=== PATIENT | female | born 1940 | race Caucasian/White ===

== ENCOUNTER 2016-12-25 15:20 | Inpatient (IN) ==
--- NOTE | 2016-12-25 15:47 | Emergency Department Note ---
Disposition Clinical Impression: Confusion Pneumonia Qualifiers: Pneumonia type: due to unspecified organism Laterality: right Lung location: lower lobe of lung Qualified Code(s): J18.1 - Lobar pneumonia, unspecified organism Disposition: Admitted As Inpatient Condition: Fair Referrals: Sofya Faith MD [Primary Care Provider] - Forms: ED Satisfaction Letter Time of Disposition: 16:29 SOB HPI - General Chief Complaint: ED Shortness of Breath/Dyspnea Stated Complaint: CHARBEL, AMS Time Seen by Provider: 12/25/16 15:24 Source: patient, EMS Mode of arrival: EMS Limitations: no limitations Nursing Notes Reviewed: Yes Vital Signs Reviewed: Yes - History of Present Illness 76-year-old with a history of lung cancer comes in with increasing shortness of breath fever cough and congestion. Patient was seen at the cancer center and sent here due to possible infection. Patient is awake and alert and is able to answer questions without difficulty. Pt Subjective Complaint: shortness of breath, cough Onset (ago): Just [employer] Context: recent illness Severity: moderate Consistency/Duration: constant Improves with: nothing Worsens with: nothing Known history of: COPD, other (Lung cancer) Associated symptoms: Reports: fever, cough Treatment prior to arrival: none Cough present: Yes Cough Description: Involuntary, Productive Cough Frequency: Intermittent Sputum Amount: Small Sputum Color: White - Related Data Home Medications Medication Instructions Recorded Confirmed Atorvastatin [Lipitor] 40 mg PO HS 04/25/15 12/25/16 Diltiazem HCl [Diltiazem 24Hr Cd] 120 mg PO BID 04/25/15 12/25/16 Docusate [Colace] 100 mg PO DAILY PRN 04/25/15 12/25/16 Ergocalciferol (VITAMIN D2) 50,000 unit PO QWEEK 04/25/15 12/25/16 [Drisdol (50,000 Unit)] Metoprolol XL (24 HR) Succ [Toprol 25 mg PO DAILY 04/25/15 12/25/16 XL] Nitroglycerin [Nitrostat] 0.4 mg SL Q5M PRN 04/25/15 12/25/16 Pantoprazole Sodium [Protonix] 40 mg PO DAILY 04/25/15 12/25/16 Tiotropium [Spiriva] 18 mcg IH HS 04/25/15 12/25/16 Acetaminophen [Tylenol] 650 mg PO Q6HR PRN 08/25/16 12/25/16 Albuterol Sulfate [Ventolin Hfa] 18 gm IH BID PRN 08/25/16 12/25/16 Calcium Carbonate/Magnesium Ox 1 each PO DAILY 08/25/16 12/25/16 [Oyster Shell Calcium-Magnes Tb] Citalopram [CeleXA] 20 mg PO HS 10/24/16 12/25/16 Dexamethasone [Decadron] 4 mg PO DAILY 10/24/16 12/04/16 Lidocaine/Prilocaine CREAM [Emla] 5 gm TP PRN PRN 10/24/16 12/25/16 Magic Mouthwash [Magic Mouthwash 10 ml PO TID PRN 10/24/16 12/25/16 BLM] Omeprazole 20 mg PO DAILY 10/24/16 12/25/16 Ondansetron HCl 8 mg PO Q8H PRN 10/24/16 12/25/16 Prochlorperazine Maleate 10 mg PO Q6HR PRN 10/24/16 12/25/16 [Compazine] Previous Rx's Medication Instructions Recorded Rivaroxaban [Xarelto] 20 mg PO DAILY #30 tablet 12/04/16 LORazepam [Ativan] 0.5 mg PO Q6H PRN #60 tablet 12/11/16 Allergies Allergy/AdvReac Type Severity Reaction Status Date / Time Penicillins [PCN] Allergy Intermediate Hives Verified 12/04/16 11:28 Sulfa (Sulfonamide Allergy Intermediate Hives Verified 12/04/16 11:28 Antibiotics) All systems ED: reviewed and negative except as stated. Constitutional: Reports: fever. Denies: chills, weakness, weight change Eyes: Denies: eye pain, eye discharge, vision change ENT ED: Denies: ear pain, throat pain, dental pain, hearing loss, epistaxis, congestion, dysphagia Cardiovascular: Denies: chest pain, palpitations, dyspnea on exertion, edema, syncope Respiratory: Reports: cough. Denies: dyspnea, wheezes, hemoptysis, stridor Gastrointestinal: Denies: abdominal pain, nausea, vomiting, diarrhea, constipation, hematemesis, melena, hematochezia Genitourinary: Denies: dysuria, frequency, hematuria, discharge Musculoskeletal: Denies: back pain, neck pain, arthralgia, myalgia Integumentary: Denies: rash, abrasion, lesions Neurological: Denies: headache, weakness, numbness, paresthesias, confusion, abnormal gait, vertigo Psychiatric: Denies: anxiety, depression, suicidal thoughts, homicidal thoughts , auditory hallucinations, visual hallucinations Endocrine: Denies: fatigue Hematological/Lymphatic: Denies: easy bleeding, easy bruising Allergic/Immunologic: Denies: facial swelling, urticaria Past Medical History - Past Medical History Medical history: Reports: aortic aneurysm, atrial fibrillation, cancer, DVT, diabetes, GERD, hyperlipidemia, hypertension, myocardial infarction, other Surgical history: Reports: cholecystectomy, hysterectomy, MIHAELA/BSO, ureteral stent, other Psychiatric history: Reports: no psych history DIETITIAN ASSISTANT history: Reports: no DIETITIAN ASSISTANT history - Social History Smoking Status: Former smoker Smokeless Tobacco Status: No Alcohol use: Reports: none Drug use: Reports: none Physical Exam - General General appearance: alert, in no apparent distress - Head Head exam: atraumatic, normocephalic, normal inspection - Eye Eye exam: Present: normal appearance, PERRL, EOMI - ENT ENT exam: normal exam, normal oropharynx, mucous membranes moist - Neck Neck exam: Present: normal inspection, full ROM, trachea midline - Chest Chest inspection: Present: normal inspection, symmetric chest wall rise - Respiratory Respiratory exam: Present: wheezes, prolonged expiratory phase - Cardiovascular Cardiovascular exam: Present: regular rate, normal rhythm, normal heart sounds - Abdominal Exam Abdominal exam: Present: soft, Non-Tender. Absent: tenderness, distention, guarding, rebound, rigidity - Extremities Exam Extremities exam: Present: normal inspection, full ROM. Absent: tenderness, pedal edema - Expanded Lower Extremity Exam Neurovascular/Tendon exam: Absent: motor deficit, sensory deficit, tendon deficit Gait: observed and normal - Back Exam Back exam: Present: normal inspection, full ROM. Absent: tenderness - Neurological Exam Neurological exam: Present: alert, oriented X3 - Psychiatric Psychiatric exam: Present: normal affect, normal mood - Skin Skin exam: Present: warm, dry, intact, normal color Course - Reevaluation(s) Reevaluation #1: Patient is tachycardic at 107 however she does have a temperature 101.7. The tachycardia is certainly in part a reflection of her temperature. I did review her previous notes and she had an echo done in 2013 which showed an EF of 40%. Not going to give her the 30 mL per kilo bolus at this point in time we'll give her Tylenol and see if that doesn't impact her heart rate. Time: 16:28 - Consultations Consultation #1: Discussed with Mary Corrales nurse practitioner admit. Time: 17:37 Vital Signs Temperature 101.7 F H 12/25/16 15:21 Pulse Rate 107 12/25/16 15:21 Respiratory Rate 24 12/25/16 15:21 Blood Pressure 128/75 12/25/16 15:21 O2 Sat by Pulse Oximetry 95 12/25/16 15:21 Temperature 101.7 F H 12/25/16 15:21 Pulse Rate 105 12/25/16 16:30 Respiratory Rate 16 12/25/16 16:30 Blood Pressure 134/112 12/25/16 16:30 O2 Sat by Pulse Oximetry 97 12/25/16 16:30 Oxygen Delivery Oxygen Delivery Nasal Cannula Shortness of Breath/Dyspnea - Lab Data Lab results reviewed: Yes I reviewed the patient's lab results. Result diagrams: 12/25/16 14:00 12/25/16 14:00 Lab Results 12/25/16 12/25/16 12/25/16 Range/Units 14:00 14:00 14:00 WBC 5.1 (4.3-11.1) K/mcL RBC 2.67 L (3.82-4.97) M/mcL Hgb 8.4 L (11.5-15.4) g/dL Hct 25.9 L (35.3-44.9) % MCV 97.0 (83.0-100.0) fL MCH 31.5 (28.0-33.3) pg MCHC 32.4 (31.6-35.5) g/dL RDW 21.4 H (11.5-14.5) % Plt Count 146 (140-400) K/mcL MPV 10.2 (9.4-12.4) fL Immature Gran % 0.4 (0-4) % Seg Neutrophils % 81.0 % Lymphocytes % 10.7 % Monocytes % 7.3 % Eosinophils % 0.4 % Basophils % 0.2 % Neutrophils # 4.1 (1.6-8.9) K/mcL Lymphocytes # 0.5 L (0.6-4.6) K/mcL Monocytes # 0.4 (0.0-1.3) K/mcL Eosinophils # 0.0 (0.0-0.6) K/mcL Basophils # 0.0 (0.0-0.2) K/mcL Sodium 137 (136-145) mEq/L Potassium 3.4 L (3.5-4.5) mEq/L Chloride 104 (98-109) mEq/L Carbon Dioxide 22 (19-29) mEq/L BUN 13 (7-20) mg/dL Creatinine 1.03 (0.57-1.11) mg/dL Est GFR ( Amer) > 60 (> 60) Est GFR (Non-Af Amer) 52 L (> 60) BUN/Creatinine Ratio 13 (6-26) Glucose 117 H (70-99) mg/dL POC Glucose (58-89) Calculated Osmolality 285 (280-300) Lactic Acid 1.1 (0.5-2.2) mmol/L Calcium 9.0 (8.6-10.8) mg/dL Troponin I (0-0.03) ng/mL B-Natriuretic Peptide (0-100) pg/mL 12/25/16 12/25/16 12/25/16 Range/Units 14:00 14:00 15:56 WBC (4.3-11.1) K/mcL RBC (3.82-4.97) M/mcL Hgb (11.5-15.4) g/dL Hct (35.3-44.9) % MCV (83.0-100.0) fL MCH (28.0-33.3) pg MCHC (31.6-35.5) g/dL RDW (11.5-14.5) % Plt Count (140-400) K/mcL MPV (9.4-12.4) fL Immature Gran % (0-4) % Seg Neutrophils % % Lymphocytes % % Monocytes % % Eosinophils % % Basophils % % Neutrophils # (1.6-8.9) K/mcL Lymphocytes # (0.6-4.6) K/mcL Monocytes # (0.0-1.3) K/mcL Eosinophils # (0.0-0.6) K/mcL Basophils # (0.0-0.2) K/mcL Sodium (136-145) mEq/L Potassium (3.5-4.5) mEq/L Chloride (98-109) mEq/L Carbon Dioxide (19-29) mEq/L BUN (7-20) mg/dL Creatinine (0.57-1.11) mg/dL Est GFR ( Amer) (> 60) Est GFR (Non-Af Amer) (> 60) BUN/Creatinine Ratio (6-26) Glucose (70-99) mg/dL POC Glucose 138 H (58-89) Calculated Osmolality (280-300) Lactic Acid (0.5-2.2) mmol/L Calcium (8.6-10.8) mg/dL Troponin I 0.03 (0-0.03) ng/mL B-Natriuretic Peptide 602 H (0-100) pg/mL - Radiology Data Radiology results reviewed: Yes I reviewed the patient's radiology results. Chest X-Ray 12/25/16 15:32 IMPRESSION: Increasing nodular opacity in the right base with new mild patchy opacity in in the adjacent right lower lung and left mid lung. Findings may represent progressive disease or superimposed pneumonia. Clinical correlation and follow-up recommended. D/ / Mariel Contreras MD / Mariel Contreras MD Interpreting Provider: Mariel Contreras MD
[2016-12-25] MEDS ORDERED: Ipratropium/Albuterol Neb 3 ML IH ONE (16:06)
[2016-12-25 16:41] LABS: Basophils % 0.2 %; Eosinophils % 0.4 %; Hematocrit 25.9 % (35.3-44.9); Hemoglobin 8.4 g/dL (11.5-15.4); Immature Granulocytes % 0.4 % (0-4); Lymphocytes # 0.5 K/mcL (0.6-4.6); Lymphocytes % 10.7 %; Mean Corpuscular HGB Conc 32.4 g/dL (31.6-35.5); Mean Corpuscular Hemoglobin 31.5 pg (28.0-33.3); Mean Platelet Volume 10.2 fL (9.4-12.4); Monocytes # 0.4 K/mcL (0.0-1.3); Monocytes % 7.3 %; Neutrophils # 4.1 K/mcL (1.6-8.9); Platelet Count 146 K/mcL (140-400); Red Blood Count 2.67 M/mcL (3.82-4.97); Red Cell Distribution Width 21.4 % (11.5-14.5)
[2016-12-25 16:56] LABS: BUN/Creatinine Ratio 13 (6-26); Blood Urea Nitrogen 13 mg/dL (7-20); Carbon Dioxide 22 mEq/L (19-29); Chloride 104 mEq/L (98-109); Glucose 117 mg/dL (70-99); Osmolality,Calculated 285 (280-300); Potassium 3.4 mEq/L (3.5-4.5); Sodium 137 mEq/L (136-145); eGFR For African Americans > 60 (> 60); eGFR For Non-African Americans 52 (> 60)
[2016-12-25] MEDS ORDERED: Levofloxacin 750 MG/150 ML 750 MG/150 ML BAG IVPB ONE (17:04)
[2016-12-25 17:40] LABS: Activated Partial Thrombo Time 38.7 Seconds (26.0-36.0); INR 2.8; Prothrombin Time 30.8 Seconds (9.4-12.1)
[2016-12-25 18:14] LABS: Bilirubin,Urine Negative (Negative); Blood,Urine Large (Negative); Clarity,Urine Cloudy (Clear); Glucose,Urine (UA) Normal (Normal); Ketones,Urine Negative (Negative); Leukocyte Esterase,Urine Moderate (Negative); Nitrite,Urine Negative (Negative); PH,Urine 6.5 pH Units (5.0-8.0); Protein,Urine 100 mg/dL (Neg-Trace); Specific Gravity,Urine 1.013 (1.010-1.025); Urobilinogen,Urine Normal (Normal)
[2016-12-25 18:15] LABS: Color,Urine Red (Yellow)
[2016-12-25] MEDS ORDERED: Naloxone 0.4 MG/ML INJ IVP PRN (19:59)
[2016-12-25] MEDS ORDERED: Acetaminophen 325 MG TABLET PO PRN (19:59)
[2016-12-25] MEDS ORDERED: *HR* OxyCODONE Immed Rel 5 MG TABLET PO PRN (19:59)
[2016-12-25] MEDS ORDERED: *HR* Morphine 2 MG/ML SYRINGE IVP PRN (19:59)
[2016-12-25] MEDS ORDERED: Ondansetron 4 MG/2 ML VIAL IVP PRN (19:59)
[2016-12-25] MEDS ORDERED: 0.9 % Sodium Chloride 1,000 ML IVC SCH (20:00)
[2016-12-25] MEDS ORDERED: Nitroglycerin 0.4 MG TAB.SUBL SL PRN (20:04)
--- NOTE | 2016-12-25 20:09 | Internal Med History&Physical ---
Date of Encounter: 12/25/16 Time of Encounter: 20:07 Assessment and Plan (1) HCAP (healthcare-associated pneumonia) Current visit: Yes Status: Acute Sepsis secondary to healthcare associated pneumonia present upon admission the patient was on chemotherapy recently, having fevers and tachycardic Continue Levaquin and add cefepime, consider vancomycin if needed Continue IV fluids, blood cultures, order lactic acid Emily IV for GI prophylaxis and DVT prophylaxis with sequential compression devices. The patient will be admitted as inpatient, expected to stay more than 2 midnights. DNR CC arrest DNI. Time spent on this admission 45 minutes. High risk due to sepsis (2) Sepsis Current visit: Yes Status: Acute Qualifiers: Sepsis type: sepsis due to unspecified organism Qualified Code(s): A41.9 - Sepsis, unspecified organism (3) A-fib Current visit: Yes Status: Acute Hold Xarelto possible GI bleed next Continue metoprolol and diltiazem Qualifiers: Atrial fibrillation type: paroxysmal Qualified Code(s): I48.0 - Paroxysmal atrial fibrillation (4) COPD (chronic obstructive pulmonary disease) Current visit: Yes Status: Acute Continue DuoNeb's will consider steroids No exacerbation of the moment Qualifiers: COPD type: COPD with acute lower respiratory infection Qualified Code(s): J44.0 - Chronic obstructive pulmonary disease with acute lower respiratory infection (5) Hypokalemia Current visit: Yes Status: Acute Replete as needed (6) Diabetes Current visit: Yes Status: Acute Order insulin sliding scale Qualifiers: Diabetes mellitus type: type 2 Diabetes mellitus complication status: without complication Diabetes mellitus half-way insulin use: without manager r d use Qualified Code(s): E11.9 - Type 2 diabetes mellitus without complications (7) Anemia Current visit: No Status: Acute Acute blood loss anemia likely secondary to GI bleed upper versus lower, not active at the moment The patient is stable Monitor CBC, whole Xarelto, consult GI Consider transfusion Qualifiers: Anemia type: unspecified type Qualified Code(s): D64.9 - Anemia, unspecified (8) Bilateral edema of lower extremity Current visit: No Status: Acute Order an echocardiogram to evaluate cardiac function (9) Lung cancer Current visit: No Status: Acute Qualifiers: Laterality: unspecified laterality Lung location: unspecified part of lung Qualified Code(s): C34.90 - Malignant neoplasm of unspecified part of unspecified bronchus or lung Internal Medicine - H&P: HPI Chief complaint: Fever Admitted From: Emergency Dept History of present illness: Ms. Preston is a 76 year old female with a past medical history of lung cancer status post chemotherapy and radiation, COPD not oxygen dependent, CAD, atrial fibrillation and DVT currently on Xarelto, diabetes type 2 not insulin- dependent. The patient came to the emergency room after visiting her cancer physician, apparently she was having fevers and a productive cough for the past few days. She went to see her cancer physician as her feet have been bothering her, they have been very swollen. Over there, her heart rate was noticed to be elevated, done in the emergency room her heart rate was 115, she has been having known quantified fevers on and off hemoglobin was 8.4, Hemoccult was positive. Her INR is 2.8 and potassium 3.4. A chest x-ray showed a right lower lobe opacity and a new left middle opacity. The patient has been bringing up yellowish phlegm, denies any sick contacts but received hemotherapy about 2 months ago. She has been more fatigued complain of chills. Past Med Surg Social Fam HX - Past Medical History Medical history: aortic aneurysm (Status post repair/AAA 11.8 cm infrarenal), atrial fibrillation (On anticoagulation), cancer (Lung cancer status post chemotherapy and radiation), COPD (Not oxygen dependent), coronary artery disease, DVT, diabetes (Not insulin-dependent), GERD, hyperlipidemia, hypertension, myocardial infarction, other (Depression, anxiety, vitamin D deficiency, DVT, CAD) Psychiatric history: no psych history - Past Surgical History Surgical History: cholecystectomy, hysterectomy, MIHAELA/BSO, ureteral stent, other (Left upper chest Port-A-Cath, tracheostomy after AAA repair/stent) - Social History Smoking Status: Former smoker Packs per day: Smoked 2 packs per day for 45 years, quit 5 years ago Smokeless Tobacco Status: No Alcohol use: none Drug use: none - Additional Family History Additional family history: Brother with CAD, father with bone cancer, son with diabetes, mother with CAD Internal Medicine - H&P: Meds Atorvastatin [Lipitor] 40 mg PO HS 04/25/15 [History] Diltiazem HCl [Diltiazem 24Hr Cd] 120 mg PO BID 04/25/15 [History] Docusate [Colace] 100 mg PO DAILY PRN 04/25/15 [History] Ergocalciferol (VITAMIN D2) [Drisdol (50,000 Unit)] 50,000 unit PO QWEEK [History] Metoprolol XL (24 HR) Succ [Toprol XL] 25 mg PO DAILY 04/25/15 [History] Nitroglycerin [Nitrostat] 0.4 mg SL Q5M PRN 04/25/15 [History] Pantoprazole Sodium [Protonix] 40 mg PO DAILY 04/25/15 [History] Tiotropium [Spiriva] 18 mcg IH HS 04/25/15 [History] Acetaminophen [Tylenol] 650 mg PO Q6HR PRN 08/25/16 [History] Albuterol Sulfate [Ventolin Hfa] 18 gm IH BID PRN 08/25/16 [History] Calcium Carbonate/Magnesium Ox [Oyster Shell Calcium-Magnes Tb] 1 each PO DAILY 08/25/16 [History] Citalopram [CeleXA] 20 mg PO HS 10/24/16 [History] Dexamethasone [Decadron] 4 mg PO DAILY 10/24/16 [History] Lidocaine/Prilocaine CREAM [Emla] 5 gm TP PRN PRN 10/24/16 [History] Magic Mouthwash [Magic Mouthwash BLM] 10 ml PO TID PRN 10/24/16 [History] Omeprazole 20 mg PO DAILY 10/24/16 [History] Ondansetron HCl 8 mg PO Q8H PRN 10/24/16 [History] Prochlorperazine Maleate [Compazine] 10 mg PO Q6HR PRN 10/24/16 [History] Rivaroxaban [Xarelto] 20 mg PO DAILY #30 tablet 12/04/16 [Rx] LORazepam [Ativan] 0.5 mg PO Q6H PRN #60 tablet 12/11/16 [Rx] Allergies Penicillins [PCN] Allergy (Intermediate, Verified 12/04/16 11:28) Hives Sulfa (Sulfonamide Antibiotics) Allergy (Intermediate, Verified 12/04/16 11:28) Hives All Systems PM: A 10-system review of systems was performed and is negative for pertinent findings except as documented above in the HPI. Review of systems: Denies any chest pain, no dysuria, other systems out of the 10 reviewed were negative - Constitutional Vitals: Temp Pulse Resp BP Pulse Ox 98.0 F 98 16 122/76 97 12/25/16 19:03 12/25/16 19:03 12/25/16 19:03 12/25/16 19:03 12/25/16 19:03 General appearance: Present: A&O X 3 - Head Head exam: Present: atraumatic, normocephalic - Eye Eye exam: Present: PERRL, conjuntiva pink, sclera anicteric Pupils: Present: PERRL - Neck Neck exam general surgery: Present: supple, trachea midline. Absent: lymphadenopathy - Respiratory Respiratory exam: Present: CTAB, rales (Bibasilar fine crackles). Absent: accessory muscle use, rhonchi, wheezes Additional comments: Left upper chest Port-A-Cath no signs of infection - Cardiovascular Cardiovascular exam: Present: RRR, +S1, +S2. Absent: diastolic murmur, gallop, rubs, systolic murmur - GI/Abdominal GI/Abdominal exam: Present: distended (Morbidly obese), normal bowel sounds, soft, no peritoneal signs. Absent: tenderness - Extremities Exam Extremities exam: Present: pedal edema (+2 pitting edema both lower extremities) , warm, radial pulses palpable and symetrical. Absent: calf tenderness, cyanotic - Neurological Exam Neurological exam: Present: CN II-XII intact, oriented X3, no focal deficits. Absent: pronater drift, facial droop, speech deficit - Skin Skin exam: Present: dry, intact Internal Med - H&P Results - Labs CBC & Chem 7: 12/25/16 14:00 12/25/16 14:00
[2016-12-25] MEDS ORDERED: D5% in Water 1,000 ML IVC PRN (20:15)
[2016-12-25] MEDS ORDERED: Dextrose Gel 15 GM PO PRN ×2 (20:15)
[2016-12-25] MEDS ORDERED: *HR* Dextrose 50 % in Water (Syg) 50 ML SYRINGE IVP PRN (20:15)
[2016-12-25] MEDS: Pantoprazole 40 MG VIAL IVP SCH (21:17)
[2016-12-25] MEDS: Cefepime HCl 1,000 MG in D5% in Water (Mini-Bag+) 100 ML IVPB SCH (21:18)
[2016-12-25] MEDS: Insulin LISPRO 300 UNITS/3 ML VIAL SQ SCH (21:32)
[2016-12-25] MEDS: Diltiazem CD (24hr) 120 MG CAPSULE PO SCH (21:35)
[2016-12-25] MEDS: Ipratropium/Albuterol Neb 3 ML IH SCH (23:03)
[2016-12-26] MEDS: Insulin LISPRO 300 UNITS/3 ML VIAL SQ SCH ×5 (01:16→22:29)
[2016-12-26] MEDS: Ipratropium/Albuterol Neb 3 ML IH SCH ×4 (03:53→22:51)
[2016-12-26 05:25] LABS: Eosinophils # 0.1 K/mcL (0.0-0.6); Eosinophils % 1.7 %; Hematocrit 23.6 % (35.3-44.9); Hemoglobin 7.6 g/dL (11.5-15.4); Immature Granulocytes % 0.8 % (0-4); Lymphocytes # 0.4 K/mcL (0.6-4.6); Mean Corpuscular HGB Conc 32.2 g/dL (31.6-35.5); Mean Corpuscular Hemoglobin 31.1 pg (28.0-33.3); Mean Corpuscular Volume 96.7 fL (83.0-100.0); Mean Platelet Volume 9.8 fL (9.4-12.4); Monocytes # 0.4 K/mcL (0.0-1.3); Neutrophils # 2.7 K/mcL (1.6-8.9); Platelet Count 127 K/mcL (140-400); Red Blood Count 2.44 M/mcL (3.82-4.97); Red Cell Distribution Width 21.2 % (11.5-14.5); Segmented Neutrophils % 75.5 %
[2016-12-26 05:30] LABS: BUN/Creatinine Ratio 13 (6-26); Blood Urea Nitrogen 13 mg/dL (7-20); Calcium 8.6 mg/dL (8.6-10.8); Carbon Dioxide 23 mEq/L (19-29); Chloride 109 mEq/L (98-109); Glucose 111 mg/dL (70-99); Osmolality,Calculated 289 (280-300); Potassium 3.5 mEq/L (3.5-4.5); Sodium 139 mEq/L (136-145); eGFR For African Americans > 60 (> 60); eGFR For Non-African Americans 55 (> 60)
[2016-12-26 05:34] LABS: INR 2.2; Prothrombin Time 24.1 Seconds (9.4-12.1)
[2016-12-26] MEDS: Cefepime HCl 1,000 MG in D5% in Water (Mini-Bag+) 100 ML IVPB SCH ×2 (06:45→17:25)
[2016-12-26] MEDS: Pantoprazole 40 MG VIAL IVP SCH ×2 (10:00→22:29)
[2016-12-26] MEDS: Diltiazem CD (24hr) 120 MG CAPSULE PO SCH (10:00)
[2016-12-26] MEDS: Metoprolol XL (24 HR) Succ 25 MG TAB.ER.24H PO SCH (10:00)
[2016-12-26] MEDS: Levofloxacin 750 MG/150 ML 750 MG/150 ML BAG IVPB SCH (10:01)
--- NOTE | 2016-12-26 10:41 | Electrocardiograph Report ---
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
--- NOTE | 2016-12-26 10:43 | Internal Med Progress Note ---
Date of Encounter: 12/26/16 Time of Encounter: 10:41 - Assessment and plan (1) Anemia Current Visit: Yes Status: Acute Assessment and plan: Patient's baseline hemoglobin is noted to be around 11-12, 2 months back and is currently 7.6. Stool occult blood is noted to be positive although patient reports no history of melena or hematochezia or hematemesis. Will check iron profile, vitamin B12 and folic acid levels. GI consult for possible colonoscopy. Qualifiers: Anemia type: unspecified type Qualified Code(s): D64.9 - Anemia, unspecified (2) CHF (congestive heart failure) Current Visit: Yes Status: Acute Assessment and plan: Patient's fatigue, dyspnea, pedal edema could be explained by both acute CHF and anemia. Echocardiogram shows decreased ejection fraction at 40%, mild to moderate mitral regurgitation, mild aortic regurgitation. Discussed with cardiology, review of patient's previous medical records show known history of systolic CHF and previous left heart catheterization with recommendations for medical management. Will start IV Lasix and fluid restriction, continue beta yadira. Monitor urine output closely. Telemetry monitoring. Supplemental oxygen as needed and supportive care. Physical and occupational therapy evaluation. Qualifiers: Congestive heart failure type: systolic Congestive heart failure chronicity : acute on chronic Qualified Code(s): I50.23 - Acute on chronic systolic ( congestive) heart failure (3) Sepsis Current Visit: Yes Status: Acute Assessment and plan: Likely secondary to pneumonia, present on admission. Patient presents with fever, slightly elevated troponin, mild lactic acidosis, probably related to healthcare associated pneumonia. Continue IV antibiotics and trend serum lactic acid level. Further Plan as below. Qualifiers: Sepsis type: sepsis due to unspecified organism Qualified Code(s): A41.9 - Sepsis, unspecified organism (4) HCAP (healthcare-associated pneumonia) Current Visit: Yes Status: Acute Assessment and plan: Patient presented with fever and shortness of breath and generalized weakness. Chest x-ray shows bilateral infiltrates, right-sided changes may be related to lung cancer and recent radiation treatments but she also has left-sided infiltrates. She received IV hydration and serum lactic acid level is normalizing at this time. Continue broad-spectrum IV antibiotics due to underlying immunosuppression and follow-up blood cultures. Supplemental oxygen and supportive care. (5) CKD (chronic kidney disease) Current Visit: Yes Status: Chronic Assessment and plan: Serum creatinine noted to be at baseline. Continue to monitor closely. Antibiotics to be dosed according to current creatinine clearance. Qualifiers: Chronic kidney disease stage: stage 3 (moderate) Qualified Code(s): N18.3 - Chronic kidney disease, stage 3 (moderate) (6) Lung cancer Current Visit: Yes Status: Chronic Assessment and plan: Patient follows with oncology as outpatient for right lung adenocarcinoma, currently receiving chemoradiation. Qualifiers: Laterality: right Lung location: lower lobe of lung Qualified Code(s): C34.31 - Malignant neoplasm of lower lobe, right bronchus or lung (7) Bilateral edema of lower extremity Current Visit: Yes Status: Acute Assessment and plan: Could be related to anemia and CHF. Anemia workup as above and continue IV Lasix for now. (8) A-fib Current Visit: Yes Status: Chronic Assessment and plan: Continue beta yadira and calcium channel yadira. Currently rate controlled. Noted to be on Xarelto for long-term anticoagulation, which is currently held due to possible GI bleed and anemia. Telemetry monitoring. Qualifiers: Atrial fibrillation type: paroxysmal Qualified Code(s): I48.0 - Paroxysmal atrial fibrillation (9) COPD (chronic obstructive pulmonary disease) Current Visit: Yes Status: Chronic Qualifiers: COPD type: unspecified COPD Qualified Code(s): J44.9 - Chronic obstructive pulmonary disease, unspecified (10) Diabetes Current Visit: Yes Status: Chronic Assessment and plan: Accu-Chek blood glucose monitoring with sliding scale insulin. Diabetic diet. Check hemoglobin A1c. Qualifiers: Diabetes mellitus type: type 2 Diabetes mellitus complication status: with kidney complications Diabetes mellitus complication detail: with chronic kidney disease Diabetes mellitus [facility] insulin use: without [facility] use Chronic kidney disease stage: stage 3 (moderate) Qualified Code(s): E11.22 - Type 2 diabetes mellitus with diabetic chronic kidney disease; N18.3 - Chronic kidney disease, stage 3 (moderate) - Subjective Interval history: Feels better; slightly improved dyspnea but still has exertional dyspnea, leg swelling and generalized weakness; no nausea, vomiting, melena/hematochezia reported; - Constitutional Vitals: Temp Pulse Resp BP Pulse Ox 98.6 F 94 18 109/67 95 12/26/16 06:21 12/26/16 06:21 12/26/16 06:21 12/26/16 06:21 12/26/16 06:21 General appearance: Present: A&O X 3, answers questions appropriately - Respiratory Respiratory exam: Present: rales (B/L basal crackles+). Absent: accessory muscle use, rhonchi, wheezes - Cardiovascular Cardiovascular exam: Present: irregular rhythm, +S1, +S2. Absent: diastolic murmur, gallop, rubs, systolic murmur - GI/Abdominal GI/Abdominal exam: Present: normal bowel sounds, soft, no peritoneal signs. Absent: distended, tenderness - Extremities Exam Extremities exam: Present: full ROM, pedal edema (2+ pitting edema B/L legs), warm, radial pulses palpable and symetrical. Absent: calf tenderness, cyanotic - Neurological Exam Neurological exam: Present: CN II-XII intact, oriented X3, no focal deficits. Absent: pronater drift, facial droop, speech deficit - Skin Skin exam: Present: dry, intact, pallor Internal Medicine: Result - Labs CBC & Chem 7: 12/26/16 05:12 12/26/16 05:12 Labs: Short CBC 12/26/16 Range/Units 05:12 WBC 3.6 L (4.3-11.1) K/mcL Hgb 7.6 L (11.5-15.4) g/dL Hct 23.6 L (35.3-44.9) % Plt Count 127 L (140-400) K/mcL Neutrophils # 2.7 (1.6-8.9) K/mcL BMP 12/26/16 05:12 Sodium 139 Potassium 3.5 Chloride 109 Carbon Dioxide 23 BUN 13 Creatinine 0.99 Glucose 111 H Calcium 8.6 - ABG Interpretation ABG results: PT/INR, D-dimer PT 24.1 Seconds (9.4-12.1) H 12/26/16 05:12 Consult Discharge Plan - Plan Referrals: Sofya Faith MD [Primary Care Provider] -
--- NOTE | 2016-12-26 11:45 | Gastroenterology Consult Note ---
<Vishal Clement - Last Filed: 12/26/16 11:42> Date of Encounter: 12/26/16 Time of Encounter: 10:45 - Assessment and plan (1) Anemia Current Visit: No Status: Acute Assessment and plan: Continue to monitor CBC and transfuse PRBC as needed. Plan for EGD and colonoscopy likely on Saturday, but will need INR corrected prior to scopes. Clear liquid diet tomorrow, no red or purple. NPO at midnight night. If unable tolerate NuLytely please use MiraLAX prep. If not clear by 6 AM Saturday , give 2 tap water enemas. Qualifiers: Anemia type: unspecified type Qualified Code(s): D64.9 - Anemia, unspecified (2) Supratherapeutic INR Current Visit: Yes Status: Acute Assessment and plan: INR 2.8 on admission, today INR 2.2. Will need INR <1.5 for EGD and colonoscopy. (3) Lung cancer Current Visit: No Status: Acute Qualifiers: Laterality: unspecified laterality Lung location: unspecified part of lung Qualified Code(s): C34.90 - Malignant neoplasm of unspecified part of unspecified bronchus or lung (4) COPD (chronic obstructive pulmonary disease) Current Visit: Yes Status: Acute Assessment and plan: Management per primary team. Qualifiers: COPD type: COPD with acute lower respiratory infection Qualified Code(s): J44.0 - Chronic obstructive pulmonary disease with acute lower respiratory infection (5) CKD (chronic kidney disease) Current Visit: Yes Status: Acute Assessment and plan: Management per primary team. Qualifiers: Qualified Code(s): N18.9 - Chronic kidney disease, unspecified (6) CHF (congestive heart failure) Current Visit: Yes Status: Acute Assessment and plan: Management per primary team Qualifiers: Congestive heart failure type: unspecified congestive heart failure type Congestive heart failure chronicity: unspecified congestive heart failure chronicity Qualified Code(s): I50.9 - Heart failure, unspecified - Time Spent With Patient Total time spent is greater than 50% in coordination of care (as documented) at patient's floor/unit and/or counseling patient: GI History of Present Illness - Data of Consult Patient: new to practice Consult date: 12/26/16 Requesting Physician: Vanessa Martinez MD - Consult Narrative Reason for consult: Anemia History of present illness: Ms. Preston is a 76 year old female with PMHx of aortic aneurysm (s/p repair), A fib (on Xarelto), lung cancer (s/p chemotherapy and radiation), COPD, CAD, DVT, DM, GERD, HLD, HTN, [place] who presented to the ED from her oncologist with tachycardia, fevers, and productive cough for the past few days. In the ED Hgb was 8.4 and INR 2.8. CXR c/w pnemonia. We have been consulted to evaluate her anemia. In the ED FOBT was positive. Hgb this AM 7.6. Procedures: Colonoscopy 07/30/2013 Dr. Álvarez: Tubular adenoma NSAIDs: None Anticoagulation: Xarelto Past Med Surg Social Fam HX - Past Medical History Medical history: aortic aneurysm (Status post repair/AAA 11.8 cm infrarenal), atrial fibrillation (On anticoagulation), cancer (Lung cancer status post chemotherapy and radiation), COPD (Not oxygen dependent), coronary artery disease, DVT, diabetes (Not insulin-dependent), GERD, hyperlipidemia, hypertension, myocardial infarction, other (Depression, anxiety, vitamin D deficiency, DVT, CAD) Psychiatric history: no psych history - Past Surgical History Surgical History: cholecystectomy, hysterectomy, MIHAELA/BSO, ureteral stent, other (Left upper chest Port-A-Cath, tracheostomy after AAA repair/stent) - Social History Smoking Status: Former smoker Packs per day: Smoked 2 packs per day for 45 years, quit 5 years ago Smokeless Tobacco Status: No Alcohol use: none Drug use: none - Gastrointestinal Gastrointestinal: Present: as per HPI - Constitutional Constitutional: as per HPI - EENT Eyes: as per HPI Ears: Present: as per HPI Nose, mouth and throat: Present: as per HPI - Cardiovascular Cardiovascular ROS: Present: as per HPI - Respiratory Respiratory IM: Present: as per HPI - Genitourinary Genitourinary: Absent: change in color, Urinary frequency - Neurological ROS Neurological GI: Present: as per HPI - Hematologic/Lymphatic Hematologic/Lymphatic pediatric: Present: as per HPI - Musculoskeletal Musculoskeletal ROS GI: Present: as per HPI - Integumentary Integumentary GI: Present: as per HPI - Psychiatric ROS Psychiatric GI: Present: as per HPI - Endocrine Endocrine IM: Present: as per HPI - Constitutional Vitals: Temp Pulse Resp BP Pulse Ox 98.4 F 100 18 107/59 94 12/26/16 11:19 12/26/16 11:19 12/26/16 11:19 12/26/16 11:19 12/26/16 11:19 General appearance: Present: cooperative, A&O X 3, no acute distress, answers questions appropriately - Head Head exam: Present: atraumatic, normocephalic - Eye Eye exam: Present: normal appearance, sclera anicteric - ENT ENT exam: Present: mucous membranes dry - Neck Neck exam general surgery: Present: normal inspection, trachea midline - Respiratory Respiratory exam: Present: rales, wheezes. Absent: CTAB - Cardiovascular Cardiovascular exam: Present: RRR, +S1, +S2 - GI/Abdominal GI/Abdominal exam: Present: normal bowel sounds, soft, no peritoneal signs. Absent: distended, firm, guarding, tenderness - Rectal Rectal exam: Present: deferred - Extremities Exam Extremities exam: Present: warm - Neurological Exam Neurological exam: Present: no focal deficits - Psychiatric Psychiatric exam: Present: normal affect, normal mood - Skin Skin exam: Present: dry, intact, normal color, warm Results - Labs CBC & Chem 7: 12/26/16 05:12 12/26/16 05:12 Labs: Last Result Calcium 8.6 mg/dL (8.6-10.8) 12/26/16 05:12 Troponin I 0.03 ng/mL (0-0.03) 12/25/16 14:00 Stool Occult Blood Positive (Negative) A 12/25/16 17:20 Entire Visit Hgb 7.6 g/dL (11.5-15.4) L 12/26/16 05:12 Hct 23.6 % (35.3-44.9) L 12/26/16 05:12 PT 24.1 Seconds (9.4-12.1) H 12/26/16 05:12 - ABG ABG results: PT/INR, D-dimer PT 24.1 Seconds (9.4-12.1) H 12/26/16 05:12 Consult Discharge Plan - Plan Referrals: Sofya Faith MD [Primary Care Provider] - <Theron Espino - Last Filed: 12/26/16 18:44> Date of Encounter: 12/26/16 Time of Encounter: 17:00 - Time Spent With Patient Total time spent is greater than 50% in coordination of care (as documented) at patient's floor/unit and/or counseling patient: GI History of Present Illness - Data of Consult Requesting Physician: Vanessa Martinez MD - Consult Narrative History of present illness: Ms. Preston is a 76 year old female - Constitutional Vitals: Temp Pulse Resp BP Pulse Ox 98.4 F 85 18 111/66 93 12/26/16 15:53 12/26/16 15:53 12/26/16 16:03 12/26/16 15:53 12/26/16 16:04 Results - Labs CBC & Chem 7: 12/26/16 05:12 12/26/16 05:12 Labs: Last Result Calcium 8.6 mg/dL (8.6-10.8) 12/26/16 05:12 Troponin I 0.03 ng/mL (0-0.03) 12/25/16 14:00 Stool Occult Blood Positive (Negative) A 12/25/16 17:20 Entire Visit Hgb 7.6 g/dL (11.5-15.4) L 12/26/16 05:12 Hct 23.6 % (35.3-44.9) L 12/26/16 05:12 PT 24.1 Seconds (9.4-12.1) H 12/26/16 05:12 - ABG ABG results: PT/INR, D-dimer PT 24.1 Seconds (9.4-12.1) H 12/26/16 05:12
[2016-12-26] MEDS ORDERED: *HR* OxyCODONE/APAP 5/325 TABLET PO PRN (11:55)
[2016-12-26] MEDS: Vancomycin 1,500 MG in D5% in Water 250 ML IVPB SCH (12:09)
[2016-12-26] MEDS: Furosemide 20 MG/2 ML VIAL IVP SCH (17:10)
[2016-12-26] MEDS: Acetaminophen 325 MG TABLET PO PRN (18:51)
[2016-12-26] MEDS ORDERED: Furosemide 20 MG/2 ML VIAL IVP SCH (21:00)
[2016-12-27] MEDS: Insulin LISPRO 300 UNITS/3 ML VIAL SQ SCH ×5 (00:33→19:52)
[2016-12-27] MEDS: Ipratropium/Albuterol Neb 3 ML IH SCH ×4 (03:45→22:34)
[2016-12-27 04:16] LABS: Basophils % 0.3 %; Eosinophils # 0.1 K/mcL (0.0-0.6); Eosinophils % 2.5 %; Hematocrit 24.5 % (35.3-44.9); Hemoglobin 7.6 g/dL (11.5-15.4); Immature Granulocytes % 0.6 % (0-4); Lymphocytes # 0.4 K/mcL (0.6-4.6); Lymphocytes % 10.6 %; Mean Corpuscular Hemoglobin 30.5 pg (28.0-33.3); Mean Corpuscular Volume 98.4 fL (83.0-100.0); Mean Platelet Volume 10.2 fL (9.4-12.4); Monocytes # 0.3 K/mcL (0.0-1.3); Monocytes % 9.5 %; Neutrophils # 2.7 K/mcL (1.6-8.9); Platelet Count 159 K/mcL (140-400); Red Blood Count 2.49 M/mcL (3.82-4.97); Red Cell Distribution Width 21.2 % (11.5-14.5); Segmented Neutrophils % 76.5 %
[2016-12-27 04:22] LABS: INR 1.6; Prothrombin Time 17.6 Seconds (9.4-12.1)
[2016-12-27 04:42] LABS: Potassium 3.5 mEq/L (3.5-4.5)
[2016-12-27 04:44] LABS: % Iron Saturation 16 % (15-50); Iron 29 mcg/dL (50-170); Transferrin 132 mg/dL (180-382)
[2016-12-27 05:05] LABS: Ferritin 515 ng/ml (5-204)
[2016-12-27 05:17] LABS: Folate 10.2 ng/mL (7.0-31.4)
[2016-12-27] MEDS: Cefepime HCl 1,000 MG in D5% in Water (Mini-Bag+) 100 ML IVPB SCH (05:49)
[2016-12-27] MEDS: Pantoprazole 40 MG VIAL IVP SCH ×2 (08:01→19:52)
[2016-12-27] MEDS: Levofloxacin 750 MG/150 ML 750 MG/150 ML BAG IVPB SCH (08:01)
[2016-12-27] MEDS: Acetaminophen 325 MG TABLET PO PRN (08:01)
[2016-12-27] MEDS: Diltiazem CD (24hr) 120 MG CAPSULE PO SCH (08:02)
[2016-12-27] MEDS: Metoprolol XL (24 HR) Succ 25 MG TAB.ER.24H PO SCH (08:02)
[2016-12-27] MEDS: Furosemide 20 MG/2 ML VIAL IVP SCH ×2 (08:02→18:33)
[2016-12-27] MEDS: Vancomycin 1,500 MG in D5% in Water 250 ML IVPB SCH (11:38)
[2016-12-27] MEDS: *HR* LORazepam 0.5 MG TABLET PO PRN ×2 (11:53→21:02)
[2016-12-27] MEDS ORDERED: Aminoglycoside Consult 1 EACH MC ONE (12:00)
--- NOTE | 2016-12-27 12:36 | Internal Med Progress Note ---
Date of Encounter: 12/27/16 Time of Encounter: 12:34 - Assessment and plan (1) HCAP (healthcare-associated pneumonia) Current Visit: Yes Status: Acute Assessment and plan: Patient presented with fever and shortness of breath and generalized weakness. Chest x-ray shows bilateral infiltrates, right-sided changes may be related to lung cancer and recent radiation treatments but she also has left-sided infiltrates. Clinically improving. Preliminary blood cultures remain negative. We will de-escalate antibiotics to IV Levaquin. Supplemental oxygen and supportive care. (2) Sepsis Current Visit: Yes Status: Acute Assessment and plan: Likely secondary to pneumonia, present on admission. Patient presents with fever, slightly elevated troponin, mild lactic acidosis, probably related to healthcare associated pneumonia. Continue IV antibiotics, remaining plan as above. Qualifiers: Sepsis type: sepsis due to unspecified organism Qualified Code(s): A41.9 - Sepsis, unspecified organism (3) Bilateral edema of lower extremity Current Visit: Yes Status: Acute Assessment and plan: Could be related to anemia and CHF. Anemia workup as below and continue IV Lasix for now. (4) Anemia Current Visit: Yes Status: Acute Assessment and plan: Patient's baseline hemoglobin is noted to be around 11-12, 2 months back and is currently 7.6. Stool occult blood is noted to be positive although patient reports no history of melena or hematochezia or hematemesis. Iron profile shows minimally decreased iron along with elevated ferritin levels. Vitamin B12 and folate levels noted to be within normal limits. Hemoglobin noted to be 7.6 today. We will transfuse 1 unit PRBC. GI consult noted, plan for possible colonoscopy tomorrow. Qualifiers: Anemia type: unspecified type Qualified Code(s): D64.9 - Anemia, unspecified (5) CHF (congestive heart failure) Current Visit: Yes Status: Acute Assessment and plan: Patient's symptoms noted to be improving. Echocardiogram shows decreased ejection fraction at 40%, mild to moderate mitral regurgitation, mild aortic regurgitation. Continue IV Lasix and fluid restriction, continue beta yadira. Monitor urine output closely. Strict fluid restriction is not practical as patient is on clear liquid diet in anticipation of colonoscopy. Telemetry monitoring. Supplemental oxygen as needed and supportive care. Physical and occupational therapy evaluation noted, recommend home health services. Qualifiers: Congestive heart failure type: systolic Congestive heart failure chronicity : acute on chronic Qualified Code(s): I50.23 - Acute on chronic systolic ( congestive) heart failure (6) CKD (chronic kidney disease) Current Visit: Yes Status: Chronic Assessment and plan: Serum creatinine noted to be slightly worse, likely due to the use of diuretics. Continue to monitor closely. Antibiotics to be dosed according to current creatinine clearance. Qualifiers: Chronic kidney disease stage: stage 3 (moderate) Qualified Code(s): N18.3 - Chronic kidney disease, stage 3 (moderate) (7) Lung cancer Current Visit: Yes Status: Chronic Assessment and plan: Patient follows with oncology as outpatient for right lung adenocarcinoma, currently receiving chemoradiation. Qualifiers: Laterality: right Lung location: lower lobe of lung Qualified Code(s): C34.31 - Malignant neoplasm of lower lobe, right bronchus or lung (8) A-fib Current Visit: Yes Status: Chronic Assessment and plan: Continue beta yadira and calcium channel yadira. Currently rate controlled. Noted to be on Xarelto for long-term anticoagulation, which is currently held due to possible GI bleed and anemia. INR is improving, 1.6 today. Telemetry monitoring. Qualifiers: Atrial fibrillation type: paroxysmal Qualified Code(s): I48.0 - Paroxysmal atrial fibrillation (9) COPD (chronic obstructive pulmonary disease) Current Visit: Yes Status: Chronic Qualifiers: COPD type: unspecified COPD Qualified Code(s): J44.9 - Chronic obstructive pulmonary disease, unspecified (10) Diabetes Current Visit: Yes Status: Chronic Assessment and plan: Accu-Chek blood glucose monitoring with sliding scale insulin. Diabetic diet. Check hemoglobin A1c. Qualifiers: Diabetes mellitus type: type 2 Diabetes mellitus complication status: with kidney complications Diabetes mellitus complication detail: with chronic kidney disease Diabetes mellitus intermediate insulin use: without termite inspector use Chronic kidney disease stage: stage 3 (moderate) Qualified Code(s): E11.22 - Type 2 diabetes mellitus with diabetic chronic kidney disease; N18.3 - Chronic kidney disease, stage 3 (moderate) - Subjective Interval history: Feels about the same per patient; no chest pain, does have some exertional dyspnea; improving leg swelling; awaiting colonoscopy in am; - Constitutional Vitals: Temp Pulse Resp BP Pulse Ox 98.1 F 94 16 100/65 94 12/27/16 11:18 12/27/16 11:18 12/27/16 11:18 12/27/16 11:18 12/27/16 11:18 General appearance: Present: A&O X 3, answers questions appropriately - Respiratory Respiratory exam: Present: decreased breath sounds (at right base), CTAB, rales (at right base). Absent: accessory muscle use, rhonchi, wheezes - Cardiovascular Cardiovascular exam: Present: irregular rhythm, +S1, +S2. Absent: diastolic murmur, gallop, rubs, systolic murmur - GI/Abdominal GI/Abdominal exam: Present: normal bowel sounds, soft, no peritoneal signs. Absent: distended, tenderness - Extremities Exam Extremities exam: Present: full ROM, pedal edema (2+ pedal edema B/L), warm, radial pulses palpable and symetrical. Absent: calf tenderness, cyanotic - Neurological Exam Neurological exam: Present: CN II-XII intact, oriented X3, no focal deficits. Absent: pronater drift, facial droop, speech deficit - Skin Skin exam: Present: dry, intact, pallor Internal Medicine: Result - Labs CBC & Chem 7: 12/27/16 03:36 12/27/16 03:36 Labs: Short CBC 12/27/16 Range/Units 03:36 WBC 3.6 L (4.3-11.1) K/mcL Hgb 7.6 L (11.5-15.4) g/dL Hct 24.5 L (35.3-44.9) % Plt Count 159 (140-400) K/mcL Neutrophils # 2.7 (1.6-8.9) K/mcL BMP 12/27/16 03:36 Sodium 140 Potassium 3.5 Chloride 107 Carbon Dioxide 23 BUN 12 Creatinine 1.17 H Glucose 106 H Calcium 9.0 - ABG Interpretation ABG results: PT/INR, D-dimer PT 17.6 Seconds (9.4-12.1) H 12/27/16 03:36 Consult Discharge Plan - Plan Referrals: Sofya Faith MD [Primary Care Provider] - 01/02/17 4:00 pm (please follow up as schedule...)
[2016-12-27] MEDS ORDERED: SODIUM CHLORIDE/NAHCO3/KCL/PEG 4,000 ML SOLN.RECON PO ONE (17:00)
[2016-12-27] MEDS ORDERED: 0.9 % Sodium Chloride 250 ML ONE (17:07)
[2016-12-28 04:14] LABS: Basophils % 0.5 %; Eosinophils # 0.1 K/mcL (0.0-0.6); Eosinophils % 1.8 %; Hematocrit 25.9 % (35.3-44.9); Hemoglobin 8.4 g/dL (11.5-15.4); Lymphocytes # 0.3 K/mcL (0.6-4.6); Lymphocytes % 7.5 %; Mean Corpuscular HGB Conc 32.4 g/dL (31.6-35.5); Mean Corpuscular Hemoglobin 30.5 pg (28.0-33.3); Mean Corpuscular Volume 94.2 fL (83.0-100.0); Monocytes # 0.4 K/mcL (0.0-1.3); Monocytes % 10.6 %; Platelet Count 178 K/mcL (140-400); Red Blood Count 2.75 M/mcL (3.82-4.97); Red Cell Distribution Width 22.6 % (11.5-14.5); Segmented Neutrophils % 78.6 %
[2016-12-28 04:28] LABS: INR 1.6; Prothrombin Time 17.5 Seconds (9.4-12.1)
[2016-12-28] MEDS: Ipratropium/Albuterol Neb 3 ML IH SCH ×4 (04:31→22:03)
[2016-12-28 04:32] LABS: Hemoglobin A1C 5.9 %
[2016-12-28 04:33] LABS: BUN/Creatinine Ratio 10 (6-26); Blood Urea Nitrogen 10 mg/dL (7-20); Carbon Dioxide 25 mEq/L (19-29); Chloride 105 mEq/L (98-109); Glucose 108 mg/dL (70-99); Sodium 138 mEq/L (136-145); eGFR For African Americans > 60 (> 60); eGFR For Non-African Americans 52 (> 60)
[2016-12-28 04:34] LABS: Calcium 8.6 mg/dL (8.6-10.8); Osmolality,Calculated 286 (280-300)
[2016-12-28] MEDS: Insulin LISPRO 300 UNITS/3 ML VIAL SQ SCH ×4 (05:43→17:12)
[2016-12-28] MEDS: Furosemide 20 MG/2 ML VIAL IVP SCH (08:10)
[2016-12-28] MEDS: Pantoprazole 40 MG VIAL IVP SCH (08:10)
[2016-12-28] MEDS: Diltiazem CD (24hr) 120 MG CAPSULE PO SCH (08:11)
[2016-12-28] MEDS: Metoprolol XL (24 HR) Succ 25 MG TAB.ER.24H PO SCH (08:11)
[2016-12-28] MEDS: Acetaminophen 325 MG TABLET PO PRN ×2 (08:17→21:11)
[2016-12-28] MEDS ORDERED: Levofloxacin 750 MG/150 ML 750 MG/150 ML BAG IVPB SCH (09:00)
--- NOTE | 2016-12-28 09:31 | Anesthesia Evaluation PreOp ---
Date of Encounter: 12/28/16 Time of Encounter: 11:52 - Past History Planned Operation: EGD/Colonoscopy Cardiac History: MO, CHF (currently with bilateral LE edema; LVEF 40%, multiple regional LV wall motion abnormalities; RV normal in size/function; mild AR; mild -mod MR; no pulm htn), HTN, Hyperlipidemia, Arrhythmia (A fib), Other (Infra- renal AAA s/p repair; anti-thrombin III deficiency) Pulmonary History: Smoker, Asthma, COPD, Other (lung CA -- s/p chemo and radiation; last chemo and last radiation ) [employer] History: Other (anxiety) Other Medical History: Renal (ckd), Diabetes Type II (non-insulin dependent), GERD Anesthesia History: Problems (respiratory failure requiring trach after AAA repair in 2011; no other issues with anesthesia) Alcohol Use: none Drug use: none Medications and Allergies Atorvastatin [Lipitor] 40 mg PO HS 04/25/15 [History] Diltiazem HCl [Diltiazem 24Hr Cd] 120 mg PO BID 04/25/15 [History] Docusate [Colace] 100 mg PO DAILY PRN 04/25/15 [History] Ergocalciferol (VITAMIN D2) [Drisdol (50,000 Unit)] 50,000 unit PO QWEEK [History] Metoprolol XL (24 HR) Succ [Toprol XL] 25 mg PO DAILY 04/25/15 [History] Nitroglycerin [Nitrostat] 0.4 mg SL Q5M PRN 04/25/15 [History] Pantoprazole Sodium [Protonix] 40 mg PO DAILY 04/25/15 [History] Tiotropium [Spiriva] 18 mcg IH HS 04/25/15 [History] Acetaminophen [Tylenol] 650 mg PO Q6HR PRN 08/25/16 [History] Albuterol Sulfate [Ventolin Hfa] 18 gm IH BID PRN 08/25/16 [History] Calcium Carbonate/Magnesium Ox [Oyster Shell Calcium-Magnes Tb] 1 each PO DAILY 08/25/16 [History] Citalopram [CeleXA] 20 mg PO HS 10/24/16 [History] Dexamethasone [Decadron] 4 mg PO DAILY 10/24/16 [History] Lidocaine/Prilocaine CREAM [Emla] 5 gm TP PRN PRN 10/24/16 [History] Magic Mouthwash [Magic Mouthwash BLM] 10 ml PO TID PRN 10/24/16 [History] Omeprazole 20 mg PO DAILY 10/24/16 [History] Ondansetron HCl 8 mg PO Q8H PRN 10/24/16 [History] Prochlorperazine Maleate [Compazine] 10 mg PO Q6HR PRN 10/24/16 [History] Rivaroxaban [Xarelto] 20 mg PO DAILY #30 tablet 12/04/16 [Rx] LORazepam [Ativan] 0.5 mg PO Q6H PRN #60 tablet 12/11/16 [Rx] Allergies Penicillins [PCN] Allergy (Intermediate, Verified 12/04/16 11:28) Hives Sulfa (Sulfonamide Antibiotics) Allergy (Intermediate, Verified 12/04/16 11:28) Hives - Meds/Allergy Pre-op Review Medications Reviewed: Yes Allergies Reviewed: Yes Beta Blockers on Current Med List: Yes If Beta Blockers taken, Date/Time (Last Dose taken): 12-28-16 8:11 am metoprolol Anesthesia Results - Labs 12/28/16 04:00 12/28/16 04:00 - Imaging EKG: report reviewed, image reviewed (A fib with RVR and aberrant conduction; PVC's; mod T wave abnormality (consider lateral ischemia)) Additional studies: TTE : LVEF 40% multiple LV wall motion abnormalities normal RV mild AR mild-mod MR no pulm htn Anesthesia Exam Last Vital Signs Temp 97.8 F 12/28/16 11:46 Pulse 98 12/28/16 11:46 Resp 18 12/28/16 11:46 BP 121/80 12/28/16 11:46 Pulse Ox 95 12/28/16 11:46 Weight: 84 kg NPO (# of Hours): >> 8 hrs - HEENT Pupil (Motor): Pupils equal, EOMI Mallampati: III Teeth: Edentulous Oral Opening: Greater than 3 - [employer] LOC: Oriented [employer] Motor: Normal RUE, Normal LUE, Normal RLE, Normal LLE, Normal Face - Cardiac Rhythm: Irregular Murmur: None - Pulmonary Breath Sounds: bilateral Clear Respiratory Effort: Symmetrical Anesthesia Assess/Plan ASA Score: 4 Modified Ara Scale for Level of Consciousness: Cooperative, oriented, and tranquil Anesthetic Plan: MAC Monitoring Plan: Standard Monitors Recovery Plan: PACU
[2016-12-28] MEDS ORDERED: Simethicone 40 MG/0.6 ML MLS IR ONE (11:47)
[2016-12-28] MEDS ORDERED: Tetracaine/Benzocaine/Butamben 200MG/SPRAY (100SPY/BOT) MM ONE (11:47)
--- NOTE | 2016-12-28 13:16 | Anesthesia Evaluation Post Op ---
Date of Encounter: 12/28/16 Time of Encounter: 13:15 - Vital Signs Vital Signs: Last Vital Signs Temp 97.8 F 12/28/16 11:46 Pulse 98 12/28/16 11:46 Resp 18 12/28/16 11:46 BP 121/80 12/28/16 11:46 Pulse Ox 95 12/28/16 11:46 - Lungs Lungs: Clear Ascult./Percussion - Airway Airway: Non-obstructed - Cardiovascular Regular Rate - Mental Status Mental Status: Alert & Oriented, Answers Appropriately - Pain Pain Scale: 2 - Nausea Vomiting Nausea Vomiting: Not Present - Hydration Hydration: NPO - Discharge PostOp Status: Transfer Patient to floor
--- NOTE | 2016-12-28 14:02 | Internal Med Progress Note ---
Date of Encounter: 12/28/16 Time of Encounter: 14:01 - Assessment and plan (1) HCAP (healthcare-associated pneumonia) Current Visit: Yes Status: Acute Assessment and plan: Patient presented with fever and shortness of breath and generalized weakness. Chest x-ray shows bilateral infiltrates, right-sided changes may be related to lung cancer and recent radiation treatments but she also has left-sided infiltrates. Clinically improving. Preliminary blood cultures remain negative. Continue IV Levaquin. Supplemental oxygen and supportive care. (2) Sepsis Current Visit: Yes Status: Acute Assessment and plan: Likely secondary to pneumonia, present on admission. Patient presents with fever, slightly elevated troponin, mild lactic acidosis, probably related to healthcare associated pneumonia. Improving. Continue IV antibiotics, remaining plan as above. Qualifiers: Sepsis type: sepsis due to unspecified organism Qualified Code(s): A41.9 - Sepsis, unspecified organism (3) Bilateral edema of lower extremity Current Visit: Yes Status: Acute Assessment and plan: Could be related to anemia and CHF. Improving. Anemia workup as below and continue PO Lasix for now. (4) Anemia Current Visit: Yes Status: Acute Assessment and plan: Patient's baseline hemoglobin is noted to be around 11-12, 2 months back and is currently 7.6. Stool occult blood is noted to be positive. Iron profile shows minimally decreased iron along with elevated ferritin levels. Vitamin B12 and folate levels noted to be within normal limits. Hemoglobin improved to 8.4 after 1 unit of PRBC transfusion. Patient underwent EGD and colonoscopy today. EGD showed moderate to severe esophagitis, likely radiation-induced and one nonbleeding polyp at pyloric junction. Colonoscopy showed 2 sessile nonbleeding polyps in the sigmoid colon with a focal area of inflammation and friable mucosa in the sigmoid colon, likely colitis. Pathology results pending. Qualifiers: Anemia type: unspecified type Qualified Code(s): D64.9 - Anemia, unspecified (5) CHF (congestive heart failure) Current Visit: Yes Status: Acute Assessment and plan: Patient's symptoms noted to be improving. Echocardiogram shows decreased ejection fraction at 40%, mild to moderate mitral regurgitation, mild aortic regurgitation. Change Lasix to oral form and continue fluid restriction, continue beta yadira. Monitor urine output closely. Telemetry monitoring. Supplemental oxygen as needed and supportive care. Physical and occupational therapy evaluation noted, recommend home health services. Qualifiers: Congestive heart failure type: systolic Congestive heart failure chronicity : acute on chronic Qualified Code(s): I50.23 - Acute on chronic systolic ( congestive) heart failure (6) CKD (chronic kidney disease) Current Visit: Yes Status: Chronic Qualifiers: Chronic kidney disease stage: stage 3 (moderate) Qualified Code(s): N18.3 - Chronic kidney disease, stage 3 (moderate) (7) Lung cancer Current Visit: Yes Status: Chronic Assessment and plan: Patient follows with oncology as outpatient for right lung adenocarcinoma, currently receiving chemoradiation. Qualifiers: Laterality: right Lung location: lower lobe of lung Qualified Code(s): C34.31 - Malignant neoplasm of lower lobe, right bronchus or lung (8) A-fib Current Visit: Yes Status: Chronic Assessment and plan: Continue beta yadira and calcium channel yadira. Currently rate controlled. Restart anticoagulation with xARELTO. Telemetry monitoring. 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 Continue oral PPI and start Carafate. (12) Colitis Current Visit: Yes Status: Acute Assessment and plan: Sigmoid colitis, Noted on colonoscopy. Continue Levaquin and start oral Flagyl. - Subjective Interval history: Feels better and appears in good spirits today. Returned from EGD/Colonoscopy, no active bleeding noted. No chest pain, dyspnea, abdominal pain; - Constitutional Vitals: Temp Pulse Resp BP Pulse Ox 97.8 F 98 18 121/80 95 12/28/16 11:46 12/28/16 11:46 12/28/16 11:46 12/28/16 11:46 12/28/16 11:46 General appearance: Present: A&O X 3, answers questions appropriately - Respiratory Respiratory exam: Present: CTAB (anterolaterally B/L). Absent: accessory muscle use, rales, rhonchi, wheezes - Cardiovascular Cardiovascular exam: Present: RRR, +S1, +S2. Absent: diastolic murmur, gallop, rubs, systolic murmur - GI/Abdominal GI/Abdominal exam: Present: distended, normal bowel sounds, soft, no peritoneal signs. Absent: tenderness - Extremities Exam Extremities exam: Present: pedal edema, warm, radial pulses palpable and symetrical. Absent: calf tenderness, cyanotic Internal Medicine: Result - Labs CBC & Chem 7: 12/28/16 04:00 12/28/16 04:00 Labs: Short CBC 12/28/16 Range/Units 04:00 WBC 3.9 L (4.3-11.1) K/mcL Hgb 8.4 L (11.5-15.4) g/dL Hct 25.9 L (35.3-44.9) % Plt Count 178 (140-400) K/mcL Neutrophils # 3.0 (1.6-8.9) K/mcL BMP 12/28/16 04:00 Sodium 138 Potassium 3.0 L Chloride 105 Carbon Dioxide 25 BUN 10 Creatinine 1.03 Glucose 108 H Calcium 8.6 - ABG Interpretation ABG results: PT/INR, D-dimer PT 17.5 Seconds (9.4-12.1) H 12/28/16 04:00 Consult Discharge Plan - Plan Referrals: Sofya Faith MD [Primary Care Provider] - 01/02/17 4:00 pm (please follow up as schedule...)
[2016-12-28] MEDS: Potassium Chloride Elixir 20 MEQ/15 ML UDC PO SCH ×2 (14:09→17:11)
[2016-12-28] MEDS ORDERED: *HR* Rivaroxaban 15 MG TABLET PO SCH (17:00)
[2016-12-28] MEDS: Sucralfate 1 GM TABLET PO SCH ×2 (17:11→21:12)
[2016-12-28] MEDS: Furosemide 20 MG TABLET PO SCH (17:11)
[2016-12-28] MEDS: *HR* LORazepam 0.5 MG TABLET PO PRN (17:15)
[2016-12-28] MEDS: metroNIDAZOLE 500 MG TABLET PO SCH (21:12)
[2016-12-29] MEDS: Insulin LISPRO 300 UNITS/3 ML VIAL SQ SCH (00:45)
[2016-12-29] MEDS: Ipratropium/Albuterol Neb 3 ML IH SCH ×3 (03:47→16:06)
[2016-12-29] MEDS: Sucralfate 1 GM TABLET PO SCH ×2 (06:32→12:43)
[2016-12-29] MEDS: *HR* LORazepam 0.5 MG TABLET PO PRN (06:41)
[2016-12-29 06:53] LABS: Basophils % 0.5 %; Eosinophils # 0.1 K/mcL (0.0-0.6); Hemoglobin 8.5 g/dL (11.5-15.4); Immature Granulocytes % 0.7 % (0-4); Lymphocytes # 0.3 K/mcL (0.6-4.6); Lymphocytes % 7.2 %; Mean Corpuscular HGB Conc 31.5 g/dL (31.6-35.5); Mean Corpuscular Hemoglobin 30.4 pg (28.0-33.3); Mean Corpuscular Volume 96.4 fL (83.0-100.0); Mean Platelet Volume 9.7 fL (9.4-12.4); Monocytes # 0.4 K/mcL (0.0-1.3); Monocytes % 10.4 %; Neutrophils # 3.2 K/mcL (1.6-8.9); Platelet Count 192 K/mcL (140-400); Red Cell Distribution Width 21.8 % (11.5-14.5); Segmented Neutrophils % 79.2 %
[2016-12-29 07:13] LABS: Calcium 8.5 mg/dL (8.6-10.8); Potassium 3.6 mEq/L (3.5-4.5)
[2016-12-29] MEDS: Diltiazem CD (24hr) 120 MG CAPSULE PO SCH (07:53)
[2016-12-29] MEDS: Furosemide 20 MG TABLET PO SCH (07:53)
[2016-12-29] MEDS: metroNIDAZOLE 500 MG TABLET PO SCH ×2 (07:53→15:23)
[2016-12-29] MEDS: Metoprolol XL (24 HR) Succ 25 MG TAB.ER.24H PO SCH (07:53)
[2016-12-29] MEDS ORDERED: Magnesium Sulfate 2 GM in D5% in Water 100 ML IVPB ONE (12:17)
[2016-12-29] MEDS ORDERED: Magnesium Oxide 400 MG TABLET PO SCH (12:30)
--- NOTE | 2016-12-29 12:34 | Discharge Summary ---
Date of Encounter: 12/29/16 Time of Encounter: 12:32 - Discharge Diagnosis (1) HCAP (healthcare-associated pneumonia) Priority: Primary Status: Acute (2) Bilateral edema of lower extremity Priority: Primary Status: Acute (3) Anemia Priority: Primary Status: Acute Qualifiers: Anemia type: unspecified type Qualified Code(s): D64.9 - Anemia, unspecified (4) CHF (congestive heart failure) Priority: Primary Status: Acute Qualifiers: Congestive heart failure type: systolic Congestive heart failure chronicity : acute on chronic Qualified Code(s): I50.23 - Acute on chronic systolic ( congestive) heart failure (5) CKD (chronic kidney disease) Priority: Secondary Status: Chronic Qualifiers: Chronic kidney disease stage: stage 3 (moderate) Qualified Code(s): N18.3 - Chronic kidney disease, stage 3 (moderate) (6) Lung cancer Priority: Secondary Status: Chronic Qualifiers: Laterality: right Lung location: lower lobe of lung Qualified Code(s): C34.31 - Malignant neoplasm of lower lobe, right bronchus or lung (7) A-fib Priority: Secondary Status: Chronic Qualifiers: Atrial fibrillation type: paroxysmal Qualified Code(s): I48.0 - Paroxysmal atrial fibrillation (8) COPD (chronic obstructive pulmonary disease) Priority: Secondary Status: Chronic Qualifiers: COPD type: unspecified COPD Qualified Code(s): J44.9 - Chronic obstructive pulmonary disease, unspecified (9) Diabetes Priority: Secondary Status: Chronic Qualifiers: Diabetes mellitus type: type 2 Diabetes mellitus complication status: with kidney complications Diabetes mellitus complication detail: with chronic kidney disease Diabetes mellitus correction insulin use: without correction use Chronic kidney disease stage: stage 3 (moderate) Qualified Code(s): E11.22 - Type 2 diabetes mellitus with diabetic chronic kidney disease; N18.3 - Chronic kidney disease, stage 3 (moderate) (10) Esophagitis Priority: Primary Status: Chronic (11) Colitis Priority: Primary Status: Acute - Discharge Medications Prescriptions: Furosemide [Lasix] 20 mg PO DAILY #30 tablet levoFLOXacin [Levaquin] 500 mg PO Q48H #3 tablet metroNIDAZOLE [Flagyl] 500 mg PO TID 7 Days Rivaroxaban [Xarelto] 15 mg PO DAILY@1700 #30 tablet Sucralfate [Carafate] 1 gm PO ACHS 30 Days Home Medications: Atorvastatin [Lipitor] 40 mg PO HS 04/25/15 [History] Diltiazem HCl [Diltiazem 24Hr Cd] 120 mg PO BID 04/25/15 [History] Docusate [Colace] 100 mg PO DAILY PRN 04/25/15 [History] Ergocalciferol (VITAMIN D2) [Drisdol (50,000 Unit)] 50,000 unit PO QWEEK [History] Metoprolol XL (24 HR) Succ [Toprol XL] 25 mg PO DAILY 04/25/15 [History] Nitroglycerin [Nitrostat] 0.4 mg SL Q5M PRN 04/25/15 [History] Pantoprazole Sodium [Protonix] 40 mg PO DAILY 04/25/15 [History] Tiotropium [Spiriva] 18 mcg IH HS 04/25/15 [History] Acetaminophen [Tylenol] 650 mg PO Q6HR PRN 08/25/16 [History] Albuterol Sulfate [Ventolin Hfa] 18 gm IH BID PRN 08/25/16 [History] Calcium Carbonate/Magnesium Ox [Oyster Shell Calcium-Magnes Tb] 1 each PO DAILY 08/25/16 [History] Citalopram [CeleXA] 20 mg PO HS 10/24/16 [History] Dexamethasone [Decadron] 4 mg PO DAILY 10/24/16 [History] Lidocaine/Prilocaine CREAM [Emla] 5 gm TP PRN PRN 10/24/16 [History] Magic Mouthwash [Magic Mouthwash BLM] 10 ml PO TID PRN 10/24/16 [History] Ondansetron HCl 8 mg PO Q8H PRN 10/24/16 [History] Prochlorperazine Maleate [Compazine] 10 mg PO Q6HR PRN 10/24/16 [History] LORazepam [Ativan] 0.5 mg PO Q6H PRN #60 tablet 12/11/16 [Rx] Furosemide [Lasix] 20 mg PO DAILY #30 tablet 12/29/16 [Rx] Rivaroxaban [Xarelto] 15 mg PO DAILY@1700 #30 tablet 12/29/16 [Rx] Sucralfate [Carafate] 1 gm PO ACHS 30 Days 12/29/16 [Rx] levoFLOXacin [Levaquin] 500 mg PO Q48H #3 tablet 12/29/16 [Rx] metroNIDAZOLE [Flagyl] 500 mg PO TID 7 Days 12/29/16 [Rx] Allergies/Adverse Reactions: Allergies Penicillins [PCN] Allergy (Intermediate, Verified 12/04/16 11:28) Hives Sulfa (Sulfonamide Antibiotics) Allergy (Intermediate, Verified 12/04/16 11:28) Hives Procedures/tests Complete & Pending: Procedures Performed prior 72 hours Category Date Time Status EV echocardiogram Routine Y 12/26/16 20:05 Completed Date of admission: 12/25/16 19:59 Primary care physician: Sofya Faith, Consults: 12/25/16 20:05 Consult to Gastroenterology [CONS] Routine Consulting Provider: Gastroenterology Anna Reason for Consult: anemia, GI bleed Call Completed: No 12/26/16 14:14 Consult to Occupational Therapy [CONS] Routine Comment: Evaluate, develop and implement POC Reason for Consult: pt had frequent falls at home, gen weakness Consult to Physical Therapy [CONS] Routine Comment: Evaluate, develop and implement POC Reason for Consult: pt had frequent falls at home and gen weakness. Discharging clinician: Vanessa Martinez Anticipated date of discharge: 12/29/16 - Patient Status Disposition: Home Health Service Condition: Fair Functional capacity at discharge: uses cane/walker Overall status at discharge: patient is progressing back to baseline - Discharge Instructions Instructions: Sepsis (DC), Pneumonia (DC) Follow Up With: Sofya Faith MD [Primary Care Provider] - 01/02/17 4:00 pm (please follow up as schedule...) Additional Instructions: F/up with Oncology as scheduled - Diet and Activity Activity: as per physical therapy Diet: low fat, low cholesterol, low salt diet Hospital course: Ms. Preston is a 76 year old female with multiple medical problems including right lung cancer for which she is receiving chemoradiation therapy, who was admitted with worsening cough, dyspnea and leg swelling. Patient was noted to have possible healthcare associated pneumonia and was started on broad-spectrum IV antibiotics initially, which will be escalated to IV Levaquin after noting blood cultures which remained negative. She was started initially on IV Lasix for possible underlying CHF and anemia causing pedal edema and exertional dyspnea. She responded well to this regimen and her symptoms gradually improved. She is able to tolerate oral Lasix at this time. Patient was also noted to have acute anemia with no reported overt GI bleed. Stool occult blood was noted to be positive. Xarelto was held. Gastroenterology was consulted and patient underwent EGD and colonoscopy, which showed no evidence of active bleeding. EGD showed significant radiation esophagitis and gastric polyp. Colonoscopy showed nonbleeding sessile polyps and a focal area of sigmoid colitis. She is being continued on oral PPI and started on Carafate for esophagitis. She is being discharged on oral Levaquin and Flagyl for focal colitis and underlying pneumonia. Patient was evaluated by physical and occupational therapy and recommended home health services. Home oxygen evaluation was completed prior to discharge and patient would benefit from continuous portable home oxygen at 2 L/m supplemental oxygen via nasal cannula and she is noted to be mobile at home. She is currently medically stable for discharge with outpatient follow-up. - Time Spent with Patient Total time spent providing and/or coordinating discharge services: Greater than 30 minutes (50 min) - Constitutional Vitals: Temp Pulse Resp BP Pulse Ox 98.3 F 98 17 115/75 93 12/29/16 11:09 12/29/16 11:09 12/29/16 11:09 12/29/16 11:09 12/29/16 11:09 General appearance: Present: A&O X 3, answers questions appropriately - Respiratory Respiratory exam: Present: CTAB, rales (bibasal faint inspiratory crackles). Absent: accessory muscle use, rhonchi, wheezes - Cardiovascular Cardiovascular exam: Present: irregular rhythm, +S1, +S2. Absent: diastolic murmur, gallop, rubs, systolic murmur - VTE Documentation of Mechanical Device: Intermittent pneumatic compression device
--- NOTE | 2016-12-29 12:41 | Physician Discharge Referral ---
Home Health/Hosp Referral Info Transfer to: Home Health Attending Provider: Vanessa Martinez Provider in Charge Post Discharge: PCP - Diagnosis (1) HCAP (healthcare-associated pneumonia) Priority: Primary Status: Acute (2) Sepsis Priority: Primary Status: Resolved (3) Bilateral edema of lower extremity Priority: Primary Status: Acute (4) Anemia Priority: Primary Status: Acute (5) CHF (congestive heart failure) Priority: Primary Status: Acute (6) CKD (chronic kidney disease) Priority: Secondary Status: Chronic (7) Lung cancer Priority: Secondary Status: Chronic (8) A-fib Priority: Secondary Status: Chronic (9) COPD (chronic obstructive pulmonary disease) Priority: Secondary Status: Chronic (10) Diabetes Priority: Secondary Status: Chronic (11) Esophagitis Priority: Primary Status: Chronic (12) Colitis Priority: Primary Status: Acute - Respiratory Orders Smoking Cessation: Smoking cessation has been advised. For more information, call the [place] [employer] Quit Line at [phone]-DXLX-NOW. - Diet/Nutrition Diet/Nutrition Orders: No Added Salt (VANGIE), Renal, Cardiac, No Concentrated Sweets (diabetic) - Activity Activity Orders: Ambulate - Services Needed Following services are medically necessary services: Nursing, Physical Therapy, Occupational Therapy - Transfer Medications Prescriptions: Furosemide [Lasix] 20 mg PO DAILY #30 tablet levoFLOXacin [Levaquin] 500 mg PO Q48H #3 tablet metroNIDAZOLE [Flagyl] 500 mg PO TID 7 Days Rivaroxaban [Xarelto] 15 mg PO DAILY@1700 #30 tablet Sucralfate [Carafate] 1 gm PO ACHS 30 Days Home Medications: Atorvastatin [Lipitor] 40 mg PO HS 04/25/15 [History] Diltiazem HCl [Diltiazem 24Hr Cd] 120 mg PO BID 04/25/15 [History] Docusate [Colace] 100 mg PO DAILY PRN 04/25/15 [History] Ergocalciferol (VITAMIN D2) [Drisdol (50,000 Unit)] 50,000 unit PO QWEEK [History] Metoprolol XL (24 HR) Succ [Toprol XL] 25 mg PO DAILY 04/25/15 [History] Nitroglycerin [Nitrostat] 0.4 mg SL Q5M PRN 04/25/15 [History] Pantoprazole Sodium [Protonix] 40 mg PO DAILY 10/12/15 [History] Tiotropium [Spiriva] 18 mcg IH HS 04/25/15 [History] Acetaminophen [Tylenol] 650 mg PO Q6HR PRN 08/25/16 [History] Albuterol Sulfate [Ventolin Hfa] 18 gm IH BID PRN 08/25/16 [History] Calcium Carbonate/Magnesium Ox [Oyster Shell Calcium-Magnes Tb] 1 each PO DAILY 08/25/16 [History] Citalopram [CeleXA] 20 mg PO HS 10/24/16 [History] Dexamethasone [Decadron] 4 mg PO DAILY 10/24/16 [History] Lidocaine/Prilocaine CREAM [Emla] 5 gm TP PRN PRN 10/24/16 [History] Magic Mouthwash [Magic Mouthwash BLM] 10 ml PO TID PRN 10/24/16 [History] Ondansetron HCl 8 mg PO Q8H PRN 10/24/16 [History] Prochlorperazine Maleate [Compazine] 10 mg PO Q6HR PRN 10/24/16 [History] LORazepam [Ativan] 0.5 mg PO Q6H PRN #60 tablet 12/11/16 [Rx] Furosemide [Lasix] 20 mg PO DAILY #30 tablet 12/29/16 [Rx] Rivaroxaban [Xarelto] 15 mg PO DAILY@1700 #30 tablet 12/29/16 [Rx] Sucralfate [Carafate] 1 gm PO ACHS 30 Days 12/29/16 [Rx] levoFLOXacin [Levaquin] 500 mg PO Q48H #3 tablet 12/29/16 [Rx] metroNIDAZOLE [Flagyl] 500 mg PO TID 7 Days 12/29/16 [Rx] Allergies/Adverse Reactions: Allergies Penicillins [PCN] Allergy (Intermediate, Verified 12/04/16 11:28) Hives Sulfa (Sulfonamide Antibiotics) Allergy (Intermediate, Verified 12/04/16 11:28) Hives Certification: Further, I certify that my clinical findings support that this patient is homebound (i.e. absences from home require considerable and taxing effort and are for medical reasons or catholic services or infrequently or short duration when for other reasons) because: Homebound Reason: Patient requires assistance of a person or device to safely leave home, Severity of cardiac or pulmonary status limits activity tolerance Attestation: My signature below is to certify that this patient is under my care and that I, or nurse practitioner, or a physician's assistant offset press operator working with me, has a face-to -face encounter with this patient.
[2016-12-29 15:02] VITALS: BP 122/66
[2016-12-29] MEDS ORDERED: Lidocaine -MPF 2% 5 ML VIAL INFILT ONE (16:35)
[2016-12-29] MEDS ORDERED: *HR* Propofol 500 MG/50 ML BOTTLE IVC ONE (16:35)
== END 2016-12-29 16:36 | disposition home health service (06) | DRG 871 ==
LOC: EMEROO 15:20 → 2ANU 15:20
PROVIDERS: ADMIT Nurse Practitioner Acute Care; ATTEND Internal Medicine
PROC: ENDOEBX (2016-12-28 11:00)

== ENCOUNTER 2017-01-07 10:40 | Inpatient (IN) ==
--- NOTE | 2017-01-07 10:52 | Emergency Department Note ---
Disposition Clinical Impression: Dyspnea Disposition: Still a Patient Condition: Fair Referrals: NO,PCP [Non-Partnered Physician] - Forms: ED Satisfaction Letter Time of Disposition: 11:15 SOB HPI - General Chief Complaint: ED Shortness of Breath/Dyspnea Stated Complaint: CHARBEL Time Seen by Provider: 01/07/17 10:47 Source: patient, EMS Mode of arrival: EMS Limitations: no limitations Nursing Notes Reviewed: Yes Vital Signs Reviewed: Yes - History of Present Illness 76-year-old female is brought to the emergency department by EMS from the [facility] for evaluation of shortness of breath and hypoxia. Per EMS report , upon their arrival to the [facility], the patient was saturating 56 on 4 L nasal cannula. She was placed on a nonrebreather [facility] department, where she improved to 95%. The patient states that she has experienced a gradual worsening of her shortness of breath for the past 2 weeks. She denies any fever but complains of subjective chills. She does states she has a cough that is productive of a mild amount of sputum however she is unable to describe the characteristics of her sputum. She denies any chest pain, abdominal pain, nausea, or vomiting. She denies any increased lower extremity edema. Pt Subjective Complaint: shortness of breath Onset (ago): week(s) (2) Severity: moderate Consistency/Duration: constant Improves with: oxygen Worsens with: exertion Associated symptoms: Reports: cough. Denies: chest pain Treatment prior to arrival: oxygen - Related Data Home Medications Medication Instructions Recorded Confirmed Atorvastatin [Lipitor] 40 mg PO HS 04/25/15 01/04/17 Diltiazem HCl [Diltiazem 24Hr Cd] 120 mg PO BID 04/25/15 01/04/17 Docusate [Colace] 100 mg PO DAILY PRN 04/25/15 01/04/17 Ergocalciferol (VITAMIN D2) 50,000 unit PO QWEEK 04/25/15 01/04/17 [Drisdol (50,000 Unit)] Metoprolol XL (24 HR) Succ [Toprol 25 mg PO DAILY 04/25/15 01/04/17 XL] Nitroglycerin [Nitrostat] 0.4 mg SL Q5M PRN 04/25/15 01/04/17 Tiotropium [Spiriva] 18 mcg IH HS 04/25/15 01/04/17 Acetaminophen [Tylenol] 650 mg PO Q6HR PRN 08/25/16 01/04/17 Albuterol Sulfate [Ventolin Hfa] 18 gm IH BID PRN 08/25/16 01/04/17 Calcium Carbonate/Magnesium Ox 1 each PO DAILY 08/25/16 01/04/17 [Oyster Shell Calcium-Magnes Tb] Citalopram [CeleXA] 20 mg PO HS 10/24/16 01/04/17 Dexamethasone [Decadron] 4 mg PO DAILY 10/24/16 01/04/17 Lidocaine/Prilocaine CREAM [Emla] 5 gm TP PRN PRN 10/24/16 01/04/17 Magic Mouthwash [Magic Mouthwash 10 ml PO TID PRN 10/24/16 01/04/17 BLM] Ondansetron HCl 8 mg PO Q8H PRN 10/24/16 01/04/17 Prochlorperazine Maleate 10 mg PO Q6HR PRN 10/24/16 01/04/17 [Compazine] Rivaroxaban [Xarelto] 20 mg PO DAILY 01/04/17 01/04/17 Previous Rx's Medication Instructions Recorded LORazepam [Ativan] 0.5 mg PO Q6H PRN #60 tablet 12/11/16 Furosemide [Lasix] 20 mg PO DAILY #30 tablet 12/29/16 Sucralfate [Carafate] 1 gm PO ACHS 30 Days 12/29/16 levoFLOXacin [Levaquin] 500 mg PO Q48H #3 tablet 12/29/16 metroNIDAZOLE [Flagyl] 500 mg PO TID 7 Days 12/29/16 levoFLOXacin [Levaquin] 500 mg PO ONCE #2 tablet 01/04/17 Allergies Allergy/AdvReac Type Severity Reaction Status Date / Time Penicillins [PCN] Allergy Intermediate Hives Verified 01/04/17 15:51 Sulfa (Sulfonamide Allergy Intermediate Hives Verified 01/04/17 15:51 Antibiotics) All systems ED: reviewed and negative except as stated. Constitutional: Reports: as per HPI, chills. Denies: fever, weakness, weight change Eyes: Denies: eye pain, eye discharge, vision change ENT ED: Denies: ear pain, throat pain, dental pain, hearing loss, epistaxis, congestion, dysphagia Cardiovascular: Reports: as per HPI, dyspnea on exertion. Denies: chest pain, palpitations, edema, syncope Respiratory: Reports: as per HPI, cough, dyspnea. Denies: wheezes, hemoptysis, stridor Gastrointestinal: Denies: abdominal pain, nausea, vomiting, diarrhea, constipation, hematemesis, melena, hematochezia Genitourinary: Denies: dysuria, frequency, hematuria, discharge Musculoskeletal: Denies: back pain, neck pain, arthralgia, myalgia Integumentary: Denies: rash, abrasion, lesions Neurological: Denies: headache, weakness, numbness, paresthesias, confusion, abnormal gait, vertigo Psychiatric: Denies: anxiety, depression, suicidal thoughts, homicidal thoughts , auditory hallucinations, visual hallucinations Endocrine: Denies: fatigue Hematological/Lymphatic: Denies: easy bleeding, easy bruising Allergic/Immunologic: Denies: facial swelling, urticaria Past Medical History - Past Medical History Attestation: Yes The following information was validated with the patient. 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 Absent: nystagmus - ENT ENT exam: mucous membranes moist - Neck Neck exam: Present: normal inspection, full ROM, trachea midline - Respiratory Respiratory exam: Present: normal lung sounds bilaterally. Absent: respiratory distress, wheezes, accessory muscle use, prolonged expiratory phase - Cardiovascular Cardiovascular exam: Present: regular rate, normal rhythm, normal heart sounds - Abdominal Exam Abdominal exam: Present: soft, Non-Tender, normal bowel sounds. Absent: tenderness, distention, guarding, rebound, rigidity - Extremities Exam Extremities exam: Present: full ROM, pedal edema (1+). Absent: tenderness - Neurological Exam Neurological exam: Present: alert, oriented X3 - Psychiatric Psychiatric exam: Present: normal affect, normal mood - Skin Skin exam: Present: warm, dry, intact, normal color Course Vital Signs Temperature 98.5 F 01/07/17 10:44 Pulse Rate 86 01/07/17 10:44 Respiratory Rate 24 01/07/17 10:44 Blood Pressure 113/79 01/07/17 10:44 O2 Sat by Pulse Oximetry 86 01/07/17 10:44 Temperature 98.5 F 01/07/17 10:44 Pulse Rate 86 01/07/17 10:44 Respiratory Rate 24 01/07/17 10:44 Blood Pressure 113/79 01/07/17 10:44 O2 Sat by Pulse Oximetry 01/07/17 10:44 Oxygen Delivery Oxygen Delivery Nasal Cannula Shortness of Breath/Dyspnea - Medical Records Medical records reviewed: Yes I reviewed the patient's medical records. - Lab Data Result diagrams: 01/07/17 11:18 01/07/17 11:18 Lab Results 01/07/17 01/07/17 01/07/17 Range/Units 11:18 11:18 11:18 WBC 10.9 (4.3-11.1) K/mcL RBC 3.07 L (3.82-4.97) M/mcL Hgb 9.3 L (11.5-15.4) g/dL Hct 29.3 L (35.3-44.9) % MCV 95.4 (83.0-100.0) fL MCH 30.3 (28.0-33.3) pg MCHC 31.7 (31.6-35.5) g/dL RDW 19.8 H (11.5-14.5) % Plt Count 286 (140-400) K/mcL MPV 10.1 (9.4-12.4) fL Immature Gran % 1.9 (0-4) % Seg Neutrophils % 87.8 % Lymphocytes % 3.2 % Monocytes % 6.8 % Eosinophils % 0.2 % Basophils % 0.1 % Neutrophils # 9.5 H (1.6-8.9) K/mcL Lymphocytes # 0.4 L (0.6-4.6) K/mcL Monocytes # 0.7 (0.0-1.3) K/mcL Eosinophils # 0.0 (0.0-0.6) K/mcL Basophils # 0.0 (0.0-0.2) K/mcL Nucleated RBCs/100 WBC 0.3 H (0) /100 WBC PT 55.3 H* (9.4-12.1) Seconds INR 4.9 H* APTT 36.4 H (26.0-36.0) Seconds Sodium 134 L (136-145) mEq/L Potassium 3.2 L (3.5-4.5) mEq/L Chloride 100 (98-109) mEq/L Carbon Dioxide 23 (19-29) mEq/L BUN 24 H (7-20) mg/dL Creatinine 1.19 H (0.57-1.11) mg/dL Est GFR ( Amer) 54 L (> 60) Est GFR (Non-Af Amer) 44 L (> 60) BUN/Creatinine Ratio 20 (6-26) Glucose 139 H (70-99) mg/dL Calculated Osmolality 284 (280-300) Lactic Acid (0.5-2.2) mmol/L Calcium 9.3 (8.6-10.8) mg/dL Phosphorus 2.2 L (2.3-4.7) mg/dL Magnesium 1.3 L (1.6-2.6) mg/dL Troponin I (0-0.03) ng/mL Urine Color (Yellow) Urine Clarity (Clear) Urine pH (5.0-8.0) pH Units Ur Specific Rhame (1.010-1.025) Urine Protein (Neg-Trace) mg/dL Urine Glucose (UA) (Normal) mg/dL Urine Ketones (Negative) mg/dL Urine Blood (Negative) Urine Nitrite (Negative) Urine Bilirubin (Negative) Urine Urobilinogen (Normal) mg/dL Ur Leukocyte Esterase (Negative) 01/07/17 01/07/17 01/07/17 Range/Units 11:18 11:18 11:21 WBC (4.3-11.1) K/mcL RBC (3.82-4.97) M/mcL Hgb (11.5-15.4) g/dL Hct (35.3-44.9) % MCV (83.0-100.0) fL MCH (28.0-33.3) pg MCHC (31.6-35.5) g/dL RDW (11.5-14.5) % Plt Count (140-400) K/mcL MPV (9.4-12.4) fL Immature Gran % (0-4) % Seg Neutrophils % % Lymphocytes % % Monocytes % % Eosinophils % % Basophils % % Neutrophils # (1.6-8.9) K/mcL Lymphocytes # (0.6-4.6) K/mcL Monocytes # (0.0-1.3) K/mcL Eosinophils # (0.0-0.6) K/mcL Basophils # (0.0-0.2) K/mcL Nucleated RBCs/100 WBC (0) /100 WBC PT (9.4-12.1) Seconds INR APTT (26.0-36.0) Seconds Sodium (136-145) mEq/L Potassium (3.5-4.5) mEq/L Chloride (98-109) mEq/L Carbon Dioxide (19-29) mEq/L BUN (7-20) mg/dL Creatinine (0.57-1.11) mg/dL Est GFR ( Amer) (> 60) Est GFR (Non-Af Amer) (> 60) BUN/Creatinine Ratio (6-26) Glucose (70-99) mg/dL Calculated Osmolality (280-300) Lactic Acid 1.5 (0.5-2.2) mmol/L Calcium (8.6-10.8) mg/dL Phosphorus (2.3-4.7) mg/dL Magnesium (1.6-2.6) mg/dL Troponin I 0.02 (0-0.03) ng/mL Urine Color Red A (Yellow) Urine Clarity Cloudy A (Clear) Urine pH 6.5 (5.0-8.0) pH Units Ur Specific Rhame 1.011 (1.010-1.025) Urine Protein 100 H (Neg-Trace) mg/dL Urine Glucose (UA) Normal (Normal) mg/dL Urine Ketones Negative (Negative) mg/dL Urine Blood Large H (Negative) Urine Nitrite Negative (Negative) Urine Bilirubin Negative (Negative) Urine Urobilinogen Normal (Normal) mg/dL Ur Leukocyte Esterase Large H (Negative) S.B.Massimo - En Situation: Demographics, MOA Background: Presenting Complaint, Relevant PMH, Meds, & Allergies Assessment: Vital Signs, Course and respsone to treatment, Exam Concerns, Patient/Family Expectation, Pertinant Lab Results, Outstanding Labs Recommendation: Barrier(s) to disposition, Recommendation based on pending studies, treatments, or consults En Report Given to: Dr. Nelson Gatica Repor Time: 11:15 Attestation Statement - Attestation Attestation: I examined this patient and my medical decision-making was reviewed with the FINISHING FRAME RUNNER/PA/Advanced Practice Nurse/Resident Physician. I agree with the documented findings, disposition and treatment plan as described except to the extent set forth below. Patient with increasing shortness of breath. Right lung appears to have worsening infection. We will order cefepime and vancomycin. Patient has a penicillin and sulfa allergy. She has been on Levaquin as an outpatient. Her INR continues to climb. She is on Xarelto for chronic A fib. will need possible ICU admission due to Difficulty in Breathing.
[2017-01-07 11:27] LABS: Basophils % 0.1 %; Eosinophils % 0.2 %; Hematocrit 29.3 % (35.3-44.9); Hemoglobin 9.3 g/dL (11.5-15.4); Immature Granulocytes % 1.9 % (0-4); Lymphocytes # 0.4 K/mcL (0.6-4.6); Lymphocytes % 3.2 %; Mean Corpuscular HGB Conc 31.7 g/dL (31.6-35.5); Mean Corpuscular Hemoglobin 30.3 pg (28.0-33.3); Mean Corpuscular Volume 95.4 fL (83.0-100.0); Mean Platelet Volume 10.1 fL (9.4-12.4); Monocytes # 0.7 K/mcL (0.0-1.3); Monocytes % 6.8 %; Neutrophils # 9.5 K/mcL (1.6-8.9); Nucleated Red Blood Cells 0.3 /100 WBC (0); Platelet Count 286 K/mcL (140-400); Red Blood Count 3.07 M/mcL (3.82-4.97); Red Cell Distribution Width 19.8 % (11.5-14.5); Segmented Neutrophils % 87.8 %
[2017-01-07 11:35] LABS: Activated Partial Thrombo Time 36.4 Seconds (26.0-36.0)
[2017-01-07] MEDS ORDERED: Ipratropium/Albuterol Neb 3 ML IH ONE (11:36)
[2017-01-07 11:40] LABS: Calcium 9.3 mg/dL (8.6-10.8); Potassium 3.2 mEq/L (3.5-4.5)
[2017-01-07] MEDS ORDERED: Levofloxacin 750 MG/150 ML 750 MG/150 ML BAG IVPB ONE (11:42)
[2017-01-07] MEDS ORDERED: Vancomycin 1,250 MG in D5% in Water 250 ML IVPB ONE (11:42)
[2017-01-07 11:44] LABS: INR 4.9; Prothrombin Time 55.3 Seconds (9.4-12.1)
[2017-01-07 11:48] LABS: Bilirubin,Urine Negative (Negative); Blood,Urine Large (Negative); Clarity,Urine Cloudy (Clear); Color,Urine Red (Yellow); Glucose,Urine (UA) Normal (Normal); Ketones,Urine Negative (Negative); Leukocyte Esterase,Urine Large (Negative); Nitrite,Urine Negative (Negative); PH,Urine 6.5 pH Units (5.0-8.0); Protein,Urine 100 mg/dL (Neg-Trace); Specific Gravity,Urine 1.011 (1.010-1.025); Urobilinogen,Urine Normal (Normal)
[2017-01-07] MEDS ORDERED: Cefepime HCl 2,000 MG in D5% in Water (Mini-Bag+) 100 ML IVPB STA (11:49)
[2017-01-07] MEDS ORDERED: methylPREDNISolone 125 MG/2 ML VIAL IVP ONE (11:50)
[2017-01-07 11:53] LABS: Squamous Epithelial Cell,Urine Many per lpf (None-Few); WBC,Urine 50-100 per hpf (0-3)
[2017-01-07 12:05] LABS: Magnesium 1.3 mg/dL (1.6-2.6); Phosphorous 2.2 mg/dL (2.3-4.7)
[2017-01-07 12:14] LABS: RBC,Urine 30-50 per hpf (0-3)
[2017-01-07 12:15] LABS: Bacteria,Urine Few per hpf (None-Few); Yeast,Urine Few per hpf (None Seen)
[2017-01-07 12:19] LABS: ABG Base Excess 4.7 mEq/L (-2.0 to 3.0); ABG HCO3 28.1 mEQ/L (21-27); ABG Oxygen Saturation 96 % (95-98); ABG PCO2 36 mmHg (35-45); ABG PO2 76 mmHg (85-104); ABG TCO2 29.2 mEq/L (20-26)
[2017-01-07 12:20] LABS: Blood Gas FiO2 100 %
--- NOTE | 2017-01-07 12:40 | Emergency Department Note ---
Disposition Clinical Impression: UTI (urinary tract infection) Dyspnea Qualifiers: Dyspnea type: shortness of breath Qualified Code(s): R06.02 - Shortness of breath Pneumonia Qualifiers: Pneumonia type: due to unspecified organism Laterality: right Lung location: unspecified part of lung Qualified Code(s): J18.9 - Pneumonia, unspecified organism Disposition: Admitted As Inpatient Condition: Fair Time of Disposition: 14:35 (l) General Adult HPI - General Chief complaint: ED Shortness of Breath/Dyspnea Stated complaint: CHARBEL Time Seen by Provider: 01/07/17 10:47 Source: patient, EMS Mode of arrival: EMS Limitations: no limitations Nursing Notes Reviewed: Yes Vital Signs Reviewed: Yes - History of Present Illness HPI Narrative: Female patient presented to emergency department complaining of shortness of breath. She states this started approximately 2 days ago. She does have a history of right-sided lung cancer. She is sent over by the cancer Center for decreased oxygen saturation. She is also reporting a history of a UTI. She states she is on antibiotic at this time for her pneumonia. However the cancer Center believes this could possibly be due to inflammation. Pain Scale: 0 - Related Data Home Medications Medication Instructions Recorded Confirmed Atorvastatin [Lipitor] 40 mg PO HS 04/25/15 01/04/17 Diltiazem HCl [Diltiazem 24Hr Cd] 120 mg PO BID 04/25/15 01/04/17 Docusate [Colace] 100 mg PO DAILY PRN 04/25/15 01/04/17 Ergocalciferol (VITAMIN D2) 50,000 unit PO QWEEK 04/25/15 01/04/17 [Drisdol (50,000 Unit)] Metoprolol XL (24 HR) Succ [Toprol 25 mg PO DAILY 04/25/15 01/04/17 XL] Nitroglycerin [Nitrostat] 0.4 mg SL Q5M PRN 04/25/15 01/04/17 Tiotropium [Spiriva] 18 mcg IH HS 04/25/15 01/04/17 Acetaminophen [Tylenol] 650 mg PO Q6HR PRN 08/25/16 01/04/17 Albuterol Sulfate [Ventolin Hfa] 18 gm IH BID PRN 08/25/16 01/04/17 Calcium Carbonate/Magnesium Ox 1 each PO DAILY 08/25/16 01/04/17 [Oyster Shell Calcium-Magnes Tb] Citalopram [CeleXA] 20 mg PO HS 10/24/16 01/04/17 Dexamethasone [Decadron] 4 mg PO DAILY 10/24/16 01/04/17 Lidocaine/Prilocaine CREAM [Emla] 5 gm TP PRN PRN 10/24/16 01/04/17 Magic Mouthwash [Magic Mouthwash 10 ml PO TID PRN 10/24/16 01/04/17 BLM] Ondansetron HCl 8 mg PO Q8H PRN 10/24/16 01/04/17 Prochlorperazine Maleate 10 mg PO Q6HR PRN 10/24/16 01/04/17 [Compazine] Rivaroxaban [Xarelto] 20 mg PO DAILY 01/04/17 01/04/17 Previous Rx's Medication Instructions Recorded LORazepam [Ativan] 0.5 mg PO Q6H PRN #60 tablet 12/11/16 Furosemide [Lasix] 20 mg PO DAILY #30 tablet 12/29/16 Sucralfate [Carafate] 1 gm PO ACHS 30 Days 12/29/16 levoFLOXacin [Levaquin] 500 mg PO Q48H #3 tablet 12/29/16 metroNIDAZOLE [Flagyl] 500 mg PO TID 7 Days 12/29/16 levoFLOXacin [Levaquin] 500 mg PO ONCE #2 tablet 01/04/17 Allergies Allergy/AdvReac Type Severity Reaction Status Date / Time Penicillins [PCN] Allergy Intermediate Hives Verified 01/04/17 15:51 Sulfa (Sulfonamide Allergy Intermediate Hives Verified 01/04/17 15:51 Antibiotics) Constitutional: Reports: as per HPI, chills. Denies: fever, weakness, weight change Eyes: Denies: eye pain, eye discharge, vision change ENT ED: Denies: ear pain, throat pain, dental pain, hearing loss, epistaxis, congestion, dysphagia Cardiovascular: Reports: as per HPI, dyspnea on exertion. Denies: chest pain, palpitations, edema, syncope Respiratory: Reports: as per HPI, cough, dyspnea. Denies: wheezes, hemoptysis, stridor Gastrointestinal: Denies: abdominal pain, nausea, vomiting, diarrhea, constipation, hematemesis, melena, hematochezia Genitourinary: Denies: dysuria, frequency, hematuria, discharge Musculoskeletal: Denies: back pain, neck pain, arthralgia, myalgia Integumentary: Denies: rash, abrasion, lesions Neurological: Denies: headache, weakness, numbness, paresthesias, confusion, abnormal gait, vertigo Psychiatric: Denies: anxiety, depression, suicidal thoughts, homicidal thoughts , auditory hallucinations, visual hallucinations Endocrine: Denies: fatigue Hematological/Lymphatic: Denies: easy bleeding, easy bruising Allergic/Immunologic: Denies: facial swelling, urticaria Past Medical History - Past Medical History Medical history: Reports: aortic aneurysm, atrial fibrillation, cancer, COPD, coronary artery disease, DVT, diabetes, GERD, hyperlipidemia, hypertension, myocardial infarction, other Surgical history: Reports: cholecystectomy, hysterectomy, MIHAELA/BSO, ureteral stent, other (Left upper chest Port-A-Cath, tracheostomy after AAA repair/stent) Psychiatric history: Reports: no psych history NAPHTHALENE OPERATOR history: Reports: no NAPHTHALENE OPERATOR history - Social History Smoking Status: Former smoker Smokeless Tobacco Status: No Alcohol use: Reports: none Drug use: Reports: none Physical Exam - General Limitations: no limitations General appearance: alert, in distress (Respiratory) - Head Head exam: atraumatic, normocephalic, normal inspection - Eye Eye exam: Present: normal appearance, PERRL, EOMI. Absent: scleral icterus - ENT ENT exam: normal exam, normal oropharynx, mucous membranes moist - Neck Neck exam: Present: normal inspection, full ROM, trachea midline. Absent: tenderness, meningismus, lymphadenopathy - Chest Chest inspection: Present: normal inspection, symmetric chest wall rise. Absent : tenderness, rash - Respiratory Respiratory exam: Present: respiratory distress, other (Rales in right lung ely.) - Cardiovascular Cardiovascular exam: Present: regular rate, irregular rhythm, normal heart sounds - Abdominal Exam Abdominal exam: Present: soft, Non-Tender, normal bowel sounds. Absent: tenderness, distention, guarding, rebound, rigidity, organomegaly - Extremities Exam Extremities exam: Present: normal inspection, full ROM, pedal edema (Mild pitting edema to ankles.). Absent: tenderness - Back Exam Back exam: Present: normal inspection, full ROM. Absent: tenderness - Neurological Exam Neurological exam: Present: alert, oriented X3 - Psychiatric Psychiatric exam: Present: normal affect, normal mood - Skin Skin exam: Present: warm, dry, intact, cyanosis (Perioral) Course Course Narrative: Female patient presenting to the emergency department complaining of shortness of breath. She was sent from the [facility] center for low oxygen saturation. He is oxygen dependent at home and generally wears 2 L. However while she is here on 4 L she dips down into the 80s. She is placed on a nonrebreather. She is conversationally dyspneic. She does have some mild perioral cyanosis. Patient states that she was recently seen 3 days ago and diagnosed with a possible pneumonia as well as a UTI. She states today while at the [facility] they believe that this might possibly be some radiation inflammation in her right lung. She does have a primary lung cancer of the right lung. She is also recently had some polyps removed from her colon. She states she was admitted one week ago for the polyp removal. She is reporting blood in her urine. Her lung sounds are wet on the right. We will give patient a breathing treatment and leave her on the nonrebreather while we are attempting to place her on BiPAP. On the chest x-ray does appear that she has a right full lung pneumonia. However with a concern for inflammation the patient needs a CT scan. I do not believe she is stable enough at this time to lay flat on her back for a CT scan. We will admit the patient to the hospital on IV Vanco and cefepime for her pneumonia as well as UTI. She is agreeable to this. Patient states that she does not wish to have CPR performed on her. However she does request to be intubated if necessary. She states that this is on file at the hospital and she has already signed DNR papers. - Reevaluation(s) Reevaluation #1: Patient reassessed. She is on BiPAP at this time. She is resting comfortably. She is easily aroused however she is sleeping. We will admit patient for pneumonia as well as a UTI. She is agreeable. Time: 13:43 Vital Signs Temperature 98.5 F 01/07/17 10:44 Pulse Rate 86 01/07/17 10:44 Respiratory Rate 24 01/07/17 10:44 Blood Pressure 113/79 01/07/17 10:44 O2 Sat by Pulse Oximetry 86 01/07/17 10:44 Temperature 98.5 F 01/07/17 10:44 Pulse Rate 86 01/07/17 10:44 Respiratory Rate 24 01/07/17 10:44 Blood Pressure 113/79 01/07/17 10:44 O2 Sat by Pulse Oximetry 86 01/07/17 10:44 Oxygen Delivery Oxygen Delivery Nasal Cannula Medical Decision Making - Medical Records Medical records reviewed: Yes I reviewed the patient's medical records. - Lab Data Lab results reviewed: Yes I reviewed the patient's lab results. Result diagrams: 01/07/17 11:18 01/07/17 11:18 Lab Results 01/07/17 01/07/17 01/07/17 Range/Units 11:18 11:18 11:18 WBC 10.9 (4.3-11.1) K/mcL RBC 3.07 L (3.82-4.97) M/mcL Hgb 9.3 L (11.5-15.4) g/dL Hct 29.3 L (35.3-44.9) % MCV 95.4 (83.0-100.0) fL MCH 30.3 (28.0-33.3) pg MCHC 31.7 (31.6-35.5) g/dL RDW 19.8 H (11.5-14.5) % Plt Count 286 (140-400) K/mcL MPV 10.1 (9.4-12.4) fL Immature Gran % 1.9 (0-4) % Seg Neutrophils % 87.8 % Lymphocytes % 3.2 % Monocytes % 6.8 % Eosinophils % 0.2 % Basophils % 0.1 % Neutrophils # 9.5 H (1.6-8.9) K/mcL Lymphocytes # 0.4 L (0.6-4.6) K/mcL Monocytes # 0.7 (0.0-1.3) K/mcL Eosinophils # 0.0 (0.0-0.6) K/mcL Basophils # 0.0 (0.0-0.2) K/mcL Nucleated RBCs/100 WBC 0.3 H (0) /100 WBC PT 55.3 H* (9.4-12.1) Seconds INR 4.9 H* APTT 36.4 H (26.0-36.0) Seconds ABG pH (7.32-7.45) pH Units ABG pCO2 (35-45) mmHg ABG pO2 (85-104) mmHg ABG HCO3 (21-27) mEQ/L ABG Total CO2 (20-26) mEq/L ABG O2 Saturation (95-98) % ABG Base Excess (-2.0 to 3.0) mEq/L Blood Gas Modality Inspired O2 % Sodium 134 L (136-145) mEq/L Potassium 3.2 L (3.5-4.5) mEq/L Chloride 100 (98-109) mEq/L Carbon Dioxide 23 (19-29) mEq/L BUN 24 H (7-20) mg/dL Creatinine 1.19 H (0.57-1.11) mg/dL Est GFR ( Amer) 54 L (> 60) Est GFR (Non-Af Amer) 44 L (> 60) BUN/Creatinine Ratio 20 (6-26) Glucose 139 H (70-99) mg/dL Calculated Osmolality 284 (280-300) Lactic Acid (0.5-2.2) mmol/L Calcium 9.3 (8.6-10.8) mg/dL Phosphorus 2.2 L (2.3-4.7) mg/dL Magnesium 1.3 L (1.6-2.6) mg/dL Troponin I (0-0.03) ng/mL B-Natriuretic Peptide (0-100) pg/mL Urine Color (Yellow) Urine Clarity (Clear) Urine pH (5.0-8.0) pH Units Ur Specific [place] (1.010-1.025) Urine Protein (Neg-Trace) mg/dL Urine Glucose (UA) (Normal) mg/dL Urine Ketones (Negative) mg/dL Urine Blood (Negative) Urine Nitrite (Negative) Urine Bilirubin (Negative) Urine Urobilinogen (Normal) mg/dL Ur Leukocyte Esterase (Negative) Urine Microscopic RBC (0-3) per hpf Urine Microscopic WBC (0-3) per hpf Ur Squamous Epith Cells (None-Few) per lpf Urine Bacteria (None-Few) per hpf Hyaline Casts Urine Yeast (None Seen) per hpf Ur Culture Indicated? (NO) 01/07/17 01/07/17 01/07/17 Range/Units 11:18 11:18 11:18 WBC (4.3-11.1) K/mcL RBC (3.82-4.97) M/mcL Hgb (11.5-15.4) g/dL Hct (35.3-44.9) % MCV (83.0-100.0) fL MCH (28.0-33.3) pg MCHC (31.6-35.5) g/dL RDW (11.5-14.5) % Plt Count (140-400) K/mcL MPV (9.4-12.4) fL Immature Gran % (0-4) % Seg Neutrophils % % Lymphocytes % % Monocytes % % Eosinophils % % Basophils % % Neutrophils # (1.6-8.9) K/mcL Lymphocytes # (0.6-4.6) K/mcL Monocytes # (0.0-1.3) K/mcL Eosinophils # (0.0-0.6) K/mcL Basophils # (0.0-0.2) K/mcL Nucleated RBCs/100 WBC (0) /100 WBC PT (9.4-12.1) Seconds INR APTT (26.0-36.0) Seconds ABG pH (7.32-7.45) pH Units ABG pCO2 (35-45) mmHg ABG pO2 (85-104) mmHg ABG HCO3 (21-27) mEQ/L ABG Total CO2 (20-26) mEq/L ABG O2 Saturation (95-98) % ABG Base Excess (-2.0 to 3.0) mEq/L Blood Gas Modality Inspired O2 % Sodium (136-145) mEq/L Potassium (3.5-4.5) mEq/L Chloride (98-109) mEq/L Carbon Dioxide (19-29) mEq/L BUN (7-20) mg/dL Creatinine (0.57-1.11) mg/dL Est GFR ( Amer) (> 60) Est GFR (Non-Af Amer) (> 60) BUN/Creatinine Ratio (6-26) Glucose (70-99) mg/dL Calculated Osmolality (280-300) Lactic Acid 1.5 (0.5-2.2) mmol/L Calcium (8.6-10.8) mg/dL Phosphorus (2.3-4.7) mg/dL Magnesium (1.6-2.6) mg/dL Troponin I 0.02 (0-0.03) ng/mL B-Natriuretic Peptide 735 H (0-100) pg/mL Urine Color (Yellow) Urine Clarity (Clear) Urine pH (5.0-8.0) pH Units Ur Specific [place] (1.010-1.025) Urine Protein (Neg-Trace) mg/dL Urine Glucose (UA) (Normal) mg/dL Urine Ketones (Negative) mg/dL Urine Blood (Negative) Urine Nitrite (Negative) Urine Bilirubin (Negative) Urine Urobilinogen (Normal) mg/dL Ur Leukocyte Esterase (Negative) Urine Microscopic RBC (0-3) per hpf Urine Microscopic WBC (0-3) per hpf Ur Squamous Epith Cells (None-Few) per lpf Urine Bacteria (None-Few) per hpf Hyaline Casts Urine Yeast (None Seen) per hpf Ur Culture Indicated? (NO) 01/07/17 01/07/17 Range/Units 11:21 12:09 WBC (4.3-11.1) K/mcL RBC (3.82-4.97) M/mcL Hgb (11.5-15.4) g/dL Hct (35.3-44.9) % MCV (83.0-100.0) fL MCH (28.0-33.3) pg MCHC (31.6-35.5) g/dL RDW (11.5-14.5) % Plt Count (140-400) K/mcL MPV (9.4-12.4) fL Immature Gran % (0-4) % Seg Neutrophils % % Lymphocytes % % Monocytes % % Eosinophils % % Basophils % % Neutrophils # (1.6-8.9) K/mcL Lymphocytes # (0.6-4.6) K/mcL Monocytes # (0.0-1.3) K/mcL Eosinophils # (0.0-0.6) K/mcL Basophils # (0.0-0.2) K/mcL Nucleated RBCs/100 WBC (0) /100 WBC PT (9.4-12.1) Seconds INR APTT (26.0-36.0) Seconds ABG pH 7.50 H (7.32-7.45) pH Units ABG pCO2 36 (35-45) mmHg ABG pO2 76 L (85-104) mmHg ABG HCO3 28.1 H (21-27) mEQ/L ABG Total CO2 29.2 H (20-26) mEq/L ABG O2 Saturation 96 (95-98) % ABG Base Excess 4.7 H (-2.0 to 3.0) mEq/L Blood Gas Modality NRB Inspired O2 100 % Sodium (136-145) mEq/L Potassium (3.5-4.5) mEq/L Chloride (98-109) mEq/L Carbon Dioxide (19-29) mEq/L BUN (7-20) mg/dL Creatinine (0.57-1.11) mg/dL Est GFR ( Amer) (> 60) Est GFR (Non-Af Amer) (> 60) BUN/Creatinine Ratio (6-26) Glucose (70-99) mg/dL Calculated Osmolality (280-300) Lactic Acid (0.5-2.2) mmol/L Calcium (8.6-10.8) mg/dL Phosphorus (2.3-4.7) mg/dL Magnesium (1.6-2.6) mg/dL Troponin I (0-0.03) ng/mL B-Natriuretic Peptide (0-100) pg/mL Urine Color Red A (Yellow) Urine Clarity Cloudy A (Clear) Urine pH 6.5 (5.0-8.0) pH Units Ur Specific [place] 1.011 (1.010-1.025) Urine Protein 100 H (Neg-Trace) mg/dL Urine Glucose (UA) Normal (Normal) mg/dL Urine Ketones Negative (Negative) mg/dL Urine Blood Large H (Negative) Urine Nitrite Negative (Negative) Urine Bilirubin Negative (Negative) Urine Urobilinogen Normal (Normal) mg/dL Ur Leukocyte Esterase Large H (Negative) Urine Microscopic RBC 30-50 H (0-3) per hpf Urine Microscopic WBC 50-100 H (0-3) per hpf Ur Squamous Epith Cells Many H (None-Few) per lpf Urine Bacteria Few (None-Few) per hpf Hyaline Casts Test Not Performed Urine Yeast Few H (None Seen) per hpf Ur Culture Indicated? YES A (NO) - Radiology Data Radiology results reviewed: Yes I reviewed the patient's radiology results. Chest X-Ray 01/07/17 10:47 IMPRESSION: Diffuse airspace disease throughout the right lung, not significantly changed, suggesting pneumonia. D/ / Vishal Pal MD / Vishal Pal MD Interpreting Provider: Vishal Pal MD - EKG Data EKG #1 EKG attestation: Yes I reviewed and interpreted this EKG. EKG results narrative: A. fib at a rate of 87. QRS duration is 112. QT is 368. QTC is 413. No significant change from previous EKG dated 12/25/2016.
[2017-01-07] MEDS ORDERED: Magic Mouthwash 10 ML UD Cup PO PRN (15:42)
--- NOTE | 2017-01-07 15:49 | Electrocardiograph Report ---
[facility] Test Date: 2017-01-07 Pat Name: Kristie Preston Department: 105 Room: 2N06 Gender: F Work Checker: JUAN : 1940 Requested By: Bipin Torres Order Number: [id number] Reading MD: Ellis Atkinson MD Measurements Intervals [place] Rate: 87 P: AK: 0 QRS: -13 QRSD: 112 T: 128 QT: 368 QTc: 413 Interpretive Statements ATRIAL FIBRILLATION WITH ABERRANT CONDUCTION OR VENTRICULAR PREMATURE COMPLEXES LOW QRS VOLTAGE IN PRECORDIAL LEADS [QRS DEFLECTION < 1.0 mV IN CHEST LEADS] MODERATE INTRAVENTRICULAR CONDUCTION DELAY [110+ ms QRS DURATION] NONSPECIFIC ST \T\ T-WAVE ABNORMALITY Electronically Signed On 01-07-2017 15:48:17 EDT by Ellis Atkinson MD
--- NOTE | 2017-01-07 15:51 | Internal Med History&Physical ---
<CathrynLionel Jimenez - Last Filed: 01/07/17 18:16> Date of Encounter: 01/07/17 Time of Encounter: 15:30 Assessment and Plan (1) Acute and chronic respiratory failure with hypoxia Current visit: Yes Status: Acute Patient presents with chief complaint of acute on chronic shortness of breath and respiratory failure with hypoxia. Patient states her shortness of breath began in July and has become progressively worse. Patient was recently diagnosed with right-sided lung cancer and CXR dated today is suggestive of possible pneumonia. Patient's respiratory status is also complicated by history of COPD. Supplemental O2 ordered with titration if SPO2 less than 92%, continuous SPO2 monitoring, BiPAP ordered for use if oxygen supplementation via facemask is ineffective, ABG to be repeated. Due to SOB, patient is falls risk placed on falls precautions/up with assist/bedrest with bedside commode with assist only. Patient and vital signs will be monitored closely for signs of respiratory decline/failure. (2) Pneumonia Current visit: Yes Status: Acute Patient presents with severe SOB/hypoxia and CXR from ED which shows diffuse airspace disease throughout the right lung which is not significantly changed, suggestive of pneumonia. Blood cultures ordered x2. Will cover UTI infection with IV cefepime 2,000 mg Q12 and IV levaquin 750 mg daily. IV vancomycin with pharmacy dosing added for pneumonia coverage. Follow-up labs ordered. Lactic acid ordered. Patient does not currently meet sepsis criteria but will be monitored closely for changes which may suggest sepsis. Qualifiers: Pneumonia type: due to Pneumococcus Laterality: right Lung location: unspecified part of lung Qualified Code(s): J13 - Pneumonia due to Streptococcus pneumoniae (3) UTI (urinary tract infection) Current visit: Yes Status: Acute Patient presents with UTI based on U/A taken in the ED today. Urine culture ordered and IV cefepime 2,000 mg Q12 and IV levaquin 750 mg daily ordered for infection coverage. Monitor I&O. Qualifiers: Urinary tract infection type: site unspecified Hematuria presence: with hematuria Qualified Code(s): N39.0 - Urinary tract infection, site not specified; R31.9 - Hematuria, unspecified (4) Bilateral edema of lower extremity Current visit: Yes Status: Acute Patient presents with acute on chronic 1+ pitting bilateral edema of LE. Will continue patient's Lasix and order fluid restriction diet of 1.5L daily. Will monitor I&O daily as well as daily weight. (5) A-fib Current visit: Yes Status: Chronic Patient presents with history of paroxysmal atrial fibrillation. Will monitor patient with continuous cardiac telemetry and continue patient's Cardizem. Qualifiers: Atrial fibrillation type: paroxysmal Qualified Code(s): I48.0 - Paroxysmal atrial fibrillation (6) Lung cancer Current visit: Yes Status: Chronic Patient presents with recent history of right-sided lung cancer. She was sent to ED today by cancer center for hypoxia. Diagnosis is acute on chronic hypoxemia versus radiation pneumonitis. Oncology consult placed. Qualifiers: Laterality: right Lung location: lower lobe of lung Qualified Code(s): C34.31 - Malignant neoplasm of lower lobe, right bronchus or lung (7) GERD (gastroesophageal reflux disease) Current visit: Yes Status: Chronic Patient presents with history of chronic gastresophageal reflux disease and we will order IV Protonix 40 mg daily and hold patient's PO Protonix. IV Zofran ordered for nausea PRN. Qualifiers: Esophagitis presence: esophagitis presence not specified Qualified Code(s) : K21.9 - Gastro-esophageal reflux disease without esophagitis (8) HTN (hypertension) Current visit: Yes Status: Chronic Patient presents with history of chronic hypertension. Will continue patient's metoprolol XL and monitor patient's vital signs. Qualifiers: Hypertension type: essential hypertension Qualified Code(s): I10 - Essential (primary) hypertension (9) HLD (hyperlipidemia) Current visit: Yes Status: Chronic Patient presents with history of chronic hyperlipidemia and we will continue patient's Lipitor. Lipid panel ordered. Qualifiers: Hyperlipidemia type: pure hypercholesterolemia Qualified Code(s): E78.00 - Pure hypercholesterolemia, unspecified; E78.0 - Pure hypercholesterolemia (10) Diabetes Current visit: Yes Status: Chronic Patient presents with history of chronic diabetes which she reports is controlled by her diet. Will do blood glucose checks every 6 and order low- dose correction sliding scale if necessary based on patient's glucose checks. A1c ordered. 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 We will continue patient's Xarelto and monitor for bleeding. Internal Medicine - H&P: HPI Chief complaint: SOB/Dyspnea Admitted From: Emergency Dept Plans for Post Hospital Care: Home History of present illness: Mrs. Preston is a 76 year old female presents from the ED with chief complaint of extreme shortness of breath and dyspnea. Patient states her shortness of breath began in July and has become progressively worse, especially with the last 72 hours. Patient was recently diagnosed with right sided lung cancer and was seen at the cancer Center today Saturday ED due to hypoxia CXR and ED dated today shows diffuse airspace disease throughout the right lung which is not significantly changed, suggestive of pneumonia. Diagnosis of acute on chronic hypoxemia due to pneumonia versus radiation pneumonitis. Patient has a history of aortic aneurysm which is 5 years old, atrial fibrillation, lung cancer newly diagnosed, COPD, coronary artery disease, DVT from approximately 5 years ago as well, diabetes, GERD, hyperlipidemia, hypertension, myocardial infarction. Patient also has ureteral stents placed and reports that stents have not been changed in almost a year. She expresses concern regarding this during examination. Dr. Anthony consulted regarding this. Oncology consult ordered as well. Patient denies chest pain, nausea, vomiting, diarrhea, constipation, unusual bleeding, headache, numbness, tingling, presyncope, or syncope. Patient is high risk for respiratory failure due to current hypoxemia based on possible pneumonia and chronic history of COPD. Recently placed as inpatient with continuous cardiac telemetry and supplemental O2 with titration if SPO2 less than 92%, continuous SPO2 monitoring, orders for BiPAP if supplemental O2 via facemask ineffective, blood cultures 2, urine culture, IV cefepime 2000 mg every 12 daily and IV Levaquin 750 mg daily for infection coverage. Lactic acid ordered. Patient does not currently meet sepsis criteria we monitored closely for changes which may suggest she is becoming septic. Patient will be monitored closely. Time spent with patient greater than 50 minutes Past Med Surg Social Fam HX - Past Medical History Source: patient Medical history: aortic aneurysm, atrial fibrillation, cancer, COPD, coronary artery disease, DVT, diabetes, GERD, hyperlipidemia, hypertension, myocardial infarction, other Psychiatric history: no psych history - Past Surgical History Surgical History: cholecystectomy, hysterectomy, MIHAELA/BSO, ureteral stent, other (Left upper chest Port-A-Cath, tracheostomy after AAA repair/stent) - Social History Smoking Status: Former smoker Smokeless Tobacco Status: No Alcohol use: none Drug use: none Occupational status: previously employed Current living situation: Home - Independent Activity Level: Independent ambulation, Uses cane/walker Recent Out of Country Travel Within the Last 8 Weeks: No Exposure or Possible Exposure to Illness During Travel: No - Family History Father Race: Family Member Ethnicity: Non- Living Status: Age at : 54 Cause of : Bone cancer Hx Family Cancer: Yes (Bone) Mother Race: Family Member Ethnicity: Non- Living Status: Age at : 74 Cause of : HD Hx Family Cardiac Disorders: Yes (HD) Hx Family Endocrine Disorder: Yes (DM) Brother Race: Family Member Ethnicity: Non- Living Status: Still Living Hx Family Cardiac Disorders: Yes (HD) Internal Medicine - H&P: Meds Atorvastatin [Lipitor] 40 mg PO HS 04/25/15 [History] Diltiazem HCl [Diltiazem 24Hr Cd] 120 mg PO BID 04/25/15 [History] Docusate [Colace] 100 mg PO DAILY PRN 04/25/15 [History] Ergocalciferol (VITAMIN D2) [Drisdol (50,000 Unit)] 50,000 unit PO QWEEK [History] Metoprolol XL (24 HR) Succ [Toprol XL] 25 mg PO DAILY 04/25/15 [History] Tiotropium [Spiriva] 18 mcg IH HS 04/25/15 [History] Acetaminophen [Tylenol] 650 mg PO Q6HR PRN 08/25/16 [History] Albuterol Sulfate [Ventolin Hfa] 18 gm IH BID PRN 08/25/16 [History] Citalopram [CeleXA] 20 mg PO HS 10/24/16 [History] Lidocaine/Prilocaine CREAM [Emla] 5 gm TP PRN PRN 10/24/16 [History] Magic Mouthwash [Magic Mouthwash BLM] 10 ml PO TID PRN 10/24/16 [History] Prochlorperazine Maleate [Compazine] 10 mg PO Q6HR PRN 10/24/16 [History] LORazepam [Ativan] 0.5 mg PO Q6H PRN #60 tablet 12/11/16 [Rx] Furosemide [Lasix] 20 mg PO DAILY #30 tablet 12/29/16 [Rx] Sucralfate [Carafate] 1 gm PO ACHS 30 Days 12/29/16 [Rx] levoFLOXacin [Levaquin] 500 mg PO Q48H #3 tablet 12/29/16 [Rx] Pantoprazole Sodium 40 mg PO DAILY 01/07/17 [History] Rivaroxaban [Xarelto] 15 mg PO DAILY 01/07/17 [History] Allergies Penicillins [PCN] Allergy (Intermediate, Verified 01/04/17 15:51) Hives Sulfa (Sulfonamide Antibiotics) Allergy (Intermediate, Verified 01/04/17 15:51) Hives All Systems PM: A 10-system review of systems was performed and is negative for pertinent findings except as documented above in the HPI. - Constitutional Constitutional: as per HPI, weakness, no chills, no fever(s), no night sweats - EENT Eyes: no change in vision, no discharge, no pain, no photophobia Ears: no ear discharge, no ear pain, no tinnitus Nose, mouth and throat: no dysphagia, no nasal discharge, no neck pain, no sore throat - Breasts Breasts: as per HPI - Cardiovascular Cardiovascular ROS IM: as per HPI, dyspnea, dyspnea on exertion, irregular heart rhythm, no chest pain, no diaphoresis, no lightheadedness, no palpitations , no syncope - Respiratory Respiratory: as per HPI, cough, dyspnea, dyspnea on exertion, pain with cough - Gastrointestinal Gastrointestinal: no abdominal pain, no diarrhea, no hematemesis, no hematochezia, no melena, no nausea, no vomiting - Genitourinary Genitourinary: no change in urinary stream, no dysuria, no flank pain, no hematuria Menstruation: as per HPI, post hysterectomy - Musculoskeletal Musculoskeletal ROS IM: no numbness, no tingling - Integumentary Integumentary IM: no rash, no unusual bruising - Neurological Neurological ROS: no confusion, no convulsions, no focal weakness, no numbness, no tingling, no tremor(s) - Psychiatric Psychiatric: as per HPI - Endocrine Endocrine IM: as per HPI - Hematologic/Lymphatic Hematologic/Lymphatic: no easy bruising - Allergic/Immunologic Allergic/Immunologic: as per HPI - Constitutional Vitals: Temp Pulse Resp BP Pulse Ox 98.5 F 86 8 116/71 86 01/07/17 10:44 01/07/17 10:44 01/07/17 15:10 01/07/17 15:10 01/07/17 10:44 General appearance: Present: cooperative, A&O X 3, pleasant, obese, severe distress (Respiratory), answers questions appropriately - Head Head exam: Present: atraumatic, normocephalic - Eye Eye exam: Present: PERRL, conjuntiva pink, sclera anicteric Pupils: Present: PERRL - ENT ENT exam: Present: normal exam, normal external ear exam - Neck Neck exam general surgery: Present: supple, trachea midline. Absent: lymphadenopathy - Respiratory Respiratory exam: Present: decreased breath sounds, wheezes (Right lung all lobes, FAVIAN) - Cardiovascular Cardiovascular exam: Present: irregular rhythm - GI/Abdominal GI/Abdominal exam: Present: normal bowel sounds, soft, no peritoneal signs. Absent: distended, tenderness - Rectal Rectal exam: Present: deferred - Additional comments: exam deferred. - Extremities Exam Extremities exam: Present: normal inspection, pedal edema (1+ pitting bilaterally), warm, radial pulses palpable and symetrical - Back Exam Back exam: Present: normal inspection - Neurological Exam Neurological exam: Present: CN II-XII intact, oriented X3, no focal deficits. Absent: pronater drift, facial droop, speech deficit - Psychiatric Psychiatric exam: Present: normal affect, normal mood - Skin Skin exam: Present: dry, intact Internal Med - H&P Results - Labs CBC & Chem 7: 01/07/17 11:18 01/07/17 11:18 - EKG Data Prior EKG available for review: no EKG comments: 01/07/17 17:09 EKG dated 01/07/17 shows atrial fibrillation with aberrant conduction or ventricular premature complexes, low QRS voltage in precordial leads, moderate intraventricular conduction delay, and nonspecific ST and T-wave abnormality. - Diagnostic Studies Chest x-ray Additional comments: Impressions Chest X-Ray 01/07/17 10:47 IMPRESSION: Diffuse airspace disease throughout the right lung, not significantly changed, suggesting pneumonia. D/ / Vishal Pal MD / Vishal Pal MD Interpreting Provider: Vishal Pal MD <Kylie Pantoja - Last Filed: 01/07/17 18:39> Date of Encounter: 01/07/17 Time of Encounter: 16:15 Internal Medicine - H&P: HPI History of present illness: Ms. Preston is a 76 year old female All Systems PM: A 10-system review of systems was performed and is negative for pertinent findings except as documented above in the HPI. - Constitutional Vitals: Temp Pulse Resp BP Pulse Ox 98.2 F 89 26 102/81 96 01/07/17 15:52 01/07/17 16:59 01/07/17 16:59 01/07/17 16:59 01/07/17 16:59 Internal Med - H&P Results - Labs CBC & Chem 7: 01/07/17 11:18 01/07/17 11:18 - Attending Attestation I examined this patient and my medical decision-making was reviewed with the nurse practitioner. I agree with the documented history of present illness, review of systems, past medical, surgical social and family histories and examination findings, disposition and treatment plan as described above except to any changes set forth below. Patient with a history of lung cancer status post radiation therapy. Last session in November presented to the ER with complaints of hypoxia from the cancer center. She had been started on treatment for pneumonia as outpatient after she was complaining of shortness of breath to her primary care provider. She has a history of COPD, atrial fibrillation coronary artery disease and diabetes. She also has also been started on home oxygen recently. She however continued to have progressive shortness of breath. In the ER, she required to be placed on BiPAP . On examination, she is dyspneic and in respiratory distress. Heart sounds show normal S1 and S2. Respiratory examination shows coarse crackles bilaterally with coarse breath sounds in right lung with some wheezing. Chest x-ray shows right-sided infiltrates. Acute on chronic hypoxic respiratory failure: We will treat with O2 supplementation. BiPAP use as needed. At high risk for complications. Treat underlying conditions. Pneumonia: Concern for pneumonia given patient's chest x-ray findings. We will treat with broad-spectrum antibiotics. Follow culture results. Radiation pneumonitis: Possible radiation pneumonitis given his history of radiation therapy that the patient received in November. We will treat with steroids. Consult oncology. Diabetes mellitus type 2: Monitor blood sugars. Diabetic diet. Sliding scale insulin. Hypertension: Continue home medications for this and monitor blood pressure closely. Atrial fibrillation: Paroxysmal. Rate controlled. However patient's INR is 4.9. On anticoagulation with Xarelto. Chronic kidney disease stage III: We will monitor renal function. Creatinine is at baseline.
[2017-01-07] MEDS: Ipratropium/Albuterol Neb 3 ML IH SCH ×2 (16:25→20:25)
[2017-01-07] MEDS ORDERED: *HR* Morphine 2 MG/ML SYRINGE IVP PRN (16:31)
[2017-01-07] MEDS ORDERED: *HR* HYDROcodone/Acet 5/325 mg TABLET PO PRN (16:31)
[2017-01-07] MEDS ORDERED: Naloxone 0.4 MG/ML INJ IVP PRN (16:31)
[2017-01-07] MEDS ORDERED: Ondansetron 4 MG/2 ML VIAL IVP PRN (16:31)
[2017-01-07] MEDS ORDERED: Levofloxacin 750 MG/150 ML 750 MG/150 ML BAG IVPB SCH (18:00)
[2017-01-07] MEDS ORDERED: Vancomycin 1 EACH in D5% in Water 250 ML IVPB SCH (19:00)
[2017-01-07] MEDS: Diltiazem CD (24hr) 120 MG CAPSULE PO SCH (20:58)
[2017-01-07] MEDS ORDERED: Tiotropium 18 MCG inhalation IH SCH (21:00)
[2017-01-07] MEDS ORDERED: Dextrose Gel 15 GM PO PRN ×2 (21:09)
[2017-01-07] MEDS ORDERED: *HR* Dextrose 50 % in Water (Syg) 50 ML SYRINGE IVP PRN (21:09)
[2017-01-07] MEDS ORDERED: D5% in Water 1,000 ML IVC PRN (21:09)
[2017-01-07] MEDS: Insulin LISPRO 300 UNITS/3 ML VIAL SQ SCH (21:56)
[2017-01-08] MEDS: Ipratropium/Albuterol Neb 3 ML IH SCH ×6 (00:12→20:42)
[2017-01-08 04:39] LABS: Basophils % 0.1 %; Hematocrit 27.5 % (35.3-44.9); Hemoglobin 8.7 g/dL (11.5-15.4); Immature Granulocytes % 1.7 % (0-4); Lymphocytes # 0.3 K/mcL (0.6-4.6); Lymphocytes % 2.8 %; Mean Corpuscular HGB Conc 31.6 g/dL (31.6-35.5); Mean Corpuscular Hemoglobin 30.5 pg (28.0-33.3); Mean Corpuscular Volume 96.5 fL (83.0-100.0); Mean Platelet Volume 10.7 fL (9.4-12.4); Monocytes # 0.3 K/mcL (0.0-1.3); Monocytes % 3.5 %; Neutrophils # 8.1 K/mcL (1.6-8.9); Platelet Count 234 K/mcL (140-400); Red Blood Count 2.85 M/mcL (3.82-4.97); Red Cell Distribution Width 19.5 % (11.5-14.5); Segmented Neutrophils % 91.9 %
[2017-01-08 04:44] LABS: INR 3.2; Prothrombin Time 35.3 Seconds (9.4-12.1)
[2017-01-08 04:46] LABS: Activated Partial Thrombo Time 30.8 Seconds (26.0-36.0)
[2017-01-08 04:49] LABS: Hemoglobin A1C 5.8 %
[2017-01-08 04:53] LABS: Calcium 9.1 mg/dL (8.6-10.8); Potassium 3.8 mEq/L (3.5-4.5)
[2017-01-08 04:55] LABS: Chol/HDL Ratio 3.4 (0-4.9)
[2017-01-08] MEDS: *HR* LORazepam 0.5 MG TABLET PO PRN ×3 (08:26→23:18)
[2017-01-08] MEDS: Diltiazem CD (24hr) 120 MG CAPSULE PO SCH ×2 (08:26→20:22)
[2017-01-08] MEDS: *HR* Rivaroxaban 15 MG TABLET PO SCH (08:26)
[2017-01-08] MEDS: Insulin LISPRO 300 UNITS/3 ML VIAL SQ SCH ×4 (08:33→20:25)
[2017-01-08] MEDS ORDERED: Pantoprazole 40 MG VIAL IVP SCH (09:00)
[2017-01-08] MEDS: Furosemide 20 MG TABLET PO SCH (09:48)
[2017-01-08] MEDS: Metoprolol XL (24 HR) Succ 25 MG TAB.ER.24H PO SCH (09:48)
[2017-01-08] MEDS: Acetaminophen 325 MG TABLET PO PRN (09:48)
--- NOTE | 2017-01-08 12:27 | Urology - Consult Note ---
Date of Encounter: 01/08/17 Time of Encounter: 12:25 - Assessment and Plan (1) Hydronephrosis Current Visit: No Status: Acute Assessment and plan: At this time no urgent need for changing ureteral stents. Patient can follow up with me in 2-3 weeks for discussion of management of chronic indwelling ureteral stents Qualifiers: Hydronephrosis type: other Qualified Code(s): N13.39 - Other hydronephrosis Urology CN:HPI Consult date: 01/08/17 Reason for consult Urology: Hydronephrosis Requesting physician: Lionel Lockett History of present illness: Kristie is a 76-year-old female well known to me for chronic bilateral hydronephrosis secondary to a large abdominal aortic aneurysm status post stenting. Patient has chronic indwelling ureteral stents. These were last changed in April 2016. Past Med Surg Social Fam HX - Past Medical History Medical history: aortic aneurysm, atrial fibrillation, cancer, COPD, coronary artery disease, DVT, diabetes, GERD, hyperlipidemia, hypertension, myocardial infarction, other Psychiatric history: no psych history - Past Surgical History Surgical History: cholecystectomy, hysterectomy, MIHAELA/BSO, ureteral stent, other (Left upper chest Port-A-Cath, tracheostomy after AAA repair/stent) - Social History Smoking Status: Former smoker Smokeless Tobacco Status: No Alcohol use: none Drug use: none - Family History Father Race: Family Member Ethnicity: Non- Living Status: Age at : 54 Cause of : Bone cancer Hx Family Cancer: Yes (Bone) Mother Race: Family Member Ethnicity: Non- Living Status: Age at : 74 Cause of : HD Hx Family Cardiac Disorders: Yes (HD) Hx Family Endocrine Disorder: Yes (DM) Brother Race: Family Member Ethnicity: Non- Living Status: Still Living Hx Family Cardiac Disorders: Yes (HD) Medications and Allergies Atorvastatin [Lipitor] 40 mg PO HS 04/25/15 [History] Diltiazem HCl [Diltiazem 24Hr Cd] 120 mg PO BID 04/25/15 [History] Docusate [Colace] 100 mg PO DAILY PRN 04/25/15 [History] Ergocalciferol (VITAMIN D2) [Drisdol (50,000 Unit)] 50,000 unit PO QWEEK [History] Metoprolol XL (24 HR) Succ [Toprol XL] 25 mg PO DAILY 04/25/15 [History] Tiotropium [Spiriva] 18 mcg IH HS 04/25/15 [History] Acetaminophen [Tylenol] 650 mg PO Q6HR PRN 08/25/16 [History] Albuterol Sulfate [Ventolin Hfa] 18 gm IH BID PRN 08/25/16 [History] Citalopram [CeleXA] 20 mg PO HS 10/24/16 [History] Lidocaine/Prilocaine CREAM [Emla] 5 gm TP PRN PRN 10/24/16 [History] Magic Mouthwash [Magic Mouthwash BLM] 10 ml PO TID PRN 10/24/16 [History] Prochlorperazine Maleate [Compazine] 10 mg PO Q6HR PRN 10/24/16 [History] LORazepam [Ativan] 0.5 mg PO Q6H PRN #60 tablet 12/11/16 [Rx] Furosemide [Lasix] 20 mg PO DAILY #30 tablet 12/29/16 [Rx] Sucralfate [Carafate] 1 gm PO ACHS 30 Days 12/29/16 [Rx] levoFLOXacin [Levaquin] 500 mg PO Q48H #3 tablet 12/29/16 [Rx] Pantoprazole Sodium 40 mg PO DAILY 01/07/17 [History] Rivaroxaban [Xarelto] 15 mg PO DAILY 01/07/17 [History] Allergies Penicillins [PCN] Allergy (Intermediate, Verified 01/04/17 15:51) Hives Sulfa (Sulfonamide Antibiotics) Allergy (Intermediate, Verified 01/04/17 15:51) Hives Review of Systems - Constitutional no chills - EENT Nose, mouth and throat: no dizziness Exam Initial Vital Signs Temp Pulse Resp BP Pulse Ox 98.5 F 86 24 113/79 86 01/07/17 10:44 01/07/17 10:44 01/07/17 10:44 01/07/17 10:44 01/07/17 10:44 - General physical appearance Present: well developed - Cardiovascular Cardiovascular exam IM: RRR Urology Results - Labs 01/08/17 04:29 01/08/17 04:29 Abnormal lab results RBC 2.85 M/mcL (3.82-4.97) L 01/08/17 04:29 Hgb 8.7 g/dL (11.5-15.4) L 01/08/17 04:29 Hct 27.5 % (35.3-44.9) L 01/08/17 04:29 RDW 19.5 % (11.5-14.5) H 01/08/17 04:29 Lymphocytes # 0.3 K/mcL (0.6-4.6) L 01/08/17 04:29 Nucleated RBCs/100 WBC 0.3 /100 WBC (0) H 01/07/17 11:18 PT 35.3 Seconds (9.4-12.1) H 01/08/17 04:29 ABG pH 7.50 pH Units (7.32-7.45) H 01/07/17 12:09 ABG pO2 76 mmHg (85-104) L 01/07/17 12:09 ABG HCO3 28.1 mEQ/L (21-27) H 01/07/17 12:09 ABG Total CO2 29.2 mEq/L (20-26) H 01/07/17 12:09 ABG Base Excess 4.7 mEq/L (-2.0 to 3.0) H 01/07/17 12:09 Sodium 134 mEq/L (136-145) L 01/08/17 04:29 BUN 26 mg/dL (7-20) H 01/08/17 04:29 Creatinine 1.36 mg/dL (0.57-1.11) H 01/08/17 04:29 Est GFR ( Amer) 46 (> 60) L 01/08/17 04:29 Est GFR (Non-Af Amer) 38 (> 60) L 01/08/17 04:29 Glucose 221 mg/dL (70-99) H 01/08/17 04:29 POC Glucose 188 (58-89) H 01/07/17 15:58 Hemoglobin A1c 5.8 % (-5.6) H 01/08/17 04:29 Phosphorus 2.2 mg/dL (2.3-4.7) L 01/07/17 11:18 Magnesium 1.3 mg/dL (1.6-2.6) L 01/07/17 11:18 B-Natriuretic Peptide 735 pg/mL (0-100) H 01/07/17 11:18 HDL Cholesterol 18 mg/dL (40-59) L 01/08/17 04:29 Urine Color Red (Yellow) A 01/07/17 11:21 Urine Clarity Cloudy (Clear) A 01/07/17 11:21 Urine Protein 100 mg/dL (Neg-Trace) H 01/07/17 11:21 Urine Blood Large (Negative) H 01/07/17 11:21 Ur Leukocyte Esterase Large (Negative) H 01/07/17 11:21 Urine Microscopic RBC 30-50 per hpf (0-3) H 01/07/17 11:21 Urine Microscopic WBC 50-100 per hpf (0-3) H 01/07/17 11:21 Ur Squamous Epith Cells Many per lpf (None-Few) H 01/07/17 11:21 Urine Yeast Few per hpf (None Seen) H 01/07/17 11:21 Ur Culture Indicated? YES (NO) A 01/07/17 11:21 Diabetes panel 01/08/17 01/08/17 01/08/17 Range/Units 04:29 04:29 04:29 Sodium 134 L (136-145) mEq/L Potassium 3.8 (3.5-4.5) mEq/L Chloride 101 (98-109) mEq/L Carbon Dioxide 24 (19-29) mEq/L BUN 26 H (7-20) mg/dL Creatinine 1.36 H (0.57-1.11) mg/dL Glucose 221 H (70-99) mg/dL Hemoglobin A1c 5.8 H ( - 5.6) % Calcium 9.1 (8.6-10.8) mg/dL Triglycerides 102 (< 150) mg/dL HDL Cholesterol 18 L (40-59) mg/dL Calcium panel 01/08/17 Range/Units 04:29 Calcium 9.1 (8.6-10.8) mg/dL Pituitary panel 01/08/17 Range/Units 04:29 Sodium 134 L (136-145) mEq/L Potassium 3.8 (3.5-4.5) mEq/L Chloride 101 (98-109) mEq/L Carbon Dioxide 24 (19-29) mEq/L BUN 26 H (7-20) mg/dL Creatinine 1.36 H (0.57-1.11) mg/dL Glucose 221 H (70-99) mg/dL Calcium 9.1 (8.6-10.8) mg/dL Adrenal panel 01/08/17 Range/Units 04:29 Sodium 134 L (136-145) mEq/L Potassium 3.8 (3.5-4.5) mEq/L Chloride 101 (98-109) mEq/L Carbon Dioxide 24 (19-29) mEq/L BUN 26 H (7-20) mg/dL Creatinine 1.36 H (0.57-1.11) mg/dL Glucose 221 H (70-99) mg/dL Calcium 9.1 (8.6-10.8) mg/dL All other labs normal. Consult Discharge Plan - Plan Referrals: Sofya Faith MD [Primary Care Provider] - 01/17/17 10:30 am
[2017-01-08] MEDS: Cefepime HCl 1,000 MG in D5% in Water (Mini-Bag+) 100 ML IVPB SCH (13:01)
[2017-01-08] MEDS: Vancomycin 1,250 MG in D5% in Water 250 ML IVPB SCH (13:44)
--- NOTE | 2017-01-08 14:46 | Internal Med Progress Note ---
Date of Encounter: 01/08/17 Time of Encounter: 14:42 - Assessment and plan (1) Lung cancer Current Visit: Yes Status: Chronic Assessment and plan: follow oncology recommendations Qualifiers: Laterality: right Lung location: lower lobe of lung Qualified Code(s): C34.31 - Malignant neoplasm of lower lobe, right bronchus or lung (2) HCAP (healthcare-associated pneumonia) Current Visit: No Status: Acute Assessment and plan: Patient was recently diagnosed with right-sided lung cancer and CXR is suggestive of pneumonia. Patient's respiratory status is also complicated by history of COPD. Supplemental O2 ordered with titration of SPO2 less than 92% , continuous SPO2 monitoring, BiPAP ordered for use if oxygen supplementation via facemask is ineffective. sats has improved and so has the o2 requirement, currently on 6L NC Due to SOB, patient is falls risk placed on falls precautions/up with assist/ bedrest with bedside commode with assist only. Patient and vital signs will be monitored closely for signs of respiratory decline/failure. (3) A-fib Current Visit: Yes Status: Chronic Assessment and plan: Patient presents with history of paroxysmal atrial fibrillation. Will monitor patient with continuous cardiac telemetry and continue patient's Cardizem. Qualifiers: Atrial fibrillation type: paroxysmal Qualified Code(s): I48.0 - Paroxysmal atrial fibrillation (4) COPD (chronic obstructive pulmonary disease) Current Visit: No Status: Chronic Assessment and plan: Not in exacerbation at this time, continue breathing treatments. uses 2 l of o2 at baseline at home. Qualifiers: COPD type: unspecified COPD Qualified Code(s): J44.9 - Chronic obstructive pulmonary disease, unspecified (5) UTI (urinary tract infection) Current Visit: No Status: Acute Assessment and plan: follow . Urine culture IV cefepime 2,000 mg Q12 and IV levaquin 750 mg daily ordered for infection coverage. Monitor I&O. Qualifiers: Urinary tract infection type: site unspecified Hematuria presence: without hematuria Qualified Code(s): N39.0 - Urinary tract infection, site not specified (6) Acute and chronic respiratory failure with hypoxia Current Visit: Yes Status: Acute Assessment and plan: Patient was recently diagnosed with right-sided lung cancer and CXR is suggestive of pneumonia. Patient's respiratory status is also complicated by history of COPD. Supplemental O2 ordered with titration of SPO2 less than 92% , continuous SPO2 monitoring, BiPAP ordered for use if oxygen supplementation via facemask is ineffective. sats has improved and so has the o2 requirement, currently on 6L NC Due to SOB, patient is falls risk placed on falls precautions/up with assist/ bedrest with bedside commode with assist only. Patient and vital signs will be monitored closely for signs of respiratory decline/failure. (7) Hydronephrosis Current Visit: No Status: Acute Assessment and plan: At this time no urgent need for changing ureteral stents as per urology. Patient can follow up with urology in 2-3 weeks for discussion of management of chronic indwelling ureteral stents Qualifiers: Hydronephrosis type: other Qualified Code(s): N13.39 - Other hydronephrosis - Subjective Interval history: Patient seen at the bedside, reports feeling better than yesterday. Oxygen changed to nasal cannula, saturating well at 6 L now. Admitted for pneumonia, continue IV antibiotics. - Constitutional Vitals: Temp Pulse Resp BP Pulse Ox 98 F 74 20 94/68 94 01/08/17 11:28 01/08/17 11:28 01/08/17 11:28 01/08/17 11:28 01/08/17 11:28 General appearance: Present: cooperative, A&O X 3, pleasant, obese, severe distress (Respiratory), answers questions appropriately Exam: - Head Head exam: Present: atraumatic, normocephalic - Eye Eye exam: Present: PERRL, conjuntiva pink, sclera anicteric Pupils: Present: PERRL - ENT ENT exam: Present: normal exam, normal external ear exam - Neck Neck exam general surgery: Present: supple, trachea midline. Absent: lymphadenopathy - Respiratory Respiratory exam: Present: decreased breath sounds, wheezes (Right lung all lobes, FAVIAN) - Cardiovascular Cardiovascular exam: Present: irregular rhythm - GI/Abdominal GI/Abdominal exam: Present: normal bowel sounds, soft, no peritoneal signs. Absent: distended, tenderness - Rectal Rectal exam: Present: deferred - Additional comments: exam deferred. - Extremities Exam Extremities exam: Present: normal inspection, pedal edema (1+ pitting bilaterally), warm, radial pulses palpable and symetrical - Back Exam Back exam: Present: normal inspection - Neurological Exam Neurological exam: Present: CN II-XII intact, oriented X3, no focal deficits. Absent: pronater drift, facial droop, speech deficit - Psychiatric Psychiatric exam: Present: normal affect, normal mood - Skin Skin exam: Present: dry, intact Internal Medicine: Result - Labs CBC & Chem 7: 01/08/17 04:29 01/08/17 04:29 Labs: Short CBC 01/08/17 Range/Units 04:29 WBC 8.9 (4.3-11.1) K/mcL Hgb 8.7 L (11.5-15.4) g/dL Hct 27.5 L (35.3-44.9) % Plt Count 234 (140-400) K/mcL Neutrophils # 8.1 (1.6-8.9) K/mcL BMP 01/08/17 04:29 Sodium 134 L Potassium 3.8 Chloride 101 Carbon Dioxide 24 BUN 26 H Creatinine 1.36 H Glucose 221 H Calcium 9.1 - ABG Interpretation ABG results: ABG ABG pH 7.50 pH Units (7.32-7.45) H 01/07/17 12:09 ABG pCO2 36 mmHg (35-45) 01/07/17 12:09 ABG pO2 76 mmHg (85-104) L 01/07/17 12:09 ABG O2 Saturation 96 % (95-98) 01/07/17 12:09 PT/INR, D-dimer PT 35.3 Seconds (9.4-12.1) H 01/08/17 04:29 Consult Discharge Plan - Plan Referrals: Sofya Faith MD [Primary Care Provider] - 01/17/17 10:30 am
[2017-01-08] MEDS ORDERED: *HR* Alteplase (Cathflo) 2 MG VIAL IVP ONE (15:17)
[2017-01-09] MEDS: Ipratropium/Albuterol Neb 3 ML IH SCH ×6 (00:53→20:25)
[2017-01-09] MEDS: Furosemide 20 MG TABLET PO SCH (07:50)
[2017-01-09] MEDS: Diltiazem CD (24hr) 120 MG CAPSULE PO SCH ×2 (07:50→21:07)
[2017-01-09] MEDS: Metoprolol XL (24 HR) Succ 25 MG TAB.ER.24H PO SCH (07:50)
[2017-01-09] MEDS: *HR* Rivaroxaban 15 MG TABLET PO SCH (07:50)
--- NOTE | 2017-01-09 07:50 | Oncology Inp Consult Note ---
Date of Encounter: 01/09/17 Time of Encounter: 07:39 - Data of Consult Patient: known to practice within the last 3 years Consult date: 01/09/17 Requesting Physician: Chiquita Asencio MD Primary Care Provider: Sofya Faith, - Consult Narrative Reason for consult: Lung cancer History of present illness: Ms. Preston is a 76 year old female patient who is established with us for ongoing management of his right-sided lung cancer. I have summarized patient's heme/onc background below based on most recent office report from 01/07/17. Oncology history Patient initially presented with unexplained shortness of breath, nausea, vomiting, diarrhea symptoms and had an abdomen CT at the [place] [facility] on 2016 which showed a 3.4 cm right lower lobe mass and small irregular opacities in the right middle lobe. Also noted was a very large, fusiform infrarenal aortic aneurysm 11.8 cm with changes from previous bi-iliac endograft stenting. Due to concern about her high risk AAA, she was transferred to [facility] in [place] for further evaluation/management. She was evaluated by Dr. Ayala-lead caster helper at [facility] who performed bronchoscopy and EBUSNA 09/05/2016. Pathology from level 4R precarinal node returned positive for lung adenocarcinoma positive for TTF-1, Napsin, CK 7, CAM 5.2 overall compatible with primary lung malignancy. She decided to continue her cancer evaluation and treatment closer to home and was referred to [place] for management of her lung cancer. PFT 09/17/16 showed normal lung volumes with an FEV1 74% predicted. DLCO 73% predicted. Brain MRI 09/18/16 was negative for intracranial metastatic disease. PET/CT 09/19/16 confirmed metabolically active right lower lobe and middle lobe masses compatible with known malignancy. Metabolically active right hilar and right paratracheal lymph nodes concerning for metastatic disease. Other findings include right-sided hydronephrosis with stent placement. Severely atrophic left kidney. Pelvic MRI 09/22/16 and suspicious osseous pelvic lesions showed degenerative changes in the hip and pelvis with no suspicious abnormality for malignancy. Treatment summary: 10/03-11/13/16: Completed definitive concurrent chemoradiation. Chemotherapy weekly carbotaxol regimen. Radiation therapy as per Dr. Duran. Patient is currently hospitalized for acute hypoxemic respiratory failure attributed to pneumonia. There is additional concern about sepsis due to UTI and she is an appropriate supportive measures prep hospital team. Oncology is consulted re: patient's underlying lung cancer. Patient seen and examined at bedside. Chart reviewed for details of ongoing care by hospital team which is much appreciated. She reports feeling somewhat better since I last saw her in the office couple of days ago. She is maintaining good oxygenation by Ventimask and breathing more comfortably at time of evaluation. Chest x-ray 01/07/17 showed diffuse airspace disease throughout the right lung suggesting pneumonia. Not significantly changed compared to previous. She's been evaluated by Dr. Anthony Re: Hydronephrosis and he is recommended outpatient follow-up for further evaluation. She reports intermittent hematuria still although none reported by nursing staff on her eyes and nose. Most recent INR down to 3.2 and coagulopathy appears to be improving. Regarding her anemia, hemoglobin is down to 8.7 versus 9.3 on admission. Rest of past medical, surgical, family, social history detailed below and verified with patient today. Review of systems: 12 point review of systems performed with patient and positive findings noted in history of present illness. All other systems are negative: Physical exam: Vital Signs Temp 97.8 F 01/09/17 04:04 Pulse 79 01/09/17 04:04 Resp 20 01/09/17 07:32 BP 109/78 01/09/17 04:04 Pulse Ox 92 01/09/17 07:32 GENERAL: Alert and oriented, chronically ill appearing. Mental Status: Affect appropriate for circumstances HEENT: Sclerae anicteric. No mucositis or thrush. No other oral or pharyngeal lesions or erythema. Skin: No rashes or petechiae. No evidence of skin malignancy Lymph nodes: No cervical, supraclavicular, axillary, or inguinal adenopathy. Lungs: Clear to auscultation bilaterally. Clear to percussion bilaterally. Cardiovascular: Regular rate and rhythm. No gallops, murmurs, or rubs. Abdomen: Soft, nontender; No organomegaly or masses palpable. Extremities: No edema. No calf swelling or tenderness. No joint deformity. Neurologic: Alert, normal gait; no focal weakness or sensory abnormalities. Results: Vital Signs Temp 97.8 F 01/09/17 04:04 Pulse 79 01/09/17 04:04 Resp 20 01/09/17 07:32 BP 109/78 01/09/17 04:04 Pulse Ox 92 01/09/17 07:32 Intake & Output 01/08/17 01/09/17 01/09/17 12:59 00:59 12:59 Intake Total 480 / 480 725 / 725 350 / 350 Output Total 700 / 700 500 / 500 200 / 200 Balance -220 / -220 225 / 225 150 / 150 Weight 86 kg Intake: IV Fluids 350 / 350 Maxipime 1,000 MG In 100 / 100 Dextrose 5% (Minibag+) 100 ML 100 ML @ 200 mls/ hr IVPB Q24H [facility] Rx#: [id number] Vancocin 1,250 MG In 250 / 250 Dextrose 5% 250 ML @ 166. 67 mls/hr IVPB Q24H [facility] Rx#:[id number] Oral 480 / 480 725 / 725 Output: Urine 700 / 700 500 / 500 200 / 200 Other: Meal Breakfast Dinner Percent of Meal Consumed 50% 80% Blood Glucose* 251 199 172 Radiographic studies: I personally reviewed and interpreted patient's most recent imaging studies dated 01/07/17. I discussed the findings with the patient today. Chest X-Ray 01/07/17 10:47 IMPRESSION: Diffuse airspace disease throughout the right lung, not significantly changed, suggesting pneumonia. D/ / Vishal Pal MD / Vishal Pal MD Interpreting Provider: Vishal Pal MD Impression/recommendations: Lung cancer: Right sided. Stage III. Status post definitive concurrent chemoradiation. Treatment intent curative. She had extensive shadowing in her right lung and while contribution from lung cancer is a consideration, I considered less likely. I favor reactive changes from previous lung irradiation. She is about 6 weeks from completing chemoradiation and would recommend chest CT for more definitive evaluation since her to get a sense of her disease status from a lung cancer standpoint. Suspected radiation pneumonitis: Given persistence of her respiratory symptoms despite recent broad-spectrum antibiotic coverage, I think radiation pneumonitis should be considered. I agree with ongoing empiric antibiotics. Cultures are pending. For radiation pneumonitis, I will recommend to start on steroids. Solu-Medrol 125 mg by IV twice a day or prednisone 60 mg by mouth daily would be reasonable considerations in addition to inhaled bronchodilators and steroids. Upon discharge, she will need to continue oral steroids for 2-3 weeks following which she will need a tapering regimen which can be completed as an outpatient. Anemia: May be contributing to encephalopathy. We'll recommend to transfuse 2 units PRBCs for symptomatic anemia. Recent anemia workup was unremarkable for hematinic deficiencies etc. and I suspect her anemia may be related to recent antineoplastic therapy. Other consideration would be blood loss from hematuria given recent UA that have been positive. I agree with supportive measures given her acute illness. Dr. Anthony is on board and I appreciate his input. If hematuria and anemia is persistent, she will need cystoscopy which can be arranged as an outpatient since no evidence of brisk bladder bleeding. Confusion/failure to thrive: Given patient's increasing difficulty managing her medications at home, I do not believe is safe to discharge her home at the end of this hospitalization. We'll recommend consideration for placement in [facility]pc facility for subacute rehabilitation. Ultimately she wants to go back home to independent living and I think this is feasible if her overall condition improves after subacute rehabilitation. She was fully independent and lives in her own home prior to recent lung cancer diagnosis. We'll follow the patient along side you during this hospitalization but please do not hesitate to call regarding interval hematologic questions as they arise. Thank you for your excellent ongoing care for allowing us to see her while in- house. This report was created using voice recognition software and may contain errors. It was signed but not edited to expedite communication. Corrections will be made in a separate addendum as needed. Past Med Surg Social Fam HX - Past Medical History Medical history: aortic aneurysm, atrial fibrillation, cancer, COPD, coronary artery disease, DVT, diabetes, GERD, hyperlipidemia, hypertension, myocardial infarction, other Psychiatric history: no psych history - Past Surgical History Surgical History: cholecystectomy, hysterectomy, MIHAELA/BSO, ureteral stent, other (Left upper chest Port-A-Cath, tracheostomy after AAA repair/stent) - Social History Smoking Status: Former smoker Smokeless Tobacco Status: No Alcohol use: none Drug use: none - Family History Father Race: Family Member Ethnicity: Non- Living Status: Age at : 54 Cause of : Bone cancer Hx Family Cancer: Yes (Bone) Mother Race: Family Member Ethnicity: Non- Living Status: Age at : 74 Cause of : HD Hx Family Cardiac Disorders: Yes (HD) Hx Family Endocrine Disorder: Yes (DM) Brother Race: Family Member Ethnicity: Non- Living Status: Still Living Hx Family Cardiac Disorders: Yes (HD) Medications and Allergies Atorvastatin [Lipitor] 40 mg PO HS 04/25/15 [History] Diltiazem HCl [Diltiazem 24Hr Cd] 120 mg PO BID 04/25/15 [History] Docusate [Colace] 100 mg PO DAILY PRN 04/25/15 [History] Ergocalciferol (VITAMIN D2) [Drisdol (50,000 Unit)] 50,000 unit PO QWEEK [History] Metoprolol XL (24 HR) Succ [Toprol XL] 25 mg PO DAILY 04/25/15 [History] Tiotropium [Spiriva] 18 mcg IH HS 04/25/15 [History] Acetaminophen [Tylenol] 650 mg PO Q6HR PRN 08/25/16 [History] Albuterol Sulfate [Ventolin Hfa] 18 gm IH BID PRN 08/25/16 [History] Citalopram [CeleXA] 20 mg PO HS 10/24/16 [History] Lidocaine/Prilocaine CREAM [Emla] 5 gm TP PRN PRN 10/24/16 [History] Magic Mouthwash [Magic Mouthwash BLM] 10 ml PO TID PRN 10/24/16 [History] Prochlorperazine Maleate [Compazine] 10 mg PO Q6HR PRN 10/24/16 [History] LORazepam [Ativan] 0.5 mg PO Q6H PRN #60 tablet 12/11/16 [Rx] Furosemide [Lasix] 20 mg PO DAILY #30 tablet 12/29/16 [Rx] Sucralfate [Carafate] 1 gm PO ACHS 30 Days 12/29/16 [Rx] levoFLOXacin [Levaquin] 500 mg PO Q48H #3 tablet 12/29/16 [Rx] Pantoprazole Sodium 40 mg PO DAILY 01/07/17 [History] Rivaroxaban [Xarelto] 15 mg PO DAILY 01/07/17 [History] Allergies Penicillins [PCN] Allergy (Intermediate, Verified 01/04/17 15:51) Hives Sulfa (Sulfonamide Antibiotics) Allergy (Intermediate, Verified 01/04/17 15:51) Hives Oncology - Exam - Constitutional Vitals: Temp Pulse Resp BP Pulse Ox 97.8 F 79 20 109/78 92 01/09/17 04:04 01/09/17 04:04 01/09/17 07:32 01/09/17 04:04 01/09/17 07:32 Consult Discharge Plan - Plan Referrals: Sofya Faith MD [Primary Care Provider] - 01/17/17 10:30 am
[2017-01-09] MEDS: Insulin LISPRO 300 UNITS/3 ML VIAL SQ SCH ×4 (07:51→21:14)
[2017-01-09] MEDS ORDERED: Aminoglycoside Consult 1 EACH MC ONE (08:10)
[2017-01-09] MEDS: Acetaminophen 325 MG TABLET PO PRN (08:40)
[2017-01-09 08:56] LABS: Calcium 9.7 mg/dL (8.6-10.8)
[2017-01-09 09:09] LABS: Basophils % 0.1 %; Hematocrit 28.7 % (35.3-44.9); Immature Granulocytes % 1.7 % (0-4); Lymphocytes # 0.3 K/mcL (0.6-4.6); Mean Corpuscular HGB Conc 31.4 g/dL (31.6-35.5); Mean Corpuscular Hemoglobin 30.5 pg (28.0-33.3); Mean Corpuscular Volume 97.3 fL (83.0-100.0); Mean Platelet Volume 10.4 fL (9.4-12.4); Monocytes # 0.8 K/mcL (0.0-1.3); Monocytes % 5.7 %; Neutrophils # 13.2 K/mcL (1.6-8.9); Nucleated Red Blood Cells 0.2 /100 WBC (0); Platelet Count 305 K/mcL (140-400); Red Blood Count 2.95 M/mcL (3.82-4.97); Red Cell Distribution Width 20.2 % (11.5-14.5); Segmented Neutrophils % 90.5 %
[2017-01-09] MEDS: predniSONE 20 MG TABLET PO SCH (11:27)
[2017-01-09] MEDS: Cefepime HCl 1,000 MG in D5% in Water (Mini-Bag+) 100 ML IVPB SCH (13:08)
[2017-01-09] MEDS: Vancomycin 1,250 MG in D5% in Water 250 ML IVPB SCH (13:49)
--- NOTE | 2017-01-09 17:02 | Internal Med Progress Note ---
Date of Encounter: 01/09/17 Time of Encounter: 16:59 - Assessment and plan (1) Lung cancer Current Visit: Yes Status: Chronic Assessment and plan: follow oncology recommendations Qualifiers: Laterality: right Lung location: lower lobe of lung Qualified Code(s): C34.31 - Malignant neoplasm of lower lobe, right bronchus or lung (2) HCAP (healthcare-associated pneumonia) Current Visit: No Status: Acute Assessment and plan: Patient was recently diagnosed with right-sided lung cancer and CXR is suggestive of pneumonia. sats has improved and so has the o2 requirement, currently on 6L NC. as per oncology, given recent radiation therapy , this could be possible padiation penumonitis, CT chest has been ordered. will start on oral prednisone as per oncology for radiation pneumonitis.will continue IV antibiotics for now, de scalate once cx results are final urine legionella is negative, will stop levoflox. Due to SOB, patient is falls risk placed on falls precautions/up with assist/ bedrest with bedside commode with assist only. Patient and vital signs will be monitored closely for signs of respiratory decline/failure. (3) A-fib Current Visit: Yes Status: Chronic Assessment and plan: Patient presents with history of paroxysmal atrial fibrillation. Will monitor patient with continuous cardiac telemetry and continue patient's Cardizem. Qualifiers: Atrial fibrillation type: paroxysmal Qualified Code(s): I48.0 - Paroxysmal atrial fibrillation (4) COPD (chronic obstructive pulmonary disease) Current Visit: No Status: Chronic Assessment and plan: Not in exacerbation at this time, continue breathing treatments. uses 2 l of o2 at baseline at home. Qualifiers: COPD type: unspecified COPD Qualified Code(s): J44.9 - Chronic obstructive pulmonary disease, unspecified (5) UTI (urinary tract infection) Current Visit: No Status: Acute Assessment and plan: follow . Urine culture IV cefepime 2,000 mg Q12 for infection coverage. Monitor I&O. Qualifiers: Urinary tract infection type: site unspecified Hematuria presence: without hematuria Qualified Code(s): N39.0 - Urinary tract infection, site not specified (6) Acute and chronic respiratory failure with hypoxia Current Visit: Yes Status: Acute Assessment and plan: Patient was recently diagnosed with right-sided lung cancer and CXR is suggestive of pneumonia. CT chest done today s/o radiation pneumonitis vs pneumonia. will continue antibiotics along with steroids. Continue 6 L of nasal for now and titrate to wean oxygen as able maintaining sats above 95%. (7) Hydronephrosis Current Visit: No Status: Acute Assessment and plan: At this time no urgent need for changing ureteral stents as per urology. Patient can follow up with urology in 2-3 weeks for discussion of management of chronic indwelling ureteral stents Qualifiers: Hydronephrosis type: other Qualified Code(s): N13.39 - Other hydronephrosis - Subjective Interval history: Patient seen at the bedside, reports feeling better than yesterday. Oxygen changed to nasal cannula, saturating well at 6 L now. Admitted for pneumonia, continue IV antibiotics. - Constitutional Vitals: Temp Pulse Resp BP Pulse Ox 97.8 F 91 16 113/90 94 01/09/17 14:20 01/09/17 15:00 01/09/17 15:29 01/09/17 15:29 01/09/17 15:29 General appearance: Present: cooperative, A&O X 3, pleasant, obese, severe distress (Respiratory), answers questions appropriately Internal Medicine: Result - Labs CBC & Chem 7: 01/09/17 08:35 01/09/17 08:35 Labs: Short CBC 01/09/17 Range/Units 08:35 WBC 14.6 H D (4.3-11.1) K/mcL Hgb 9.0 L (11.5-15.4) g/dL Hct 28.7 L (35.3-44.9) % Plt Count 305 (140-400) K/mcL Neutrophils # 13.2 H (1.6-8.9) K/mcL BMP 01/09/17 08:35 Sodium 136 Potassium 4.0 Chloride 102 Carbon Dioxide 25 BUN 25 H Creatinine 1.23 H Glucose 171 H Calcium 9.7 - ABG Interpretation ABG results: ABG ABG pH 7.50 pH Units (7.32-7.45) H 01/07/17 12:09 ABG pCO2 36 mmHg (35-45) 01/07/17 12:09 ABG pO2 76 mmHg (85-104) L 01/07/17 12:09 ABG O2 Saturation 96 % (95-98) 01/07/17 12:09 PT/INR, D-dimer PT 35.3 Seconds (9.4-12.1) H 01/08/17 04:29 - Impressions Impressions Chest CT 01/09/17 09:30 IMPRESSION: 1. New reticular and ground-glass changes throughout the right lung, and to a lesser extent, within the medial left lung. Findings are most likely secondary to radiation pneumonitis and/or pneumonia. 2. Trace right pleural effusion. 3. Decrease in size of masses in the right lung, compatible with a response to treatment. 4. Stable enlarged pretracheal lymph node, which is likely metastatic given the FDG uptake on prior PET-CT. 5. Stable 4.3 cm ascending thoracic aortic aneurysm. D/ / 01/09/2017 10:18:37 Paul Gruber MD / Molly Enciso Interpreting Provider: Paul Gruber MD Consult Discharge Plan - Plan Referrals: Sofya Faith MD [Primary Care Provider] - 01/21/17 10:30 am
[2017-01-09] MEDS: *HR* LORazepam 0.5 MG TABLET PO PRN (21:07)
[2017-01-09] MEDS: Saline Nasal Spray 44 ML BOTTLE NS PRN (23:58)
[2017-01-10] MEDS: Ipratropium/Albuterol Neb 3 ML IH SCH ×7 (00:13→23:02)
[2017-01-10] MEDS: *HR* Rivaroxaban 15 MG TABLET PO SCH (08:19)
[2017-01-10] MEDS: Metoprolol XL (24 HR) Succ 25 MG TAB.ER.24H PO SCH (08:19)
[2017-01-10] MEDS: Furosemide 20 MG TABLET PO SCH (08:20)
[2017-01-10] MEDS: Diltiazem CD (24hr) 120 MG CAPSULE PO SCH ×2 (08:20→21:05)
[2017-01-10] MEDS: predniSONE 20 MG TABLET PO SCH (08:20)
[2017-01-10] MEDS: Saline Nasal Spray 44 ML BOTTLE NS PRN (08:21)
[2017-01-10] MEDS: Insulin LISPRO 300 UNITS/3 ML VIAL SQ SCH ×4 (08:21→21:06)
[2017-01-10] MEDS: *HR* LORazepam 0.5 MG TABLET PO PRN ×2 (08:27→22:05)
[2017-01-10 08:42] LABS: Basophils % 0.2 %; Eosinophils % 0.1 %; Hematocrit 29.2 % (35.3-44.9); Hemoglobin 8.8 g/dL (11.5-15.4); Immature Granulocytes % 4.5 % (0-4); Lymphocytes # 0.4 K/mcL (0.6-4.6); Lymphocytes % 3.6 %; Mean Corpuscular HGB Conc 30.1 g/dL (31.6-35.5); Mean Corpuscular Hemoglobin 29.6 pg (28.0-33.3); Mean Corpuscular Volume 98.3 fL (83.0-100.0); Mean Platelet Volume 10.2 fL (9.4-12.4); Monocytes # 0.9 K/mcL (0.0-1.3); Monocytes % 7.9 %; Nucleated Red Blood Cells 0.3 /100 WBC (0); Platelet Count 288 K/mcL (140-400); Red Blood Count 2.97 M/mcL (3.82-4.97); Red Cell Distribution Width 20.1 % (11.5-14.5); Segmented Neutrophils % 83.7 %
[2017-01-10 08:57] LABS: Prothrombin Time 22.3 Seconds (9.4-12.1)
[2017-01-10 09:06] LABS: BUN/Creatinine Ratio 22 (6-26); Blood Urea Nitrogen 23 mg/dL (7-20); Calcium 9.3 mg/dL (8.6-10.8); Carbon Dioxide 26 mEq/L (19-29); Chloride 101 mEq/L (98-109); Glucose 162 mg/dL (70-99); Osmolality,Calculated 287 (280-300); Potassium 3.9 mEq/L (3.5-4.5); Sodium 135 mEq/L (136-145); eGFR For African Americans > 60 (> 60); eGFR For Non-African Americans 51 (> 60)
[2017-01-10] MEDS ORDERED: Albuterol 2.5 MG/3 ML NEBULIZER IH SCH (12:00)
--- NOTE | 2017-01-10 15:29 | Internal Med Progress Note ---
Date of Encounter: 01/10/17 Time of Encounter: 15:25 - Assessment and plan (1) Lung cancer Current Visit: Yes Status: Chronic Qualifiers: Laterality: right Lung location: lower lobe of lung Qualified Code(s): C34.31 - Malignant neoplasm of lower lobe, right bronchus or lung (2) HCAP (healthcare-associated pneumonia) Current Visit: No Status: Acute (3) A-fib Current Visit: Yes Status: Chronic Qualifiers: Atrial fibrillation type: paroxysmal Qualified Code(s): I48.0 - Paroxysmal atrial fibrillation (4) COPD (chronic obstructive pulmonary disease) Current Visit: No Status: Chronic Qualifiers: COPD type: unspecified COPD Qualified Code(s): J44.9 - Chronic obstructive pulmonary disease, unspecified (5) UTI (urinary tract infection) Current Visit: No Status: Acute Qualifiers: Urinary tract infection type: site unspecified Hematuria presence: without hematuria Qualified Code(s): N39.0 - Urinary tract infection, site not specified (6) Acute and chronic respiratory failure with hypoxia Current Visit: Yes Status: Acute (7) Hydronephrosis Current Visit: No Status: Acute Qualifiers: Hydronephrosis type: other Qualified Code(s): N13.39 - Other hydronephrosis - Subjective Interval history: Patient seen at the bedside, still coughing and bringing out yellowish phlegm. Oxygen changed to nasal cannula, saturating well at 4-6 L now. Admitted for pneumonia, continue IV antibiotics. - Constitutional Vitals: Temp Pulse Resp BP Pulse Ox 97.6 F 83 16 102/62 92 01/10/17 10:35 01/10/17 11:00 01/10/17 11:00 01/10/17 10:35 01/10/17 11:00 General appearance: Present: cooperative, A&O X 3, pleasant, obese, severe distress (Respiratory), answers questions appropriately Internal Medicine: Result - Labs CBC & Chem 7: 01/10/17 08:16 01/10/17 08:16 Labs: Short CBC 01/10/17 Range/Units 08:16 WBC 11.9 H (4.3-11.1) K/mcL Hgb 8.8 L (11.5-15.4) g/dL Hct 29.2 L (35.3-44.9) % Plt Count 288 (140-400) K/mcL Neutrophils # 10.0 H (1.6-8.9) K/mcL BMP 01/10/17 08:16 Sodium 135 L Potassium 3.9 Chloride 101 Carbon Dioxide 26 BUN 23 H Creatinine 1.05 Glucose 162 H Calcium 9.3 - ABG Interpretation ABG results: ABG ABG pH 7.50 pH Units (7.32-7.45) H 01/07/17 12:09 ABG pCO2 36 mmHg (35-45) 01/07/17 12:09 ABG pO2 76 mmHg (85-104) L 01/07/17 12:09 ABG O2 Saturation 96 % (95-98) 01/07/17 12:09 PT/INR, D-dimer PT 22.3 Seconds (9.4-12.1) H 01/10/17 08:16 Consult Discharge Plan - Plan Referrals: Sofya Faith MD [Primary Care Provider] - 01/21/17 10:30 am
[2017-01-10] MEDS: Budesonide Neb 0.5 MG/2 ML IH SCH (19:52)
[2017-01-11] MEDS: Ipratropium/Albuterol Neb 3 ML IH SCH ×6 (03:52→23:36)
[2017-01-11] MEDS: Budesonide Neb 0.5 MG/2 ML IH SCH ×2 (07:38→19:46)
[2017-01-11] MEDS: Metoprolol XL (24 HR) Succ 25 MG TAB.ER.24H PO SCH (08:40)
[2017-01-11] MEDS: Insulin LISPRO 300 UNITS/3 ML VIAL SQ SCH ×4 (08:40→21:33)
[2017-01-11] MEDS: Furosemide 20 MG TABLET PO SCH (08:40)
[2017-01-11] MEDS: Diltiazem CD (24hr) 120 MG CAPSULE PO SCH ×2 (08:40→21:33)
[2017-01-11] MEDS: predniSONE 20 MG TABLET PO SCH (08:40)
[2017-01-11] MEDS: Acetaminophen 325 MG TABLET PO PRN (08:56)
[2017-01-11 09:20] LABS: Basophils # 0.1 K/mcL (0.0-0.2); Basophils % 0.3 %; Eosinophils % 0.1 %; Hemoglobin 9.3 g/dL (11.5-15.4); Immature Granulocytes % 5.6 % (0-4); Lymphocytes # 0.5 K/mcL (0.6-4.6); Mean Corpuscular Hemoglobin 30.3 pg (28.0-33.3); Mean Corpuscular Volume 97.7 fL (83.0-100.0); Mean Platelet Volume 10.1 fL (9.4-12.4); Monocytes # 1.2 K/mcL (0.0-1.3); Monocytes % 7.6 %; Nucleated Red Blood Cells 0.7 /100 WBC (0); Platelet Count 298 K/mcL (140-400); Red Blood Count 3.07 M/mcL (3.82-4.97); Segmented Neutrophils % 83.4 %
[2017-01-11 09:21] LABS: Neutrophils # 12.7 K/mcL (1.6-8.9)
[2017-01-11 09:46] LABS: Anisocytosis 1+ (Not Present); Basophilic Stippling 1+ (Not Present); Platelet Estimate Normal (Normal); Reactive Lymphocytes Present (Not Present)
[2017-01-11 09:49] LABS: BUN/Creatinine Ratio 24 (6-26); Blood Urea Nitrogen 25 mg/dL (7-20); Calcium 9.8 mg/dL (8.6-10.8); Carbon Dioxide 27 mEq/L (19-29); Chloride 101 mEq/L (98-109); Glucose 138 mg/dL (70-99); Osmolality,Calculated 287 (280-300); Potassium 3.7 mEq/L (3.5-4.5); Sodium 135 mEq/L (136-145); eGFR For African Americans > 60 (> 60); eGFR For Non-African Americans 51 (> 60)
[2017-01-11 09:53] LABS: Polychromasia 1+ (Not Present)
--- NOTE | 2017-01-11 12:13 | Internal Med Progress Note ---
Date of Encounter: 01/11/17 Time of Encounter: 12:13 - Assessment and plan (1) Lung cancer Current Visit: Yes Status: Chronic Qualifiers: Laterality: right Lung location: lower lobe of lung Qualified Code(s): C34.31 - Malignant neoplasm of lower lobe, right bronchus or lung (2) HCAP (healthcare-associated pneumonia) Current Visit: No Status: Acute (3) A-fib Current Visit: Yes Status: Chronic Qualifiers: Atrial fibrillation type: paroxysmal Qualified Code(s): I48.0 - Paroxysmal atrial fibrillation (4) COPD (chronic obstructive pulmonary disease) Current Visit: No Status: Chronic Qualifiers: COPD type: unspecified COPD Qualified Code(s): J44.9 - Chronic obstructive pulmonary disease, unspecified (5) UTI (urinary tract infection) Current Visit: No Status: Acute Qualifiers: Urinary tract infection type: site unspecified Hematuria presence: without hematuria Qualified Code(s): N39.0 - Urinary tract infection, site not specified (6) Acute and chronic respiratory failure with hypoxia Current Visit: Yes Status: Acute (7) Hydronephrosis Current Visit: No Status: Acute Qualifiers: Hydronephrosis type: other Qualified Code(s): N13.39 - Other hydronephrosis - Subjective Interval history: Patient seen at the bedside, still coughing and bringing out yellowish phlegm. Oxygen changed to nasal cannula, saturating well at 4-6 L now. Admitted for pneumonia, continue IV antibiotics. - Constitutional Vitals: Temp Pulse Resp BP Pulse Ox 97.7 F 87 20 104/83 90 01/11/17 11:19 01/11/17 11:53 01/11/17 11:19 01/11/17 11:19 01/11/17 11:19 General appearance: Present: cooperative, A&O X 3, pleasant, obese, severe distress (Respiratory), answers questions appropriately Internal Medicine: Result - Labs CBC & Chem 7: 01/11/17 09:10 01/11/17 09:10 Labs: Short CBC 01/11/17 Range/Units 09:10 WBC 15.2 H (4.3-11.1) K/mcL Hgb 9.3 L (11.5-15.4) g/dL Hct 30.0 L (35.3-44.9) % Plt Count 298 (140-400) K/mcL Neutrophils # 12.7 H (1.6-8.9) K/mcL BMP 01/11/17 09:10 Sodium 135 L Potassium 3.7 Chloride 101 Carbon Dioxide 27 BUN 25 H Creatinine 1.06 Glucose 138 H Calcium 9.8 - ABG Interpretation ABG results: ABG ABG pH 7.50 pH Units (7.32-7.45) H 01/07/17 12:09 ABG pCO2 36 mmHg (35-45) 01/07/17 12:09 ABG pO2 76 mmHg (85-104) L 01/07/17 12:09 ABG O2 Saturation 96 % (95-98) 01/07/17 12:09 PT/INR, D-dimer PT 22.3 Seconds (9.4-12.1) H 01/10/17 08:16 Consult Discharge Plan - Plan Referrals: Sofya Faith MD [Primary Care Provider] - 01/21/17 10:30 am Pat Mendoza CNP [Partnered Physician] - 01/23/17 9:00 am
[2017-01-11] MEDS: *HR* LORazepam 0.5 MG TABLET PO PRN (14:38)
[2017-01-12] MEDS: Ipratropium/Albuterol Neb 3 ML IH SCH ×6 (03:51→23:50)
[2017-01-12] MEDS: predniSONE 20 MG TABLET PO SCH (07:41)
[2017-01-12] MEDS: Insulin LISPRO 300 UNITS/3 ML VIAL SQ SCH ×4 (07:41→20:41)
[2017-01-12] MEDS: Furosemide 20 MG TABLET PO SCH (07:42)
[2017-01-12] MEDS: *HR* Rivaroxaban 15 MG TABLET PO SCH (07:42)
[2017-01-12] MEDS: Metoprolol XL (24 HR) Succ 25 MG TAB.ER.24H PO SCH (07:42)
[2017-01-12] MEDS: Diltiazem CD (24hr) 120 MG CAPSULE PO SCH ×2 (07:42→20:38)
[2017-01-12] MEDS: Budesonide Neb 0.5 MG/2 ML IH SCH ×2 (07:48→20:40)
[2017-01-12] MEDS: *HR* LORazepam 0.5 MG TABLET PO PRN ×2 (07:49→20:48)
[2017-01-12 09:03] LABS: Basophils % 0.2 %; Eosinophils % 0.1 %; Hematocrit 29.4 % (35.3-44.9); Hemoglobin 9.2 g/dL (11.5-15.4); Lymphocytes # 0.5 K/mcL (0.6-4.6); Lymphocytes % 3.2 %; Mean Corpuscular HGB Conc 31.3 g/dL (31.6-35.5); Mean Corpuscular Hemoglobin 30.6 pg (28.0-33.3); Mean Corpuscular Volume 97.7 fL (83.0-100.0); Monocytes # 0.9 K/mcL (0.0-1.3); Monocytes % 6.2 %; Neutrophils # 12.3 K/mcL (1.6-8.9); Nucleated Red Blood Cells 0.7 /100 WBC (0); Platelet Count 257 K/mcL (140-400); Red Blood Count 3.01 M/mcL (3.82-4.97); Red Cell Distribution Width 19.9 % (11.5-14.5); Segmented Neutrophils % 85.3 %
[2017-01-12 09:27] LABS: BUN/Creatinine Ratio 25 (6-26); Blood Urea Nitrogen 25 mg/dL (7-20); Calcium 9.5 mg/dL (8.6-10.8); Carbon Dioxide 26 mEq/L (19-29); Chloride 100 mEq/L (98-109); Glucose 140 mg/dL (70-99); Osmolality,Calculated 287 (280-300); Potassium 3.4 mEq/L (3.5-4.5); Sodium 135 mEq/L (136-145); eGFR For African Americans > 60 (> 60); eGFR For Non-African Americans 55 (> 60)
--- NOTE | 2017-01-12 10:56 | Internal Med Progress Note ---
Date of Encounter: 01/12/17 Time of Encounter: 10:53 - Assessment and plan (1) Lung cancer Current Visit: Yes Status: Chronic Assessment and plan: follow oncology recommendations. repeat CT chest shows improved findings. Qualifiers: Laterality: right Lung location: lower lobe of lung Qualified Code(s): C34.31 - Malignant neoplasm of lower lobe, right bronchus or lung (2) HCAP (healthcare-associated pneumonia) Current Visit: No Status: Acute Assessment and plan: Patient was recently diagnosed with right-sided lung cancer , CT chest shows pneumonia vs radiation pneumonitis. currently on 6L NC which has improved from before but has been struggling to get better than that. as per oncology, given recent radiation therapy , this could be possible padiation penumonitis started on oral prednisone urine legionella is negative, blood cx is negative antibiotics has been de- escalated to ceftriaxone, will complete 7 days of antibiotics. will need steroids 2-3 weeks for the radiation pneumonitis. clinically better, Due to SOB, patient is falls risk placed on falls precautions/up with assist/ bedrest with bedside commode with assist only. Patient and vital signs will be monitored closely for signs of respiratory decline/failure. (3) A-fib Current Visit: Yes Status: Chronic Assessment and plan: Patient presents with history of paroxysmal atrial fibrillation. Will monitor patient with continuous cardiac telemetry and continue patient's Cardizem. xarelto has been held given recent nose bleed, bleeding from sputum and hematuria Qualifiers: Atrial fibrillation type: paroxysmal Qualified Code(s): I48.0 - Paroxysmal atrial fibrillation (4) COPD (chronic obstructive pulmonary disease) Current Visit: No Status: Chronic Assessment and plan: Not in exacerbation at this time, continue breathing treatments. uses 2 l of o2 at baseline at home. Qualifiers: COPD type: unspecified COPD Qualified Code(s): J44.9 - Chronic obstructive pulmonary disease, unspecified (5) UTI (urinary tract infection) Current Visit: No Status: Inactive Assessment and plan: urine cx mixed reports denies any smptoms now. Qualifiers: Urinary tract infection type: site unspecified Hematuria presence: without hematuria Qualified Code(s): N39.0 - Urinary tract infection, site not specified (6) Acute and chronic respiratory failure with hypoxia Current Visit: Yes Status: Acute Assessment and plan: Patient was recently diagnosed with right-sided lung cancer , s/p radiation therapy. CT chest done s/o radiation pneumonitis vs pneumonia. will continue antibiotics along with steroids. clinically better, Continue 6 L of nasal for now and titrate to wean oxygen as able maintaining sats above 95%. (7) Hydronephrosis Current Visit: No Status: Acute Assessment and plan: At this time no urgent need for changing ureteral stents as per urology. Patient can follow up with urology in 2-3 weeks for discussion of management of chronic indwelling ureteral stents Qualifiers: Hydronephrosis type: other Qualified Code(s): N13.39 - Other hydronephrosis - Subjective Interval history: Patient seen at the bedside,has on and off coughing spells Oxygen changed to nasal cannula, saturating well at 4-6 L, denies bleeding from the nose or in her phlegm now. Admitted for pneumonia/radiation pneumonitis, continue IV antibiotics and steroids - Constitutional Vitals: Temp Pulse Resp BP Pulse Ox 98.0 F 86 24 102/61 88 01/12/17 07:23 01/12/17 07:23 01/12/17 07:48 01/12/17 07:23 01/12/17 07:48 General appearance: Present: cooperative, A&O X 3, pleasant, obese, severe distress (Respiratory), answers questions appropriately Exam: - Head Head exam: Present: atraumatic, normocephalic - Eye Eye exam: Present: PERRL, conjuntiva pink, sclera anicteric Pupils: Present: PERRL - ENT ENT exam: Present: normal exam, normal external ear exam - Neck Neck exam general surgery: Present: supple, trachea midline. Absent: lymphadenopathy - Respiratory Respiratory exam: Present: decreased breath sounds, no wheezing , occ creptns - Cardiovascular Cardiovascular exam: Present: irregular rhythm - GI/Abdominal GI/Abdominal exam: Present: normal bowel sounds, soft, no peritoneal signs. Absent: distended, tenderness - Extremities Exam Extremities exam: Present: normal inspection, pedal edema (1+ pitting bilaterally), warm, radial pulses palpable and symetrical - Back Exam Back exam: Present: normal inspection - Neurological Exam Neurological exam: Present: CN II-XII intact, oriented X3, no focal deficits. Absent: pronater drift, facial droop, speech deficit - Psychiatric Psychiatric exam: Present: normal affect, normal mood - Skin Skin exam: Present: dry, intact Internal Medicine: Result - Labs CBC & Chem 7: 01/12/17 08:53 01/12/17 08:53 Labs: Short CBC 01/12/17 Range/Units 08:53 WBC 14.5 H (4.3-11.1) K/mcL Hgb 9.2 L (11.5-15.4) g/dL Hct 29.4 L (35.3-44.9) % Plt Count 257 (140-400) K/mcL Neutrophils # 12.3 H (1.6-8.9) K/mcL BMP 01/12/17 08:53 Sodium 135 L Potassium 3.4 L Chloride 100 Carbon Dioxide 26 BUN 25 H Creatinine 0.99 Glucose 140 H Calcium 9.5 - ABG Interpretation ABG results: ABG ABG pH 7.50 pH Units (7.32-7.45) H 01/07/17 12:09 ABG pCO2 36 mmHg (35-45) 01/07/17 12:09 ABG pO2 76 mmHg (85-104) L 01/07/17 12:09 ABG O2 Saturation 96 % (95-98) 01/07/17 12:09 PT/INR, D-dimer PT 22.3 Seconds (9.4-12.1) H 01/10/17 08:16 Consult Discharge Plan - Plan Referrals: Sofya Faith MD [Primary Care Provider] - 01/21/17 10:30 am Pat Mendoza CNP [Partnered Physician] - 01/23/17 9:00 am
[2017-01-12] MEDS: Saline Nasal Spray 44 ML BOTTLE NS PRN (20:38)
[2017-01-13] MEDS: Ipratropium/Albuterol Neb 3 ML IH SCH ×5 (03:55→20:14)
[2017-01-13] MEDS: Budesonide Neb 0.5 MG/2 ML IH SCH ×2 (07:47→20:14)
[2017-01-13] MEDS: Insulin LISPRO 300 UNITS/3 ML VIAL SQ SCH ×4 (07:47→21:45)
[2017-01-13] MEDS: predniSONE 20 MG TABLET PO SCH (08:08)
[2017-01-13] MEDS: Diltiazem CD (24hr) 120 MG CAPSULE PO SCH ×2 (08:08→21:45)
[2017-01-13] MEDS: Furosemide 20 MG TABLET PO SCH (08:08)
[2017-01-13] MEDS: Metoprolol XL (24 HR) Succ 25 MG TAB.ER.24H PO SCH (08:08)
[2017-01-13 13:04] LABS: Basophils # 0.1 K/mcL (0.0-0.2); Basophils % 0.3 %; Hematocrit 33.5 % (35.3-44.9); Hemoglobin 10.2 g/dL (11.5-15.4); Immature Granulocytes % 2.9 % (0-4); Lymphocytes # 0.2 K/mcL (0.6-4.6); Lymphocytes % 1.1 %; Mean Corpuscular HGB Conc 30.4 g/dL (31.6-35.5); Mean Corpuscular Hemoglobin 30.3 pg (28.0-33.3); Mean Corpuscular Volume 99.4 fL (83.0-100.0); Mean Platelet Volume 10.3 fL (9.4-12.4); Monocytes # 0.7 K/mcL (0.0-1.3); Monocytes % 3.5 %; Neutrophils # 17.4 K/mcL (1.6-8.9); Nucleated Red Blood Cells 0.4 /100 WBC (0); Platelet Count 248 K/mcL (140-400); Red Blood Count 3.37 M/mcL (3.82-4.97); Red Cell Distribution Width 20.3 % (11.5-14.5); Segmented Neutrophils % 92.2 %
[2017-01-13 13:13] LABS: BUN/Creatinine Ratio 23 (6-26); Blood Urea Nitrogen 25 mg/dL (7-20); Calcium 9.5 mg/dL (8.6-10.8); Carbon Dioxide 26 mEq/L (19-29); Chloride 101 mEq/L (98-109); Glucose 178 mg/dL (70-99); Osmolality,Calculated 291 (280-300); Potassium 3.9 mEq/L (3.5-4.5); Sodium 136 mEq/L (136-145); eGFR For African Americans > 60 (> 60); eGFR For Non-African Americans 50 (> 60)
--- NOTE | 2017-01-13 15:05 | Internal Med Progress Note ---
Date of Encounter: 01/13/17 Time of Encounter: 15:01 - Assessment and plan (1) Lung cancer Current Visit: Yes Status: Chronic Assessment and plan: follow oncology recommendations. repeat CT chest shows improved findings. Qualifiers: Laterality: right Lung location: lower lobe of lung Qualified Code(s): C34.31 - Malignant neoplasm of lower lobe, right bronchus or lung (2) HCAP (healthcare-associated pneumonia) Current Visit: No Status: Acute Assessment and plan: Patient was recently diagnosed with right-sided lung cancer , CT chest shows pneumonia vs radiation pneumonitis. currently on 8L NC which has improved from before but has been struggling to get better than that. as per oncology, given recent radiation therapy , this could be possible padiation penumonitis and she may require prolonged steroid therapy. continue oral prednisone urine legionella is negative, blood cx is negative antibiotics has been de- escalated to ceftriaxone, will complete 7 days of antibiotics. will need steroids 2-3 weeks for the radiation pneumonitis. clinically better, titrate o2 to maintain sats >88% Due to SOB, patient is falls risk placed on falls precautions/up with assist/ bedrest with bedside commode with assist only. Patient and vital signs will be monitored closely for signs of respiratory decline/failure. (3) A-fib Current Visit: Yes Status: Chronic Assessment and plan: Patient presents with history of paroxysmal atrial fibrillation. Will monitor patient with continuous cardiac telemetry and continue patient's Cardizem. xarelto has been held given recent nose bleed, bleeding from sputum and hematuria Qualifiers: Atrial fibrillation type: paroxysmal Qualified Code(s): I48.0 - Paroxysmal atrial fibrillation (4) COPD (chronic obstructive pulmonary disease) Current Visit: No Status: Chronic Assessment and plan: Not in exacerbation at this time, continue breathing treatments. uses 2 l of o2 at baseline at home. Qualifiers: COPD type: unspecified COPD Qualified Code(s): J44.9 - Chronic obstructive pulmonary disease, unspecified (5) UTI (urinary tract infection) Current Visit: No Status: Inactive Assessment and plan: urine cx mixed reports denies any smptoms now. Qualifiers: Urinary tract infection type: site unspecified Hematuria presence: without hematuria Qualified Code(s): N39.0 - Urinary tract infection, site not specified (6) Acute and chronic respiratory failure with hypoxia Current Visit: Yes Status: Acute Assessment and plan: Patient was recently diagnosed with right-sided lung cancer , s/p radiation therapy. CT chest done s/o radiation pneumonitis vs pneumonia. will continue antibiotics along with steroids. clinically better, Continue 8l of nasal for now and titrate to wean oxygen as able maintaining sats above 88%. (7) Hydronephrosis Current Visit: No Status: Acute Assessment and plan: At this time no urgent need for changing ureteral stents as per urology. Patient can follow up with urology in 2-3 weeks for discussion of management of chronic indwelling ureteral stents Qualifiers: Hydronephrosis type: other Qualified Code(s): N13.39 - Other hydronephrosis - Subjective Interval history: Patient seen at the bedside,has on and off coughing spells Oxygen changed to nasal cannula, today has been requiring oxygen at 8l, denies bleeding from the nose or in her phlegm now. Admitted for pneumonia/radiation pneumonitis, continue IV antibiotics and steroids. - Constitutional Vitals: Temp Pulse Resp BP Pulse Ox 97.9 F 74 20 112/77 97 01/13/17 11:17 01/13/17 11:17 01/13/17 11:17 01/13/17 11:17 01/13/17 11:17 General appearance: Present: cooperative, A&O X 3, pleasant, obese, severe distress (Respiratory), answers questions appropriately Exam: neck- supple chest- b/l occ creptns, no wheezing cvs-s1 and s2, no mr//g abd-soft, non tender, bs are present ext- mild edema. neuro- no focal neuro defecits, alert and awake. Internal Medicine: Result - Labs CBC & Chem 7: 01/13/17 12:55 01/13/17 12:55 Labs: Short CBC 01/13/17 Range/Units 12:55 WBC 18.9 H (4.3-11.1) K/mcL Hgb 10.2 L (11.5-15.4) g/dL Hct 33.5 L (35.3-44.9) % Plt Count 248 (140-400) K/mcL Neutrophils # 17.4 H (1.6-8.9) K/mcL BMP 01/13/17 12:55 Sodium 136 Potassium 3.9 Chloride 101 Carbon Dioxide 26 BUN 25 H Creatinine 1.08 Glucose 178 H Calcium 9.5 - ABG Interpretation ABG results: ABG ABG pH 7.50 pH Units (7.32-7.45) H 01/07/17 12:09 ABG pCO2 36 mmHg (35-45) 01/07/17 12:09 ABG pO2 76 mmHg (85-104) L 01/07/17 12:09 ABG O2 Saturation 96 % (95-98) 01/07/17 12:09 PT/INR, D-dimer PT 22.3 Seconds (9.4-12.1) H 01/10/17 08:16 Consult Discharge Plan - Plan Referrals: Sofya Faith MD [Primary Care Provider] - 01/21/17 10:30 am Pat Mendoza CNP [Partnered Physician] - 01/23/17 9:00 am
--- NOTE | 2017-01-13 17:08 | Oncology Inp Progress Note ---
Date of Encounter: 01/13/17 Time of Encounter: 16:53 Oncology: Subj Interval history: History of present illness: Patient seen and examined at bedside. Chart reviewed for interval details and appreciate ongoing management by hospital team. Family members present at bedside at time of evaluation. Dr. Horne was kind enough to discuss patient's case with me earlier today regarding clinical progress and disposition plan. She generally relatively well. Maintaining good oxygenation with supplemental O2. She is still having hematuria. Anticoagulation for atrial fibrillation is on hold due to concern about bleeding. She still requiring high flow O2 to maintain normal oxygenation. Tolerating steroids well. No unexpected side effects. No other new issues. Chest CT 01/09/17 showed changes compatible with radiation pneumonitis. Review of systems: 12 point review of systems as noted above.All other systems are negative: Physical exam: Vital Signs Temp 97.9 F 01/13/17 11:17 Pulse 81 01/13/17 15:00 Resp 20 01/13/17 15:48 BP 112/77 01/13/17 11:17 Pulse Ox 97 01/13/17 15:48 GENERAL: Alert and oriented, comfortable appearing. Mental Status: Affect appropriate for circumstances Skin: No rashes or petechiae. No evidence of skin malignancy Extremities: No edema. No calf swelling or tenderness. No joint deformity. Neurologic: Global weakness but no focal sensorimotor abnormalities. Results: Laboratory Last Values WBC 18.9 K/mcL (4.3-11.1) H 01/13/17 12:55 RBC 3.37 M/mcL (3.82-4.97) L 01/13/17 12:55 Hgb 10.2 g/dL (11.5-15.4) L 01/13/17 12:55 Hct 33.5 % (35.3-44.9) L 01/13/17 12:55 MCV 99.4 fL (83.0-100.0) 01/13/17 12:55 MCH 30.3 pg (28.0-33.3) 01/13/17 12:55 MCHC 30.4 g/dL (31.6-35.5) L 01/13/17 12:55 RDW 20.3 % (11.5-14.5) H 01/13/17 12:55 Plt Count 248 K/mcL (140-400) 01/13/17 12:55 MPV 10.3 fL (9.4-12.4) 01/13/17 12:55 Immature Gran % 2.9 % (0-4) 01/13/17 12:55 Seg Neutrophils % 92.2 % 01/13/17 12:55 Lymphocytes % 1.1 % 01/13/17 12:55 Monocytes % 3.5 % 01/13/17 12:55 Eosinophils % 0.0 % 01/13/17 12:55 Basophils % 0.3 % 01/13/17 12:55 Neutrophils # 17.4 K/mcL (1.6-8.9) H 01/13/17 12:55 Lymphocytes # 0.2 K/mcL (0.6-4.6) L 01/13/17 12:55 Monocytes # 0.7 K/mcL (0.0-1.3) 01/13/17 12:55 Eosinophils # 0.0 K/mcL (0.0-0.6) 01/13/17 12:55 Basophils # 0.1 K/mcL (0.0-0.2) 01/13/17 12:55 Nucleated RBCs/100 WBC 0.4 /100 WBC (0) H 01/13/17 12:55 Reactive Lymphocytes Present (Not Present) A 01/11/17 09:10 Platelet Estimate Normal (Normal) 01/11/17 09:10 Polychromasia 1+ (Not Present) A 01/11/17 09:10 Basophilic Stippling 1+ (Not Present) A 01/11/17 09:10 Anisocytosis 1+ (Not Present) A 01/11/17 09:10 PT 22.3 Seconds (9.4-12.1) H 01/10/17 08:16 INR 2.0 01/10/17 08:16 APTT 30.8 Seconds (26.0-36.0) 01/08/17 04:29 ABG pH 7.50 pH Units (7.32-7.45) H 01/07/17 12:09 ABG pCO2 36 mmHg (35-45) 01/07/17 12:09 ABG pO2 76 mmHg (85-104) L 01/07/17 12:09 ABG HCO3 28.1 mEQ/L (21-27) H 01/07/17 12:09 ABG Total CO2 29.2 mEq/L (20-26) H 01/07/17 12:09 ABG O2 Saturation 96 % (95-98) 01/07/17 12:09 ABG Base Excess 4.7 mEq/L (-2.0 to 3.0) H 01/07/17 12:09 Blood Gas Modality NRB 01/07/17 12:09 Inspired O2 100 % 01/07/17 12:09 Sodium 136 mEq/L (136-145) 01/13/17 12:55 Potassium 3.9 mEq/L (3.5-4.5) 01/13/17 12:55 Chloride 101 mEq/L (98-109) 01/13/17 12:55 Carbon Dioxide 26 mEq/L (19-29) 01/13/17 12:55 BUN 25 mg/dL (7-20) H 01/13/17 12:55 Creatinine 1.08 mg/dL (0.57-1.11) 01/13/17 12:55 Est GFR ( Amer) > 60 (> 60) 01/13/17 12:55 Est GFR (Non-Af Amer) 50 (> 60) L 01/13/17 12:55 BUN/Creatinine Ratio 23 (6-26) 01/13/17 12:55 Glucose 178 mg/dL (70-99) H 01/13/17 12:55 POC Glucose 240 (58-89) H 01/12/17 16:02 Est Mean Plasma Glucose 120 mg/dl 01/08/17 04:29 Hemoglobin A1c 5.8 % (-5.6) H 01/08/17 04:29 Calculated Osmolality 291 (280-300) 01/13/17 12:55 Lactic Acid 1.1 mmol/L (0.5-2.2) 01/07/17 17:35 Calcium 9.5 mg/dL (8.6-10.8) 01/13/17 12:55 Phosphorus 2.2 mg/dL (2.3-4.7) L 01/07/17 11:18 Magnesium 1.3 mg/dL (1.6-2.6) L 01/07/17 11:18 Troponin I 0.02 ng/mL (0-0.03) 01/07/17 11:18 B-Natriuretic Peptide 735 pg/mL (0-100) H 01/07/17 11:18 Triglycerides 102 mg/dL (< 150) 01/08/17 04:29 Cholesterol 61 mg/dL (< 200) 01/08/17 04:29 LDL Cholesterol, Calc 23 mg/dL (0-99) 01/08/17 04:29 VLDL Cholesterol, Calc 20 mg/dL (< 31) 01/08/17 04:29 HDL Cholesterol 18 mg/dL (40-59) L 01/08/17 04:29 Cholesterol/HDL Ratio 3.4 (0-4.9) 01/08/17 04:29 Urine Color Red (Yellow) A 01/07/17 11:21 Urine Clarity Cloudy (Clear) A 01/07/17 11:21 Urine pH 6.5 pH Units (5.0-8.0) 01/07/17 11:21 Ur Specific [place] 1.011 (1.010-1.025) 01/07/17 11:21 Urine Protein 100 mg/dL (Neg-Trace) H 01/07/17 11:21 Urine Glucose (UA) Normal mg/dL (Normal) 01/07/17 11:21 Urine Ketones Negative mg/dL (Negative) 01/07/17 11:21 Urine Blood Large (Negative) H 01/07/17 11:21 Urine Nitrite Negative (Negative) 01/07/17 11:21 Urine Bilirubin Negative (Negative) 01/07/17 11:21 Urine Urobilinogen Normal mg/dL (Normal) 01/07/17 11:21 Ur Leukocyte Esterase Large (Negative) H 01/07/17 11:21 Urine Microscopic RBC 30-50 per hpf (0-3) H 01/07/17 11:21 Urine Microscopic WBC 50-100 per hpf (0-3) H 01/07/17 11:21 Ur Squamous Epith Cells Many per lpf (None-Few) H 01/07/17 11:21 Urine Bacteria Few per hpf (None-Few) 01/07/17 11:21 Hyaline Casts Test Not Performed 01/07/17 11:21 Urine Yeast Few per hpf (None Seen) H 01/07/17 11:21 Ur Culture Indicated? YES (NO) A 01/07/17 11:21 Vancomycin Trough 16.7 mcg/mL (10-20) 01/09/17 03:55 Radiographic studies: I personally reviewed and interpreted patient's most recent imaging studies dated 01/09/17. I discussed the findings with the patient weight today. Chest X-Ray 01/07/17 10:47 IMPRESSION: Diffuse airspace disease throughout the right lung, not significantly changed, suggesting pneumonia. D/ / Vishal Pal MD / Vishal Pal MD Interpreting Provider: Vishal Pal MD Chest CT 01/09/17 09:30 IMPRESSION: 1. New reticular and ground-glass changes throughout the right lung, and to a lesser extent, within the medial left lung. Findings are most likely secondary to radiation pneumonitis and/or pneumonia. 2. Trace right pleural effusion. 3. Decrease in size of masses in the right lung, compatible with a response to treatment. 4. Stable enlarged pretracheal lymph node, which is likely metastatic given the FDG uptake on prior PET-CT. 5. Stable 4.3 cm ascending thoracic aortic aneurysm. D/ / 01/09/2017 10:18:37 Paul Gruber MD / Molly Enciso Interpreting Provider: Paul Gruber MD Impression/recommendations: Lung cancer: Right sided. Stage III. Status post definitive concurrent chemoradiation. Treatment intent curative. Clinically improved based on most recent imaging. Suspected radiation pneumonitis: Appears to be making slow but steady incremental improvement. Radiation pneumonitis typically result of a matter of weeks to months and requires prolonged steroid therapy with a slow taper. Clinical course is consistent with same. We'll recommend to slowly decrease oxygen requirement as long as we're able to maintain her oxygen saturation of 90% of greater. We'll keep current steroid dose and continue inhaled bronchodilators and steroids. We will plan on starting her steroid taper palpation follow-up depending on her clinical improvement. Anemia: Anemia is improving. She is still having gross hematuria. Unable to resume anticoagulation for atrial fibrillation due to hematuria. Her most recent EKG from 01/07/17 showed persistent atrial fibrillation. I believe she needs anticoagulation for stroke risk reduction but we will recommend to consult cardiology for further recommendation. For her persistent hematuria, she may need further urologic evaluation suggested cystoscopy which is very being planned on an outpatient basis by Dr. Anthony. Given stable hemoglobin, I do not consider this unreasonable. Confusion/failure to thrive: Plan remains discharged to ECF in the coming days. I think is very reasonable and safe disposition plan. We'll follow the patient along side you during this hospitalization but please do not hesitate to call regarding interval hematologic questions as they arise. Thank you for your excellent ongoing care for allowing us to see her while in- house. This report was created using voice recognition software and may contain errors. It was signed but not edited to expedite communication. - Constitutional Vitals: Vital Signs Temp Pulse Resp BP Pulse Ox 01/13/17 15:48 20 97 01/13/17 15:00 81 01/13/17 11:17 97.9 F 74 20 112/77 97 01/13/17 11:13 20 96 01/13/17 11:00 74 01/13/17 07:49 20 96 01/13/17 07:32 97.9 F 83 20 126/89 96 01/13/17 07:00 79 01/13/17 05:33 97.8 F 73 24 112/96 87 01/13/17 03:55 16 90 01/13/17 00:55 97.7 F 85 22 91 01/12/17 23:50 16 90 01/12/17 20:40 18 92 01/12/17 19:36 98.2 F 82 24 105/68 94 Intake and Output 01/13/17 01/13/17 01/13/17 00:59 08:59 16:59 Intake Total 440 / 440 60 / 60 0 / 0 Output Total 300 / 300 550 / 550 100 / 100 Balance 140 / 140 -490 / -490 -100 / -100 Intake: Oral 440 / 440 60 / 60 0 / 0 Output: Urine 300 / 300 550 / 550 100 / 100 Other: Meal Dinner Breakfast Percent of Meal Consumed 25% 90% Weight 90.446 kg Blood Glucose* 208 123 216 Patient Weight 01/14/17 00:59 Weight 90.446 kg Oncology: Obj Data - Labs CBC & Chem 7: 01/13/17 12:55 01/13/17 12:55 Labs: Laboratory Results - last 24 hr 01/12/17 01/12/17 01/12/17 07:25 11:06 16:02 WBC RBC Hgb Hct MCV MCH MCHC RDW Plt Count MPV Immature Gran % Seg Neutrophils % Lymphocytes % Monocytes % Eosinophils % Basophils % Neutrophils # Lymphocytes # Monocytes # Eosinophils # Basophils # Nucleated RBCs/100 WBC Sodium Potassium Chloride Carbon Dioxide BUN Creatinine Est GFR ( Amer) Est GFR (Non-Af Amer) BUN/Creatinine Ratio Glucose POC Glucose 155 H 187 H 240 H Calculated Osmolality Calcium 01/13/17 01/13/17 12:55 12:55 WBC 18.9 H RBC 3.37 L Hgb 10.2 L Hct 33.5 L MCV 99.4 MCH 30.3 MCHC 30.4 L RDW 20.3 H Plt Count 248 MPV 10.3 Immature Gran % 2.9 Seg Neutrophils % 92.2 Lymphocytes % 1.1 Monocytes % 3.5 Eosinophils % 0.0 Basophils % 0.3 Neutrophils # 17.4 H Lymphocytes # 0.2 L Monocytes # 0.7 Eosinophils # 0.0 Basophils # 0.1 Nucleated RBCs/100 WBC 0.4 H Sodium 136 Potassium 3.9 Chloride 101 Carbon Dioxide 26 BUN 25 H Creatinine 1.08 Est GFR ( Amer) > 60 Est GFR (Non-Af Amer) 50 L BUN/Creatinine Ratio 23 Glucose 178 H POC Glucose Calculated Osmolality 291 Calcium 9.5 - ABG Interpretation ABG results: ABG ABG pH 7.50 pH Units (7.32-7.45) H 01/07/17 12:09 ABG pCO2 36 mmHg (35-45) 01/07/17 12:09 ABG pO2 76 mmHg (85-104) L 01/07/17 12:09 ABG O2 Saturation 96 % (95-98) 01/07/17 12:09 PT/INR, D-dimer PT 22.3 Seconds (9.4-12.1) H 01/10/17 08:16 Consult Discharge Plan - Plan Referrals: Sofya Faith MD [Primary Care Provider] - 01/21/17 10:30 am Pat Mendoza CNP [Partnered Physician] - 01/23/17 9:00 am
[2017-01-13] MEDS: Acetaminophen 325 MG TABLET PO PRN (18:45)
[2017-01-13] MEDS: *HR* LORazepam 0.5 MG TABLET PO PRN (22:22)
[2017-01-14] MEDS: Ipratropium/Albuterol Neb 3 ML IH SCH ×6 (00:11→21:07)
[2017-01-14] MEDS: Insulin LISPRO 300 UNITS/3 ML VIAL SQ SCH ×4 (08:03→21:45)
[2017-01-14] MEDS: Furosemide 20 MG TABLET PO SCH (08:03)
[2017-01-14] MEDS: predniSONE 20 MG TABLET PO SCH (08:03)
[2017-01-14] MEDS: Diltiazem CD (24hr) 120 MG CAPSULE PO SCH ×2 (08:03→21:44)
[2017-01-14] MEDS: Metoprolol XL (24 HR) Succ 25 MG TAB.ER.24H PO SCH (08:03)
[2017-01-14] MEDS: Budesonide Neb 0.5 MG/2 ML IH SCH ×2 (08:10→21:07)
[2017-01-14 08:46] LABS: Basophils % 0.2 %; Eosinophils % 0.1 %; Hematocrit 29.5 % (35.3-44.9); Hemoglobin 9.3 g/dL (11.5-15.4); Immature Granulocytes % 2.8 % (0-4); Lymphocytes # 0.4 K/mcL (0.6-4.6); Lymphocytes % 2.6 %; Mean Corpuscular HGB Conc 31.5 g/dL (31.6-35.5); Mean Corpuscular Hemoglobin 30.4 pg (28.0-33.3); Mean Corpuscular Volume 96.4 fL (83.0-100.0); Mean Platelet Volume 10.7 fL (9.4-12.4); Monocytes # 0.7 K/mcL (0.0-1.3); Monocytes % 5.4 %; Neutrophils # 12.3 K/mcL (1.6-8.9); Nucleated Red Blood Cells 0.4 /100 WBC (0); Platelet Count 190 K/mcL (140-400); Red Blood Count 3.06 M/mcL (3.82-4.97); Red Cell Distribution Width 19.8 % (11.5-14.5); Segmented Neutrophils % 88.9 %
[2017-01-14 08:59] LABS: BUN/Creatinine Ratio 30 (6-26); Blood Urea Nitrogen 25 mg/dL (7-20); Calcium 9.1 mg/dL (8.6-10.8); Carbon Dioxide 24 mEq/L (19-29); Chloride 103 mEq/L (98-109); Glucose 119 mg/dL (70-99); Osmolality,Calculated 286 (280-300); Potassium 3.9 mEq/L (3.5-4.5); Sodium 135 mEq/L (136-145); eGFR For African Americans > 60 (> 60); eGFR For Non-African Americans > 60 (> 60)
--- NOTE | 2017-01-14 12:05 | Internal Med Progress Note ---
Date of Encounter: 01/14/17 Time of Encounter: 12:02 - Assessment and plan (1) Lung cancer Current Visit: Yes Status: Chronic Assessment and plan: follow oncology recommendations. repeat CT chest shows improved findings. Qualifiers: Laterality: right Lung location: lower lobe of lung Qualified Code(s): C34.31 - Malignant neoplasm of lower lobe, right bronchus or lung (2) HCAP (healthcare-associated pneumonia) Current Visit: No Status: Acute Assessment and plan: Patient was recently diagnosed with right-sided lung cancer , CT chest shows pneumonia vs radiation pneumonitis. currently on 4l NC which has improved from before. as per oncology, given recent radiation therapy , this could be possible padiation penumonitis and she may require prolonged steroid therapy. continue oral prednisone urine legionella is negative, blood cx is negative antibiotics has been de- escalated to ceftriaxone, will stop antibiotics as has completed 7 days, will need steroids 2-3 weeks for the radiation pneumonitis. clinically better, titrate o2 to maintain sats >88% Due to SOB, patient is falls risk placed on falls precautions/up with assist/ bedrest with bedside commode with assist only. Patient and vital signs will be monitored closely for signs of respiratory decline/failure. (3) A-fib Current Visit: Yes Status: Chronic Assessment and plan: Patient presents with history of paroxysmal atrial fibrillation. Will monitor patient with continuous cardiac telemetry and continue patient's Cardizem. xarelto has been held given recent nose bleed, bleeding from sputum and hematuria. has mild hematuria still , h/h is stable, patient has a stroke risk with high CHADS score, will hold xarelto for now, will discuss with her cardiology at [place] about possible asa therapy only. will give cardio f/u in 1 week after dc for reassesment in restarting xarelto. Qualifiers: Atrial fibrillation type: paroxysmal Qualified Code(s): I48.0 - Paroxysmal atrial fibrillation (4) COPD (chronic obstructive pulmonary disease) Current Visit: No Status: Chronic Assessment and plan: Not in exacerbation at this time, continue breathing treatments. uses 2 l of o2 at baseline at home. Qualifiers: COPD type: unspecified COPD Qualified Code(s): J44.9 - Chronic obstructive pulmonary disease, unspecified (5) UTI (urinary tract infection) Current Visit: No Status: Inactive Assessment and plan: urine cx mixed reports denies any smptoms now. Qualifiers: Urinary tract infection type: site unspecified Hematuria presence: without hematuria Qualified Code(s): N39.0 - Urinary tract infection, site not specified (6) Acute and chronic respiratory failure with hypoxia Current Visit: Yes Status: Acute Assessment and plan: Patient was recently diagnosed with right-sided lung cancer , s/p radiation therapy. CT chest done s/o radiation pneumonitis vs pneumonia. continue steroids. clinically better, Continue 4l of nasal for now and titrate to wean oxygen as able maintaining sats above 88%. (7) Hydronephrosis Current Visit: No Status: Acute Assessment and plan: At this time no urgent need for changing ureteral stents as per urology. Patient can follow up with urology in 2-3 weeks for discussion of management of chronic indwelling ureteral stents Qualifiers: Hydronephrosis type: other Qualified Code(s): N13.39 - Other hydronephrosis - Subjective Interval history: Patient seen at the bedside,has on and off coughing spells, reports that she feels better. Oxygen changed to nasal cannula, today has been sating well on 4ll, denies bleeding from the nose or in her phlegm now. Admitted for pneumonia/radiation pneumonitis, continue IV antibiotics and steroids. - Constitutional Vitals: Temp Pulse Resp BP Pulse Ox 97.9 F 93 18 136/78 93 01/14/17 11:06 01/14/17 11:06 01/14/17 11:22 01/14/17 11:06 01/14/17 11:22 General appearance: Present: cooperative, A&O X 3, pleasant, obese, severe distress (Respiratory), answers questions appropriately Exam: neck- supple chest- b/l occ creptns, no wheezing cvs-s1 and s2, no mr//g abd-soft, non tender, bs are present ext- mild edema. neuro- no focal neuro defecits, alert and awake. Internal Medicine: Result - Labs CBC & Chem 7: 01/14/17 08:02 01/14/17 08:02 Labs: Short CBC 01/13/17 01/14/17 Range/Units 12:55 08:02 WBC 18.9 H 13.8 H (4.3-11.1) K/mcL Hgb 10.2 L 9.3 L (11.5-15.4) g/dL Hct 33.5 L 29.5 L (35.3-44.9) % Plt Count 248 190 (140-400) K/mcL Neutrophils # 17.4 H 12.3 H (1.6-8.9) K/mcL BMP 01/13/17 01/14/17 12:55 08:02 Sodium 136 135 L Potassium 3.9 3.9 Chloride 101 103 Carbon Dioxide 26 24 BUN 25 H 25 H Creatinine 1.08 0.84 Glucose 178 H 119 H Calcium 9.5 9.1 - ABG Interpretation ABG results: ABG ABG pH 7.50 pH Units (7.32-7.45) H 01/07/17 12:09 ABG pCO2 36 mmHg (35-45) 01/07/17 12:09 ABG pO2 76 mmHg (85-104) L 01/07/17 12:09 ABG O2 Saturation 96 % (95-98) 01/07/17 12:09 PT/INR, D-dimer PT 22.3 Seconds (9.4-12.1) H 01/10/17 08:16 Consult Discharge Plan - Plan Referrals: Sofya Faith MD [Primary Care Provider] - 01/21/17 10:30 am Pat Mendoza CNP [Partnered Physician] - 01/23/17 9:00 am
[2017-01-14] MEDS: Acetaminophen 325 MG TABLET PO PRN (12:22)
[2017-01-14] MEDS: *HR* Heparin 5,000 UNIT/ML VIAL SQ SCH (17:45)
[2017-01-14] MEDS: *HR* LORazepam 0.5 MG TABLET PO PRN (21:52)
[2017-01-15] MEDS: Ipratropium/Albuterol Neb 3 ML IH SCH ×6 (00:58→21:19)
[2017-01-15] MEDS: *HR* Heparin 5,000 UNIT/ML VIAL SQ SCH ×2 (05:15→16:52)
[2017-01-15] MEDS: Insulin LISPRO 300 UNITS/3 ML VIAL SQ SCH ×4 (07:42→21:53)
[2017-01-15] MEDS: Budesonide Neb 0.5 MG/2 ML IH SCH ×2 (07:44→21:19)
[2017-01-15] MEDS: predniSONE 20 MG TABLET PO SCH (09:02)
[2017-01-15] MEDS: Aspirin 325 MG TABLET PO SCH (09:02)
[2017-01-15] MEDS: *HR* LORazepam 0.5 MG TABLET PO PRN ×2 (09:02→17:01)
[2017-01-15] MEDS: Furosemide 20 MG TABLET PO SCH (09:02)
[2017-01-15] MEDS: Metoprolol XL (24 HR) Succ 25 MG TAB.ER.24H PO SCH (09:02)
[2017-01-15] MEDS: Diltiazem CD (24hr) 120 MG CAPSULE PO SCH ×2 (09:02→21:51)
--- NOTE | 2017-01-15 09:23 | Internal Med Progress Note ---
Date of Encounter: 01/17/17 Time of Encounter: 09:19 - Assessment and plan (1) Acute radiation pneumonitis Current Visit: Yes Status: Acute (2) COPD with acute exacerbation Current Visit: Yes Status: Acute (3) Hematuria Current Visit: Yes Status: Acute (4) Thoracic aortic aneurysm without rupture Current Visit: Yes Status: Acute (5) A-fib Current Visit: Yes Status: Chronic Qualifiers: Atrial fibrillation type: paroxysmal Qualified Code(s): I48.0 - Paroxysmal atrial fibrillation (6) Diabetes Current Visit: Yes Status: Chronic Qualifiers: Diabetes mellitus type: type 2 Diabetes mellitus complication status: with kidney complications Diabetes mellitus complication detail: with chronic kidney disease Diabetes mellitus oil heaterman insulin use: without oil heaterman use Chronic kidney disease stage: stage 3 (moderate) Qualified Code(s): E11.22 - Type 2 diabetes mellitus with diabetic chronic kidney disease; N18.3 - Chronic kidney disease, stage 3 (moderate) (7) UTI (urinary tract infection) Current Visit: Yes Status: Acute Qualifiers: Urinary tract infection type: site unspecified Hematuria presence: with hematuria Qualified Code(s): N39.0 - Urinary tract infection, site not specified; R31.9 - Hematuria, unspecified (8) Acute and chronic respiratory failure with hypoxia Current Visit: Yes Status: Acute - Subjective Interval history: 01/15 Mrs. Kristie Horn is a 76-year-old female whose care has been taken over from the previous hospitalist team. Patient was admitted with acute respiratory failure secondary to radiation pneumonitis mainly on the right side but also involving some portion of the left lung while she has underlying COPD. Initially it was felt that this could be pneumonia and since she was already suspected to have UTI IV Rocephin and Levaquin were started but I noted Rocephin has been DC'd yesterday. Patient is on moderately large dose of prednisone 60 mg daily beside nebulizers. She is still on 5 L oxygen. Patient has history of right-sided lung cancer and oncology is on case. Her clinical course was further complicated by hematuria for which urology Dr. Otero has seen the patient and plan to do an outpatient cystoscopy. Patient has atrial fibrillation and due to hematuria she was not anticoagulated. If hematuria is resolved and think it is safe enough to restart Coumadin. Incidental finding of stable thoracic aortic aneurysm 4.3 cm in size noted which needs regular follow-ups. - Constitutional Vitals: Temp Pulse Resp BP Pulse Ox 97.6 F 75 20 112/95 91 01/15/17 07:37 01/15/17 07:37 01/15/17 07:46 01/15/17 07:37 01/15/17 07:46 General appearance: Present: cooperative, A&O X 3, pleasant, obese, severe distress (Respiratory), answers questions appropriately Internal Medicine: Result - Labs CBC & Chem 7: 01/14/17 08:02 01/14/17 08:02 - ABG Interpretation ABG results: ABG ABG pH 7.50 pH Units (7.32-7.45) H 01/07/17 12:09 ABG pCO2 36 mmHg (35-45) 01/07/17 12:09 ABG pO2 76 mmHg (85-104) L 01/07/17 12:09 ABG O2 Saturation 96 % (95-98) 01/07/17 12:09 PT/INR, D-dimer PT 22.3 Seconds (9.4-12.1) H 01/10/17 08:16 Consult Discharge Plan - Plan Referrals: Sofya Faith MD [Primary Care Provider] - (Patient is going to rehab, no PCP appointment needed) Pat Mendoza CNP [Partnered Physician] - 01/23/17 9:00 am
[2017-01-16] MEDS: Ipratropium/Albuterol Neb 3 ML IH SCH ×6 (00:21→21:05)
[2017-01-16] MEDS: *HR* Heparin 5,000 UNIT/ML VIAL SQ SCH ×2 (06:43→17:07)
[2017-01-16] MEDS: Insulin LISPRO 300 UNITS/3 ML VIAL SQ SCH ×4 (08:08→20:46)
[2017-01-16] MEDS: Furosemide 20 MG TABLET PO SCH (08:09)
[2017-01-16] MEDS: Metoprolol XL (24 HR) Succ 25 MG TAB.ER.24H PO SCH (08:09)
[2017-01-16] MEDS: Diltiazem CD (24hr) 120 MG CAPSULE PO SCH ×2 (08:09→20:46)
[2017-01-16] MEDS: Aspirin 325 MG TABLET PO SCH (08:09)
[2017-01-16] MEDS: predniSONE 20 MG TABLET PO SCH (08:09)
[2017-01-16] MEDS: *HR* LORazepam 0.5 MG TABLET PO PRN (08:16)
[2017-01-16] MEDS: Budesonide Neb 0.5 MG/2 ML IH SCH ×2 (09:51→21:05)
[2017-01-16 18:17] LABS: INR 1.1; Prothrombin Time 11.8 Seconds (9.4-12.1)
[2017-01-17] MEDS: Ipratropium/Albuterol Neb 3 ML IH SCH ×6 (00:14→19:44)
[2017-01-17] MEDS: *HR* LORazepam 0.5 MG TABLET PO PRN (01:12)
[2017-01-17] MEDS: *HR* Heparin 5,000 UNIT/ML VIAL SQ SCH ×2 (06:05→16:26)
[2017-01-17] MEDS: Budesonide Neb 0.5 MG/2 ML IH SCH ×2 (07:52→19:44)
[2017-01-17] MEDS: Insulin LISPRO 300 UNITS/3 ML VIAL SQ SCH ×3 (09:15→16:27)
[2017-01-17] MEDS: Diltiazem CD (24hr) 120 MG CAPSULE PO SCH (09:19)
[2017-01-17] MEDS: predniSONE 20 MG TABLET PO SCH (09:19)
[2017-01-17] MEDS: Metoprolol XL (24 HR) Succ 25 MG TAB.ER.24H PO SCH (09:20)
[2017-01-17] MEDS: Furosemide 20 MG TABLET PO SCH (09:20)
[2017-01-17] MEDS: Aspirin 325 MG TABLET PO SCH (09:28)
--- NOTE | 2017-01-17 11:37 | Cardiology Consult Note ---
<Greg Wheeler - Last Filed: 01/17/17 11:50> Date of Encounter: 01/17/17 Time of Encounter: 10:00 Assessment and Plan (1) A-fib Current Visit: Yes Status: Chronic Rate controlled afib on telemetry. Known h/o afib. In regards to anticoagulation she is a CHADS VASc=6 (HTN, age 4, DM, CAD, gender ) She is high risk for CVA. She also has history of DVt and antithrombin 3 deficiency. Ideally she should be anticoagulation unless bleeding risk prohibits. Hgb noted to have decreased since starting xarelto. Agree to restart coumadin once hematuria resolves. Consider urology consult. Qualifiers: Atrial fibrillation type: paroxysmal Qualified Code(s): I48.0 - Paroxysmal atrial fibrillation (2) Cardiomyopathy Current Visit: Yes Status: Acute H/o ischemic cardiomyoapthy. EF 40%. Caution with IV fluid. Noted to have BLE edema. Mild acute on chronic systolic CHF. Will give one dose IV lasix. Repeat as needed. Continue to monitor. Strict I&O and daily weights. Low sodium diet. Qualifiers: Cardiomyopathy type: ischemic Qualified Code(s): I25.5 - Ischemic cardiomyopathy Discussion w patient/family: The assessment and plan as outlined above was discussed with the patient and/or family members who expressed understanding and agreement. All questions were answered. Thank you for involving us in the care of your patient. Please call with any questions. History of Present Illness Consult date: 01/16/17 Consult reason: anticoagulation concern. Chief complaint: weakness History of present illness: Ms. Preston is a 76 year old female recently diagnosed with lung cancer on radiation with presented with weakness. She is currently being treated for radiation pnuemonitis. CArdiology consulted in regards to anticoagulation for afib. She c/o hemoptysis and hematuria. Hg is stable. She has a history of atrial fibrillation, DVT, antithrombin 3 deficiency,NICMP, HTN, HLD, and CAD. She was previously on coumadin. Due to hematuria she was converted to xarelto in October. Since that time she developed nose bleeds and more hematuria. She did undergo blood transfusion last mo. Xarelto has been on hold. She states that she did better on coumadin and is planning on restarting. Previous cardiac testing: TTE 12/26/16- EF 40% with RWMA, mild -moderate MR. 11/2012-* 40% stenosis in the LMCA, 40% stenosis in the Proximal LAD, 99% stenosis in the Mid Circumflex (small vessel),50% stenosis in the 1st Marginal, 100% stenosis in the Distal RCA fills well from left collaterals. Past Med Surg Social Fam HX - Past Medical History Medical history: aortic aneurysm, atrial fibrillation, cancer, COPD, coronary artery disease, DVT, diabetes, GERD, hyperlipidemia, hypertension, myocardial infarction, other Psychiatric history: no psych history - Past Surgical History Surgical History: cholecystectomy, hysterectomy, MIHAELA/BSO, ureteral stent, other (Left upper chest Port-A-Cath, tracheostomy after AAA repair/stent) - Social History Smoking Status: Former smoker Smokeless Tobacco Status: No Alcohol use: none Drug use: none - Family History Father Race: Family Member Ethnicity: Non- Living Status: Age at : 54 Cause of : Bone cancer Hx Family Cancer: Yes (Bone) Mother Race: Family Member Ethnicity: Non- Living Status: Age at : 74 Cause of : HD Hx Family Cardiac Disorders: Yes (HD) Hx Family Endocrine Disorder: Yes (DM) Brother Race: Family Member Ethnicity: Non- Living Status: Still Living Hx Family Cardiac Disorders: Yes (HD) Medications and Allergies Atorvastatin [Lipitor] 40 mg PO HS 04/25/15 [History] Diltiazem HCl [Diltiazem 24Hr Cd] 120 mg PO BID 04/25/15 [History] Docusate [Colace] 100 mg PO DAILY PRN 04/25/15 [History] Ergocalciferol (VITAMIN D2) [Drisdol (50,000 Unit)] 50,000 unit PO QWEEK [History] Metoprolol XL (24 HR) Succ [Toprol XL] 25 mg PO DAILY 04/25/15 [History] Tiotropium [Spiriva] 18 mcg IH HS 04/25/15 [History] Acetaminophen [Tylenol] 650 mg PO Q6HR PRN 08/25/16 [History] Albuterol Sulfate [Ventolin Hfa] 18 gm IH BID PRN 08/25/16 [History] Citalopram [CeleXA] 20 mg PO HS 10/24/16 [History] Lidocaine/Prilocaine CREAM [Emla] 5 gm TP PRN PRN 10/24/16 [History] Magic Mouthwash [Magic Mouthwash BLM] 10 ml PO TID PRN 10/24/16 [History] Prochlorperazine Maleate [Compazine] 10 mg PO Q6HR PRN 10/24/16 [History] LORazepam [Ativan] 0.5 mg PO Q6H PRN #60 tablet 12/11/16 [Rx] Furosemide [Lasix] 20 mg PO DAILY #30 tablet 12/29/16 [Rx] Sucralfate [Carafate] 1 gm PO ACHS 30 Days 12/29/16 [Rx] levoFLOXacin [Levaquin] 500 mg PO Q48H #3 tablet 12/29/16 [Rx] Pantoprazole Sodium 40 mg PO DAILY 01/07/17 [History] Rivaroxaban [Xarelto] 15 mg PO DAILY 01/07/17 [History] Allergies Penicillins [PCN] Allergy (Intermediate, Verified 01/04/17 15:51) Hives Sulfa (Sulfonamide Antibiotics) Allergy (Intermediate, Verified 01/04/17 15:51) Hives All Systems Review: A 10-system review of systems was performed and is negative for pertinent findings except as documented above in the HPI. Physical Examination Vital Signs, Last 4 Hours Temp Pulse Resp BP Pulse Ox 01/17/17 11:12 97.5 F L 79 16 119/93 97 01/17/17 08:00 92 01/17/17 07:52 16 88 01/17/17 07:35 97.8 F 89 20 123/87 87 General: Conversant, No Apparent Distress HEENT: Atraumatic, Normocephaly, Mucus Membranes Moist Neck: No JVD, Normal carotid pulses Cardiac: Reg Rate and Rhythm, Normal S1 and S2, No Murmur Lungs: Other (Rhonci noted in right posterior lobe. ) Neuro: Alert and responsive, No focal deficits noted Abdomen: Soft, Non-Tender Skin: No rashes noted on visualized skin Musculoskeletal: No Chest Wall Tenderness Extremities: No Clubbing, No Cyanosis, Normal Pulses, Other (2+ edema BLE. ) Results 01/14/17 08:02 01/14/17 08:02 Lab Results 01/16/17 17:58 INR 1.1 - Imaging and Cardiology Echo: report reviewed Consult Discharge Plan - Plan Referrals: Sofya Faith MD [Primary Care Provider] - 01/21/17 10:30 am Pat Mendoza CNP [Partnered Physician] - 01/23/17 9:00 am <Mary Brown - Last Filed: 01/17/17 12:49> Date of Encounter: 01/17/17 Assessment and Plan Discussion w patient/family: The assessment and plan as outlined above was discussed with the patient and/or family members who expressed understanding and agreement. All questions were answered. Thank you for involving us in the care of your patient. Please call with any questions. History of Present Illness History of present illness: Ms. Preston is a 76 year old female All Systems Review: A 10-system review of systems was performed and is negative for pertinent findings except as documented above in the HPI. Physical Examination Vital Signs, Last 4 Hours Temp Pulse Resp BP Pulse Ox 01/17/17 11:58 76 01/17/17 11:52 16 92 01/17/17 11:12 97.5 F L 79 16 119/93 97 Results 01/14/17 08:02 01/14/17 08:02 Lab Results 01/16/17 17:58 INR 1.1 - Attending Attestation I examined this patient and my medical decision-making was reviewed with the HEALTH SERVICES COORDINATOR/PA/Advanced Practice Nurse/Resident Physician. I agree with the documented findings, disposition and treatment plan. We have been asked to make recommendations regarding coumadin. From a cardiac standpoint, she is at high risk for a CVA (CHADSVASC 6). Per outpatient records , she's also been on coumadin for history of DVT and antithrombin III deficiency. It appears there are multiple reasons for the patient to be anticoagulated. From our standpoint, we would recommend full anticoagulation for AFIB if there is no active bleeding. She can follow up with her primary documentation coordinator for further monitoring. Signing off. Please call with questions.
[2017-01-17] MEDS ORDERED: Furosemide 20 MG/2 ML VIAL IVP ONE (11:54)
[2017-01-17 15:53] VITALS: BP 113/95
--- NOTE | 2017-01-17 16:23 | Internal Med Progress Note ---
Date of Encounter: 01/17/17 (Late entry) Time of Encounter: 16:20 - Assessment and plan (1) Acute radiation pneumonitis Current Visit: Yes Status: Acute (2) COPD with acute exacerbation Current Visit: Yes Status: Acute (3) Hematuria Current Visit: Yes Status: Acute (4) Thoracic aortic aneurysm without rupture Current Visit: Yes Status: Acute (5) A-fib Current Visit: Yes Status: Chronic Qualifiers: Atrial fibrillation type: paroxysmal Qualified Code(s): I48.0 - Paroxysmal atrial fibrillation (6) Diabetes Current Visit: Yes Status: Chronic Qualifiers: Diabetes mellitus type: type 2 Diabetes mellitus complication status: with kidney complications Diabetes mellitus complication detail: with chronic kidney disease Diabetes mellitus continuous churn buttermaker insulin use: without continuous churn buttermaker use Chronic kidney disease stage: stage 3 (moderate) Qualified Code(s): E11.22 - Type 2 diabetes mellitus with diabetic chronic kidney disease; N18.3 - Chronic kidney disease, stage 3 (moderate) (7) UTI (urinary tract infection) Current Visit: Yes Status: Acute Qualifiers: Urinary tract infection type: site unspecified Hematuria presence: with hematuria Qualified Code(s): N39.0 - Urinary tract infection, site not specified; R31.9 - Hematuria, unspecified (8) Acute and chronic respiratory failure with hypoxia Current Visit: Yes Status: Acute - Subjective Interval history: Mrs. Kristie Horn is a 76-year-old female whose care has been taken over from the previous hospitalist team. Patient was admitted with acute respiratory failure secondary to radiation pneumonitis mainly on the right side but also involving some portion of the left lung while she has underlying COPD. Initially it was felt that this could be pneumonia and since she was already suspected to have UTI IV Rocephin and Levaquin were started but I noted Rocephin has been DC'd yesterday. Patient is on moderately large dose of prednisone 60 mg daily beside nebulizers. She is still on 5 L oxygen. Patient has history of right-sided lung cancer and oncology is on case. Her clinical course was further complicated by hematuria for which urology Dr. Otero has seen the patient and plan to do an outpatient cystoscopy. Patient has atrial fibrillation and due to hematuria she was not anticoagulated. If hematuria is resolved and think it is safe enough to restart Coumadin. Incidental finding of stable thoracic aortic aneurysm 4.3 cm in size noted which needs regular follow-ups. Her hematuria has improved as well as her breathing. She is currently now on 4 L of oxygen however I noticed that she become quite dyspneic even if she talks for more than a couple of minutes. My impression is that her lung function are slowly improving. Cardiology consult elevated. Also will increase the dose of Lasix to aggressively treat her CHF. [facility] is [facility]. - Constitutional Vitals: Temp Pulse Resp BP Pulse Ox 97.7 F 73 20 113/95 100 01/17/17 15:47 01/17/17 15:47 01/17/17 15:47 01/17/17 15:47 01/17/17 15:47 General appearance: Present: cooperative, A&O X 3, pleasant, obese, severe distress (Respiratory), answers questions appropriately - Head Head exam: Present: atraumatic, normocephalic - Eye Eye exam: Present: PERRL, conjuntiva pink, sclera anicteric Pupils: Present: PERRL - Neck Neck exam general surgery: Present: supple, trachea midline. Absent: lymphadenopathy - Respiratory Respiratory exam: Present: decreased breath sounds. Absent: accessory muscle use, rales, rhonchi, wheezes - Cardiovascular Cardiovascular exam: Present: RRR, +S1, +S2. Absent: diastolic murmur, gallop, rubs, systolic murmur - GI/Abdominal GI/Abdominal exam: Present: normal bowel sounds, soft, no peritoneal signs. Absent: distended, tenderness - Extremities Exam Extremities exam: Present: warm, radial pulses palpable and symetrical. Absent : calf tenderness, cyanotic, pedal edema - Neurological Exam Neurological exam: Present: CN II-XII intact, oriented X3, no focal deficits. Absent: pronater drift, facial droop, speech deficit - Skin Skin exam: Present: dry, intact Internal Medicine: Result - Labs CBC & Chem 7: 01/14/17 08:02 01/14/17 08:02 - ABG Interpretation ABG results: ABG ABG pH 7.50 pH Units (7.32-7.45) H 01/07/17 12:09 ABG pCO2 36 mmHg (35-45) 01/07/17 12:09 ABG pO2 76 mmHg (85-104) L 01/07/17 12:09 ABG O2 Saturation 96 % (95-98) 01/07/17 12:09 PT/INR, D-dimer PT 11.8 Seconds (9.4-12.1) 01/16/17 17:58 Consult Discharge Plan - Plan Referrals: Sofya Faith MD [Primary Care Provider] - (Patient is going to rehab, no PCP appointment needed) Pat Mendoza, DIGITAL MARKETING MANAGER [Partnered Physician] - 01/23/17 9:00 am
--- NOTE | 2017-01-17 16:27 | Discharge Summary ---
Date of Encounter: 01/17/17 Time of Encounter: 16:25 - Discharge Diagnosis (1) Acute radiation pneumonitis Priority: Primary Status: Acute (2) COPD with acute exacerbation Priority: Secondary Status: Acute (3) Hematuria Priority: Secondary Status: Acute (4) Thoracic aortic aneurysm without rupture Priority: Secondary Status: Acute (5) A-fib Priority: Secondary Status: Chronic Qualifiers: Atrial fibrillation type: paroxysmal Qualified Code(s): I48.0 - Paroxysmal atrial fibrillation (6) Diabetes Priority: Secondary Status: Chronic Qualifiers: Diabetes mellitus type: type 2 Diabetes mellitus complication status: with kidney complications Diabetes mellitus complication detail: with chronic kidney disease Diabetes mellitus superintendent [employer] insulin use: without intermediate use Chronic kidney disease stage: stage 3 (moderate) Qualified Code(s): E11.22 - Type 2 diabetes mellitus with diabetic chronic kidney disease; N18.3 - Chronic kidney disease, stage 3 (moderate) (7) UTI (urinary tract infection) Priority: Secondary Status: Acute Qualifiers: Urinary tract infection type: site unspecified Hematuria presence: with hematuria Qualified Code(s): N39.0 - Urinary tract infection, site not specified; R31.9 - Hematuria, unspecified (8) Acute and chronic respiratory failure with hypoxia Priority: Primary Status: Acute (9) Acute systolic (congestive) heart failure Priority: Secondary Status: Acute - Discharge Medications Prescriptions: Warfarin [Coumadin] 5 mg PO 1800 #30 tablet Home Medications: Atorvastatin [Lipitor] 40 mg PO HS 04/25/15 [History] Diltiazem HCl [Diltiazem 24Hr Cd] 120 mg PO BID 04/25/15 [History] Docusate [Colace] 100 mg PO DAILY PRN 04/25/15 [History] Ergocalciferol (VITAMIN D2) [Drisdol (50,000 Unit)] 50,000 unit PO QWEEK [History] Metoprolol XL (24 HR) Succ [Toprol XL] 25 mg PO DAILY 04/25/15 [History] Tiotropium [Spiriva] 18 mcg IH HS 04/25/15 [History] Albuterol Sulfate [Ventolin Hfa] 18 gm IH BID PRN 08/25/16 [History] Citalopram [CeleXA] 20 mg PO HS 10/24/16 [History] Lidocaine/Prilocaine CREAM [Emla] 5 gm TP PRN PRN 10/24/16 [History] Magic Mouthwash [Magic Mouthwash BLM] 10 ml PO TID PRN 10/24/16 [History] Sucralfate [Carafate] 1 gm PO ACHS 30 Days 12/29/16 [Rx] levoFLOXacin [Levaquin] 500 mg PO Q48H #3 tablet 12/29/16 [Rx] Pantoprazole Sodium 40 mg PO DAILY 01/07/17 [History] Acetaminophen [Tylenol] 650 mg PO Q6HR PRN #0 tablet 01/17/17 [Rx] Furosemide [Lasix] 40 mg PO DAILY #30 tablet 01/17/17 [Rx] Ipratropium/Albuterol Neb [Duoneb] 3 ml IH Q6HR inhsol 01/17/17 [Rx] Metoprolol XL (24 HR) Succ [Toprol Xl] 25 mg PO DAILY tab.er.24h 01/17/17 [Rx] Saline Nasal [place] [[place] Nasal [place]] 2 spray NS Q2H PRN #0 bottle 01/17/17 [Rx ] Sucralfate [Carafate] 1 gm PO ACHS udc 01/17/17 [Rx] Warfarin [Coumadin] 5 mg PO 1800 #30 tablet 01/17/17 [Rx] predniSONE [PredniSONE] 60 mg PO DAILY tablet 01/17/17 [Rx] Allergies/Adverse Reactions: Allergies Penicillins [PCN] Allergy (Intermediate, Verified 01/04/17 15:51) Hives Sulfa (Sulfonamide Antibiotics) Allergy (Intermediate, Verified 01/04/17 15:51) Hives Date of admission: 01/07/17 16:31 Primary care physician: Sofya Faith, Consults: 01/07/17 16:39 Consult to Urology [CONS] Routine Consulting Provider: Urology [place] Reason for Consult: Patient is followed by Dr. Anthony and is concerned that her uretal stents have not been replaced on time due to her cancer dx Call Completed: Yes 01/07/17 18:16 Consult to Oncology [CONS] Routine Consulting Provider: [facility] Reason for Consult: Patient with recent right-sided lung cancer dx admitted with dx of pneumonia versus radiation pneumonitis Call Completed: No 01/08/17 13:08 Consult to Physical Therapy [CONS] Routine Comment: Evaluate, develop and implement POC Reason for Consult: discharge planning OT [Consult to Occupational Therapy] [CONS] Routine Comment: Evaluate, develop and implement POC Reason for Consult: discharge planning 01/16/17 14:59 Consult to Cardiology [CONS] Routine Comment: Consulting Provider: Star Castillo Reason for Consult: antiocoag management dr sugey paul cardio Time Notified: 14:59 Call Completed: Yes Discharging clinician: Vashti Kauffman Anticipated date of discharge: 01/17/17 - Patient Status Disposition: Transfer SNF Condition: Fair Overall status at discharge: patient is progressing back to baseline - Discharge Instructions Follow Up With: Sofya Faith MD [Primary Care Provider] - (Patient is going to rehab, no PCP appointment needed) Pat Mendoza CNP [Partnered Physician] - 01/23/17 9:00 am - Diet and Activity Activity: as per physical therapy Diet: advance to your usual diet, diabetic diet, low fat, low cholesterol, low salt diet Hospital course: Mrs. Kristie Horn is a 76-year-old female . Patient was admitted with acute respiratory failure secondary to radiation pneumonitis mainly on the right side but also involving some portion of the left lung while she has underlying COPD. Initially it was felt that this could be pneumonia and since she was already suspected to have UTI IV Rocephin and Levaquin were started but I noted Rocephin has been DC'd yesterday. Patient is on moderately large dose of prednisone 60 mg daily beside nebulizers. She is still on 3 L oxygen. Patient has history of right-sided lung cancer and oncology is on case. She has chronic atrial fibrillation and she is on anticoagulation. Her clinical course was further complicated by hematuria for which urology Dr. Otero has seen the patient and plan to do an outpatient cystoscopy. Oncology suggested cardiology consultation to further address the issue of anticoagulation. Cardiology feels that she has a high risk of CVA therefore she should be on anticoagulation mainly with Coumadin as her hematuria has resolved. Therefore Coumadin will be restarted without any bridging which might help in reducing the risk of rebleed. Incidental finding of stable thoracic aortic aneurysm 4.3 cm in size noted which needs regular follow-ups.She is currently now on 3-4 L of oxygen however I noticed that she become quite dyspneic even if she talks for more than a couple of minutes. My impression is that her lung function are slowly improving. Also will increase the dose of Lasix to aggressively treat her CHF. She is planned to be discharged to [facility]. - Time Spent with Patient Total time spent providing and/or coordinating discharge services: Greater than 30 minutes - Constitutional Vitals: Temp Pulse Resp BP Pulse Ox 97.7 F 73 20 113/95 100 01/17/17 15:47 01/17/17 15:47 01/17/17 15:47 01/17/17 15:47 01/17/17 15:47 General appearance: Present: cooperative, A&O X 3, pleasant, obese, severe distress (Respiratory), answers questions appropriately - Head Head exam: Present: atraumatic, normocephalic - Eye Eye exam: Present: PERRL, conjuntiva pink, sclera anicteric Pupils: Present: PERRL - Neck Neck exam general surgery: Present: supple, trachea midline. Absent: lymphadenopathy - Respiratory Respiratory exam: Present: decreased breath sounds. Absent: accessory muscle use, rales, rhonchi, wheezes - Cardiovascular Cardiovascular exam: Present: RRR, +S1, +S2. Absent: diastolic murmur, gallop, rubs, systolic murmur - GI/Abdominal GI/Abdominal exam: Present: normal bowel sounds, soft, no peritoneal signs. Absent: distended, tenderness - Extremities Exam Extremities exam: Present: pedal edema, warm, radial pulses palpable and symetrical. Absent: calf tenderness, cyanotic - Neurological Exam Neurological exam: Present: CN II-XII intact, oriented X3, no focal deficits. Absent: pronater drift, facial droop, speech deficit - Skin Skin exam: Present: dry, intact
--- NOTE | 2017-01-17 17:37 | Physician Discharge Referral ---
ExtendedCare Referral Info Transfer To: F Provider in Charge: sugey Provider in Charge after Transfer: PCP - Diagnosis (1) Acute radiation pneumonitis Status: Acute (2) COPD with acute exacerbation Status: Acute (3) Hematuria Status: Acute (4) Thoracic aortic aneurysm without rupture Status: Acute (5) A-fib Status: Chronic (6) Diabetes Status: Chronic (7) UTI (urinary tract infection) Status: Acute (8) Acute and chronic respiratory failure with hypoxia Status: Acute (9) Acute systolic (congestive) heart failure Status: Acute - Transfer Medications Prescriptions: Warfarin [Coumadin] 5 mg PO 1800 #30 tablet Home Medications: Atorvastatin [Lipitor] 40 mg PO HS 04/25/15 [History] Diltiazem HCl [Diltiazem 24Hr Cd] 120 mg PO BID 04/25/15 [History] Docusate [Colace] 100 mg PO DAILY PRN 04/25/15 [History] Ergocalciferol (VITAMIN D2) [Drisdol (50,000 Unit)] 50,000 unit PO QWEEK [History] Metoprolol XL (24 HR) Succ [Toprol XL] 25 mg PO DAILY 04/25/15 [History] Tiotropium [Spiriva] 18 mcg IH HS 04/25/15 [History] Albuterol Sulfate [Ventolin Hfa] 18 gm IH BID PRN 08/25/16 [History] Citalopram [CeleXA] 20 mg PO HS 10/24/16 [History] Lidocaine/Prilocaine CREAM [Emla] 5 gm TP PRN PRN 10/24/16 [History] Magic Mouthwash [Magic Mouthwash BLM] 10 ml PO TID PRN 10/24/16 [History] Sucralfate [Carafate] 1 gm PO ACHS 30 Days 12/29/16 [Rx] levoFLOXacin [Levaquin] 500 mg PO Q48H #3 tablet 12/29/16 [Rx] Pantoprazole Sodium 40 mg PO DAILY 01/07/17 [History] Acetaminophen [Tylenol] 650 mg PO Q6HR PRN #0 tablet 01/17/17 [Rx] Furosemide [Lasix] 40 mg PO DAILY #30 tablet 01/17/17 [Rx] Ipratropium/Albuterol Neb [Duoneb] 3 ml IH Q6HR inhsol 01/17/17 [Rx] Metoprolol XL (24 HR) Succ [Toprol Xl] 25 mg PO DAILY tab.er.24h 01/17/17 [Rx] Saline Nasal [place] [[place] Nasal [place]] 2 spray NS Q2H PRN #0 bottle 01/17/17 [Rx ] Sucralfate [Carafate] 1 gm PO ACHS udc 01/17/17 [Rx] Warfarin [Coumadin] 5 mg PO 1800 #30 tablet 01/17/17 [Rx] predniSONE [PredniSONE] 60 mg PO DAILY tablet 01/17/17 [Rx] Allergies/Adverse Reactions: Allergies Penicillins [PCN] Allergy (Intermediate, Verified 01/04/17 15:51) Hives Sulfa (Sulfonamide Antibiotics) Allergy (Intermediate, Verified 01/04/17 15:51) Hives - Respiratory Orders Smoking Cessation: Smoking cessation has been advised. For more information, call the [place] Tobacco Quit Line at 6-431-ROMX-NOW. CERTIFICATION: I certify that the transfer of the above named patient to an Extended Care Facility is necessary for the continuing treatment of the diagnosis listed. The above information is true and accurate reflection of patient's current condition. Confidential - Redisclosure prohibited without a patient's written consent.
== END 2017-01-17 20:05 | DRG 205 ==
LOC: 2NNU 10:40 → EMEROO 10:40 → 2NNU 15:45
PROVIDERS: ADMIT Internal Medicine; ATTEND Internal Medicine

== ENCOUNTER 2017-04-23 16:03 | Inpatient (IN) ==
[2017-04-23] MEDS ORDERED: Naloxone 0.4 MG/ML INJ IVP PRN (19:57)
[2017-04-23] MEDS ORDERED: Ondansetron 4 MG/2 ML VIAL IVP PRN (19:57)
[2017-04-23] MEDS ORDERED: 0.9 % Sodium Chloride 1,000 ML IVC SCH (20:00)
[2017-04-23] MEDS ORDERED: *HR* Dextrose 50 % in Water (Syg) 50 ML SYRINGE IVP PRN (20:20)
[2017-04-23] MEDS ORDERED: D5% in Water 1,000 ML IVC PRN (20:20)
[2017-04-23] MEDS ORDERED: Dextrose Gel 15 GM PO PRN ×2 (20:20)
--- NOTE | 2017-04-23 20:23 | Internal Med History&Physical ---
Date of Encounter: 04/23/17 Time of Encounter: 20:18 Assessment and Plan (1) Diverticulitis Current visit: Yes Status: Acute 1 patient has been experiencing abdominal pain nausea and vomiting for the past 3 days. She has no leukocytosis or fever. CT of abdomen does reveal severe sigmoid diverticulosis may be related to early or mild acute diverticulitis. 2 we will give Cipro and Flagyl-the patient becomes hemodynamically unstable we will escalate antibiotic coverage 3 we will give 500 fluid challenge. We will be cautious due to history of CHF/ CK D 4 clear liquids 5 morphine as needed for pain Qualifiers: Diverticulitis site: large intestine Diverticulitis bleeding: without bleeding Diverticulitis complication: without perforation or abscess Qualified Code(s): K57.32 - Diverticulitis of large intestine without perforation or abscess without bleeding (2) UTI (urinary tract infection) Current visit: Yes Status: Acute 1 patient has been exercising abdominal pain as well as flank pain urinalysis indicative of UTI. We will treat with Cipro and continue to monitor CBC. Previous urine culture in November was positive for Escherichia coli and was sensitive to Cipro. Awaiting urine culture results will adjust to sensitivity Qualifiers: Urinary tract infection type: site unspecified Hematuria presence: with hematuria Qualified Code(s): N39.0 - Urinary tract infection, site not specified; R31.9 - Hematuria, unspecified; R31.9 - Hematuria, unspecified (3) Thoracic aortic aneurysm without rupture Current visit: No Status: Chronic Presently measuring 12 x 11 cm stable since prior study will follow up as outpatient (4) CKD (chronic kidney disease) Current visit: No Status: Chronic 1 grossly appears to be stable creatinine 0.9 we will continue to monitor 2 monitor intake output daily weights 3 avoid nephrotoxins 4 renal dose antibiotics Qualifiers: Chronic kidney disease stage: stage 3 (moderate) Qualified Code(s): N18.3 - Chronic kidney disease, stage 3 (moderate) (5) COPD (chronic obstructive pulmonary disease) Current visit: No Status: Chronic 1 continue with oxygen titrated to maintain SPO2 greater than 92% 2 continue with bronchodilators Qualifiers: COPD type: unspecified COPD Qualified Code(s): J44.9 - Chronic obstructive pulmonary disease, unspecified (6) Diabetes Current visit: No Status: Chronic 1 patient states she has been experiencing nausea we will continue with clear liquids Accu-Cheks before meals at bedtime-scale insulin for now due to poor appetite Qualifiers: Diabetes mellitus type: type 2 Diabetes mellitus complication status: with kidney complications Diabetes mellitus complication detail: with chronic kidney disease Diabetes mellitus terminal carman insulin use: without prison use Chronic kidney disease stage: stage 3 (moderate) Qualified Code(s): E11.22 - Type 2 diabetes mellitus with diabetic chronic kidney disease; N18.3 - Chronic kidney disease, stage 3 (moderate) (7) HTN (hypertension) Current visit: No Status: Chronic 1 presently hypotensive we will hold antihypertensives resume once back to baseline Qualifiers: Hypertension type: essential hypertension Qualified Code(s): I10 - Essential (primary) hypertension (8) Lung cancer Current visit: No Status: Chronic 1 patient's last radiation treatment was 3 months ago. We will continue to follow up with oncology as outpatient and consult as needed Qualifiers: Laterality: right Lung location: lower lobe of lung Qualified Code(s): C34.31 - Malignant neoplasm of lower lobe, right bronchus or lung (9) Atrial fibrillation Current visit: Yes Status: Acute 1 patient did present with A. fib RVR she is presently in a controlled rate of 90. We will continue with cardiac exam as well as Coumadin for anticoagulation Qualifiers: Atrial fibrillation type: chronic Qualified Code(s): I48.2 - Chronic atrial fibrillation (10) Elevated troponin Current visit: Yes Status: Acute 1 troponin is 0.07 suspect this is related to possible demand ischemia, and renal disease. We will continue to trend 2 continuous cardiac monitoring (11) DVT prophylaxis Current visit: No Status: Acute Patient is on Coumadin Internal Medicine - H&P: HPI Chief complaint: abd pain Admitted From: Hospital to Hospital Transfer Plans for Post Hospital Care: Transfer Group Home Facility History of present illness: Ms. Preston is a 77 year old female past medical history of CK D CHF EF 40% COPD oxygen dependent A. fib on Coumadin diabetes aortic aneurysm bilateral ureteral stent placement. According to the patient for past 3 days she has been experiencing diffuse abdominal pain as well as flank pain bilaterally. She describes the abdominal pain as cramping at times severe there are no aggravating factors. She states that the pain has improved since she received pain medication. She does have some nausea vomiting. Denies any fevers or chills. Denies any hematemesis hematochezia or melena. Also denies any urinary symptoms of burning frequency or urgency. She presented to [facility]. Lab work there was obtained which did reveal a leukocytosis chemistry was unremarkable her lactate was 2.6 troponin was 0.07 patient does deny any chest pain EKG with atrial fibrillation RVR. CT of abdomen concerning for sigmoid diverticulitis. She has been transferred to [facility] for further workup and evaluation. Presently patient denies any pain or discomfort at this time she states that the pain medicine has made her comfortable. Her abdomen is soft nontender to palpation with no guarding. Heart sounds are irregular S1 and S2 with no rubs clicks, murmurs noted no pedal edema noted. She is hemodynamically stable at this time. Past Med Surg Social Fam HX - Past Medical History Medical history: aortic aneurysm, atrial fibrillation, cancer, COPD, coronary artery disease, DVT, diabetes, GERD, hyperlipidemia, hypertension, myocardial infarction, other Psychiatric history: anxiety - Past Surgical History Surgical History: cholecystectomy, hysterectomy, ureteral stent, other - Social History Smoking Status: Former smoker Smokeless Tobacco Status: No Alcohol use: none Drug use: none - Family History Father Family Member Ethnicity: Non- Living Status: Cause of : cancer Hx Family Cancer: Yes Mother Family Member Ethnicity: Non- Living Status: Age at : 74 Cause of : heart Hx Family Cardiac Disorders: Yes (CHF) Hx Family Endocrine Disorder: Yes (DM) Brother Family Member Ethnicity: Non- Living Status: Still Living Hx Family Cardiac Disorders: Yes (HD) Internal Medicine - H&P: Meds Diltiazem HCl [Diltiazem 24Hr Cd] 120 mg PO BID 04/25/15 [History] Ergocalciferol (VITAMIN D2) [Drisdol (50,000 Unit)] 50,000 unit PO QMONTH [History] Citalopram [CeleXA] 10 mg PO HS 10/24/16 [History] Magic Mouthwash [Magic Mouthwash BLM] 10 ml PO TID PRN 10/24/16 [History] Saline Nasal [place] [[place] Nasal [place]] 2 spray NS Q2H PRN #0 bottle 01/17/17 [Rx ] Acetaminophen [Tylenol] 1,000 mg PO Q8H PRN 03/11/17 [History] Lactobacillus Acidophilus [Acidophilus Probiotic] 1 mg PO DAILY 03/11/17 [ History] Sennosides [Senna] 8.6 mg PO BID 03/11/17 [History] Spironolactone [Aldactone] 12.5 mg PO DAILY 03/11/17 [History] LORazepam [Ativan] 0.5 mg PO QID PRN 03/17/17 [History] Omeprazole [PriLOSEC] 20 mg PO DAILY 03/17/17 [History] Tiotropium [Spiriva] 18 mcg IH DAILY 03/17/17 [History] Tramadol HCl [Ultram] 50 mg PO TID PRN 03/25/17 [History] Insulin ASPART [Novolog Flexpen] 1 unit SQ ACHS 04/05/17 [History] Warfarin [Coumadin] 4 mg PO 1800 04/05/17 [History] predniSONE [PredniSONE] 20 mg PO DAILY 04/05/17 [History] Atorvastatin [Lipitor] 40 mg PO HS 04/15/17 [History] Insulin Glargine,Hum.rec.anlog [Lantus Solostar] 15 unit SQ HS 04/15/17 [History ] Ipratropium/Albuterol Neb [Duoneb] 3 ml IH Q4HR 04/23/17 [History] Metoprolol XL (24 HR) Succ [Toprol XL] 12.5 mg PO BID 04/23/17 [History] Multivitamin,Stress Formula [Stress Formula] 1 each PO DAILY 04/23/17 [History] 3 Allergy/AdvReac Type Severity Reaction Status Date / Time Penicillins [PCN] Allergy Intermediate Hives Verified 04/15/17 16:03 Sulfa (Sulfonamide Allergy Intermediate Hives Verified 04/15/17 16:03 Antibiotics) All Systems PM: A 10-system review of systems was performed and is negative for pertinent findings except as documented above in the HPI. - Constitutional Constitutional: no chills, no fever(s), no night sweats - EENT Eyes: no change in vision, no discharge, no pain, no photophobia Nose, mouth and throat: no dysphagia, no nasal discharge, no neck pain, no sore throat - Cardiovascular Cardiovascular ROS IM: no chest pain, no diaphoresis, no dyspnea, no lightheadedness, no palpitations, no syncope - Respiratory Respiratory: no cough, no dyspnea, no wheezing, no excessive phlegm production - Gastrointestinal Gastrointestinal: abdominal pain, constipation, cramping, nausea, vomiting - Genitourinary Genitourinary: no change in urinary stream, no dysuria, no flank pain, no hematuria - Musculoskeletal Musculoskeletal ROS IM: no numbness, no tingling - Integumentary Integumentary IM: no rash, no unusual bruising - Neurological Neurological ROS: no confusion, no convulsions, no focal weakness, no numbness, no tingling, no tremor(s) - Hematologic/Lymphatic Hematologic/Lymphatic: no easy bruising - Head Head exam: Present: atraumatic, normocephalic - Eye Eye exam: Present: PERRL, conjuntiva pink, sclera anicteric Pupils: Present: PERRL - Neck Neck exam general surgery: Present: supple, trachea midline. Absent: lymphadenopathy - Respiratory Respiratory exam: Present: CTAB. Absent: accessory muscle use, rales, rhonchi, wheezes - Cardiovascular Cardiovascular exam: Present: irregular rhythm, +S1, +S2. Absent: diastolic murmur, gallop, rubs, systolic murmur - GI/Abdominal GI/Abdominal exam: Present: normal bowel sounds, soft, no peritoneal signs. Absent: distended, tenderness - Extremities Exam Extremities exam: Present: warm, radial pulses palpable and symmetrical. Absent : calf tenderness, cyanotic, pedal edema - Neurological Exam Neurological exam: Present: CN II-XII intact, oriented X3, no focal deficits. Absent: pronater drift, facial droop, speech deficit - Skin Skin exam: Present: dry, intact Internal Med - H&P Results - Labs Labs: CBC day BC 10.2 hemoglobin 10.1 hematocrit 31.5 platelet was 150 Chemistries sodium 139 potassium 3.9 chloride 104 bicarbonate 28 BUN 29 gr 0.93 glucose 217 Coags PT 25.5 INR 2.3 PTT 30.9 Lactate 2.6 total bili 0.6 AST 14 A LT 28 alkaline phosphatase 57 troponin 0.07 lipase 30 - EKG Data EKG comments: 04/23/17 20:38 Atrial fibrillation with RVR - Impressions CT of abdomen and pelvis without contrast 04/23 2017 per radiology read Severe sigmoid diverticulosis. Mild infiltration of fat surrounding the proximal and distal sigmoid colon, may be related to early or mild acute diverticulitis. Stable bilateral ureteral stents. Bubbles of air in the peritoneum anterior and inferior to the urinary bladder, any urinary bladder and right renal collecting system, likely related to recent instrumentation. Large known abdominal aortic aneurysm measuring 12 x 11 cm status post aortobi- iliac stent placement, stable since the prior study. Continued follow-up is recommended. Airspace consolidation at the right lung base, mildly increased. Mildly increased mild right pleural effusion.
--- NOTE | 2017-04-23 20:37 | Event Note ---
Date of Encounter: 04/23/17 Time of Encounter: 20:34 I independently obtained history and examined this patient and my medical decision-making was reviewed with the nurse practitioner. I agree with the documented findings, disposition and treatment plan as described. My findings are summarized below: Patient presented to [facility] for evaluation of abdominal pain. She was transferred to our hospital due to multiple abnormalities including elevated troponin. She additionally reports some dysuria that has been going on for the last 3 days. Denies fevers chills nausea vomiting. Assessment: Acute diverticulitis in patient with multiple medical comorbidities including chronic kidney disease, chronic heart failure, atrial fibrillation on Coumadin, COPD diabetes and lung cancer. Plan: We will treat her with Cipro and Flagyl for diverticulitis and UTI. Follow-up urine culture and sensitivity and adjust antibiotic therapy accordingly. If the patient becomes hemodynamically unstable we will consider quick escalation of antibiotic coverage. Ashkan Dooley MD
[2017-04-23] MEDS ORDERED: Ipratropium/Albuterol Neb 3 ML ONE (20:38)
[2017-04-23] MEDS: Ipratropium/Albuterol Neb 3 ML IH SCH ×2 (20:42→23:37)
[2017-04-23] MEDS ORDERED: Metoprolol XL (24 HR) Succ 25 MG TAB.ER.24H PO SCH (21:00)
[2017-04-23] MEDS ORDERED: *HR* Warfarin 4 MG TABLET PO SCH (22:00)
[2017-04-23] MEDS: Diltiazem CD (24hr) 120 MG CAPSULE PO SCH (22:53)
[2017-04-23] MEDS: Insulin LISPRO 300 UNITS/3 ML VIAL SQ SCH (22:55)
[2017-04-23] MEDS ORDERED: 0.9 % Sodium Chloride 500 ML ONE (23:00)
[2017-04-23] MEDS: MetroNIDAZOLE 500 MG/100 ML 500 MG/100 ML BAG IVPB SCH (23:02)
[2017-04-24 02:16] LABS: Basophils % 0.2 %; Hematocrit 30.1 % (35.3-44.9); Hemoglobin 9.3 g/dL (11.5-15.4); Immature Granulocytes % 1.9 % (0-4); Lymphocytes # 0.3 K/mcL (0.6-4.6); Lymphocytes % 3.6 %; Mean Corpuscular HGB Conc 30.9 g/dL (31.6-35.5); Mean Corpuscular Hemoglobin 31.7 pg (28.0-33.3); Mean Corpuscular Volume 102.7 fL (83.0-100.0); Mean Platelet Volume 9.4 fL (9.4-12.4); Monocytes # 0.5 K/mcL (0.0-1.3); Monocytes % 5.3 %; Neutrophils # 8.3 K/mcL (1.6-8.9); Nucleated Red Blood Cells 0.8 /100 WBC (0); Platelet Count 133 K/mcL (140-400); Red Blood Count 2.93 M/mcL (3.82-4.97); Red Cell Distribution Width 20.1 % (11.5-14.5)
[2017-04-24 02:29] LABS: BUN/Creatinine Ratio 31 (6-26); Blood Urea Nitrogen 26 mg/dL (7-20); Carbon Dioxide 25 mEq/L (19-29); Chloride 106 mEq/L (98-109); Glucose 163 mg/dL (70-99); Osmolality,Calculated 294 (280-300); Potassium 4.2 mEq/L (3.5-4.5); Sodium 138 mEq/L (136-145); eGFR For African Americans > 60 (> 60); eGFR For Non-African Americans > 60 (> 60)
[2017-04-24] MEDS: Ipratropium/Albuterol Neb 3 ML IH SCH ×6 (04:00→23:31)
--- NOTE | 2017-04-24 07:17 | Internal Med Progress Note ---
<Vishal Antoine - Last Filed: 04/24/17 16:42> Date of Encounter: 04/24/17 Time of Encounter: 08:30 - Assessment and plan (1) Sepsis Current Visit: Yes Status: Resolved Assessment and plan: Septic shock, uncertain source of infection diverticulitis vs UTI vs Klebsiella Bacteremia SIRS Criteria: Tachycardia, tachypnea, hypotension w/ suspected infectious source WBC 9.3, Lactic Acid 3.7 Start normal saline 75ml/hr, patient on Cipro/Flagyl Consult to Critical care Close monitoring of cardiac rhythm and vitals Qualifiers: Sepsis type: sepsis due to unspecified organism Qualified Code(s): A41.9 - Sepsis, unspecified organism (2) UTI (urinary tract infection) Current Visit: Yes Status: Acute Assessment and plan: UTI with hematuria UA on admission demonstrates large blood, white blood cells, +Leuk esterase Urine appears dandre in color Treated with Cipro/Flagyl Qualifiers: Urinary tract infection type: site unspecified Hematuria presence: with hematuria Qualified Code(s): N39.0 - Urinary tract infection, site not specified; R31.9 - Hematuria, unspecified; R31.9 - Hematuria, unspecified (3) Diverticulitis Current Visit: Yes Status: Acute Assessment and plan: Severe diverticulosis, demonstrated on CT Patient is experiencing acute abdominal pain for 3 days duration Started on Cipro Flagyl in the ED, we will continue for now Patient is on a clear liquid diet Qualifiers: Diverticulitis site: large intestine Diverticulitis complication: without perforation or abscess Qualified Code(s): K57.32 - Diverticulitis of large intestine without perforation or abscess without bleeding (4) Lung cancer Current Visit: No Status: Chronic Assessment and plan: Malignant neoplasm of the lung, chronic The patient is seen and treated by oncology She is undergoing radiation therapy which has led to pneumonitis in the past At this time she remains dyspneic, but saturates well on 2 or 3 L We will let the oncology office know that the patient is here, consult if needed Follow-up outpatient Qualifiers: Laterality: right Lung location: lower lobe of lung Qualified Code(s): C34.31 - Malignant neoplasm of lower lobe, right bronchus or lung (5) Thoracic aortic aneurysm without rupture Current Visit: No Status: Chronic Assessment and plan: Presently measuring 12 x 11 cm stable since prior study will follow up as outpatient (6) COPD (chronic obstructive pulmonary disease) Current Visit: No Status: Chronic Assessment and plan: COPD w/o exacerbation Titrate O2 to SPO2 >92% Bronchodilators, duonebs Qualifiers: COPD type: unspecified COPD Qualified Code(s): J44.9 - Chronic obstructive pulmonary disease, unspecified (7) Diabetes Current Visit: No Status: Chronic Assessment and plan: Patient is managed appropriately at this time, continue current regimen Qualifiers: Diabetes mellitus type: type 2 Diabetes mellitus complication status: with kidney complications Diabetes mellitus complication detail: with chronic kidney disease Diabetes mellitus termite technician insulin use: without termite technician use Chronic kidney disease stage: stage 3 (moderate) Qualified Code(s): E11.22 - Type 2 diabetes mellitus with diabetic chronic kidney disease; N18.3 - Chronic kidney disease, stage 3 (moderate); N18.3 - Chronic kidney disease, stage 3 (moderate) (8) HTN (hypertension) Current Visit: No Status: Chronic Assessment and plan: Hold antihypertensives due to hypotension, however Diltiazem and Metoprolol continued for Afib rate control Qualifiers: Hypertension type: essential hypertension Qualified Code(s): I10 - Essential (primary) hypertension (9) DVT prophylaxis Current Visit: No Status: Acute Assessment and plan: Patient is on warfarin - Subjective Interval history: The patient is lying in bed in mild distress at time of examination. She says that her breathing is about as good as she normally is. She tells me at first that she is not having any abdominal pain, however she is reminded by the nurse that is the reason that she came in at which point she says that she is having some abdominal pain primarily in the right upper quadrant. She thinks it is associated with the radiation treatment she has been getting for her lung cancer. She denies any nausea, vomiting. chest pain. - Constitutional Vitals: Temp Pulse Resp BP Pulse Ox 97.7 F 71 16 100/80 95 04/24/17 07:13 04/24/17 07:13 04/24/17 07:13 04/24/17 07:13 04/24/17 07:13 General appearance: Present: mild distress, A&O X 3, obese, answers questions appropriately - Head Head exam: Present: atraumatic, normocephalic - Eye Eye exam: Present: PERRL, conjuntiva pink, sclera anicteric Pupils: Present: PERRL - Neck Neck exam general surgery: Present: supple, trachea midline. Absent: lymphadenopathy - Respiratory Respiratory exam: Present: decreased breath sounds, CTAB, respiratory distress, rhonchi, tachypnea. Absent: accessory muscle use, rales, wheezes - Cardiovascular Cardiovascular exam: Present: irregular rhythm, +S1, +S2. Absent: diastolic murmur, gallop, rubs, systolic murmur - GI/Abdominal GI/Abdominal exam: Present: normal bowel sounds, soft, tenderness, no peritoneal signs. Absent: distended, guarding, rebound Additional comments: Tenderness to palpation primarily in the right upper quadrant and also in the right lower and left lower quadrant with a severity - Expanded GI/Abdominal Exam GI/Abdominal exam expanded: Absent: Lees's sign, Rovsing's sign, tenderness at McBurney's Point - Extremities Exam Extremities exam: Present: warm, radial pulses palpable and symmetrical. Absent : calf tenderness, cyanotic, pedal edema - Neurological Exam Neurological exam: Present: CN II-XII intact, oriented X3, no focal deficits. Absent: pronater drift, facial droop, speech deficit - Skin Skin exam: Present: dry, intact Additional comments: Mucous membranes dry Internal Medicine: Result - Labs CBC & Chem 7: 04/24/17 02:06 04/24/17 02:06 Labs: Short CBC 04/24/17 Range/Units 02:06 WBC 9.3 (4.3-11.1) K/mcL Hgb 9.3 L (11.5-15.4) g/dL Hct 30.1 L (35.3-44.9) % Plt Count 133 L (140-400) K/mcL Neutrophils # 8.3 (1.6-8.9) K/mcL BMP 04/24/17 02:06 Sodium 138 Potassium 4.2 Chloride 106 Carbon Dioxide 25 BUN 26 H Creatinine 0.84 Glucose 163 H Calcium 9.0 Cardiac Enzymes 04/23/17 04/24/17 Range/Units 20:42 02:06 Troponin I 0.06 H* 0.04 H* (0-0.03) ng/mL Consult Discharge Plan - Plan Referrals: Huyen Tijerina MD [Primary Care Provider] - <Zheng Robert - Last Filed: 04/24/17 17:58> Date of Encounter: 04/24/17 - Constitutional Vitals: Temp Pulse Resp BP Pulse Ox 97.8 F 97 18 132/93 95 04/24/17 15:36 04/24/17 15:36 04/24/17 15:58 04/24/17 15:36 04/24/17 17:32 Internal Medicine: Result - Labs CBC & Chem 7: 04/24/17 02:06 04/24/17 02:06 Labs: Short CBC 04/24/17 Range/Units 02:06 WBC 9.3 (4.3-11.1) K/mcL Hgb 9.3 L (11.5-15.4) g/dL Hct 30.1 L (35.3-44.9) % Plt Count 133 L (140-400) K/mcL Neutrophils # 8.3 (1.6-8.9) K/mcL BMP 04/24/17 02:06 Sodium 138 Potassium 4.2 Chloride 106 Carbon Dioxide 25 BUN 26 H Creatinine 0.84 Glucose 163 H Calcium 9.0 Cardiac Enzymes 04/23/17 04/24/17 04/24/17 Range/Units 20:42 02:06 08:51 Troponin I 0.06 H* 0.04 H* 0.05 H* (0-0.03) ng/mL - ABG Interpretation ABG results: PT/INR, D-dimer PT 32.0 Seconds (9.4-12.1) H 04/24/17 14:50 - Attending Attestation I examined this patient and my medical decision-making was reviewed with the Resident Physician. I agree with the documented findings, disposition and treatment plan as described except to the extent set forth below. Klebsiella pneumonia bacteremia in a 77-year-old female patient with multiple comorbid conditions. Pending sensitivity. Likely source: Urogenital. Antibiotics: Ciprofloxacin/Flagyl: day 2 Worsening lactic acid/tachycardia/elevated white blood cell count/marginally low blood pressure. Pulmonary critical care consult placed. Recommendations from pulmonary critical care appreciated. We will monitor closely. She might need evaluation from urology if she has persistent bacteremia in spite of being on antibiotics for more than 2 days
[2017-04-24] MEDS: Tiotropium 18 MCG inhalation IH SCH (07:42)
[2017-04-24] MEDS ORDERED: Spironolactone 25 MG TABLET PO SCH (09:00)
[2017-04-24] MEDS: Lactobacillus 1 EACH CAP.SPRINK PO SCH (09:07)
[2017-04-24] MEDS: predniSONE 20 MG TABLET PO SCH (09:07)
[2017-04-24] MEDS: MetroNIDAZOLE 500 MG/100 ML 500 MG/100 ML BAG IVPB SCH ×2 (09:08→17:02)
[2017-04-24] MEDS: Diltiazem CD (24hr) 120 MG CAPSULE PO SCH ×2 (09:08→20:37)
[2017-04-24] MEDS: Pantoprazole 40 MG VIAL IVP SCH (09:08)
[2017-04-24] MEDS: Insulin LISPRO 300 UNITS/3 ML VIAL SQ SCH ×4 (09:09→20:42)
[2017-04-24] MEDS: Metoprolol XL (24 HR) Succ 25 MG TAB.ER.24H PO SCH ×2 (09:09→20:38)
[2017-04-24] MEDS: 0.9 % Sodium Chloride 1,000 ML IVC SCH (10:20)
[2017-04-24] MEDS: *HR* Morphine 2 MG/ML SYRINGE IVP PRN ×2 (14:46→22:33)
[2017-04-24 15:05] LABS: INR 2.9
--- NOTE | 2017-04-24 17:01 | Pulmonology Consult Note ---
Date of Encounter: 04/24/17 Time of Encounter: 10:30 Assessment and Plan (1) Sepsis Current Visit: Yes Status: Suspected Patient could not have sepsis and the source probably intra-abdominal and she is on appropriate treatment. At this time clinically patient has been feeling better and some improvement. Her mild lactic acidosis could be secondary to sepsis and since she is feeling better at appropriate to monitor her in 2 NE. at this time and if she is worse in then she can be transferred to ICU. This was discussed with the primary team. Follow-up lactic acid is recommended. Please call for any questions. Thank you for the consultation. Qualifiers: Sepsis type: sepsis due to unspecified organism Qualified Code(s): A41.9 - Sepsis, unspecified organism (2) COPD (chronic obstructive pulmonary disease) Current Visit: No Status: Chronic I do not feel the patient has an exacerbation and continue current bronchodilators is recommended. Qualifiers: COPD type: unspecified COPD Qualified Code(s): J44.9 - Chronic obstructive pulmonary disease, unspecified (3) Cardiomyopathy Current Visit: No Status: Chronic Patient has history of systolic congestive heart failure with low ejection fraction Qualifiers: Cardiomyopathy type: ischemic Qualified Code(s): I25.5 - Ischemic cardiomyopathy History of Present Illness Consult date: 04/24/17 Requesting physician: Zheng Robert Reason for consult: other (Critical care evaluation and management) Chief complaint: Abdominal pain History of present illness: This is a pleasant 77-year-old female with multiple medical problems [facility] for abdominal pain which is better according to the patient at this time and she is breathing better. She has been having diffuse abdominal pain for 3-4 days and it is mainly cramping in nature. She has complicated past medical history with congestive heart failure and chronic respiratory failure on oxygen with atrial fibrillation and diabetes. She denies any fever or chills and she was known to have low level of lactic acidosis. Pulmonary critical care was consulted for evaluation and if she needs to be transferred to ICU. She denies any other symptoms at this time. Past Med Surg Social Fam HX - Past Medical History Medical history: aortic aneurysm, atrial fibrillation, cancer, COPD, coronary artery disease, DVT, diabetes, GERD, hyperlipidemia, hypertension, myocardial infarction, other Psychiatric history: anxiety - Past Surgical History Surgical History: cholecystectomy, hysterectomy, ureteral stent, other - Social History Smoking Status: Former smoker Smokeless Tobacco Status: No Alcohol use: none Drug use: none - Family History Father Family Member Ethnicity: Non- Living Status: Cause of : cancer Hx Family Cancer: Yes Mother Family Member Ethnicity: Non- Living Status: Age at : 74 Cause of : heart Hx Family Cardiac Disorders: Yes (CHF) Hx Family Endocrine Disorder: Yes (DM) Brother Family Member Ethnicity: Non- Living Status: Still Living Hx Family Cardiac Disorders: Yes (HD) Medications and Allergies Acetaminophen [Non-Aspirin] 650 mg PO Q6H PRN 04/24/17 [History] Atorvastatin [Lipitor] 40 mg PO HS 04/24/17 [History] Citalopram Hydrobromide [Citalopram HBr] 10 mg PO DAILY 04/24/17 [History] Clotrimazole [Mycelex Mukesh] 10 mg MM QID 04/24/17 [History] Ergocalciferol (VITAMIN D2) [Vitamin D2] 50,000 unit PO QWEEK 04/24/17 [History] Insulin ASPART [Novolog Flexpen] 2 - 6 unit SQ TID PRN 04/24/17 [History] Insulin Glargine [Lantus] 15 unit SQ HS 04/24/17 [History] Ipratropium/Albuterol Neb [Duoneb] 3 ml IH Q4H 04/24/17 [History] LORazepam [Ativan] 0.5 mg PO Q6H PRN 04/24/17 [History] Magic Mouthwash [Magic Mouthwash BLM] 10 ml PO Q2H PRN 04/24/17 [History] Magnesium Hydroxide [Milk of Magnesia] 30 ml PO DAILY PRN 04/24/17 [History] Metoprolol [Lopressor] 12.5 mg PO BID 04/24/17 [History] Omeprazole [PriLOSEC] 20 mg PO DAILY 04/24/17 [History] PredniSONE [Deltasone] 10 mg PO DAILY 04/24/17 [History] Sennosides/Docusate Sodium [Senna-S Tablet] 1 tab PO BID 04/24/17 [History] Spironolactone [Aldactone] 12.5 mg PO DAILY 04/24/17 [History] Tiotropium [Spiriva] 18 mcg IH DAILY 04/24/17 [History] Tramadol HCl [Ultram] 50 mg PO Q6H PRN 04/24/17 [History] Vitamin B Complex/Vit C/Vit E [Stresstab] 1 tab PO DAILY 04/24/17 [History] Warfarin [Coumadin] 4 mg PO QPM 04/24/17 [History] dilTIAZem HCl [Diltiazem HCl] 120 mg PO BID 04/24/17 [History] 3 Allergy/AdvReac Type Severity Reaction Status Date / Time Penicillins [PCN] Allergy Intermediate Hives Verified 04/15/17 16:03 Sulfa (Sulfonamide Allergy Intermediate Hives Verified 04/15/17 16:03 Antibiotics) All Systems: A 10-system review of systems was performed and is negative for pertinent findings except as documented above in the HPI. Physical Examination Vital Signs: Vital Signs, Last 4 Hours Temp Pulse Resp BP Pulse Ox 04/24/17 15:58 18 93 04/24/17 15:36 97.8 F 97 18 132/93 98 General appearance: no acute distress Eyes: nonicteric ENT: oropharynx dry Mallampati (class): 3 Neck: supple, no lymphadenopathy Effort: normal Auscultation: bilateral: rhonchi Percussion: bilateral: not dull Cardiovascular: irregular rhythm Gastrointestinal: normoactive bowel sounds, soft, tender (Mild tenderness) Extremities: no cyanosis, edema normal mental status, non-focal exam mood appropriate Results - Laboratory Findings CBC and BMP: 04/24/17 02:06 04/24/17 02:06 PT/INR, D-dimer PT 32.0 Seconds (9.4-12.1) H 04/24/17 14:50 Abnormal lab findings: Abnormal lab results RBC 2.93 M/mcL (3.82-4.97) L 04/24/17 02:06 Hgb 9.3 g/dL (11.5-15.4) L 04/24/17 02:06 Hct 30.1 % (35.3-44.9) L 04/24/17 02:06 MCV 102.7 fL (83.0-100.0) H 04/24/17 02:06 MCHC 30.9 g/dL (31.6-35.5) L 04/24/17 02:06 RDW 20.1 % (11.5-14.5) H 04/24/17 02:06 Plt Count 133 K/mcL (140-400) L 04/24/17 02:06 Lymphocytes # 0.3 K/mcL (0.6-4.6) L 04/24/17 02:06 Nucleated RBCs/100 WBC 0.8 /100 WBC (0) H 04/24/17 02:06 PT 32.0 Seconds (9.4-12.1) H 04/24/17 14:50 BUN 26 mg/dL (7-20) H 04/24/17 02:06 BUN/Creatinine Ratio 31 (6-26) H 04/24/17 02:06 Glucose 163 mg/dL (70-99) H 04/24/17 02:06 POC Glucose 146 (58-89) H 04/24/17 07:45 Lactic Acid 3.7 mmol/L (0.5-2.2) H 04/24/17 10:00 Troponin I 0.05 ng/mL (0-0.03) H* 04/24/17 08:51 - Clinical Findings Intake & Output: Intake & Output 04/24/17 04/24/17 04/24/17 07:59 15:59 23:59 Intake Total 220 / 220 1200 / 1200 Output Total 450 / 450 Balance -230 / -230 1200 / 1200 Weight 87.9 kg Consult Discharge Plan - Plan Referrals: Huyen Tijerina MD [Primary Care Provider] -
[2017-04-24] MEDS ORDERED: Warfarin perPT PO PRN (18:00)
[2017-04-25] MEDS: MetroNIDAZOLE 500 MG/100 ML 500 MG/100 ML BAG IVPB SCH ×2 (00:36→08:17)
[2017-04-25] MEDS: 0.9 % Sodium Chloride 1,000 ML IVC SCH ×2 (02:57→17:15)
[2017-04-25] MEDS: Ipratropium/Albuterol Neb 3 ML IH SCH ×6 (03:49→23:18)
[2017-04-25 04:42] LABS: Basophils % 0.1 %; Hematocrit 28.5 % (35.3-44.9); Immature Granulocytes % 2.2 % (0-4); Lymphocytes # 0.5 K/mcL (0.6-4.6); Lymphocytes % 5.4 %; Mean Corpuscular HGB Conc 31.6 g/dL (31.6-35.5); Mean Corpuscular Volume 104.4 fL (83.0-100.0); Mean Platelet Volume 9.4 fL (9.4-12.4); Monocytes # 0.5 K/mcL (0.0-1.3); Monocytes % 5.3 %; Neutrophils # 7.6 K/mcL (1.6-8.9); Nucleated Red Blood Cells 1.1 /100 WBC (0); Platelet Count 145 K/mcL (140-400); Red Blood Count 2.73 M/mcL (3.82-4.97); Red Cell Distribution Width 20.2 % (11.5-14.5)
[2017-04-25 04:54] LABS: BUN/Creatinine Ratio 25 (6-26); Blood Urea Nitrogen 19 mg/dL (7-20); Calcium 9.3 mg/dL (8.6-10.8); Carbon Dioxide 22 mEq/L (19-29); Chloride 108 mEq/L (98-109); Glucose 105 mg/dL (70-99); Osmolality,Calculated 289 (280-300); Potassium 3.8 mEq/L (3.5-4.5); Sodium 138 mEq/L (136-145); eGFR For African Americans > 60 (> 60); eGFR For Non-African Americans > 60 (> 60)
[2017-04-25 05:16] LABS: INR 3.1; Prothrombin Time 34.7 Seconds (9.4-12.1)
--- NOTE | 2017-04-25 05:25 | Internal Med Progress Note ---
<Vishal Antoine - Last Filed: 04/25/17 14:50> Date of Encounter: 04/25/17 Time of Encounter: 08:20 - Assessment and plan (1) Sepsis Current Visit: Yes Status: Suspected Assessment and plan: Septic shock, uncertain source of infection diverticulitis vs UTI vs Klebsiella bacteremia, Resolved SIRS/sepsis Criteria: tachycardia, tachypnea, suspected source of infection Patient became normotensive with fluids Urine culture grew ESBL, switch to Ertapenem Qualifiers: Sepsis type: sepsis due to unspecified organism Qualified Code(s): A41.9 - Sepsis, unspecified organism (2) UTI (urinary tract infection) Current Visit: Yes Status: Acute Assessment and plan: UTI with hematuria, ESBL Positive culture Discontinue Cipro/Flagyl Start Ertapenem Day 1 Consult Urology for management of indwelling ureteral stents Qualifiers: Urinary tract infection type: site unspecified Hematuria presence: with hematuria Qualified Code(s): N39.0 - Urinary tract infection, site not specified; R31.9 - Hematuria, unspecified; R31.9 - Hematuria, unspecified (3) Diverticulitis Current Visit: Yes Status: Acute Assessment and plan: Severe diverticulosis, demonstrated on CT Patient is experiencing acute abdominal pain for 3 days duration, although it is improving Ertapenem will cover GI/ infections Qualifiers: Diverticulitis site: large intestine Diverticulitis complication: without perforation or abscess Qualified Code(s): K57.32 - Diverticulitis of large intestine without perforation or abscess without bleeding (4) Lung cancer Current Visit: No Status: Chronic Assessment and plan: Malignant neoplasm of the lung, chronic No significant change from previous exam The patient is seen and treated by oncology She is undergoing radiation therapy which has led to pneumonitis in the past At this time she remains dyspneic, but saturates well on 2 or 3 L We will let the oncology office know that the patient is here, consult if needed Follow-up outpatient Qualifiers: Laterality: right Lung location: lower lobe of lung Qualified Code(s): C34.31 - Malignant neoplasm of lower lobe, right bronchus or lung (5) Thoracic aortic aneurysm without rupture Current Visit: No Status: Chronic Assessment and plan: Presently measuring 12 x 11 cm stable since prior study will follow up as outpatient (6) COPD (chronic obstructive pulmonary disease) Current Visit: No Status: Chronic Assessment and plan: COPD w/o exacerbation Titrate O2 to SPO2 >92% Bronchodilators, christel Pulmonology/Critical care was consulted for Sepsis, signed off Qualifiers: COPD type: unspecified COPD Qualified Code(s): J44.9 - Chronic obstructive pulmonary disease, unspecified (7) Diabetes Current Visit: No Status: Chronic Assessment and plan: Patient is managed appropriately at this time, continue current regimen Qualifiers: Diabetes mellitus type: type 2 Diabetes mellitus complication status: with kidney complications Diabetes mellitus complication detail: with chronic kidney disease Diabetes mellitus termite treater helper insulin use: without termite treater helper use Chronic kidney disease stage: stage 3 (moderate) Qualified Code(s): E11.22 - Type 2 diabetes mellitus with diabetic chronic kidney disease; N18.3 - Chronic kidney disease, stage 3 (moderate); N18.3 - Chronic kidney disease, stage 3 (moderate) (8) HTN (hypertension) Current Visit: No Status: Chronic Assessment and plan: Hold antihypertensives due to hypotension, however Diltiazem and Metoprolol continued for Afib rate control Qualifiers: Hypertension type: essential hypertension Qualified Code(s): I10 - Essential (primary) hypertension (9) DVT prophylaxis Current Visit: No Status: Acute Assessment and plan: Patient is on warfarin - Subjective Interval history: The patient is resting comfortably in bed at time of examination. She says that she is having a lot of shortness of breath anytime she tries to do any activity, such as bed, moving to a chair, being bathed. She is otherwise doing well, says that she is breathing much easier than she was previously. - Constitutional Vitals: Temp Pulse Resp BP Pulse Ox 99.0 F 96 24 110/78 93 04/25/17 04:19 04/25/17 04:19 04/25/17 04:19 04/25/17 04:19 04/25/17 04:19 General appearance: Present: mild distress, A&O X 3, obese, answers questions appropriately Exam: - Head Head exam: Present: atraumatic, normocephalic - Eye Eye exam: Present: PERRL, conjuntiva pink, sclera anicteric Pupils: Present: PERRL - Neck Neck exam general surgery: Present: supple, trachea midline. Absent: lymphadenopathy - Respiratory Respiratory exam: Present: decreased breath sounds, mild wheezing, respiratory distress, rhonchi, tachypnea. Absent: accessory muscle use, rales - Cardiovascular Cardiovascular exam: Present: irregular rhythm, +S1, +S2. Absent: diastolic murmur, gallop, rubs, systolic murmur - GI/Abdominal GI/Abdominal exam: Present: normal bowel sounds, soft, tenderness, no peritoneal signs. Absent: distended, guarding, rebound Additional comments: Tenderness to palpation primarily in the right upper quadrant and also in the right lower and left lower quadrant with less severity. She has no midline or pelvic tenderness - Expanded GI/Abdominal Exam GI/Abdominal exam expanded: Absent: Lees's sign, Rovsing's sign, tenderness at McBurney's Point - Extremities Exam Extremities exam: Present: warm, radial pulses palpable and symmetrical. Absent : calf tenderness, cyanotic, pedal edema - Neurological Exam Neurological exam: Present: CN II-XII intact, oriented X3, no focal deficits. Absent: pronater drift, facial droop, speech deficit - Skin Skin exam: Present: dry, intact Internal Medicine: Result - Labs CBC & Chem 7: 04/25/17 04:30 04/25/17 04:30 Labs: Short CBC 04/25/17 Range/Units 04:30 WBC 8.7 (4.3-11.1) K/mcL Hgb 9.0 L (11.5-15.4) g/dL Hct 28.5 L (35.3-44.9) % Plt Count 145 (140-400) K/mcL Neutrophils # 7.6 (1.6-8.9) K/mcL BMP 04/25/17 04:30 Sodium 138 Potassium 3.8 Chloride 108 Carbon Dioxide 22 BUN 19 Creatinine 0.76 Glucose 105 H Calcium 9.3 Cardiac Enzymes 04/24/17 Range/Units 08:51 Troponin I 0.05 H* (0-0.03) ng/mL - ABG Interpretation ABG results: PT/INR, D-dimer PT 34.7 Seconds (9.4-12.1) H 04/25/17 05:04 Consult Discharge Plan - Plan Referrals: Huyen Tijerina MD [Primary Care Provider] - <Zheng Robert - Last Filed: 04/25/17 18:45> Date of Encounter: 04/25/17 - Constitutional Vitals: Temp Pulse Resp BP Pulse Ox 98.0 F 94 20 104/66 95 04/25/17 18:39 04/25/17 18:39 04/25/17 18:39 04/25/17 18:39 04/25/17 18:39 Internal Medicine: Result - Labs CBC & Chem 7: 04/25/17 04:30 04/25/17 04:30 Labs: Short CBC 04/25/17 Range/Units 04:30 WBC 8.7 (4.3-11.1) K/mcL Hgb 9.0 L (11.5-15.4) g/dL Hct 28.5 L (35.3-44.9) % Plt Count 145 (140-400) K/mcL Neutrophils # 7.6 (1.6-8.9) K/mcL BMP 04/25/17 04:30 Sodium 138 Potassium 3.8 Chloride 108 Carbon Dioxide 22 BUN 19 Creatinine 0.76 Glucose 105 H Calcium 9.3 - ABG Interpretation ABG results: PT/INR, D-dimer PT 34.7 Seconds (9.4-12.1) H 04/25/17 05:04 - Impressions Impressions Lumbar Spine CT 04/25/17 11:20 IMPRESSION: Multilevel disc degenerative changes most prominent at L4-5 and L5-S1 with bilateral foraminal narrowing. There is mild canal narrowing without spinal canal stenosis. Partially imaged large infrarenal abdominal aortic aneurysm as seen on prior 04/23 CT. D/ / 04/25/2017 12:38:22 Carlos Eduardo Phan MD / jose Interpreting Provider: Carlos Eduardo Phan MD - Attending Attestation I examined this patient and my medical decision-making was reviewed with the Resident Physician. I agree with the documented findings, disposition and treatment plan as described except to the extent set forth below. spoke with urology. We will continue antibiotics Plan to change the stents during this admission as per urology.
[2017-04-25] MEDS: Tiotropium 18 MCG inhalation IH SCH (07:46)
[2017-04-25] MEDS: Pantoprazole 40 MG VIAL IVP SCH (08:16)
[2017-04-25] MEDS: Insulin LISPRO 300 UNITS/3 ML VIAL SQ SCH ×4 (08:17→20:36)
[2017-04-25] MEDS: predniSONE 20 MG TABLET PO SCH (08:21)
[2017-04-25] MEDS: Lactobacillus 1 EACH CAP.SPRINK PO SCH (08:21)
[2017-04-25] MEDS: Metoprolol XL (24 HR) Succ 25 MG TAB.ER.24H PO SCH ×2 (08:21→20:35)
[2017-04-25] MEDS: *HR* LORazepam 0.5 MG TABLET PO PRN ×3 (08:21→21:51)
[2017-04-25] MEDS: Diltiazem CD (24hr) 120 MG CAPSULE PO SCH ×2 (08:22→20:35)
[2017-04-25] MEDS: Ondansetron 4 MG/2 ML VIAL IVP PRN ×2 (08:41→15:57)
--- NOTE | 2017-04-25 09:39 | Pulmonology Progress Note ---
Date of Encounter: 04/25/17 Time of Encounter: 07:30 Assessment and Plan (1) Sepsis Current Visit: Yes Status: Suspected Overall patient remained stable and discussed with primary team that she can stay in 2 NE. to continue current treatment and thank you for the consultation. Please call for any questions. Qualifiers: Sepsis type: sepsis due to unspecified organism Qualified Code(s): A41.9 - Sepsis, unspecified organism (2) COPD (chronic obstructive pulmonary disease) Current Visit: No Status: Chronic Qualifiers: COPD type: unspecified COPD Qualified Code(s): J44.9 - Chronic obstructive pulmonary disease, unspecified (3) Cardiomyopathy Current Visit: No Status: Chronic Qualifiers: Cardiomyopathy type: ischemic Qualified Code(s): I25.5 - Ischemic cardiomyopathy Subjective Principal diagnosis: Abdominal pain Interval history: Patient remained hemodynamically stable and complaining cough constipation and difficult to move her bowel. Objective PUL Vital signs: Last Vital Signs Temp 97.7 F 04/25/17 07:04 Pulse 108 04/25/17 08:37 Resp 20 04/25/17 08:37 BP 104/76 04/25/17 08:37 Pulse Ox 90 04/25/17 08:49 General appearance: appears uncomfortable Eyes: nonicteric ENT: oropharynx moist Neck: supple Effort: normal Auscultation: right: rhonchi, bilateral: diminished breath sounds Cardiovascular: irregular rhythm Gastrointestinal: normoactive bowel sounds, soft normal mental status, non-focal exam mood appropriate Results - Laboratory Findings CBC and BMP: 04/25/17 04:30 04/25/17 04:30 PT/INR, D-dimer PT 34.7 Seconds (9.4-12.1) H 04/25/17 05:04 Abnormal lab findings: Abnormal lab results RBC 2.73 M/mcL (3.82-4.97) L 04/25/17 04:30 Hgb 9.0 g/dL (11.5-15.4) L 04/25/17 04:30 Hct 28.5 % (35.3-44.9) L 04/25/17 04:30 MCV 104.4 fL (83.0-100.0) H 04/25/17 04:30 RDW 20.2 % (11.5-14.5) H 04/25/17 04:30 Lymphocytes # 0.5 K/mcL (0.6-4.6) L 04/25/17 04:30 Nucleated RBCs/100 WBC 1.1 /100 WBC (0) H 04/25/17 04:30 PT 34.7 Seconds (9.4-12.1) H 04/25/17 05:04 Glucose 105 mg/dL (70-99) H 04/25/17 04:30 POC Glucose 158 (58-89) H 04/24/17 11:57 Troponin I 0.05 ng/mL (0-0.03) H* 04/24/17 08:51 - Clinical Findings Intake & Output: Intake & Output 04/24/17 04/25/17 04/25/17 23:59 07:59 15:59 Intake Total 1500 / 1500 300 / 300 Output Total 200 / 200 Balance 1500 / 1500 300 / 300 -200 / -200 Weight 88.4 kg Consult Discharge Plan - Plan Referrals: Huyen Tijerina MD [Primary Care Provider] -
[2017-04-25] MEDS: Ertapenem 1,000 MG in 0.9 % Sodium Chloride Mini Bag 100 ML IVPB SCH (13:08)
[2017-04-25] MEDS ORDERED: *HR* Warfarin 2 MG TABLET PO ONE (18:00)
--- NOTE | 2017-04-25 18:47 | Urology - Consult Note ---
Date of Encounter: 04/25/17 Time of Encounter: 18:45 - Assessment and Plan (1) UTI (urinary tract infection) Current Visit: Yes Status: Acute Assessment and plan: She has Klebsiella bacteremia and urinary tract infection. Continue IV antibiotics. I would like to treat her infection for a few days and then consider stent exchange during this hospital stay. Qualifiers: Urinary tract infection type: site unspecified Hematuria presence: with hematuria Qualified Code(s): N39.0 - Urinary tract infection, site not specified; R31.9 - Hematuria, unspecified; R31.9 - Hematuria, unspecified (2) Hydronephrosis Current Visit: No Status: Chronic Assessment and plan: She has bilateral ureteral stents. We will continue the stents for now and I will arrange for stent exchange while she is here in the next 2 or 3 days. Continue IV antibiotic. Qualifiers: Hydronephrosis type: other Qualified Code(s): N13.39 - Other hydronephrosis Urology CN:HPI Consult date: 04/25/17 Reason for consult Urology: Other (uti) History of present illness: 77-year-old woman has a history of a large abdominal aortic aneurysm with bilateral ureteral obstruction is admitted for urinary tract infection and bacteremia. She is growing out Klebsiella in her blood. She has indwelling stents bilaterally. She has an atrophic left kidney. I was counseled at to assess Ms. Preston for possible stent exchange. Her stents were placed in April 2016. Past Med Surg Social Fam HX - Past Medical History Medical history: aortic aneurysm, atrial fibrillation, cancer, COPD, coronary artery disease, DVT, diabetes, GERD, hyperlipidemia, hypertension, myocardial infarction, other Psychiatric history: anxiety - Past Surgical History Surgical History: cholecystectomy, hysterectomy, ureteral stent, other - Social History Smoking Status: Former smoker Smokeless Tobacco Status: No Alcohol use: none Drug use: none - Family History Father Family Member Ethnicity: Non- Living Status: Cause of : cancer Hx Family Cancer: Yes Mother Family Member Ethnicity: Non- Living Status: Age at : 74 Cause of : heart Hx Family Cardiac Disorders: Yes (CHF) Hx Family Endocrine Disorder: Yes (DM) Brother Family Member Ethnicity: Non- Living Status: Still Living Hx Family Cardiac Disorders: Yes (HD) Medications and Allergies Acetaminophen [Non-Aspirin] 650 mg PO Q6H PRN 04/24/17 [History] Atorvastatin [Lipitor] 40 mg PO HS 04/24/17 [History] Citalopram Hydrobromide [Citalopram HBr] 10 mg PO DAILY 04/24/17 [History] Clotrimazole [Mycelex Mukesh] 10 mg MM QID 04/24/17 [History] Ergocalciferol (VITAMIN D2) [Vitamin D2] 50,000 unit PO QWEEK 04/24/17 [History] Insulin ASPART [Novolog Flexpen] 2 - 6 unit SQ TID PRN 04/24/17 [History] Insulin Glargine [Lantus] 15 unit SQ HS 04/24/17 [History] Ipratropium/Albuterol Neb [Duoneb] 3 ml IH Q4H 04/24/17 [History] LORazepam [Ativan] 0.5 mg PO Q6H PRN 04/24/17 [History] Magic Mouthwash [Magic Mouthwash BLM] 10 ml PO Q2H PRN 04/24/17 [History] Magnesium Hydroxide [Milk of Magnesia] 30 ml PO DAILY PRN 04/24/17 [History] Metoprolol [Lopressor] 12.5 mg PO BID 04/24/17 [History] Omeprazole [PriLOSEC] 20 mg PO DAILY 04/24/17 [History] PredniSONE [Deltasone] 10 mg PO DAILY 04/24/17 [History] Sennosides/Docusate Sodium [Senna-S Tablet] 1 tab PO BID 04/24/17 [History] Spironolactone [Aldactone] 12.5 mg PO DAILY 04/24/17 [History] Tiotropium [Spiriva] 18 mcg IH DAILY 04/24/17 [History] Tramadol HCl [Ultram] 50 mg PO Q6H PRN 04/24/17 [History] Vitamin B Complex/Vit C/Vit E [Stresstab] 1 tab PO DAILY 04/24/17 [History] Warfarin [Coumadin] 4 mg PO QPM 04/24/17 [History] dilTIAZem HCl [Diltiazem HCl] 120 mg PO BID 04/24/17 [History] 3 Allergy/AdvReac Type Severity Reaction Status Date / Time Penicillins [PCN] Allergy Intermediate Hives Verified 04/15/17 16:03 Sulfa (Sulfonamide Allergy Intermediate Hives Verified 04/15/17 16:03 Antibiotics) Review of Systems - Constitutional no chills, no fever(s) - EENT Nose, mouth and throat: no dizziness - Cardiovascular no chest pain - Respiratory no dyspnea - Gastrointestinal no nausea, no vomiting - Genitourinary Genitourinary: no flank pain, no hematuria - Musculoskeletal no back pain - Integumentary no erythema, no rash - Neurological no weakness - Psychiatric no suicidal ideation - Hematologic/Lymphatic no easy bleeding - Allergic/Immunologic no wheezing Exam Initial Vital Signs Resp Pulse Ox 16 97 04/23/17 20:42 04/23/17 20:42 - General physical appearance Present: well developed, well nourished, no distress - Eyes Absent: icteric - ENT Present: normal nares - Neck Present: trachea midline - Respiratory Present: normal respiratory effort - Cardiovascular Cardiovascular exam IM: RRR - Abdomen Abdomen: Present: soft Urology Results - Labs 04/25/17 04:30 04/25/17 04:30 Abnormal lab results RBC 2.73 M/mcL (3.82-4.97) L 04/25/17 04:30 Hgb 9.0 g/dL (11.5-15.4) L 04/25/17 04:30 Hct 28.5 % (35.3-44.9) L 04/25/17 04:30 MCV 104.4 fL (83.0-100.0) H 04/25/17 04:30 RDW 20.2 % (11.5-14.5) H 04/25/17 04:30 Lymphocytes # 0.5 K/mcL (0.6-4.6) L 04/25/17 04:30 Nucleated RBCs/100 WBC 1.1 /100 WBC (0) H 04/25/17 04:30 PT 34.7 Seconds (9.4-12.1) H 04/25/17 05:04 Glucose 105 mg/dL (70-99) H 04/25/17 04:30 POC Glucose 136 (58-89) H 04/25/17 12:11 Troponin I 0.05 ng/mL (0-0.03) H* 04/24/17 08:51 Diabetes panel 04/25/17 Range/Units 04:30 Sodium 138 (136-145) mEq/L Potassium 3.8 (3.5-4.5) mEq/L Chloride 108 (98-109) mEq/L Carbon Dioxide 22 (19-29) mEq/L BUN 19 (7-20) mg/dL Creatinine 0.76 (0.57-1.11) mg/dL Glucose 105 H (70-99) mg/dL Calcium 9.3 (8.6-10.8) mg/dL Calcium panel 04/25/17 Range/Units 04:30 Calcium 9.3 (8.6-10.8) mg/dL Pituitary panel 04/25/17 Range/Units 04:30 Sodium 138 (136-145) mEq/L Potassium 3.8 (3.5-4.5) mEq/L Chloride 108 (98-109) mEq/L Carbon Dioxide 22 (19-29) mEq/L BUN 19 (7-20) mg/dL Creatinine 0.76 (0.57-1.11) mg/dL Glucose 105 H (70-99) mg/dL Calcium 9.3 (8.6-10.8) mg/dL Adrenal panel 04/25/17 Range/Units 04:30 Sodium 138 (136-145) mEq/L Potassium 3.8 (3.5-4.5) mEq/L Chloride 108 (98-109) mEq/L Carbon Dioxide 22 (19-29) mEq/L BUN 19 (7-20) mg/dL Creatinine 0.76 (0.57-1.11) mg/dL Glucose 105 H (70-99) mg/dL Calcium 9.3 (8.6-10.8) mg/dL All other labs normal. - Imaging CT scan - abdomen: report reviewed, image reviewed CT scan - pelvis: report reviewed, image reviewed Consult Discharge Plan - Plan Referrals: Huyen Tiejrina MD [Primary Care Provider] -
[2017-04-26] MEDS: Benzonatate 100 MG CAPSULE PO PRN ×3 (00:05→21:28)
[2017-04-26 03:10] LABS: Basophils % 0.2 %; Hematocrit 27.8 % (35.3-44.9); Hemoglobin 8.6 g/dL (11.5-15.4); Immature Granulocytes % 2.4 % (0-4); Lymphocytes # 0.4 K/mcL (0.6-4.6); Lymphocytes % 4.9 %; Mean Corpuscular HGB Conc 30.9 g/dL (31.6-35.5); Mean Corpuscular Hemoglobin 32.8 pg (28.0-33.3); Mean Corpuscular Volume 106.1 fL (83.0-100.0); Mean Platelet Volume 9.8 fL (9.4-12.4); Monocytes # 0.6 K/mcL (0.0-1.3); Monocytes % 6.8 %; Neutrophils # 7.1 K/mcL (1.6-8.9); Nucleated Red Blood Cells 1.4 /100 WBC (0); Platelet Count 165 K/mcL (140-400); Red Blood Count 2.62 M/mcL (3.82-4.97); Red Cell Distribution Width 20.3 % (11.5-14.5); Segmented Neutrophils % 85.7 %
[2017-04-26 03:25] LABS: BUN/Creatinine Ratio 20 (6-26); Blood Urea Nitrogen 18 mg/dL (7-20); Carbon Dioxide 22 mEq/L (19-29); Chloride 107 mEq/L (98-109); Glucose 138 mg/dL (70-99); Osmolality,Calculated 286 (280-300); Potassium 3.8 mEq/L (3.5-4.5); Sodium 136 mEq/L (136-145); eGFR For African Americans > 60 (> 60); eGFR For Non-African Americans > 60 (> 60)
[2017-04-26] MEDS: Ipratropium/Albuterol Neb 3 ML IH SCH ×6 (04:03→23:02)
--- NOTE | 2017-04-26 05:01 | Internal Med Progress Note ---
<Vishal Antoine - Last Filed: 04/26/17 14:47> Date of Encounter: 04/26/17 Time of Encounter: 08:15 - Assessment and plan (1) Sepsis Current Visit: Yes Status: Suspected Assessment and plan: Septic shock, due to Klebsiella with bacteremia, Resolved SIRS/sepsis Criteria: intermittent tachycardia, tachypnea, suspected source of infection Urine culture grew ESBL Ertapenem Day 2 Qualifiers: Sepsis type: sepsis due to unspecified organism Qualified Code(s): A41.9 - Sepsis, unspecified organism (2) UTI (urinary tract infection) Current Visit: Yes Status: Acute Assessment and plan: UTI with hematuria, ESBL Positive culture Start Ertapenem Day 2 Urology on board, plan to exchange ureteral stents during this hospital stay as patient becomes more stable Consider causes of recurrent UTI - uncontrolled diabetes in patient on chronic steroid therapy, indwelling ureteral stents Qualifiers: Urinary tract infection type: site unspecified Hematuria presence: with hematuria Qualified Code(s): N39.0 - Urinary tract infection, site not specified; R31.9 - Hematuria, unspecified; R31.9 - Hematuria, unspecified (3) Diverticulitis Current Visit: Yes Status: Acute Assessment and plan: Severe diverticulosis, demonstrated on CT Abdominal pain has improved significantly, no specific areas of tenderness on exam. Ertapenem will cover GI/ infections Qualifiers: Diverticulitis site: large intestine Diverticulitis complication: without perforation or abscess Qualified Code(s): K57.32 - Diverticulitis of large intestine without perforation or abscess without bleeding (4) Lung cancer Current Visit: No Status: Chronic Assessment and plan: Malignant neoplasm of the lung, chronic No significant change from previous exam The patient is seen and treated by oncology She is undergoing radiation therapy which has led to pneumonitis in the past At this time she remains dyspneic, but saturates well on 2 or 3 L We will let the oncology office know that the patient is here, consult if needed Follow-up outpatient Qualifiers: Laterality: right Lung location: lower lobe of lung Qualified Code(s): C34.31 - Malignant neoplasm of lower lobe, right bronchus or lung (5) Thoracic aortic aneurysm without rupture Current Visit: No Status: Chronic Assessment and plan: Presently measuring 12 x 11 cm stable since prior study will follow up as outpatient (6) COPD (chronic obstructive pulmonary disease) Current Visit: No Status: Chronic Assessment and plan: COPD w/o exacerbation Worsening wheezing, increased sputum production Continued PRN duonebs, added mucomyst which was marginally helpful O2 Saturation adequate on 3L O2 Continue to monitor Qualifiers: COPD type: unspecified COPD Qualified Code(s): J44.9 - Chronic obstructive pulmonary disease, unspecified (7) Diabetes Current Visit: No Status: Chronic Assessment and plan: Patient is managed appropriately at this time for inpatient goals, continue current regimen At time of discharge, senior living diabetes control will need to be addressed as it may contribute to recurrent UTI. Qualifiers: Diabetes mellitus type: type 2 Diabetes mellitus complication status: with kidney complications Diabetes mellitus complication detail: with chronic kidney disease Diabetes mellitus cashier payments received insulin use: without senior living use Chronic kidney disease stage: stage 3 (moderate) Qualified Code(s): E11.22 - Type 2 diabetes mellitus with diabetic chronic kidney disease; N18.3 - Chronic kidney disease, stage 3 (moderate); N18.3 - Chronic kidney disease, stage 3 (moderate) (8) HTN (hypertension) Current Visit: No Status: Chronic Assessment and plan: Hold antihypertensives due to hypotension, however Diltiazem and Metoprolol continued for Afib rate control Qualifiers: Hypertension type: essential hypertension Qualified Code(s): I10 - Essential (primary) hypertension (9) DVT prophylaxis Current Visit: No Status: Acute Assessment and plan: Patient is on warfarin - Subjective Interval history: The patient is resting in bed at the time of examination and is in mild- moderate distress. She struggles to speak without coughing, or becoming increasingly dyspneic. She says that her abdomen is having less tenderness than it was previously, and she was able to have a bowel movement. - Constitutional Vitals: Temp Pulse Resp BP Pulse Ox 98.0 F 92 24 105/84 100 04/25/17 18:39 04/26/17 04:37 04/26/17 04:37 04/26/17 04:37 04/26/17 04:37 General appearance: Present: mild distress, A&O X 3, obese, answers questions appropriately Exam: - Head Head exam: Present: atraumatic, normocephalic - Eye Eye exam: Present: PERRL, conjuntiva pink, sclera anicteric Pupils: Present: PERRL - Neck Neck exam general surgery: Present: supple, trachea midline. Absent: lymphadenopathy - Respiratory Respiratory exam: Present: decreased breath sounds, moderate/severe wheezing, respiratory distress, rhonchi, tachypnea. The breath sounds in the right lung have a high pitched stridorous quality. Absent: accessory muscle use, rales - Cardiovascular Cardiovascular exam: Present: irregular rhythm, +S1, +S2. Absent: diastolic murmur, gallop, rubs, systolic murmur - GI/Abdominal GI/Abdominal exam: Present: normal bowel sounds, soft, tenderness, no peritoneal signs. Absent: distended, guarding, rebound Additional comments: Tenderness to palpation primarily in the right upper quadrant and also in the right lower and left lower quadrant with less severity. She has no midline or pelvic tenderness - Expanded GI/Abdominal Exam GI/Abdominal exam expanded: Absent: Lees's sign, Rovsing's sign, tenderness at McBurney's Point - Extremities Exam Extremities exam: Present: warm, radial pulses palpable and symmetrical. Absent : calf tenderness, cyanotic, pedal edema - Neurological Exam Neurological exam: Present: CN II-XII intact, oriented X3, no focal deficits. Absent: pronater drift, facial droop, speech deficit - Skin Skin exam: Present: dry, intact Internal Medicine: Result - Labs CBC & Chem 7: 04/26/17 03:00 04/26/17 03:00 Labs: Short CBC 04/26/17 Range/Units 03:00 WBC 8.3 (4.3-11.1) K/mcL Hgb 8.6 L (11.5-15.4) g/dL Hct 27.8 L (35.3-44.9) % Plt Count 165 (140-400) K/mcL Neutrophils # 7.1 (1.6-8.9) K/mcL BMP 04/25/17 04/26/17 04:30 03:00 Sodium 138 136 Potassium 3.8 3.8 Chloride 108 107 Carbon Dioxide 22 22 BUN 19 18 Creatinine 0.76 0.90 Glucose 105 H 138 H Calcium 9.3 9.0 - ABG Interpretation ABG results: PT/INR, D-dimer PT 34.7 Seconds (9.4-12.1) H 04/25/17 05:04 - Impressions Impressions Lumbar Spine CT 04/25/17 11:20 IMPRESSION: Multilevel disc degenerative changes most prominent at L4-5 and L5-S1 with bilateral foraminal narrowing. There is mild canal narrowing without spinal canal stenosis. Partially imaged large infrarenal abdominal aortic aneurysm as seen on prior 04/23 CT. D/ / 04/25/2017 12:38:22 Carlos Eduardo Phan MD / jose Interpreting Provider: Carlos Eduardo Phan MD Consult Discharge Plan - Plan Referrals: Huyen Tijerina MD [Primary Care Provider] - <Zheng Robert P - Last Filed: 04/26/17 18:52> Date of Encounter: 04/26/17 - Constitutional Vitals: Temp Pulse Resp BP Pulse Ox 97.7 F 72 18 131/86 98 04/26/17 07:00 04/26/17 15:35 04/26/17 15:30 04/26/17 15:35 04/26/17 15:35 Internal Medicine: Result - Labs CBC & Chem 7: 04/26/17 03:00 04/26/17 03:00 Labs: Short CBC 04/26/17 Range/Units 03:00 WBC 8.3 (4.3-11.1) K/mcL Hgb 8.6 L (11.5-15.4) g/dL Hct 27.8 L (35.3-44.9) % Plt Count 165 (140-400) K/mcL Neutrophils # 7.1 (1.6-8.9) K/mcL BMP 04/26/17 03:00 Sodium 136 Potassium 3.8 Chloride 107 Carbon Dioxide 22 BUN 18 Creatinine 0.90 Glucose 138 H Calcium 9.0 - ABG Interpretation ABG results: PT/INR, D-dimer PT 36.9 Seconds (9.4-12.1) H 04/26/17 05:45 - Impressions Impressions Chest X-Ray 04/26/17 16:52 IMPRESSION: Similar pattern of airspace disease involving the right mid to lower lung zones may reflect posttreatment changes, pleural fluid, atelectasis and/or pneumonia. Continued imaging follow-up is suggested. D/ / Paul Saenz / Paul Saenz Interpreting Provider: Paul Saenz - Attending Attestation I examined this patient and my medical decision-making was reviewed with the Resident Physician. I agree with the documented findings, disposition and treatment plan as described except to the extent set forth below.
[2017-04-26] MEDS: *HR* LORazepam 0.5 MG TABLET PO PRN ×4 (05:06→21:28)
[2017-04-26] MEDS: 0.9 % Sodium Chloride 1,000 ML IVC SCH ×2 (05:09→21:28)
[2017-04-26 06:21] LABS: INR 3.3; Prothrombin Time 36.9 Seconds (9.4-12.1)
--- NOTE | 2017-04-26 07:30 | Urology Progress Note ---
Date of Encounter: 04/26/17 Time of Encounter: 07:29 - Assessment and Plan (1) UTI (urinary tract infection) Current Visit: Yes Status: Acute Assessment and plan: Continue antibiotics at this time. Qualifiers: Urinary tract infection type: site unspecified Hematuria presence: with hematuria Qualified Code(s): N39.0 - Urinary tract infection, site not specified; R31.9 - Hematuria, unspecified; R31.9 - Hematuria, unspecified (2) Hydronephrosis Current Visit: No Status: Chronic Assessment and plan: I will plan on bilateral stent exchange sometime this weekend. We will discuss and obtain consent later today. Qualifiers: Hydronephrosis type: other Qualified Code(s): N13.39 - Other hydronephrosis Progress Note Narrative: She is somnolent today. She says she is doing well. She denies any issues. Objective Initial Vital Signs Resp Pulse Ox 16 97 04/23/17 20:42 04/23/17 20:42 - General physical appearance Present: well developed, well nourished, no distress - Abdomen Present: soft - Labs 04/26/17 03:00 04/26/17 03:00 Diabetes panel 04/26/17 Range/Units 03:00 Sodium 136 (136-145) mEq/L Potassium 3.8 (3.5-4.5) mEq/L Chloride 107 (98-109) mEq/L Carbon Dioxide 22 (19-29) mEq/L BUN 18 (7-20) mg/dL Creatinine 0.90 (0.57-1.11) mg/dL Glucose 138 H (70-99) mg/dL Calcium 9.0 (8.6-10.8) mg/dL Calcium panel 04/26/17 Range/Units 03:00 Calcium 9.0 (8.6-10.8) mg/dL Pituitary panel 04/26/17 Range/Units 03:00 Sodium 136 (136-145) mEq/L Potassium 3.8 (3.5-4.5) mEq/L Chloride 107 (98-109) mEq/L Carbon Dioxide 22 (19-29) mEq/L BUN 18 (7-20) mg/dL Creatinine 0.90 (0.57-1.11) mg/dL Glucose 138 H (70-99) mg/dL Calcium 9.0 (8.6-10.8) mg/dL Adrenal panel 04/26/17 Range/Units 03:00 Sodium 136 (136-145) mEq/L Potassium 3.8 (3.5-4.5) mEq/L Chloride 107 (98-109) mEq/L Carbon Dioxide 22 (19-29) mEq/L BUN 18 (7-20) mg/dL Creatinine 0.90 (0.57-1.11) mg/dL Glucose 138 H (70-99) mg/dL Calcium 9.0 (8.6-10.8) mg/dL Consult Discharge Plan - Plan Referrals: Huyen Tijerina MD [Primary Care Provider] -
[2017-04-26] MEDS: Tiotropium 18 MCG inhalation IH SCH (07:49)
[2017-04-26] MEDS: Lactobacillus 1 EACH CAP.SPRINK PO SCH (07:58)
[2017-04-26] MEDS: predniSONE 20 MG TABLET PO SCH (07:58)
[2017-04-26] MEDS: Metoprolol XL (24 HR) Succ 25 MG TAB.ER.24H PO SCH ×2 (07:58→21:27)
[2017-04-26] MEDS: Diltiazem CD (24hr) 120 MG CAPSULE PO SCH ×2 (07:59→21:28)
[2017-04-26] MEDS: Ertapenem 1,000 MG in 0.9 % Sodium Chloride Mini Bag 100 ML IVPB SCH (07:59)
[2017-04-26] MEDS: Pantoprazole 40 MG VIAL IVP SCH (08:00)
[2017-04-26] MEDS: Insulin LISPRO 300 UNITS/3 ML VIAL SQ SCH ×4 (08:09→21:28)
[2017-04-26] MEDS ORDERED: Ipratropium/Albuterol Neb 3 ML IH ONE (08:19)
[2017-04-26] MEDS ORDERED: Acetylcysteine 10% 2 ML INHSOL IH SCH ×2 (08:22→12:00)
[2017-04-26] MEDS: Acetylcysteine 10% 2 ML INHSOL IH SCH ×5 (08:32→23:02)
[2017-04-27] MEDS: *HR* LORazepam 0.5 MG TABLET PO PRN ×3 (02:50→22:23)
[2017-04-27 04:13] LABS: Basophils % 0.1 %; Eosinophils % 0.1 %; Hematocrit 28.3 % (35.3-44.9); Hemoglobin 8.6 g/dL (11.5-15.4); Immature Granulocytes % 2.2 % (0-4); Lymphocytes # 0.4 K/mcL (0.6-4.6); Lymphocytes % 4.9 %; Mean Corpuscular HGB Conc 30.4 g/dL (31.6-35.5); Mean Corpuscular Hemoglobin 32.2 pg (28.0-33.3); Mean Platelet Volume 9.6 fL (9.4-12.4); Monocytes # 0.6 K/mcL (0.0-1.3); Monocytes % 7.5 %; Neutrophils # 6.5 K/mcL (1.6-8.9); Nucleated Red Blood Cells 1.6 /100 WBC (0); Platelet Count 157 K/mcL (140-400); Red Blood Count 2.67 M/mcL (3.82-4.97); Segmented Neutrophils % 85.2 %
[2017-04-27 04:25] LABS: BUN/Creatinine Ratio 22 (6-26); Blood Urea Nitrogen 18 mg/dL (7-20); Calcium 8.6 mg/dL (8.6-10.8); Carbon Dioxide 24 mEq/L (19-29); Chloride 111 mEq/L (98-109); Glucose 111 mg/dL (70-99); Osmolality,Calculated 295 (280-300); Potassium 3.7 mEq/L (3.5-4.5); Sodium 141 mEq/L (136-145); eGFR For African Americans > 60 (> 60); eGFR For Non-African Americans > 60 (> 60)
[2017-04-27] MEDS: Ipratropium/Albuterol Neb 3 ML IH SCH ×5 (04:29→20:18)
[2017-04-27] MEDS: Acetylcysteine 10% 2 ML INHSOL IH SCH ×5 (04:29→20:19)
[2017-04-27 06:13] LABS: INR 2.7; Prothrombin Time 29.3 Seconds (9.4-12.1)
[2017-04-27] MEDS: Diltiazem CD (24hr) 120 MG CAPSULE PO SCH ×2 (10:17→22:23)
[2017-04-27] MEDS: Lactobacillus 1 EACH CAP.SPRINK PO SCH (10:17)
[2017-04-27] MEDS: predniSONE 20 MG TABLET PO SCH (10:17)
[2017-04-27] MEDS: Metoprolol XL (24 HR) Succ 25 MG TAB.ER.24H PO SCH ×2 (10:17→22:23)
[2017-04-27] MEDS: Insulin LISPRO 300 UNITS/3 ML VIAL SQ SCH ×4 (10:17→22:22)
[2017-04-27] MEDS: Ertapenem 1,000 MG in 0.9 % Sodium Chloride Mini Bag 100 ML IVPB SCH (10:18)
[2017-04-27] MEDS: Pantoprazole 40 MG VIAL IVP SCH (10:19)
--- NOTE | 2017-04-27 13:48 | Internal Med Progress Note ---
Date of Encounter: 04/27/17 Time of Encounter: 13:44 - Assessment and plan (1) Sepsis Current Visit: Yes Status: Suspected Assessment and plan: Source of sepsis: Urinary tract infection Ertapenem: Day 3 Klebsiella pneumonia bacteremia Patient has bilateral ureteral stents Urology on board. Urology has plan to change the stents sometime this weekend Qualifiers: Sepsis type: sepsis due to unspecified organism Qualified Code(s): A41.9 - Sepsis, unspecified organism (2) UTI (urinary tract infection) Current Visit: No Status: Acute Assessment and plan: Patient is known to have urinary tract infection this is likely secondary to stents. Qualifiers: Urinary tract infection type: site unspecified Hematuria presence: without hematuria Qualified Code(s): N39.0 - Urinary tract infection, site not specified (3) Lung cancer Current Visit: No Status: Chronic Assessment and plan: Malignant neoplasm of the lung, chronic No significant change from previous exam The patient is seen and treated by oncology She is undergoing radiation therapy which has led to pneumonitis in the past At this time she remains dyspneic, but saturates well on 2 or 3 L We will let the oncology office know that the patient is here, consult if needed Follow-up outpatient Qualifiers: Laterality: right Lung location: lower lobe of lung Qualified Code(s): C34.31 - Malignant neoplasm of lower lobe, right bronchus or lung (4) HLD (hyperlipidemia) Current Visit: No Status: Chronic Qualifiers: Hyperlipidemia type: pure hypercholesterolemia Qualified Code(s): E78.00 - Pure hypercholesterolemia, unspecified; E78.0 - Pure hypercholesterolemia - Subjective Interval history: Patient seen and examined. Chart reviewed. Patient is comfortably lying in the bed. Patient is occasionally somnolent. Patient denies any chest pain, shortness of breath, nausea, vomiting, abdominal pain, diarrhea or dizziness. - Constitutional Vitals: Temp Pulse Resp BP Pulse Ox 97.8 F 82 24 104/80 95 04/27/17 07:05 04/27/17 07:05 04/27/17 07:42 04/27/17 07:05 04/27/17 07:42 General appearance: Present: mild distress, A&O X 3, obese, answers questions appropriately - Head Head exam: Present: atraumatic, normocephalic - Eye Eye exam: Present: PERRL, conjuntiva pink, sclera anicteric Pupils: Present: PERRL - Neck Neck exam general surgery: Present: supple, trachea midline. Absent: lymphadenopathy - Respiratory Respiratory exam: Present: CTAB. Absent: accessory muscle use, rales, rhonchi, wheezes - Cardiovascular Cardiovascular exam: Present: RRR, +S1, +S2. Absent: diastolic murmur, gallop, rubs, systolic murmur - GI/Abdominal GI/Abdominal exam: Present: normal bowel sounds, soft, no peritoneal signs. Absent: distended, tenderness - Extremities Exam Extremities exam: Present: warm, radial pulses palpable and symmetrical. Absent : calf tenderness, cyanotic, pedal edema - Neurological Exam Neurological exam: Present: CN II-XII intact, oriented X3, no focal deficits. Absent: pronater drift, facial droop, speech deficit - Skin Skin exam: Present: dry, intact Internal Medicine: Result - Labs CBC & Chem 7: 04/27/17 03:45 04/27/17 03:45 Labs: Short CBC 04/27/17 Range/Units 03:45 WBC 7.6 (4.3-11.1) K/mcL Hgb 8.6 L (11.5-15.4) g/dL Hct 28.3 L (35.3-44.9) % Plt Count 157 (140-400) K/mcL Neutrophils # 6.5 (1.6-8.9) K/mcL BMP 04/27/17 03:45 Sodium 141 Potassium 3.7 Chloride 111 H Carbon Dioxide 24 BUN 18 Creatinine 0.83 Glucose 111 H Calcium 8.6 - ABG Interpretation ABG results: PT/INR, D-dimer PT 29.3 Seconds (9.4-12.1) H 04/27/17 05:39 - Impressions Impressions Chest X-Ray 04/26/17 16:52 IMPRESSION: Similar pattern of airspace disease involving the right mid to lower lung zones may reflect posttreatment changes, pleural fluid, atelectasis and/or pneumonia. Continued imaging follow-up is suggested. D/ / Paul Saenz / Paul Saenz Interpreting Provider: Paul Saenz Consult Discharge Plan - Plan Referrals: Huyen Tijerina MD [Primary Care Provider] -
[2017-04-27] MEDS: *HR* Morphine 2 MG/ML SYRINGE IVP PRN (14:02)
[2017-04-28] MEDS: Acetylcysteine 10% 2 ML INHSOL IH SCH ×6 (00:16→20:44)
[2017-04-28] MEDS: Ipratropium/Albuterol Neb 3 ML IH SCH ×6 (00:16→20:44)
[2017-04-28 04:10] LABS: INR 2.2; Prothrombin Time 24.1 Seconds (9.4-12.1)
[2017-04-28 04:17] LABS: Alanine Aminotransferase 24 Units/L (0-55); Albumin 2.5 g/dL (3.5-5.0); Alkaline Phosphatase 48 Units/L (38-126); Aspartate Amino Transferase 15 Units/L (5-34); BUN/Creatinine Ratio 24 (6-26); Bilirubin,Total 0.6 mg/dL (0.2-1.2); Blood Urea Nitrogen 20 mg/dL (7-20); Calcium 8.9 mg/dL (8.6-10.8); Carbon Dioxide 25 mEq/L (19-29); Chloride 111 mEq/L (98-109); Globulin 2.5 g/dL (2.4-3.5); Glucose 151 mg/dL (70-99); Osmolality,Calculated 296 (280-300); Potassium 4.2 mEq/L (3.5-4.5); Sodium 140 mEq/L (136-145); eGFR For African Americans > 60 (> 60); eGFR For Non-African Americans > 60 (> 60)
[2017-04-28 05:07] LABS: Basophils % 0.2 %; Eosinophils % 0.2 %; Hematocrit 27.9 % (35.3-44.9); Hemoglobin 8.5 g/dL (11.5-15.4); Immature Granulocytes % 3.3 % (0-4); Lymphocytes # 0.4 K/mcL (0.6-4.6); Lymphocytes % 5.9 %; Mean Corpuscular HGB Conc 30.5 g/dL (31.6-35.5); Mean Corpuscular Hemoglobin 32.4 pg (28.0-33.3); Mean Corpuscular Volume 106.5 fL (83.0-100.0); Mean Platelet Volume 9.2 fL (9.4-12.4); Monocytes # 0.6 K/mcL (0.0-1.3); Nucleated Red Blood Cells 3.1 /100 WBC (0); Platelet Count 195 K/mcL (140-400); Red Blood Count 2.62 M/mcL (3.82-4.97); Segmented Neutrophils % 81.4 %
[2017-04-28] MEDS: Insulin LISPRO 300 UNITS/3 ML VIAL SQ SCH ×4 (08:40→21:46)
[2017-04-28] MEDS: Ertapenem 1,000 MG in 0.9 % Sodium Chloride Mini Bag 100 ML IVPB SCH (08:46)
[2017-04-28] MEDS: Pantoprazole 40 MG VIAL IVP SCH (08:46)
[2017-04-28] MEDS: *HR* LORazepam 0.5 MG TABLET PO PRN ×3 (08:47→21:41)
[2017-04-28] MEDS: Benzonatate 100 MG CAPSULE PO PRN ×2 (08:47→21:41)
[2017-04-28] MEDS: Lactobacillus 1 EACH CAP.SPRINK PO SCH (08:47)
[2017-04-28] MEDS: Diltiazem CD (24hr) 120 MG CAPSULE PO SCH ×2 (08:47→21:41)
[2017-04-28] MEDS: predniSONE 20 MG TABLET PO SCH (08:48)
[2017-04-28] MEDS: Metoprolol XL (24 HR) Succ 25 MG TAB.ER.24H PO SCH ×2 (08:48→21:41)
--- NOTE | 2017-04-28 11:24 | Urology Progress Note ---
Date of Encounter: 04/28/17 Time of Encounter: 11:22 - Assessment and Plan (1) UTI (urinary tract infection) Current Visit: Yes Status: Acute Assessment and plan: She has Klebsiella in her urine. She is on appropriate antibiotics. Qualifiers: Urinary tract infection type: site unspecified Hematuria presence: with hematuria Qualified Code(s): N39.0 - Urinary tract infection, site not specified; R31.9 - Hematuria, unspecified; R31.9 - Hematuria, unspecified (2) Hydronephrosis Current Visit: No Status: Chronic Assessment and plan: She has bilateral ureteral obstruction. I will have her proceed with a cystoscopy and bilateral ureteral stent exchange. She was informed of the risks of the surgery which include but are not limited to bleeding, infection, injury structures, need for further procedures, and the risk of anesthesia. She is willing to proceed. I have admitted her to the OR schedule for April 29, 2017. Qualifiers: Hydronephrosis type: other Qualified Code(s): N13.39 - Other hydronephrosis Progress Note Narrative: 77-year-old woman with a AAA and bilateral ureteral obstruction was admitted for urinary tract infection. She had Klebsiella in her urine and within her blood stream. She says she is doing well today. Objective Initial Vital Signs Resp Pulse Ox 16 97 04/23/17 20:42 04/23/17 20:42 - General physical appearance Present: well developed, well nourished, no distress - Respiratory Present: normal respiratory effort - Abdomen Present: soft - Labs 04/28/17 04:40 04/28/17 03:04 Diabetes panel 04/28/17 Range/Units 03:04 Sodium 140 (136-145) mEq/L Potassium 4.2 (3.5-4.5) mEq/L Chloride 111 H (98-109) mEq/L Carbon Dioxide 25 (19-29) mEq/L BUN 20 (7-20) mg/dL Creatinine 0.85 (0.57-1.11) mg/dL Glucose 151 H (70-99) mg/dL Calcium 8.9 (8.6-10.8) mg/dL AST 15 (5-34) Units/L ALT 24 (0-55) Units/L Alkaline Phosphatase 48 (38-126) Units/L Albumin 2.5 L (3.5-5.0) g/dL Calcium panel 04/28/17 Range/Units 03:04 Calcium 8.9 (8.6-10.8) mg/dL Albumin 2.5 L (3.5-5.0) g/dL Pituitary panel 04/28/17 Range/Units 03:04 Sodium 140 (136-145) mEq/L Potassium 4.2 (3.5-4.5) mEq/L Chloride 111 H (98-109) mEq/L Carbon Dioxide 25 (19-29) mEq/L BUN 20 (7-20) mg/dL Creatinine 0.85 (0.57-1.11) mg/dL Glucose 151 H (70-99) mg/dL Calcium 8.9 (8.6-10.8) mg/dL Adrenal panel 04/28/17 Range/Units 03:04 Sodium 140 (136-145) mEq/L Potassium 4.2 (3.5-4.5) mEq/L Chloride 111 H (98-109) mEq/L Carbon Dioxide 25 (19-29) mEq/L BUN 20 (7-20) mg/dL Creatinine 0.85 (0.57-1.11) mg/dL Glucose 151 H (70-99) mg/dL Calcium 8.9 (8.6-10.8) mg/dL Total Bilirubin 0.6 (0.2-1.2) mg/dL AST 15 (5-34) Units/L ALT 24 (0-55) Units/L Alkaline Phosphatase 48 (38-126) Units/L Albumin 2.5 L (3.5-5.0) g/dL Consult Discharge Plan - Plan Referrals: Huyen Tijerina MD [Primary Care Provider] -
--- NOTE | 2017-04-28 12:20 | Internal Med Progress Note ---
Date of Encounter: 04/28/17 Time of Encounter: 12:18 - Assessment and plan (1) Sepsis Current Visit: Yes Status: Suspected Assessment and plan: Source of sepsis: Urinary tract infection Ertapenem: Day 3 Klebsiella pneumonia bacteremia Patient has bilateral ureteral stents Urology on board. Urology has plan to change the stents sometime this weekend 04/28/2017 Klebsiella pneumonia bacteremia Possible ESBL etiology. Ertapenem: Day 4 Urology has a plan to change the stent and she is scheduled for 04/29/2017. Qualifiers: Sepsis type: sepsis due to unspecified organism Qualified Code(s): A41.9 - Sepsis, unspecified organism (2) UTI (urinary tract infection) Current Visit: No Status: Acute Assessment and plan: Patient is known to have urinary tract infection this is likely secondary to stents. Qualifiers: Urinary tract infection type: site unspecified Hematuria presence: without hematuria Qualified Code(s): N39.0 - Urinary tract infection, site not specified (3) Lung cancer Current Visit: No Status: Chronic Assessment and plan: Malignant neoplasm of the lung, chronic No significant change from previous exam The patient is seen and treated by oncology She is undergoing radiation therapy which has led to pneumonitis in the past At this time she remains dyspneic, but saturates well on 2 or 3 L We will let the oncology office know that the patient is here, consult if needed Follow-up outpatient Qualifiers: Laterality: right Lung location: lower lobe of lung Qualified Code(s): C34.31 - Malignant neoplasm of lower lobe, right bronchus or lung (4) HLD (hyperlipidemia) Current Visit: No Status: Chronic Qualifiers: Hyperlipidemia type: pure hypercholesterolemia Qualified Code(s): E78.00 - Pure hypercholesterolemia, unspecified; E78.0 - Pure hypercholesterolemia - Subjective Interval history: Patient seen and examined. Chart reviewed. Patient is comfortably lying in the bed. Patient is occasionally somnolent. Patient denies any chest pain, shortness of breath, nausea, vomiting, abdominal pain, diarrhea or dizziness. 04/28/2017 Patient seen and examined. Chart reviewed. Patient is comfortably lying in bed. Patient denies chest pain, vomiting, abdominal pain, nausea, diarrhea and dizziness. - Constitutional Vitals: Temp Pulse Resp BP Pulse Ox 97.9 F 72 22 145/64 94 04/28/17 07:26 04/28/17 07:26 04/28/17 07:26 04/28/17 07:26 04/28/17 09:20 General appearance: Present: mild distress, A&O X 3, obese, answers questions appropriately - Head Head exam: Present: atraumatic, normocephalic - Eye Eye exam: Present: PERRL, conjuntiva pink, sclera anicteric Pupils: Present: PERRL - Neck Neck exam general surgery: Present: supple, trachea midline. Absent: lymphadenopathy - Respiratory Respiratory exam: Present: CTAB. Absent: accessory muscle use, rales, rhonchi, wheezes - Cardiovascular Cardiovascular exam: Present: RRR, +S1, +S2. Absent: diastolic murmur, gallop, rubs, systolic murmur - GI/Abdominal GI/Abdominal exam: Present: normal bowel sounds, soft, no peritoneal signs. Absent: distended, tenderness - Extremities Exam Extremities exam: Present: warm, radial pulses palpable and symmetrical. Absent : calf tenderness, cyanotic, pedal edema - Neurological Exam Neurological exam: Present: CN II-XII intact, oriented X3, no focal deficits. Absent: pronater drift, facial droop, speech deficit - Skin Skin exam: Present: dry, intact Internal Medicine: Result - Labs CBC & Chem 7: 04/28/17 04:40 04/28/17 03:04 Labs: Short CBC 04/28/17 Range/Units 04:40 WBC 6.1 (4.3-11.1) K/mcL Hgb 8.5 L (11.5-15.4) g/dL Hct 27.9 L (35.3-44.9) % Plt Count 195 (140-400) K/mcL Neutrophils # 5.0 (1.6-8.9) K/mcL BMP 04/28/17 03:04 Sodium 140 Potassium 4.2 Chloride 111 H Carbon Dioxide 25 BUN 20 Creatinine 0.85 Glucose 151 H Calcium 8.9 Liver Function 04/28/17 Range/Units 03:04 Total Bilirubin 0.6 (0.2-1.2) mg/dL AST 15 (5-34) Units/L ALT 24 (0-55) Units/L Alkaline Phosphatase 48 (38-126) Units/L Albumin 2.5 L (3.5-5.0) g/dL - ABG Interpretation ABG results: PT/INR, D-dimer PT 24.1 Seconds (9.4-12.1) H 04/28/17 03:04 Consult Discharge Plan - Plan Referrals: Huyen Tijerina MD [Primary Care Provider] -
[2017-04-28] MEDS: *HR* Morphine 2 MG/ML SYRINGE IVP PRN (15:57)
[2017-04-28] MEDS ORDERED: *HR* Warfarin 2 MG TABLET PO ONE (18:00)
[2017-04-29] MEDS: Ipratropium/Albuterol Neb 3 ML IH SCH ×7 (00:34→23:24)
[2017-04-29] MEDS: Acetylcysteine 10% 2 ML INHSOL IH SCH ×7 (00:34→23:24)
[2017-04-29 04:35] LABS: Basophils % 0.3 %; Hematocrit 28.4 % (35.3-44.9); Hemoglobin 8.7 g/dL (11.5-15.4); Immature Granulocytes % 4.2 % (0-4); Lymphocytes # 0.4 K/mcL (0.6-4.6); Lymphocytes % 5.3 %; Mean Corpuscular HGB Conc 30.6 g/dL (31.6-35.5); Mean Corpuscular Hemoglobin 32.3 pg (28.0-33.3); Mean Corpuscular Volume 105.6 fL (83.0-100.0); Mean Platelet Volume 9.3 fL (9.4-12.4); Monocytes # 0.6 K/mcL (0.0-1.3); Monocytes % 8.3 %; Neutrophils # 5.5 K/mcL (1.6-8.9); Nucleated Red Blood Cells 1.8 /100 WBC (0); Platelet Count 142 K/mcL (140-400); Red Blood Count 2.69 M/mcL (3.82-4.97); Red Cell Distribution Width 20.1 % (11.5-14.5); Segmented Neutrophils % 81.9 %
[2017-04-29 04:39] LABS: Prothrombin Time 21.5 Seconds (9.4-12.1)
[2017-04-29 04:54] LABS: Alanine Aminotransferase 17 Units/L (0-55); Albumin 2.4 g/dL (3.5-5.0); Alkaline Phosphatase 45 Units/L (38-126); Aspartate Amino Transferase 11 Units/L (5-34); BUN/Creatinine Ratio 28 (6-26); Bilirubin,Total 0.7 mg/dL (0.2-1.2); Blood Urea Nitrogen 21 mg/dL (7-20); Calcium 9.1 mg/dL (8.6-10.8); Carbon Dioxide 27 mEq/L (19-29); Chloride 109 mEq/L (98-109); Globulin 2.5 g/dL (2.4-3.5); Glucose 99 mg/dL (70-99); Osmolality,Calculated 293 (280-300); Potassium 3.9 mEq/L (3.5-4.5); Sodium 140 mEq/L (136-145); Total Protein 4.9 g/dL (6.0-8.3); eGFR For African Americans > 60 (> 60); eGFR For Non-African Americans > 60 (> 60)
--- NOTE | 2017-04-29 05:18 | Internal Med Progress Note ---
<Vishal Antoine - Last Filed: 04/29/17 17:22> Date of Encounter: 04/29/17 Time of Encounter: 08:50 - Assessment and plan (1) Sepsis Current Visit: Yes Status: Suspected Assessment and plan: Source of sepsis: Urinary tract infection, ESBL Klebsiella pneumonia with bacteremia Vital signs stable, she remains afebrile Bilateral ureteral stents in place, urology on board Ertapenem day 5 Urology plans to exchange the stents today Qualifiers: Sepsis type: sepsis due to unspecified organism Qualified Code(s): A41.9 - Sepsis, unspecified organism (2) UTI (urinary tract infection) Current Visit: Yes Status: Acute Assessment and plan: UTI with hematuria, ESBL Positive culture Start Ertapenem Day 5 Urology on board, plan to exchange ureteral stents today Qualifiers: Urinary tract infection type: site unspecified Hematuria presence: with hematuria Qualified Code(s): N39.0 - Urinary tract infection, site not specified; R31.9 - Hematuria, unspecified; R31.9 - Hematuria, unspecified (3) Diverticulitis Current Visit: Yes Status: Acute Assessment and plan: Severe diverticulosis, demonstrated on CT Abdominal pain has resolved Qualifiers: Diverticulitis site: large intestine Diverticulitis bleeding: unspecified bleeding status Diverticulitis complication: without perforation or abscess Qualified Code(s): K57.32 - Diverticulitis of large intestine without perforation or abscess without bleeding (4) Lung cancer Current Visit: No Status: Chronic Assessment and plan: Malignant neoplasm of the lung, chronic No significant change from previous exam The patient is seen and treated by oncology She is undergoing radiation therapy which has led to pneumonitis in the past At this time she remains dyspneic, but saturates well on 2 or 3 L Oncology is aware of patient's admission to the hospital, consult if needed Follow-up outpatient Qualifiers: Laterality: right Lung location: lower lobe of lung Qualified Code(s): C34.31 - Malignant neoplasm of lower lobe, right bronchus or lung (5) Thoracic aortic aneurysm without rupture Current Visit: No Status: Chronic Assessment and plan: Presently measuring 12 x 11 cm stable since prior study will follow up as outpatient (6) COPD (chronic obstructive pulmonary disease) Current Visit: No Status: Chronic Assessment and plan: COPD w/o exacerbation Worsening wheezing, increased sputum production Continued PRN duonebs, added mucomyst which was marginally helpful O2 Saturation adequate on 3L O2 Continue to monitor Qualifiers: COPD type: unspecified COPD Qualified Code(s): J44.9 - Chronic obstructive pulmonary disease, unspecified (7) Diabetes Current Visit: No Status: Chronic Assessment and plan: Patient is managed appropriately at this time for inpatient goals, continue current regimen. Blood glucose fasting is around 100-150 Qualifiers: Diabetes mellitus type: type 2 Diabetes mellitus complication status: with kidney complications Diabetes mellitus complication detail: with chronic kidney disease Diabetes mellitus terminal carman insulin use: without correction use Chronic kidney disease stage: stage 3 (moderate) Qualified Code(s): E11.22 - Type 2 diabetes mellitus with diabetic chronic kidney disease; N18.3 - Chronic kidney disease, stage 3 (moderate); N18.3 - Chronic kidney disease, stage 3 (moderate) (8) HTN (hypertension) Current Visit: No Status: Chronic Assessment and plan: Hold antihypertensives due to hypotension, however Diltiazem and Metoprolol continued for Afib rate control Qualifiers: Hypertension type: essential hypertension Qualified Code(s): I10 - Essential (primary) hypertension (9) DVT prophylaxis Current Visit: No Status: Acute Assessment and plan: Patient is on warfarin - Subjective Interval history: The patient is resting in bed at the time of examination and is in mild- moderate distress while talking only. She says that she certainly much better than she was previously, and she is breathing much easier. She says that she also is not coughing as much up however she does still have a cough. - Constitutional Vitals: Temp Pulse Resp BP Pulse Ox 98.4 F 78 20 127/88 91 04/28/17 19:00 04/28/17 19:00 04/29/17 04:43 04/28/17 19:00 04/29/17 04:43 General appearance: Present: mild distress, A&O X 3, obese, answers questions appropriately Internal Medicine: Result - Labs CBC & Chem 7: 04/29/17 04:20 04/29/17 04:20 Labs: Short CBC 04/29/17 Range/Units 04:20 WBC 6.7 (4.3-11.1) K/mcL Hgb 8.7 L (11.5-15.4) g/dL Hct 28.4 L (35.3-44.9) % Plt Count 142 (140-400) K/mcL Neutrophils # 5.5 (1.6-8.9) K/mcL BMP 04/29/17 04:20 Sodium 140 Potassium 3.9 Chloride 109 Carbon Dioxide 27 BUN 21 H Creatinine 0.76 Glucose 99 Calcium 9.1 Liver Function 04/29/17 Range/Units 04:20 Total Bilirubin 0.7 (0.2-1.2) mg/dL AST 11 (5-34) Units/L ALT 17 (0-55) Units/L Alkaline Phosphatase 45 (38-126) Units/L Albumin 2.4 L (3.5-5.0) g/dL - ABG Interpretation ABG results: PT/INR, D-dimer PT 21.5 Seconds (9.4-12.1) H 04/29/17 04:20 Consult Discharge Plan - Plan Referrals: Huyen Tijerina MD [Primary Care Provider] - <Zheng Robert P - Last Filed: 04/29/17 20:39> Date of Encounter: 04/29/17 - Assessment and plan (1) Sepsis Current Visit: Yes Status: Suspected Qualifiers: Sepsis type: sepsis due to unspecified organism Qualified Code(s): A41.9 - Sepsis, unspecified organism (2) UTI (urinary tract infection) Current Visit: No Status: Acute Qualifiers: Urinary tract infection type: site unspecified Hematuria presence: without hematuria Qualified Code(s): N39.0 - Urinary tract infection, site not specified (3) Lung cancer Current Visit: No Status: Chronic Qualifiers: Laterality: right Lung location: lower lobe of lung Qualified Code(s): C34.31 - Malignant neoplasm of lower lobe, right bronchus or lung (4) HLD (hyperlipidemia) Current Visit: No Status: Chronic Qualifiers: Hyperlipidemia type: pure hypercholesterolemia Qualified Code(s): E78.00 - Pure hypercholesterolemia, unspecified; E78.0 - Pure hypercholesterolemia - Constitutional Vitals: Temp Pulse Resp BP Pulse Ox 98.1 F 84 17 131/91 99 04/29/17 14:56 04/29/17 14:56 04/29/17 15:32 04/29/17 14:56 04/29/17 15:32 Internal Medicine: Result - Labs CBC & Chem 7: 04/29/17 04:20 04/29/17 04:20 Labs: Short CBC 04/29/17 Range/Units 04:20 WBC 6.7 (4.3-11.1) K/mcL Hgb 8.7 L (11.5-15.4) g/dL Hct 28.4 L (35.3-44.9) % Plt Count 142 (140-400) K/mcL Neutrophils # 5.5 (1.6-8.9) K/mcL BMP 04/29/17 04:20 Sodium 140 Potassium 3.9 Chloride 109 Carbon Dioxide 27 BUN 21 H Creatinine 0.76 Glucose 99 Calcium 9.1 Liver Function 04/29/17 Range/Units 04:20 Total Bilirubin 0.7 (0.2-1.2) mg/dL AST 11 (5-34) Units/L ALT 17 (0-55) Units/L Alkaline Phosphatase 45 (38-126) Units/L Albumin 2.4 L (3.5-5.0) g/dL - ABG Interpretation ABG results: PT/INR, D-dimer PT 21.5 Seconds (9.4-12.1) H 04/29/17 04:20 - Impressions Impressions Fluoroscopy 04/29/17 17:05 IMPRESSION: Intraprocedural fluoroscopic spot images as above. See separate procedure report for more information. D/ / Kameron Perdomo MD / Kameron Perdomo MD Interpreting Provider: Kameron Perdomo MD - Attending Attestation I examined this patient and my medical decision-making was reviewed with the Resident Physician. I agree with the documented findings, disposition and treatment plan as described except to the extent set forth below. 77/female Admitted with Klebsiella pneumonia ESBL bacteremia. Presently on appropriate antibiotics for the same. She has a bilateral ureteral stents which was replaced today. 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 Plan: Continue antibiotics for all together of 14 days. Follow the recommendation of urology.
--- NOTE | 2017-04-29 07:34 | Urology Progress Note ---
Date of Encounter: 04/29/17 Time of Encounter: 07:33 - Assessment and Plan (1) UTI (urinary tract infection) Current Visit: Yes Status: Acute Assessment and plan: She is on ertapenem for her infection. Qualifiers: Urinary tract infection type: site unspecified Hematuria presence: with hematuria Qualified Code(s): N39.0 - Urinary tract infection, site not specified; R31.9 - Hematuria, unspecified; R31.9 - Hematuria, unspecified (2) Hydronephrosis Current Visit: No Status: Chronic Assessment and plan: Plan for cystoscopy and bilateral ureteral stent exchange. All risks were informed. She is willing to proceed. Qualifiers: Hydronephrosis type: other Qualified Code(s): N13.39 - Other hydronephrosis Progress Note Narrative: 77-year-old woman with ureteral dissection bilaterally and indwelling stents. She has had a recent urinary tract infection with Klebsiella. We plan on changing her stents today. Objective Initial Vital Signs Resp Pulse Ox 16 97 04/23/17 20:42 04/23/17 20:42 - General physical appearance Present: well developed, well nourished, no distress - Respiratory Present: normal respiratory effort - Abdomen Present: soft - Labs 04/29/17 04:20 04/29/17 04:20 Diabetes panel 04/29/17 Range/Units 04:20 Sodium 140 (136-145) mEq/L Potassium 3.9 (3.5-4.5) mEq/L Chloride 109 (98-109) mEq/L Carbon Dioxide 27 (19-29) mEq/L BUN 21 H (7-20) mg/dL Creatinine 0.76 (0.57-1.11) mg/dL Glucose 99 (70-99) mg/dL Calcium 9.1 (8.6-10.8) mg/dL AST 11 (5-34) Units/L ALT 17 (0-55) Units/L Alkaline Phosphatase 45 (38-126) Units/L Albumin 2.4 L (3.5-5.0) g/dL Calcium panel 04/29/17 Range/Units 04:20 Calcium 9.1 (8.6-10.8) mg/dL Albumin 2.4 L (3.5-5.0) g/dL Pituitary panel 04/29/17 Range/Units 04:20 Sodium 140 (136-145) mEq/L Potassium 3.9 (3.5-4.5) mEq/L Chloride 109 (98-109) mEq/L Carbon Dioxide 27 (19-29) mEq/L BUN 21 H (7-20) mg/dL Creatinine 0.76 (0.57-1.11) mg/dL Glucose 99 (70-99) mg/dL Calcium 9.1 (8.6-10.8) mg/dL Adrenal panel 04/29/17 Range/Units 04:20 Sodium 140 (136-145) mEq/L Potassium 3.9 (3.5-4.5) mEq/L Chloride 109 (98-109) mEq/L Carbon Dioxide 27 (19-29) mEq/L BUN 21 H (7-20) mg/dL Creatinine 0.76 (0.57-1.11) mg/dL Glucose 99 (70-99) mg/dL Calcium 9.1 (8.6-10.8) mg/dL Total Bilirubin 0.7 (0.2-1.2) mg/dL AST 11 (5-34) Units/L ALT 17 (0-55) Units/L Alkaline Phosphatase 45 (38-126) Units/L Albumin 2.4 L (3.5-5.0) g/dL Consult Discharge Plan - Plan Referrals: Huyen Tijerina MD [Primary Care Provider] -
[2017-04-29] MEDS: Insulin LISPRO 300 UNITS/3 ML VIAL SQ SCH ×3 (08:41→22:25)
[2017-04-29] MEDS: Ertapenem 1,000 MG in 0.9 % Sodium Chloride Mini Bag 100 ML IVPB SCH (08:50)
[2017-04-29] MEDS: predniSONE 20 MG TABLET PO SCH (08:51)
[2017-04-29] MEDS: Lactobacillus 1 EACH CAP.SPRINK PO SCH (08:51)
[2017-04-29] MEDS: Diltiazem CD (24hr) 120 MG CAPSULE PO SCH (08:51)
[2017-04-29] MEDS: Pantoprazole 40 MG VIAL IVP SCH (08:52)
[2017-04-29] MEDS: Metoprolol XL (24 HR) Succ 25 MG TAB.ER.24H PO SCH ×2 (08:52→22:24)
[2017-04-29] MEDS ORDERED: *HR* Warfarin 4 MG TABLET PO ONE ×3 (12:34→18:11)
--- NOTE | 2017-04-29 15:57 | Anesthesia Evaluation PreOp ---
Date of Encounter: 04/29/17 Time of Encounter: 15:54 - Past History Planned Operation: Cysto & Bilateral Stent Exchange Cardiac History: VT, CHF, HTN (maintained on Metoprolol), Hyperlipidemia ( maintained on lipitor), Arrhythmia (AFib maintained on Diltiazem, anticoagulated on Xarelto), Cardiac Surgery (InfraRenal AAA s/p Repair; Anti- Thrombin III deficiency), Other (ECHO 12/2016 - Impressions: LVEF 40%. There are LV regional wall motion abnormalities (see Diagram below). RV is normal in size with low normal function. Not all segments were well visualized. Mild aortic regurgitation. Mild-moderate mitral regurgitation. No pulmonary hypertension. Left Ventricular Wall Motion: Rest Echo Findings The apical inferior, mid inferior and apical lateral schwartz were hypokinetic. The mid anterior lateral and basal anterior lateral schwartz were akinetic. The basal inferior and basal inferior lateral schwartz were aneurysmal. The mid inferior lateral wall was not visualized. All other wall segments showed normal motion.) Pulmonary History: Smoker, Asthma, COPD (maintained on Spiriva, Albuterol), Other (lung Ca s/p Chemo & Radiation [last chemo 10/2016, last Radiation 11/2016]) BUSINESS OFFICE DIRECTOR History: Other (Anxiety/Depresion maintaiend on Celexa, ATivan) Other Medical History: Renal (CKD), Diabetes Type II (NIDDM), GERD (maintained on Protonix) Anesthesia History: Past Anesthesia, Problems (Respiratory Failure requiring Trac after AAA repair (2011)) Alcohol Use: none Drug use: none Medications and Allergies Acetaminophen [Non-Aspirin] 650 mg PO Q6H PRN 04/24/17 [History] Atorvastatin [Lipitor] 40 mg PO HS 04/24/17 [History] Citalopram Hydrobromide [Citalopram HBr] 10 mg PO DAILY 04/24/17 [History] Clotrimazole [Mycelex Mukesh] 10 mg MM QID 04/24/17 [History] Ergocalciferol (VITAMIN D2) [Vitamin D2] 50,000 unit PO QWEEK 04/24/17 [History] Insulin ASPART [Novolog Flexpen] 2 - 6 unit SQ TID PRN 04/24/17 [History] Insulin Glargine [Lantus] 15 unit SQ HS 04/24/17 [History] Ipratropium/Albuterol Neb [Duoneb] 3 ml IH Q4H 04/24/17 [History] LORazepam [Ativan] 0.5 mg PO Q6H PRN 04/24/17 [History] Magic Mouthwash [Magic Mouthwash BLM] 10 ml PO Q2H PRN 04/24/17 [History] Magnesium Hydroxide [Milk of Magnesia] 30 ml PO DAILY PRN 04/24/17 [History] Metoprolol [Lopressor] 12.5 mg PO BID 04/24/17 [History] Omeprazole [PriLOSEC] 20 mg PO DAILY 04/24/17 [History] PredniSONE [Deltasone] 10 mg PO DAILY 04/24/17 [History] Sennosides/Docusate Sodium [Senna-S Tablet] 1 tab PO BID 04/24/17 [History] Spironolactone [Aldactone] 12.5 mg PO DAILY 04/24/17 [History] Tiotropium [Spiriva] 18 mcg IH DAILY 04/24/17 [History] Tramadol HCl [Ultram] 50 mg PO Q6H PRN 04/24/17 [History] Vitamin B Complex/Vit C/Vit E [Stresstab] 1 tab PO DAILY 04/24/17 [History] Warfarin [Coumadin] 4 mg PO QPM 04/24/17 [History] dilTIAZem HCl [Diltiazem HCl] 120 mg PO BID 04/24/17 [History] 3 Allergy/AdvReac Type Severity Reaction Status Date / Time Penicillins [PCN] Allergy Intermediate Hives Verified 04/15/17 16:03 Sulfa (Sulfonamide Allergy Intermediate Hives Verified 04/15/17 16:03 Antibiotics) - Meds/Allergy Pre-op Review Medications Reviewed: Yes Allergies Reviewed: Yes Beta Blockers on Current Med List: Yes (Metoprolol) If Beta Blockers taken, Date/Time (Last Dose taken): 04/29/2017 @ 0852 Anesthesia Results - Labs 04/29/17 04:20 04/29/17 04:20 Laboratory Tests 01/08/17 04/23/17 04/29/17 04:29 16:05 04:20 PT 21.5 H APTT 30.9 Est GFR (Non-Af Amer) Est Mean Plasma Glucose 120 Hemoglobin A1c 5.8 H 04/29/17 04:20 PT APTT Est GFR (Non-Af Amer) > 60 Est Mean Plasma Glucose Hemoglobin A1c Laboratory Results Impressions Lumbar Spine CT 04/25/17 11:20 IMPRESSION: Multilevel disc degenerative changes most prominent at L4-5 and L5-S1 with bilateral foraminal narrowing. There is mild canal narrowing without spinal canal stenosis. Partially imaged large infrarenal abdominal aortic aneurysm as seen on prior 04/23 CT. D/ / 04/25/2017 12:38:22 Carlos Eduardo Phan MD / jose Interpreting Provider: Carlos Eduardo Phan MD Chest X-Ray 04/26/17 16:52 IMPRESSION: Similar pattern of airspace disease involving the right mid to lower lung zones may reflect posttreatment changes, pleural fluid, atelectasis and/or pneumonia. Continued imaging follow-up is suggested. D/ / Paul Saenz / Paul Saenz Interpreting Provider: Paul Saenz - Imaging EKG: image reviewed (103bpm, AFib w/RVR) Anesthesia Exam Vital Signs Temp Pulse Resp BP Pulse Ox 04/29/17 15:32 17 99 04/29/17 14:56 98.1 F 84 14 131/91 99 04/29/17 11:18 97.6 F 85 14 144/104 98 04/29/17 11:09 17 99 04/29/17 09:04 97 04/29/17 07:42 98.1 F 82 14 115/97 97 04/29/17 07:36 17 88 04/29/17 05:00 98.6 F 69 18 135/78 99 04/29/17 04:43 20 91 04/29/17 00:34 20 92 04/28/17 22:01 97 04/28/17 20:44 18 94 04/28/17 19:00 98.4 F 78 22 127/88 92 04/28/17 16:30 16 94 Intake and Output 04/29/17 04/29/17 04/29/17 07:59 15:59 23:59 Intake Total 0 / 0 100 / 100 Output Total 150 / 150 Balance 0 / 0 -50 / -50 Intake: IV Fluids 100 / 100 INVanz 1,000 MG In 0.9 % Sodium 100 / 100 Chloride (Mini-Bag +) 100 ML @ 100 mls/hr IVPB DAILY JEOVANNY Rx#: [id number] Oral 0 / 0 Output: Urine 150 / 150 Other: # Voids 1 1 # Urine Diapers 2 Weight 92.7 kg Blood Glucose* 102 144 Patient Weight 04/29/17 23:59 Weight 92.7 kg Height: 5'2" Weight: 204# BMI = 37.4 NPO (# of Hours): MNoc - HEENT Pupil (Motor): Pupils equal, EOMI Mallampati: III Teeth: Edentulous Oral Opening: Greater than 3 - BUSINESS OFFICE DIRECTOR LOC: Oriented BUSINESS OFFICE DIRECTOR Motor: Normal RUE, Normal LUE, Normal RLE, Normal LLE, Normal Face BUSINESS OFFICE DIRECTOR Sensory: Normal: RUE - Cardiac Rhythm: Irregular - Pulmonary Breath Sounds: bilateral Rales (faint expiratory wheezes despite recent Breathing tx), bilateral Rhonchi Respiratory Effort: Symmetrical Anesthesia Assess/Plan ASA Score: 4 (AFib, CAD, PVDz, COPD, Smoker, Lung Ca, DM) Modified [place] Scale for Level of Consciousness: Cooperative, oriented, and tranquil Anesthetic Plan: General Monitoring Plan: Standard Monitors Recovery Plan: PACU Anes Supervising Prov Stmt: Pt seen/evaluated, R&B Discussed, questions answred and consent obtained. Roverto Wagner MD
[2017-04-29] MEDS ORDERED: *HR* Propofol 200 MG/20 ML VIAL IVP ONE (16:54)
[2017-04-29] MEDS ORDERED: *HR* FentaNYL (PF) 100 MCG/2 ML VIAL ONE (16:54)
--- NOTE | 2017-04-29 17:25 | Operative Note ---
Date of procedure: 04/29/17 Pre-op diagnosis: Bilateral ureteral obstruction Post-op diagnosis: same Procedure: Cystoscopy bilateral ureteral stent exchange Implants: 6 [place] by 30 cm double-J stents. Complications: None. 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 She had a recent urinary tract infection. It is been about a year since her last stent exchange. She elected to undergo a cystoscopy and bilateral ureteral stent placement. She was aware of the risks of the procedure including but not limited to bleeding, infection, injury to other structures, need for further procedures, stent irritation, need for nephrostomy tube, need for open repair, risks otherwise unforeseen, and the risk of anesthesia. She is willing to proceed. Procedure in Detail: After informed consent was obtained the patient was brought back to the operating room and placed in supine position. A time out was performed. Sedation was administered. She was then placed in the lithotomy position. She was prepped and draped in the usual sterile fashion. Cystoscopy was performed. The anterior urethra was normal. There was no evidence of bladder tumors. The ureteral orifices were in the normal orthotopic position. There was no duplication of the ureteral orifices. Stents were seen emanating from both ureters. The right ureter was removed and brought to the meatus using a flexible grasper. The zip wire was placed up the stent. Stent was removed. A 6 [place] by 30 cm double-J stent was then placed with good curl seen within the kidney and the bladder. The dangle string was removed. An identical procedure was performed on the left side. The patient was then awakened from general anesthesia and brought to recovery room in good condition. All sponge, needle, and instrument counts were correct.
[2017-04-29] MEDS ORDERED: 0.9 % Sodium Chloride 1,000 ML IVC SCH (18:11)
[2017-04-29] MEDS ORDERED: *HR* Morphine 2 MG/ML SYRINGE IVP PRN (18:11)
[2017-04-29] MEDS ORDERED: *HR* Dextrose 50 % in Water (Syg) 50 ML SYRINGE IVP PRN (18:11)
[2017-04-29] MEDS ORDERED: D5% in Water 1,000 ML IVC PRN (18:11)
[2017-04-29] MEDS ORDERED: Ondansetron 4 MG/2 ML VIAL IVP PRN (18:11)
[2017-04-29] MEDS ORDERED: Naloxone 0.4 MG/ML INJ IVP PRN (18:11)
[2017-04-29] MEDS ORDERED: Dextrose Gel 15 GM PO PRN ×2 (18:11)
[2017-04-29] MEDS ORDERED: Warfarin perPT PO PRN (18:11)
[2017-04-29] MEDS ORDERED: Benzonatate 100 MG CAPSULE PO PRN (18:11)
[2017-04-29] MEDS: Diltiazem SR (12hr) 60 MG CAPSULE PO SCH (22:24)
[2017-04-29] MEDS: *HR* LORazepam 0.5 MG TABLET PO PRN (22:24)
[2017-04-30] MEDS: Acetylcysteine 10% 2 ML INHSOL IH SCH ×5 (03:55→20:05)
[2017-04-30] MEDS: Ipratropium/Albuterol Neb 3 ML IH SCH ×5 (03:55→20:05)
[2017-04-30 05:59] LABS: Basophils % 0.3 %; Hematocrit 28.8 % (35.3-44.9); Immature Granulocytes % 4.2 % (0-4); Lymphocytes # 0.4 K/mcL (0.6-4.6); Lymphocytes % 5.2 %; Mean Corpuscular HGB Conc 31.3 g/dL (31.6-35.5); Mean Corpuscular Hemoglobin 32.6 pg (28.0-33.3); Mean Corpuscular Volume 104.3 fL (83.0-100.0); Mean Platelet Volume 9.6 fL (9.4-12.4); Monocytes # 0.6 K/mcL (0.0-1.3); Monocytes % 8.1 %; Neutrophils # 5.8 K/mcL (1.6-8.9); Nucleated Red Blood Cells 2.3 /100 WBC (0); Platelet Count 161 K/mcL (140-400); Red Blood Count 2.76 M/mcL (3.82-4.97); Red Cell Distribution Width 20.2 % (11.5-14.5); Segmented Neutrophils % 82.2 %
[2017-04-30 06:01] LABS: INR 1.8; Prothrombin Time 19.8 Seconds (9.4-12.1)
[2017-04-30 06:12] LABS: BUN/Creatinine Ratio 24 (6-26); Blood Urea Nitrogen 20 mg/dL (7-20); Carbon Dioxide 26 mEq/L (19-29); Chloride 107 mEq/L (98-109); Glucose 127 mg/dL (70-99); Osmolality,Calculated 292 (280-300); Potassium 3.9 mEq/L (3.5-4.5); Sodium 139 mEq/L (136-145); eGFR For African Americans > 60 (> 60); eGFR For Non-African Americans > 60 (> 60)
--- NOTE | 2017-04-30 06:57 | Internal Med Progress Note ---
<Vishal Antoine - Last Filed: 04/30/17 17:49> Date of Encounter: 04/30/17 Time of Encounter: 08:45 - Assessment and plan (1) Sepsis Current Visit: Yes Status: Suspected Assessment and plan: Source of sepsis: Urinary tract infection, ESBL Klebsiella pneumonia with bacteremia Vital signs stable, she remains afebrile Patient says that she is feeling much better Ertapenem day 6 Urology replaced stents today, signed off Qualifiers: Sepsis type: sepsis due to unspecified organism Qualified Code(s): A41.9 - Sepsis, unspecified organism (2) UTI (urinary tract infection) Current Visit: Yes Status: Acute Assessment and plan: UTI with hematuria, ESBL Positive culture Start Ertapenem Day 6 Urology replaced b/l ureteral stents last night, no problems Likely to go back to ECF/SNF tomorrow Qualifiers: Urinary tract infection type: site unspecified Hematuria presence: with hematuria Qualified Code(s): N39.0 - Urinary tract infection, site not specified (3) Diverticulitis Current Visit: Yes Status: Acute Assessment and plan: Severe diverticulosis, demonstrated on CT Abdominal pain has resolved Qualifiers: Diverticulitis site: large intestine Diverticulitis bleeding: unspecified bleeding status Diverticulitis complication: without perforation or abscess Qualified Code(s): K57.32 - Diverticulitis of large intestine without perforation or abscess without bleeding (4) Lung cancer Current Visit: No Status: Chronic Assessment and plan: Malignant neoplasm of the lung, chronic No significant change from previous exam The patient is seen and treated by oncology She is undergoing radiation therapy which has led to pneumonitis in the past At this time she remains dyspneic, but saturates well on 2 or 3 L Oncology is aware of patient's admission to the hospital, consult if needed Follow-up outpatient Qualifiers: Laterality: right Lung location: lower lobe of lung Qualified Code(s): C34.31 - Malignant neoplasm of lower lobe, right bronchus or lung (5) Thoracic aortic aneurysm without rupture Current Visit: No Status: Chronic Assessment and plan: Presently measuring 12 x 11 cm stable since prior study will follow up as outpatient (6) COPD (chronic obstructive pulmonary disease) Current Visit: No Status: Chronic Assessment and plan: COPD w/o exacerbation Worsening wheezing, increased sputum production Continued PRN duonebs, added mucomyst which was marginally helpful O2 Saturation adequate on 3L O2 Continue to monitor Qualifiers: COPD type: unspecified COPD Qualified Code(s): J44.9 - Chronic obstructive pulmonary disease, unspecified (7) Diabetes Current Visit: No Status: Chronic Assessment and plan: Patient is managed appropriately at this time for inpatient goals, continue current regimen. Blood glucose fasting is around 100-150 Qualifiers: Diabetes mellitus type: type 2 Diabetes mellitus complication status: with kidney complications Diabetes mellitus complication detail: with chronic kidney disease Diabetes mellitus exterminator helper insulin use: without exterminator helper use Chronic kidney disease stage: stage 3 (moderate) Qualified Code(s): E11.22 - Type 2 diabetes mellitus with diabetic chronic kidney disease; N18.3 - Chronic kidney disease, stage 3 (moderate); N18.3 - Chronic kidney disease, stage 3 (moderate) (8) HTN (hypertension) Current Visit: No Status: Chronic Assessment and plan: Hold antihypertensives due to hypotension, however Diltiazem and Metoprolol continued for Afib rate control Qualifiers: Hypertension type: essential hypertension Qualified Code(s): I10 - Essential (primary) hypertension (9) DVT prophylaxis Current Visit: No Status: Acute Assessment and plan: Patient is on warfarin - Subjective Interval history: The patient is resting in bed at the time of examination and is in mild- moderate distress while talking only. She says that she is feeling nearly back to her baseline, and she's having much less difficulty breathing. - Constitutional Vitals: Temp Pulse Resp BP Pulse Ox 98.0 F 89 19 118/76 97 04/30/17 04:23 04/30/17 04:23 04/30/17 04:23 04/30/17 04:23 04/30/17 04:23 General appearance: Present: mild distress, A&O X 3, obese, answers questions appropriately Exam: - Head Head exam: Present: atraumatic, normocephalic - Eye Eye exam: Present: PERRL, conjuntiva pink, sclera anicteric Pupils: Present: PERRL - Neck Neck exam general surgery: Present: supple, trachea midline. Absent: lymphadenopathy - Respiratory Respiratory exam: Present: CTAB. Absent: accessory muscle use, rales, rhonchi, wheezes - Cardiovascular Cardiovascular exam: Present: RRR, +S1, +S2. Absent: diastolic murmur, gallop, rubs, systolic murmur - GI/Abdominal GI/Abdominal exam: Present: normal bowel sounds, soft, no peritoneal signs. Absent: distended, tenderness - Extremities Exam Extremities exam: Present: warm, radial pulses palpable and symmetrical. Absent : calf tenderness, cyanotic, pedal edema - Neurological Exam Neurological exam: Present: CN II-XII intact, oriented X3, no focal deficits. Absent: pronater drift, facial droop, speech deficit - Skin Skin exam: Present: dry, intact Internal Medicine: Result - Labs CBC & Chem 7: 04/30/17 05:45 04/30/17 05:45 Labs: Short CBC 04/30/17 Range/Units 05:45 WBC 7.1 (4.3-11.1) K/mcL Hgb 9.0 L (11.5-15.4) g/dL Hct 28.8 L (35.3-44.9) % Plt Count 161 (140-400) K/mcL Neutrophils # 5.8 (1.6-8.9) K/mcL BMP 04/30/17 05:45 Sodium 139 Potassium 3.9 Chloride 107 Carbon Dioxide 26 BUN 20 Creatinine 0.84 Glucose 127 H Calcium 9.0 - ABG Interpretation ABG results: PT/INR, D-dimer PT 19.8 Seconds (9.4-12.1) H 04/30/17 05:45 - Impressions Impressions Fluoroscopy 04/29/17 17:05 IMPRESSION: Intraprocedural fluoroscopic spot images as above. See separate procedure report for more information. D/ / Kameron Perdomo MD / Kameron Perdomo MD Interpreting Provider: Kameron Perdomo MD Consult Discharge Plan - Plan Referrals: Huyen Tijerina MD [Primary Care Provider] - <Jan Zaragoza - Last Filed: 04/30/17 18:58> Date of Encounter: 04/30/17 - Assessment and plan (1) UTI (urinary tract infection) Current Visit: Yes Status: Acute Qualifiers: Urinary tract infection type: acute cystitis Hematuria presence: with hematuria Qualified Code(s): N30.01 - Acute cystitis with hematuria (2) Sepsis Current Visit: Yes Status: Suspected Qualifiers: Sepsis type: sepsis due to unspecified organism Qualified Code(s): A41.9 - Sepsis, unspecified organism (3) Infection due to ESBL-producing Klebsiella pneumoniae Current Visit: Yes Status: Acute (4) Diverticulitis Current Visit: Yes Status: Acute Qualifiers: Diverticulitis site: large intestine Diverticulitis bleeding: unspecified bleeding status Diverticulitis complication: without perforation or abscess Qualified Code(s): K57.32 - Diverticulitis of large intestine without perforation or abscess without bleeding (5) Atrial fibrillation Current Visit: Yes Status: Acute Qualifiers: Atrial fibrillation type: chronic Qualified Code(s): I48.2 - Chronic atrial fibrillation (6) Diabetes Current Visit: No Status: Chronic Qualifiers: Diabetes mellitus type: type 2 Diabetes mellitus complication status: with kidney complications Diabetes mellitus complication detail: with chronic kidney disease Diabetes mellitus exterminator helper insulin use: without half-way use Chronic kidney disease stage: stage 3 (moderate) Qualified Code(s): E11.22 - Type 2 diabetes mellitus with diabetic chronic kidney disease; N18.3 - Chronic kidney disease, stage 3 (moderate); N18.3 - Chronic kidney disease, stage 3 (moderate) (7) HTN (hypertension) Current Visit: No Status: Chronic Qualifiers: Hypertension type: essential hypertension Qualified Code(s): I10 - Essential (primary) hypertension (8) HLD (hyperlipidemia) Current Visit: No Status: Chronic Qualifiers: Hyperlipidemia type: mixed hyperlipidemia Qualified Code(s): E78.2 - Mixed hyperlipidemia - Constitutional Vitals: Temp Pulse Resp BP Pulse Ox 98.2 F 87 14 140/100 96 04/30/17 16:46 04/30/17 16:46 04/30/17 16:46 04/30/17 16:46 04/30/17 16:46 Internal Medicine: Result - Labs CBC & Chem 7: 04/30/17 05:45 04/30/17 05:45 Labs: Short CBC 04/30/17 Range/Units 05:45 WBC 7.1 (4.3-11.1) K/mcL Hgb 9.0 L (11.5-15.4) g/dL Hct 28.8 L (35.3-44.9) % Plt Count 161 (140-400) K/mcL Neutrophils # 5.8 (1.6-8.9) K/mcL BMP 04/30/17 05:45 Sodium 139 Potassium 3.9 Chloride 107 Carbon Dioxide 26 BUN 20 Creatinine 0.84 Glucose 127 H Calcium 9.0 - ABG Interpretation ABG results: PT/INR, D-dimer PT 19.8 Seconds (9.4-12.1) H 04/30/17 05:45 - Impressions Impressions Fluoroscopy 04/29/17 17:05 IMPRESSION: Intraprocedural fluoroscopic spot images as above. See separate procedure report for more information. D/ / Kameron Perdomo MD / Kameron Perdomo MD Interpreting Provider: Kameron Perdomo MD - Attending Attestation I examined this patient and my medical decision-making was reviewed with the Resident Physician on 04/30/17. I agree with the documented findings, disposition and treatment plan as described except to the extent set forth below. Ms Preston is currently admitted for sepsis related to ESBL Klebsiella UTI. She remains moderate to high risk due to potential for worsening clinical status. Ms Preston is feeling OK at this time. No fever or chills now. No CP or SOB. No GI issues at this time. Exam Alert. Comfortable Mucus membranes dry Heart reg No wheeze Abd soft I/P 1. ESBL Klebsiella sepsis and UTI 2. Lung cancer Further diagnoses and plan as above.
--- NOTE | 2017-04-30 07:48 | Urology Progress Note ---
Date of Encounter: 04/30/17 Time of Encounter: 07:47 - Assessment and Plan (1) UTI (urinary tract infection) Current Visit: Yes Status: Acute Assessment and plan: Continue appropriate antibiotic for 14 day course. Qualifiers: Urinary tract infection type: site unspecified Hematuria presence: with hematuria Qualified Code(s): N39.0 - Urinary tract infection, site not specified; R31.9 - Hematuria, unspecified; R31.9 - Hematuria, unspecified (2) Hydronephrosis Current Visit: No Status: Chronic Assessment and plan: Stents were exchanged yesterday. She is doing well. She can follow up with Dr. Anthony for stent change in one year. Urology will sign off Qualifiers: Hydronephrosis type: other Qualified Code(s): N13.39 - Other hydronephrosis Progress Note Narrative: Postop day #1 status post bilateral ureteral stent exchange. She is doing well. Objective Initial Vital Signs Resp Pulse Ox 16 97 04/23/17 20:42 04/23/17 20:42 - General physical appearance Present: well developed, well nourished, no distress - Respiratory Present: normal respiratory effort - Abdomen Present: soft - Labs 04/30/17 05:45 04/30/17 05:45 Diabetes panel 04/30/17 Range/Units 05:45 Sodium 139 (136-145) mEq/L Potassium 3.9 (3.5-4.5) mEq/L Chloride 107 (98-109) mEq/L Carbon Dioxide 26 (19-29) mEq/L BUN 20 (7-20) mg/dL Creatinine 0.84 (0.57-1.11) mg/dL Glucose 127 H (70-99) mg/dL Calcium 9.0 (8.6-10.8) mg/dL Calcium panel 04/30/17 Range/Units 05:45 Calcium 9.0 (8.6-10.8) mg/dL Pituitary panel 04/30/17 Range/Units 05:45 Sodium 139 (136-145) mEq/L Potassium 3.9 (3.5-4.5) mEq/L Chloride 107 (98-109) mEq/L Carbon Dioxide 26 (19-29) mEq/L BUN 20 (7-20) mg/dL Creatinine 0.84 (0.57-1.11) mg/dL Glucose 127 H (70-99) mg/dL Calcium 9.0 (8.6-10.8) mg/dL Adrenal panel 04/30/17 Range/Units 05:45 Sodium 139 (136-145) mEq/L Potassium 3.9 (3.5-4.5) mEq/L Chloride 107 (98-109) mEq/L Carbon Dioxide 26 (19-29) mEq/L BUN 20 (7-20) mg/dL Creatinine 0.84 (0.57-1.11) mg/dL Glucose 127 H (70-99) mg/dL Calcium 9.0 (8.6-10.8) mg/dL Consult Discharge Plan - Plan Referrals: Huyen Tijerina MD [Primary Care Provider] -
[2017-04-30] MEDS: Diltiazem SR (12hr) 60 MG CAPSULE PO SCH ×2 (10:13→20:49)
[2017-04-30] MEDS: Metoprolol XL (24 HR) Succ 25 MG TAB.ER.24H PO SCH ×2 (10:13→20:49)
[2017-04-30] MEDS: Lactobacillus 1 EACH CAP.SPRINK PO SCH (10:13)
[2017-04-30] MEDS: Ertapenem 1,000 MG in 0.9 % Sodium Chloride Mini Bag 100 ML IVPB SCH (10:13)
[2017-04-30] MEDS: *HR* LORazepam 0.5 MG TABLET PO PRN ×2 (10:17→20:48)
[2017-04-30] MEDS: predniSONE 20 MG TABLET PO SCH (10:19)
[2017-04-30] MEDS: Insulin LISPRO 300 UNITS/3 ML VIAL SQ SCH ×4 (12:31→20:49)
[2017-04-30] MEDS ORDERED: *HR* Warfarin 4 MG TABLET PO ONE (18:00)
[2017-05-01] MEDS: Ipratropium/Albuterol Neb 3 ML IH SCH ×5 (03:35→15:44)
[2017-05-01] MEDS: Acetylcysteine 10% 2 ML INHSOL IH SCH ×5 (03:35→15:44)
[2017-05-01 04:55] LABS: Basophils % 0.2 %; Hematocrit 29.2 % (35.3-44.9); Hemoglobin 8.9 g/dL (11.5-15.4); Immature Granulocytes % 2.6 % (0-4); Lymphocytes # 0.4 K/mcL (0.6-4.6); Lymphocytes % 6.6 %; Mean Corpuscular HGB Conc 30.5 g/dL (31.6-35.5); Mean Corpuscular Hemoglobin 32.2 pg (28.0-33.3); Mean Corpuscular Volume 105.8 fL (83.0-100.0); Mean Platelet Volume 9.4 fL (9.4-12.4); Monocytes # 0.4 K/mcL (0.0-1.3); Monocytes % 5.6 %; Neutrophils # 5.3 K/mcL (1.6-8.9); Nucleated Red Blood Cells 1.6 /100 WBC (0); Platelet Count 153 K/mcL (140-400); Red Blood Count 2.76 M/mcL (3.82-4.97); Red Cell Distribution Width 20.1 % (11.5-14.5)
[2017-05-01 05:02] LABS: INR 2.5
[2017-05-01] MEDS: *HR* LORazepam 0.5 MG TABLET PO PRN ×2 (05:11→17:21)
[2017-05-01 05:13] LABS: BUN/Creatinine Ratio 25 (6-26); Blood Urea Nitrogen 20 mg/dL (7-20); Calcium 8.9 mg/dL (8.6-10.8); Carbon Dioxide 27 mEq/L (19-29); Chloride 105 mEq/L (98-109); Glucose 152 mg/dL (70-99); Osmolality,Calculated 296 (280-300); Potassium 3.8 mEq/L (3.5-4.5); Sodium 140 mEq/L (136-145); eGFR For African Americans > 60 (> 60); eGFR For Non-African Americans > 60 (> 60)
[2017-05-01] MEDS: predniSONE 20 MG TABLET PO SCH (08:48)
[2017-05-01] MEDS: Lactobacillus 1 EACH CAP.SPRINK PO SCH (08:48)
[2017-05-01] MEDS: Diltiazem SR (12hr) 60 MG CAPSULE PO SCH (08:48)
[2017-05-01] MEDS: Metoprolol XL (24 HR) Succ 25 MG TAB.ER.24H PO SCH (08:49)
[2017-05-01] MEDS: Ertapenem 1,000 MG in 0.9 % Sodium Chloride Mini Bag 100 ML IVPB SCH (08:53)
[2017-05-01] MEDS: Insulin LISPRO 300 UNITS/3 ML VIAL SQ SCH ×2 (08:53→12:15)
--- NOTE | 2017-05-01 10:42 | Discharge Summary ---
<Vishal Antoine - Last Filed: 05/01/17 15:49> Date of Encounter: 05/01/17 Time of Encounter: 08:40 - Discharge Diagnosis (1) Sepsis Priority: Primary Status: Suspected Qualifiers: Sepsis type: sepsis due to unspecified organism Qualified Code(s): A41.9 - Sepsis, unspecified organism (2) UTI (urinary tract infection) Priority: Secondary Status: Acute Qualifiers: Urinary tract infection type: acute cystitis Hematuria presence: with hematuria Qualified Code(s): N30.01 - Acute cystitis with hematuria (3) Diverticulitis Priority: Secondary Status: Acute Qualifiers: Diverticulitis site: large intestine Diverticulitis bleeding: unspecified bleeding status Diverticulitis complication: without perforation or abscess Qualified Code(s): K57.32 - Diverticulitis of large intestine without perforation or abscess without bleeding (4) Lung cancer Priority: Secondary Status: Chronic Qualifiers: Laterality: right Lung location: lower lobe of lung Qualified Code(s): C34.31 - Malignant neoplasm of lower lobe, right bronchus or lung (5) Thoracic aortic aneurysm without rupture Priority: Secondary Status: Chronic (6) COPD (chronic obstructive pulmonary disease) Priority: Secondary Status: Chronic Qualifiers: COPD type: unspecified COPD Qualified Code(s): J44.9 - Chronic obstructive pulmonary disease, unspecified (7) Diabetes Priority: Secondary Status: Chronic Qualifiers: Diabetes mellitus type: type 2 Diabetes mellitus complication status: with kidney complications Diabetes mellitus complication detail: with chronic kidney disease Diabetes mellitus terminal makeup operator insulin use: without chcf use Chronic kidney disease stage: stage 3 (moderate) Qualified Code(s): E11.22 - Type 2 diabetes mellitus with diabetic chronic kidney disease; N18.3 - Chronic kidney disease, stage 3 (moderate); N18.3 - Chronic kidney disease, stage 3 (moderate) (8) HTN (hypertension) Priority: Secondary Status: Chronic Qualifiers: Hypertension type: essential hypertension Qualified Code(s): I10 - Essential (primary) hypertension (9) DVT prophylaxis Priority: Secondary Status: Acute - Discharge Medications Prescriptions: Atorvastatin [Lipitor] 40 mg PO HS #30 tablet Ertapenem [INVanz] 1,000 mg IVPB DAILY 7 Days vial Home Medications: Acetaminophen [Non-Aspirin] 650 mg PO Q6H PRN 04/24/17 [History] Atorvastatin [Lipitor] 40 mg PO HS 04/24/17 [History] Citalopram Hydrobromide [Citalopram HBr] 10 mg PO DAILY 04/24/17 [History] Clotrimazole [Mycelex Mukesh] 10 mg MM QID 04/24/17 [History] Ergocalciferol (VITAMIN D2) [Vitamin D2] 50,000 unit PO QWEEK 04/24/17 [History] Insulin ASPART [Novolog Flexpen] 2 - 6 unit SQ TID PRN 04/24/17 [History] Insulin Glargine [Lantus] 15 unit SQ HS 04/24/17 [History] Ipratropium/Albuterol Neb [Duoneb] 3 ml IH Q4H 04/24/17 [History] LORazepam [Ativan] 0.5 mg PO Q6H PRN 04/24/17 [History] Magic Mouthwash [Magic Mouthwash BLM] 10 ml PO Q2H PRN 04/24/17 [History] Magnesium Hydroxide [Milk of Magnesia] 30 ml PO DAILY PRN 04/24/17 [History] Metoprolol [Lopressor] 12.5 mg PO BID 04/24/17 [History] Omeprazole [PriLOSEC] 20 mg PO DAILY 04/24/17 [History] PredniSONE [Deltasone] 10 mg PO DAILY 04/24/17 [History] Sennosides/Docusate Sodium [Senna-S Tablet] 1 tab PO BID 04/24/17 [History] Spironolactone [Aldactone] 12.5 mg PO DAILY 04/24/17 [History] Tiotropium [Spiriva] 18 mcg IH DAILY 04/24/17 [History] Tramadol HCl [Ultram] 50 mg PO Q6H PRN 04/24/17 [History] Vitamin B Complex/Vit C/Vit E [Stresstab] 1 tab PO DAILY 04/24/17 [History] Warfarin [Coumadin] 4 mg PO QPM 04/24/17 [History] dilTIAZem HCl [Diltiazem HCl] 120 mg PO BID 04/24/17 [History] Atorvastatin [Lipitor] 40 mg PO HS #30 tablet 05/01/17 [Rx] Benzonatate [Tessalon] 200 mg PO TID PRN capsule 05/01/17 [Rx] Diltiazem SR (12hr) [Cardizem SR] 120 mg PO BID cap.er.12h 05/01/17 [Rx] Ertapenem [INVanz] 1,000 mg IVPB DAILY 7 Days vial 05/01/17 [Rx] GuaiFENesin/Dextromethorphan [Robitussin/Dm] 10 ml PO Q4H PRN udc 05/01/17 [Rx] Ipratropium/Albuterol Neb [Duoneb] 3 ml IH Q4HR PRN inhsol 05/01/17 [Rx] Metoprolol XL (24 HR) Succ [Toprol Xl] 12.5 mg PO BID tab.er.24h 05/01/17 [Rx] predniSONE [PredniSONE] 20 mg PO DAILY tablet 05/01/17 [Rx] Allergies/Adverse Reactions: 3 Allergy/AdvReac Type Severity Reaction Status Date / Time Penicillins [PCN] Allergy Intermediate Hives Verified 04/15/17 16:03 Sulfa (Sulfonamide Allergy Intermediate Hives Verified 04/15/17 16:03 Antibiotics) - Notes to Outpatient Provider The patient will continue IV ertapenem for a total of 14 days treatment for ESBL Klebsiella pneumonia. Consider transitioning off long-term prednisone if it can be tolerated to help get diabetes under better control. During her course of her hospitalization the patient had a further radiation therapy. He was advised that patient's appointment be recreated in that she work with oncology to reschedule. Date of admission: 04/23/17 19:57 Primary care physician: Huyen Tijerina Consults: 04/24/17 11:01 Consult to Critical Care [CONS] Routine Consulting Provider: [facility] Reason for Consult: Septic shock Time Notified: 11:01 Call Completed: Yes 04/24/17 11:34 Consult to Insurance Claim Auditor [CONS] Routine Reason for SW Consult: patient from [facility] 04/25/17 11:41 Consult to Urology [CONS] Routine Consulting Provider: Urology [facility] Reason for Consult: reccurent esbl UTI with indwelling ureteral stent Time Notified: 11:41 Call Completed: Yes Discharging clinician: Vishal Antoine Anticipated date of discharge: 05/01/17 - Patient Status Disposition: Transfer SNF Condition: Fair Functional capacity at discharge: bed bound Overall status at discharge: patient is not back to baseline - Discharge Instructions Instructions: Warfarin (By mouth), Atorvastatin (By mouth), Ertapenem ( Injection), Urinary Tract Infection in Women (DC) Follow Up With: Huyen Tijerina MD [Primary Care Provider] - - Diet and Activity Activity: increase activity as tolerated Diet: diabetic diet Hospital course: Ms. Preston is a 77 year old female with past medical history of lung cancer, CKD , CHF, EF of 40%, COPD that is oxygen dependent, A. maurice on Coumadin, diabetes, aortic aneurysm, bilateral ureteral stent placement was a long-term patient [facility] that presented to the ED via EMS due to diffuse abdominal pain and flank pain is cramping in nature and severe associated nausea and vomiting. In the ED the patient received a CT which demonstrated severe diverticulosis. Her UA demonstrated infection which would later be determined to be ESBL Klebsiella pneumonia. Blood cultures were taken and also grew ESBL Klebsiella pneumonia. On admission the patient was found to be hypoxic, had an elevated lactate, was tachycardic and hypotensive. She was admitted with sepsis protocol , received 2 L of fluid bolus, and was started on broad-spectrum antibiotics. The patient was also found to have severe COPD exacerbation with increased phlegm production and dyspnea, as well as low O2 saturation. She was started on steroids for COPD exacerbation. The course of her stay the patient's blood pressure increased to normal. Urology was consulted and agreed to exchange the ureteral stents when she became stable. The patient showed consistent improvement and was able to undergo the ureteral stent exchange without complication. Although she will require IV antibiotics the patient is prepared to be discharged back to long-term facility for treatment per primary care. - Time Spent with Patient Total time spent providing and/or coordinating discharge services: - Constitutional Vitals: Temp Pulse Resp BP Pulse Ox 98.0 F 73 18 128/82 94 05/01/17 08:18 05/01/17 08:18 05/01/17 08:18 05/01/17 08:18 05/01/17 08:18 General appearance: Present: mild distress, A&O X 3, obese, answers questions appropriately Exam: - Head Head exam: Present: atraumatic, normocephalic - Eye Eye exam: Present: PERRL, conjuntiva pink, sclera anicteric Pupils: Present: PERRL - Neck Neck exam general surgery: Present: supple, trachea midline. Absent: lymphadenopathy - Respiratory Respiratory exam: Present: CTAB. Absent: accessory muscle use, rales, rhonchi, wheezes - Cardiovascular Cardiovascular exam: Present: RRR, +S1, +S2. Absent: diastolic murmur, gallop, rubs, systolic murmur - GI/Abdominal GI/Abdominal exam: Present: normal bowel sounds, soft, no peritoneal signs. Absent: distended, tenderness - Extremities Exam Extremities exam: Present: warm, radial pulses palpable and symmetrical. Absent : calf tenderness, cyanotic, pedal edema - Neurological Exam Neurological exam: Present: CN II-XII intact, oriented X3, no focal deficits. Absent: pronater drift, facial droop, speech deficit - Skin Skin exam: Present: dry, intact <Jan Zaragoza - Last Filed: 05/01/17 17:06> Date of Encounter: 05/01/17 - Discharge Diagnosis (1) UTI (urinary tract infection) Status: Acute Qualifiers: Urinary tract infection type: acute cystitis Hematuria presence: with hematuria Qualified Code(s): N30.01 - Acute cystitis with hematuria (2) Sepsis Status: Resolved Qualifiers: Sepsis type: sepsis due to unspecified organism Qualified Code(s): A41.9 - Sepsis, unspecified organism (3) Infection due to ESBL-producing Klebsiella pneumoniae Priority: Primary Status: Acute (4) Diverticulitis Status: Acute Qualifiers: Diverticulitis site: large intestine Diverticulitis bleeding: unspecified bleeding status Diverticulitis complication: without perforation or abscess Qualified Code(s): K57.32 - Diverticulitis of large intestine without perforation or abscess without bleeding (5) Atrial fibrillation Priority: Secondary Status: Chronic Qualifiers: Atrial fibrillation type: chronic Qualified Code(s): I48.2 - Chronic atrial fibrillation (6) Diabetes Status: Chronic Qualifiers: Diabetes mellitus type: type 2 Diabetes mellitus complication status: with kidney complications Diabetes mellitus complication detail: with chronic kidney disease Diabetes mellitus chcf insulin use: without chcf use Chronic kidney disease stage: stage 3 (moderate) Qualified Code(s): E11.22 - Type 2 diabetes mellitus with diabetic chronic kidney disease; N18.3 - Chronic kidney disease, stage 3 (moderate); N18.3 - Chronic kidney disease, stage 3 (moderate) (7) HTN (hypertension) Status: Chronic Qualifiers: Hypertension type: essential hypertension Qualified Code(s): I10 - Essential (primary) hypertension (8) HLD (hyperlipidemia) Priority: Secondary Status: Chronic Qualifiers: Hyperlipidemia type: mixed hyperlipidemia Qualified Code(s): E78.2 - Mixed hyperlipidemia Date of admission: 04/23/17 19:57 Primary care physician: Huyen Tijerina Consults: 04/24/17 11:01 Consult to Critical Care [CONS] Routine Consulting Provider: Pullisandra Curryt [facility] Reason for Consult: Septic shock Time Notified: 11:01 Call Completed: Yes 04/24/17 11:34 Consult to Insurance Claim Auditor [CONS] Routine Reason for SW Consult: patient from [facility] 04/25/17 11:41 Consult to Urology [CONS] Routine Consulting Provider: Urology [facility] Reason for Consult: reccurent esbl UTI with indwelling ureteral stent Time Notified: 11:41 Call Completed: Yes Hospital course: Ms. Preston is a 77 year old female - Time Spent with Patient Total time spent providing and/or coordinating discharge services: 38min - Constitutional Vitals: Temp Pulse Resp BP Pulse Ox 98.0 F 76 20 127/80 97 05/01/17 15:43 05/01/17 15:43 05/01/17 15:45 05/01/17 15:43 05/01/17 15:45 - Attending Attestation I examined this patient and my medical decision-making was reviewed with the Resident Physician on 05/01/17. I agree with the documented findings, disposition and treatment plan as described except to the extent set forth below. Ms Preston has been admitted for acute ESBL Klebsiella bacteremia/sepsis/ UTI. She is doing better today. She is afebrile with stable vitals and ready for return to SNF. Exam Alert. Comfortable Heart reg No wheeze Abd soft Mucus membranes dry Plan D/C to SNF Ertapenem through 05/08.
--- NOTE | 2017-05-01 10:50 | Physician Discharge Referral ---
ExtendedCare Referral Info Transfer To: [facility] Provider in Charge: Jan Zaragoza Provider in Charge after Transfer: PCP Institutional Level of Care: Skilled - Diagnosis (1) Sepsis Priority: Primary Status: Suspected (2) UTI (urinary tract infection) Priority: Secondary Status: Acute (3) Diverticulitis Priority: Secondary Status: Acute (4) Lung cancer Priority: Secondary Status: Chronic (5) Thoracic aortic aneurysm without rupture Priority: Secondary Status: Chronic (6) COPD (chronic obstructive pulmonary disease) Priority: Secondary Status: Chronic (7) Diabetes Priority: Secondary Status: Chronic (8) HTN (hypertension) Priority: Secondary Status: Chronic (9) DVT prophylaxis Priority: Secondary Status: Acute Prognosis: Fair Aware of Diagnosis: Patient Aware of Prognosis: Patient - Transfer Medications Prescriptions: Atorvastatin [Lipitor] 40 mg PO HS #30 tablet Ertapenem [INVanz] 1,000 mg IVPB DAILY 7 Days vial Home Medications: Acetaminophen [Non-Aspirin] 650 mg PO Q6H PRN 04/24/17 [History] Atorvastatin [Lipitor] 40 mg PO HS 04/24/17 [History] Citalopram Hydrobromide [Citalopram HBr] 10 mg PO DAILY 04/24/17 [History] Clotrimazole [Mycelex Mukesh] 10 mg MM QID 04/24/17 [History] Ergocalciferol (VITAMIN D2) [Vitamin D2] 50,000 unit PO QWEEK 04/24/17 [History] Insulin ASPART [Novolog Flexpen] 2 - 6 unit SQ TID PRN 04/24/17 [History] Insulin Glargine [Lantus] 15 unit SQ HS 04/24/17 [History] Ipratropium/Albuterol Neb [Duoneb] 3 ml IH Q4H 04/24/17 [History] LORazepam [Ativan] 0.5 mg PO Q6H PRN 04/24/17 [History] Magic Mouthwash [Magic Mouthwash BLM] 10 ml PO Q2H PRN 04/24/17 [History] Magnesium Hydroxide [Milk of Magnesia] 30 ml PO DAILY PRN 04/24/17 [History] Metoprolol [Lopressor] 12.5 mg PO BID 04/24/17 [History] Omeprazole [PriLOSEC] 20 mg PO DAILY 04/24/17 [History] PredniSONE [Deltasone] 10 mg PO DAILY 04/24/17 [History] Sennosides/Docusate Sodium [Senna-S Tablet] 1 tab PO BID 04/24/17 [History] Spironolactone [Aldactone] 12.5 mg PO DAILY 04/24/17 [History] Tiotropium [Spiriva] 18 mcg IH DAILY 04/24/17 [History] Tramadol HCl [Ultram] 50 mg PO Q6H PRN 04/24/17 [History] Vitamin B Complex/Vit C/Vit E [Stresstab] 1 tab PO DAILY 04/24/17 [History] Warfarin [Coumadin] 4 mg PO QPM 04/24/17 [History] dilTIAZem HCl [Diltiazem HCl] 120 mg PO BID 04/24/17 [History] Atorvastatin [Lipitor] 40 mg PO HS #30 tablet 05/01/17 [Rx] Benzonatate [Tessalon] 200 mg PO TID PRN capsule 05/01/17 [Rx] Diltiazem SR (12hr) [Cardizem SR] 120 mg PO BID cap.er.12h 05/01/17 [Rx] Ertapenem [INVanz] 1,000 mg IVPB DAILY 7 Days vial 05/01/17 [Rx] GuaiFENesin/Dextromethorphan [Robitussin/Dm] 10 ml PO Q4H PRN udc 05/01/17 [Rx] Ipratropium/Albuterol Neb [Duoneb] 3 ml IH Q4HR PRN inhsol 05/01/17 [Rx] Metoprolol XL (24 HR) Succ [Toprol Xl] 12.5 mg PO BID tab.er.24h 05/01/17 [Rx] predniSONE [PredniSONE] 20 mg PO DAILY tablet 05/01/17 [Rx] Allergies/Adverse Reactions: 3 Allergy/AdvReac Type Severity Reaction Status Date / Time Penicillins [PCN] Allergy Intermediate Hives Verified 04/15/17 16:03 Sulfa (Sulfonamide Allergy Intermediate Hives Verified 04/15/17 16:03 Antibiotics) - Respiratory Orders Oxygen / L per min (Titrate to SPO2 > 92) Smoking Cessation: Smoking cessation has been advised. For more information, call the [employer] Tobacco Quit Line at 9-840-PEHP-NOW. - Ancillary Orders May use pressure relief devices daily prn - Advance Directives Living Will: Yes Power of Drug Inspector: Yes Code Status: DNR-Arrest/Don't Intubate - Mobility Orders Bedrest - Rehabiliation Orders Rehab Potential: Fair Rehab Orders: Evaluation for Physical Therapy, Evaluation for Occupational Therapy - Treatments Skin tear care topically daily PRN per policy - Diet Orders No Added Salt (VANGIE), No Concentrated Sweets CERTIFICATION: I certify that the transfer of the above named patient to an Extended Care Facility is necessary for the continuing treatment of the diagnosis listed. The above information is true and accurate reflection of patient's current condition. Confidential - Redisclosure prohibited without a patient's written consent.
[2017-05-01 15:49] VITALS: BP 127/80
[2017-05-01] MEDS ORDERED: *HR* Warfarin 2 MG TABLET PO ONE (18:00)
--- NOTE | 2017-05-03 10:03 | Event Note ---
Date of Encounter: 05/03/17 Time of Encounter: 09:59 I called Kristie at the shelter, [facility], today to discuss the issue of the stent. I explained what had occurred. I offered to exchange the stents if she desired. I also explained that the stent had 16 days prior to placing it. I informed her that if these stents were inserted just before they (16 days earlier) this would not even be an issue even though the stent would essentially "" post operatively. I also offered to discuss further with her family. She said that she was doing okay and didn't desire to have the stents changed out. She said she would discuss further with her family and would contact us if there was any concern.
== END 2017-05-01 17:46 | DRG 698 ==
LOC: 2NENU → SUATTDRO 19:57
PROVIDERS: ADMIT Internal Medicine; ATTEND Internal Medicine

== ENCOUNTER 2017-07-02 11:05 | Inpatient (IN) ==
[2017-07-02] MEDS ORDERED: Naloxone 0.4 MG/ML INJ IVP PRN (16:12)
[2017-07-02] MEDS ORDERED: Ondansetron ODT 4 MG TAB.RAPDIS SL PRN (16:12)
--- NOTE | 2017-07-02 16:20 | Internal Med History&Physical ---
Date of Encounter: 07/02/17 Time of Encounter: 16:20 Assessment and Plan (1) Sepsis Current visit: Yes Status: Acute Patient has temperature of 100.9 as well as white count of 16-she has right- sided pneumonia-blood cultures have been obtained We will not give any IV fluids at this time due to CHF We will monitor intake and output daily weights Continuous cardiac monitoring Maintaining M AP greater than 60 Qualifiers: Sepsis type: sepsis due to unspecified organism Qualified Code(s): A41.9 - Sepsis, unspecified organism (2) HCAP (healthcare-associated pneumonia) Current visit: No Status: Acute Patient resides in an ECF she has been experiencing increased cough with sputum production as well as shortness of breath. Chest x-ray does show right-sided pneumonia we will obtain sputum cultures blood cultures obtained. Patient initiated on vancomycin -patient does have a penicillin allergy we will forego Zosyn and initiated on meropenem. Previous culture/sensitivity of Klebsiella ESBL- sensitive to ertapenem Continue with oxygen titrated to maintain SPO2 greater than 92% Continue with bronchodilators CXR shows dense opacification of the right,A component of volume loss is seen at the right lung base. pleural thickening or loculated effusion along the right lateral thorax-pulmonary may need to be consulted (3) Hx of aortic aneurysm Current visit: No Status: Acute 1 patient has history of aortic aneurysm with iliac bi- aortic stent placement, at [facility] per Dr. Perez recent CT of abdomen shows stable unchanged aneurysm 12 x 12 cm (4) Elevated troponin Current visit: No Status: Acute 1 patient denies any chest pain at this time EKG with A. fib no ST-T wave abnormalities. Previous troponin was 0.06 now 0.10. Suspect this may be related to demand ischemia-we will continue to trend troponins Continuous cardiac monitoring A she is anticoagulated on Coumadin Cardiology has been consulted-I did speak with Dr. Kerr he will see the patient (5) A-fib Current visit: No Status: Chronic Continue with Cardizem as well as Coumadin present INR 1.7 Goal 2-3 Qualifiers: Atrial fibrillation type: paroxysmal Qualified Code(s): I48.0 - Paroxysmal atrial fibrillation (6) CKD (chronic kidney disease) Current visit: No Status: Chronic 1 patient has history of L renal atrophy. His only creatinine is 0.07 Will continue to monitor Avoid nephrotoxins Renal dose antibiotics Monitor intake and output daily weights Qualifiers: Chronic kidney disease stage: stage 3 (moderate) Qualified Code(s): N18.3 - Chronic kidney disease, stage 3 (moderate) (7) COPD (chronic obstructive pulmonary disease) Current visit: No Status: Chronic Continue with oxygen and bronchodilators Qualifiers: COPD type: unspecified COPD Qualified Code(s): J44.9 - Chronic obstructive pulmonary disease, unspecified (8) Diabetes Current visit: No Status: Chronic Accu-Cheks before meals at bedtime for sinus scale insulin as well as basal insulin Qualifiers: Diabetes mellitus type: type 2 Diabetes mellitus complication status: with kidney complications Diabetes mellitus complication detail: with chronic kidney disease Diabetes mellitus retirement insulin use: without retirement use Chronic kidney disease stage: stage 3 (moderate) Qualified Code(s): E11.22 - Type 2 diabetes mellitus with diabetic chronic kidney disease; N18.3 - Chronic kidney disease, stage 3 (moderate); N18.3 - Chronic kidney disease, stage 3 (moderate) (9) CHF (congestive heart failure) Current visit: No Status: Chronic 1 echo obtained in December of this year showed EF of 40% There are LV regional wall motion abnormalities RV is normal in size with low normal function. Mild aortic regurgitation.Mild- moderate mitral regurgitation. No pulmonary hypertension. Repeat was 1248. Patient was given 60 of Lasix at outlying facility. We will hold oral Lasix for now due to hypotension Monitor intake and output and daily weight Cardiac monitoring Qualifiers: Congestive heart failure type: systolic Congestive heart failure chronicity : chronic Qualified Code(s): I50.22 - Chronic systolic (congestive) heart failure (10) DVT prophylaxis Current visit: No Status: Acute Pt is on coumadin Internal Medicine - H&P: HPI Chief complaint: sob Admitted From: Emergency Dept Plans for Post Hospital Care: Home History of present illness: Ms. Preston is a 77 year old female past medical history of aortic aneurysm with iliac by aortic stent placement atrial fibrillation on anticoagulation Coumadin congestive heart failure with EF of 40% COPD oxygen dependent on 3 L nasal cannula coronary artery disease diabetes GERD hypertension and hyperlipidemia adenocarcinoma of the lung underwent chemotherapy and radiation treatment which completed on 11/13/2016. The patient resides in [facility] she has been experiencing increasing shortness of breath, as well as a productive cough with yellow sputum production for approximately one week. No fevers or chest pain, no unusual weight loss or weight gain she is not able to participate in her therapy due to shortness of breath. She presented to [facility] for evaluation. According to the records patient did have elevated white count-she is on steroids, however more elevated than normal. chest x-ray did show greater consolidation she will be 1228 which is higher than currently then she was given some IV Lasix and as well as she is elevated troponin. Blood cultures have been obtained-initiated on antibiotics and has been admitted for further evaluation. Past Med Surg Social Fam HX - Past Medical History Medical history: aortic aneurysm, atrial fibrillation, cancer, COPD, coronary artery disease, DVT, diabetes, GERD, hyperlipidemia, hypertension, myocardial infarction, other Psychiatric history: anxiety - Past Surgical History Surgical History: cholecystectomy, hysterectomy, ureteral stent, other - Social History Smoking Status: Former smoker Smokeless Tobacco Status: No Alcohol use: none Drug use: none - Family History Father Family Member Ethnicity: Non- Living Status: Hx Family Cancer: Yes Mother Family Member Ethnicity: Non- Living Status: Hx Family Cardiac Disorders: Yes (CHF) Hx Family Endocrine Disorder: Yes (DM) Brother Family Member Ethnicity: Non- Living Status: Still Living Hx Family Cardiac Disorders: Yes (HD) Internal Medicine - H&P: Meds Acetaminophen [Non-Aspirin] 650 mg PO Q6H PRN 04/24/17 [History] Atorvastatin [Lipitor] 40 mg PO HS 04/24/17 [History] Citalopram Hydrobromide [Citalopram HBr] 10 mg PO DAILY 04/24/17 [History] Ergocalciferol (VITAMIN D2) [Vitamin D2] 50,000 unit PO QWEEK 04/24/17 [History] Insulin ASPART [Novolog Flexpen] 2 - 6 unit SQ ACHS 04/24/17 [History] Insulin Glargine [Lantus] 20 unit SQ HS 04/24/17 [History] LORazepam [Ativan] 0.5 mg PO Q6H PRN 04/24/17 [History] Magic Mouthwash [Magic Mouthwash BLM] 10 ml PO Q2H PRN 04/24/17 [History] Magnesium Hydroxide [Milk of Magnesia] 30 ml PO DAILY PRN 04/24/17 [History] Omeprazole [PriLOSEC] 20 mg PO DAILY 04/24/17 [History] Sennosides/Docusate Sodium [Senna-S Tablet] 1 tab PO BID 04/24/17 [History] Spironolactone [Aldactone] 12.5 mg PO DAILY 04/24/17 [History] Tramadol HCl [Ultram] 50 mg PO Q8H PRN 04/24/17 [History] Warfarin [Coumadin] 6 mg PO QPM 04/24/17 [History] Benzonatate [Tessalon] 200 mg PO TID PRN capsule 05/01/17 [Rx] Diltiazem SR (12hr) [Cardizem SR] 120 mg PO BID cap.er.12h 05/01/17 [Rx] Furosemide [Lasix] 40 mg PO DAILY 05/28/17 [History] Potassium Chloride [Klor-Con Sprinkle] 10 meq PO DAILY 05/28/17 [History] Ascorbate Calcium [Vitamin C] 500 mg PO DAILY 06/29/17 [History] Ferrous Sulfate [Iron] 325 mg PO DAILY 06/29/17 [History] Multivitamin,Stress Formula/Zn [Stress B with Zinc Tablet] 1 each PO DAILY 06/29 [History] Tiotropium [Spiriva] 18 mcg IH 0700 06/29/17 [History] Ipratropium/Albuterol Neb [Duoneb] 3 ml IH Q4HR PRN 07/02/17 [History] Metoprolol XL (24 HR) Succ [Toprol XL] 12.5 mg PO BID 07/02/17 [History] predniSONE [Prednisone] 7.5 mg PO DAILY 07/02/17 [History] 3 Allergy/AdvReac Type Severity Reaction Status Date / Time Penicillins [PCN] Allergy Intermediate Hives Verified 05/28/17 15:14 Sulfa (Sulfonamide Allergy Intermediate Hives Verified 05/28/17 15:14 Antibiotics) All Systems PM: A 10-system review of systems was performed and is negative for pertinent findings except as documented above in the HPI. - Constitutional Constitutional: weakness, no chills, no fever(s), no night sweats - EENT Eyes: no change in vision, no discharge, no pain, no photophobia Nose, mouth and throat: no dysphagia, no nasal discharge, no neck pain, no sore throat - Cardiovascular Cardiovascular ROS IM: no chest pain, no diaphoresis, no dyspnea, no lightheadedness, no palpitations, no syncope - Respiratory Respiratory: cough, dyspnea on exertion, excessive phlegm production, change in phlegm color, no dyspnea, no wheezing - Gastrointestinal Gastrointestinal: constipation, no abdominal pain, no diarrhea, no hematemesis, no hematochezia, no melena, no nausea, no vomiting - Genitourinary Genitourinary: no change in urinary stream, no dysuria, no flank pain, no hematuria - Musculoskeletal Musculoskeletal ROS IM: no numbness, no tingling - Integumentary Integumentary IM: no rash, no unusual bruising - Neurological Neurological ROS: no confusion, no convulsions, no focal weakness, no numbness, no tingling, no tremor(s) - Hematologic/Lymphatic Hematologic/Lymphatic: no easy bruising - Constitutional Vitals: Temp Pulse Resp BP Pulse Ox 100.9 F H 89 21 104/65 92 07/02/17 14:00 07/02/17 14:00 07/02/17 14:00 07/02/17 14:00 07/02/17 14:00 General appearance: Present: A&O X 3 - Head Head exam: Present: atraumatic, normocephalic - Eye Eye exam: Present: PERRL, conjuntiva pink, sclera anicteric Pupils: Present: PERRL - Neck Neck exam general surgery: Present: supple, trachea midline. Absent: lymphadenopathy - Respiratory Respiratory exam: Present: rhonchi. Absent: accessory muscle use, rales, wheezes - Cardiovascular Cardiovascular exam: Present: RRR, +S1, +S2. Absent: diastolic murmur, gallop, rubs, systolic murmur - GI/Abdominal GI/Abdominal exam: Present: normal bowel sounds, soft, no peritoneal signs. Absent: distended, tenderness - Extremities Exam Extremities exam: Present: warm, radial pulses palpable and symmetrical. Absent : calf tenderness, cyanotic, pedal edema - Neurological Exam Neurological exam: Present: CN II-XII intact, oriented X3, no focal deficits. Absent: pronater drift, facial droop, speech deficit - Skin Skin exam: Present: dry, intact Internal Med - H&P Results - Labs Labs: Lab work for a [place] [facility] CBC with 30 BC 16 hemoglobin 10 g platelets 277 Chem 7 sodium 135 potassium 4.12 chloride 97 bicarbonate 27 BUN 25 greater than 1.07 glucose 67 D-dimer 834 Lactic acid 1.3 Troponin 0.06 BNP 1248 - EKG Data EKG comments: 07/02/17 17:[address]-T wave abnormalities - Impressions CXR XR/XR chest 1V portable IMPRESSION: 1. Left chest port. 2. Persistent enlargement of the cardiac silhouette. 3. Relatively dense opacification of the right mid and lower lung, which appear slightly worsened. A component volume loss is seen at the right lung base.
[2017-07-02] MEDS ORDERED: Dextrose Gel 15 GM PO PRN ×2 (16:21)
[2017-07-02] MEDS ORDERED: *HR* Dextrose 50 % in Water (Syg) 50 ML SYRINGE IVP PRN (16:21)
[2017-07-02] MEDS ORDERED: D5% in Water 1,000 ML IVC PRN (16:21)
[2017-07-02] MEDS ORDERED: Albuterol 2.5 MG/3 ML NEBULIZER IH PRN (16:28)
[2017-07-02] MEDS ORDERED: Benzonatate 100 MG CAPSULE PO PRN (16:55)
[2017-07-02] MEDS: Insulin LISPRO 300 UNITS/3 ML VIAL SQ SCH (17:29)
[2017-07-02] MEDS ORDERED: MOM Conc 10 ML UD.LIQ PO PRN (17:50)
[2017-07-02] MEDS ORDERED: Warfarin perPT PO PRN (18:00)
[2017-07-02] MEDS: *HR* Warfarin 3 MG TABLET PO SCH (19:33)
[2017-07-02] MEDS: Sennosides/Docusate Sodium TABLET PO SCH (20:04)
[2017-07-02] MEDS: Metoprolol XL (24 HR) Succ 25 MG TAB.ER.24H PO SCH (20:04)
[2017-07-02] MEDS: Insulin DETEMIR 100 UNIT/ML X5UNITS SQ SCH (20:04)
[2017-07-02] MEDS: Ipratropium/Albuterol Neb 3 ML IH SCH (20:12)
[2017-07-02] MEDS: Diltiazem SR (12hr) 60 MG CAPSULE PO SCH (20:35)
[2017-07-02] MEDS ORDERED: Meropenem 1,000 MG in Water for inj. (sterile) 20 ML 10 ML IVP SCH (23:00)
[2017-07-02] MEDS ORDERED: Vancomycin 1,250 MG in D5% in Water 250 ML IVPB SCH (23:00)
[2017-07-02] MEDS: Aspirin 81 MG TAB.CHEW PO SCH (23:55)
[2017-07-03] MEDS: Insulin LISPRO 300 UNITS/3 ML VIAL SQ SCH ×5 (00:08→20:34)
[2017-07-03] MEDS: Ipratropium/Albuterol Neb 3 ML IH SCH ×6 (00:40→20:30)
[2017-07-03] MEDS: Insulin DETEMIR 100 UNIT/ML X5UNITS SQ SCH ×2 (01:09→20:44)
[2017-07-03] MEDS: Meropenem 1,000 MG in Water for inj. (sterile) 10 ML IVP SCH ×2 (01:48→12:40)
[2017-07-03 06:00] LABS: Basophils % 0.1 %; Eosinophils % 0.3 %; Hematocrit 31.8 % (35.3-44.9); Immature Granulocytes % 0.5 % (0-4); Lymphocytes # 0.5 K/mcL (0.6-4.6); Lymphocytes % 3.1 %; Mean Corpuscular HGB Conc 31.4 g/dL (31.6-35.5); Mean Corpuscular Hemoglobin 30.4 pg (28.0-33.3); Mean Corpuscular Volume 96.7 fL (83.0-100.0); Mean Platelet Volume 9.4 fL (9.4-12.4); Monocytes # 0.8 K/mcL (0.0-1.3); Monocytes % 5.1 %; Neutrophils # 13.7 K/mcL (1.6-8.9); Platelet Count 239 K/mcL (140-400); Red Blood Count 3.29 M/mcL (3.82-4.97); Red Cell Distribution Width 16.7 % (11.5-14.5); Segmented Neutrophils % 90.9 %
[2017-07-03 07:10] LABS: Potassium 3.7 mEq/L (3.5-5.1)
[2017-07-03] MEDS: Tiotropium 18 MCG inhalation IH SCH (07:26)
[2017-07-03] MEDS: Sennosides/Docusate Sodium TABLET PO SCH ×2 (08:35→20:43)
[2017-07-03] MEDS: Aspirin 81 MG TAB.CHEW PO SCH (08:35)
[2017-07-03] MEDS: predniSONE 5 MG TABLET PO SCH (08:35)
[2017-07-03] MEDS: Metoprolol XL (24 HR) Succ 25 MG TAB.ER.24H PO SCH ×2 (08:35→20:44)
[2017-07-03] MEDS: Diltiazem SR (12hr) 60 MG CAPSULE PO SCH ×2 (08:36→20:43)
[2017-07-03] MEDS: Ascorbic Acid 500 MG TABLET PO SCH (08:36)
[2017-07-03] MEDS ORDERED: Vancomycin 1 EACH in D5% in Water 250 ML IVPB PRN (09:00)
[2017-07-03 09:23] LABS: INR 1.9; Prothrombin Time 20.6 Seconds (9.4-12.1)
--- NOTE | 2017-07-03 09:23 | Internal Med Progress Note ---
<Terry Jiménez - Last Filed: 07/03/17 11:38> Date of Encounter: 07/03/17 Time of Encounter: 08:55 - Assessment and plan (1) Sepsis Current Visit: Yes Status: Acute Assessment and plan: At the time of admission - Criteria met with elevated temperature and WBC 16.0 with right sided PNA Blood cultures sent Temp down to 98.3 and WBC trending down 15.1 Appears to be resolving Vanc and Meropenem Qualifiers: Sepsis type: sepsis due to unspecified organism Qualified Code(s): A41.9 - Sepsis, unspecified organism (2) HCAP (healthcare-associated pneumonia) Current Visit: No Status: Acute Assessment and plan: CXR showing dense opacity of the right mid and lower lung ECF resident WBC trending own 16.0 -> 15.1 Temperature normalized Continue Vancomycin and Meropenom - Day 2 Supplemental 02, Duonebs and steroids Cultures pending (3) Elevated troponin Current Visit: No Status: Acute Assessment and plan: Trop decreased to 0.06. This is likely demand ischemia Cardiac monitoring Cardiology following (4) A-fib Current Visit: No Status: Chronic Assessment and plan: Rate stable Continue cardizem and coumadin INR 1.9 today Qualifiers: Atrial fibrillation type: paroxysmal Qualified Code(s): I48.0 - Paroxysmal atrial fibrillation (5) CHF (congestive heart failure) Current Visit: No Status: Chronic Assessment and plan: CXR showing no pulmonary edema Most recent ECHO 12/2016 showing EF 40% with mild AR and MR Given Lasix 60mg at outside facility before arrival No edema on examination today Monitor I&Os Cardiac diet Qualifiers: Congestive heart failure type: systolic Congestive heart failure chronicity : chronic Qualified Code(s): I50.22 - Chronic systolic (congestive) heart failure (6) CKD (chronic kidney disease) Current Visit: No Status: Chronic Assessment and plan: Cr 1.12 Avoid nephrotoxics Renal dose Abx Will recheck in the am Qualifiers: Chronic kidney disease stage: stage 3 (moderate) Qualified Code(s): N18.3 - Chronic kidney disease, stage 3 (moderate) (7) COPD (chronic obstructive pulmonary disease) Current Visit: No Status: Chronic Assessment and plan: Appears to be stable at this time. Continue O2 and bronchodilators Qualifiers: COPD type: unspecified COPD Qualified Code(s): J44.9 - Chronic obstructive pulmonary disease, unspecified (8) Diabetes Current Visit: No Status: Chronic Assessment and plan: Levemir 22 units HS with LDSS for coverage Qualifiers: Diabetes mellitus type: type 2 Diabetes mellitus complication status: with kidney complications Diabetes mellitus complication detail: with chronic kidney disease Diabetes mellitus terminal makeup operator insulin use: without residential use Chronic kidney disease stage: stage 3 (moderate) Qualified Code(s): E11.22 - Type 2 diabetes mellitus with diabetic chronic kidney disease; N18.3 - Chronic kidney disease, stage 3 (moderate); N18.3 - Chronic kidney disease, stage 3 (moderate) (9) DVT prophylaxis Current Visit: No Status: Acute Assessment and plan: Coumadin therapy - Subjective Interval history: Patient is resting comfortably in bed this morning. ECF resident admission Denies any new complaints since her admission Reports that her breathing is "getting better" since yesterday No concerns overnight per nursing - Constitutional Vitals: Temp Pulse Resp BP Pulse Ox 98.3 F 85 22 112/69 97 07/03/17 06:39 07/03/17 06:39 07/03/17 07:29 07/03/17 06:39 07/03/17 07:29 General appearance: Present: cooperative, A&O X 3, no acute distress, answers questions appropriately - Head Head exam: Present: atraumatic, normocephalic - Eye Eye exam: Present: EOMI, normal appearance - ENT ENT exam: Present: mucous membranes moist - Neck Neck exam general surgery: Present: supple, trachea midline - Respiratory Respiratory exam: Present: prolonged expiratory phase, wheezes. Absent: chest wall tenderness, rhonchi - Cardiovascular Cardiovascular exam: Present: RRR, +S1, +S2 - GI/Abdominal GI/Abdominal exam: Present: normal bowel sounds, soft. Absent: tenderness - Extremities Exam Extremities exam: Present: normal capillary refill, tenderness, warm. Absent: calf tenderness, pedal edema - Neurological Exam Neurological exam: Present: alert, oriented X3, no focal deficits - Psychiatric Psychiatric exam: Present: normal affect, normal mood - Skin Skin exam: Present: dry, warm Internal Medicine: Result - Labs CBC & Chem 7: 07/03/17 05:48 07/03/17 05:48 Labs: Short CBC 07/03/17 Range/Units 05:48 WBC 15.1 H (4.3-11.1) K/mcL Hgb 10.0 L (11.5-15.4) g/dL Hct 31.8 L (35.3-44.9) % Plt Count 239 (140-400) K/mcL Neutrophils # 13.7 H (1.6-8.9) K/mcL BMP 07/03/17 05:48 Sodium 133 L Potassium 3.7 Chloride 96 L Carbon Dioxide 26 BUN 22 Creatinine 1.15 Glucose 80 Calcium 9.0 Cardiac Enzymes 07/02/17 07/02/17 07/03/17 Range/Units 16:43 22:03 05:48 Troponin I 0.10 H* 0.07 H* 0.06 H* (< 0.04) ng/mL Consult Discharge Plan - Plan Referrals: Huyen Tijerina MD [Primary Care Provider] - <Ashkan Dooley - Last Filed: 07/03/17 18:39> Date of Encounter: 07/03/17 - Constitutional Vitals: Temp Pulse Resp BP Pulse Ox 97.8 F 98 20 120/88 97 07/03/17 16:58 07/03/17 16:58 07/03/17 16:58 07/03/17 16:58 07/03/17 16:58 Internal Medicine: Result - Labs CBC & Chem 7: 07/03/17 05:48 07/03/17 05:48 Labs: Short CBC 07/03/17 Range/Units 05:48 WBC 15.1 H (4.3-11.1) K/mcL Hgb 10.0 L (11.5-15.4) g/dL Hct 31.8 L (35.3-44.9) % Plt Count 239 (140-400) K/mcL Neutrophils # 13.7 H (1.6-8.9) K/mcL BMP 07/03/17 05:48 Sodium 133 L Potassium 3.7 Chloride 96 L Carbon Dioxide 26 BUN 22 Creatinine 1.15 Glucose 80 Calcium 9.0 Cardiac Enzymes 07/02/17 07/03/17 Range/Units 22:03 05:48 Troponin I 0.07 H* 0.06 H* (< 0.04) ng/mL - ABG Interpretation ABG results: PT/INR, D-dimer PT 20.6 Seconds (9.4-12.1) H 12/20/17 09:10 - Attending Attestation I conducted a face to face diagnostic evaluation of this patient and my medical decision-making was reviewed with the Resident Physician, Dr Bonny Vanegas. I agree with the documented findings, disposition and treatment plan as described except to the extent set forth below: All this patient's medical problems are new to me today. She and is in no acute distress. Heart is irregularly irregular. Lungs sounds are diminished with superimposed expiratory wheezes and rails. Plan: Broad-spectrum IV antibiotics for pneumonia. Supplemental oxygen. Discontinue Sosa catheter. Ashkan Dooley MD
--- NOTE | 2017-07-03 10:43 | Cardiology Consult Note ---
<Oswald Peng - Last Filed: 07/03/17 14:35> Date of Encounter: 07/03/17 Time of Encounter: 09:45 Assessment and Plan (1) Elevated troponin Current Visit: No Status: Acute Patient was noted to have an elevated troponin on presentation at 0.10. Subsequent troponins were 0.07 and 0.06. Denied having any chest pain on presentation. EKG demonstrated atrial fibrillation with no ST changes. Possibly due to demand ischemia. Plan: -Aspirin 81 mg by mouth daily -Repeat ECHO. (2) A-fib Current Visit: No Status: Chronic Patient has a known history of atrial fibrillation. Plan: -Coumadin 6 mg PO 1800. Goal INR is 2-3. -Cardizem 120 mg PO BID. -Metoprolol XL 12.5 mg PO BID. Qualifiers: Atrial fibrillation type: paroxysmal Qualified Code(s): I48.0 - Paroxysmal atrial fibrillation (3) CHF (congestive heart failure) Current Visit: No Status: Chronic Chest x-ray performed on 07/02/17 of this are the followin. Left chest port. 2. Persistent enlargement of the cardiac silhouette. 3. Relatively dense opacification of the right mid and lower lung, whichappear slightly worsened. A component volume loss is seen at the right lung base. Last ECHO performed on 12/26/16 demonstrated the following: -LVEF 40%. -There are LV regional wall motion abnormalities (see Diagram below). -RV is normal in size with low normal function. Not all segments were well -visualized. -Mild aortic regurgitation. -Mild-moderate mitral regurgitation. -No pulmonary hypertension. Patient was given 60 mg of Lasix at the outlying facility. Patient's Lasix has been held due to hypotension. Plan: -Monitor intake and output, daily weights -Cardiac monitoring. Qualifiers: Congestive heart failure type: systolic Congestive heart failure chronicity : chronic Qualified Code(s): I50.22 - Chronic systolic (congestive) heart failure (4) Hx of aortic aneurysm Current Visit: No Status: Acute Known history of aortic aneurysm with iliac bi-aortic stent placement, at [facility] per Dr. Perez Recent CT of abdomen shows stable unchanged aneurysm 12 x 12 cm Discussion w patient/family: The assessment and plan as outlined above was discussed with the patient and/or family members who expressed understanding and agreement. All questions were answered. Thank you for involving us in the care of your patient. Please call with any questions. History of Present Illness Consult date: 07/03/17 Chief complaint: Shortness of breath History of present illness: Ms. Preston is a 77 year old female with a past medical history of aortic aneurysm with iliac by aortic stent placement, Afib on coumadin, CHF with EF of 40% COPD O2 dependent on 3 L nasal cannula, CAD, DM, GERD, HTN and HLD, and adenocarcinoma of the lung;underwent chemotherapy and radiation treatment which completed on 11/13/2016. She presented to the hospital with chief complaint of shortness of breath, productive cough, and yellow sputum production of one week' s duration. Patient resides in [facility]. On presentation, patient had an elevated white count. Chest x-ray demonstrated consolidation. She was given IV Lasix and was found to have an elevated troponin level. Patient was started on vancomycin and meropenem for the treatment of healthcare acquired pneumonia.. Laboratory examination demonstrated elevated troponin of 0.10. Subsequent troponins were 0.07 and 0.06. Patient was seen and examined this morning. Reported mild shortness of breath. Currently on O2 via nasal cannula. She denies having any chest pain and adding point during this visit. No other complaints at this time. Past Med Surg Social Fam HX - Past Medical History Medical history: aortic aneurysm, atrial fibrillation, cancer, COPD, coronary artery disease, DVT, diabetes, GERD, hyperlipidemia, hypertension, myocardial infarction, other Psychiatric history: anxiety - Past Surgical History Surgical History: cholecystectomy, hysterectomy, ureteral stent, other - Social History Smoking Status: Former smoker Smokeless Tobacco Status: No Alcohol use: none Drug use: none - Family History Father Family Member Ethnicity: Non- Living Status: Hx Family Cancer: Yes Mother Family Member Ethnicity: Non- Living Status: Hx Family Cardiac Disorders: Yes (CHF) Hx Family Endocrine Disorder: Yes (DM) Brother Family Member Ethnicity: Non- Living Status: Still Living Hx Family Cardiac Disorders: Yes (HD) Medications and Allergies Acetaminophen [Non-Aspirin] 650 mg PO Q6H PRN 04/24/17 [History] Atorvastatin [Lipitor] 40 mg PO HS 04/24/17 [History] Citalopram Hydrobromide [Citalopram HBr] 10 mg PO DAILY 04/24/17 [History] Ergocalciferol (VITAMIN D2) [Vitamin D2] 50,000 unit PO QWEEK 04/24/17 [History] Insulin ASPART [Novolog Flexpen] 2 - 6 unit SQ ACHS 04/24/17 [History] Insulin Glargine [Lantus] 20 unit SQ HS 04/24/17 [History] LORazepam [Ativan] 0.5 mg PO Q6H PRN 04/24/17 [History] Magic Mouthwash [Magic Mouthwash BLM] 10 ml PO Q2H PRN 04/24/17 [History] Magnesium Hydroxide [Milk of Magnesia] 30 ml PO DAILY PRN 04/24/17 [History] Omeprazole [PriLOSEC] 20 mg PO DAILY 04/24/17 [History] Sennosides/Docusate Sodium [Senna-S Tablet] 1 tab PO BID 04/24/17 [History] Spironolactone [Aldactone] 12.5 mg PO DAILY 04/24/17 [History] Tramadol HCl [Ultram] 50 mg PO Q8H PRN 04/24/17 [History] Warfarin [Coumadin] 6 mg PO QPM 04/24/17 [History] Benzonatate [Tessalon] 200 mg PO TID PRN capsule 05/01/17 [Rx] Diltiazem SR (12hr) [Cardizem SR] 120 mg PO BID cap.er.12h 05/01/17 [Rx] Furosemide [Lasix] 40 mg PO DAILY 05/28/17 [History] Potassium Chloride [Klor-Con Sprinkle] 10 meq PO DAILY 05/28/17 [History] Ascorbate Calcium [Vitamin C] 500 mg PO DAILY 06/29/17 [History] Ferrous Sulfate [Iron] 325 mg PO DAILY 06/29/17 [History] Multivitamin,Stress Formula/Zn [Stress B with Zinc Tablet] 1 each PO DAILY 06/29 [History] Tiotropium [Spiriva] 18 mcg IH 0700 06/29/17 [History] Ipratropium/Albuterol Neb [Duoneb] 3 ml IH Q4HR PRN 07/02/17 [History] Metoprolol XL (24 HR) Succ [Toprol XL] 12.5 mg PO BID 07/02/17 [History] predniSONE [Prednisone] 7.5 mg PO DAILY 07/02/17 [History] 3 Allergy/AdvReac Type Severity Reaction Status Date / Time Penicillins [PCN] Allergy Intermediate Hives Verified 05/28/17 15:14 Sulfa (Sulfonamide Allergy Intermediate Hives Verified 05/28/17 15:14 Antibiotics) All Systems Review: A 10-system review of systems was performed and is negative for pertinent findings except as documented above in the HPI. Physical Examination Vital Signs, Last 4 Hours Resp Pulse Ox 07/03/17 07:29 22 97 Results 07/03/17 05:48 07/03/17 05:48 Lab Results 07/02/17 07/02/17 07/03/17 16:43 22:03 05:48 WBC 15.1 H Hgb 10.0 L Hct 31.8 L Plt Count 239 INR Sodium Potassium Chloride Carbon Dioxide BUN Creatinine Glucose Calcium Magnesium Troponin I 0.10 H* 0.07 H* 07/03/17 07/03/17 07/03/17 05:48 05:48 07:34 WBC Hgb Hct Plt Count INR Sodium 133 L Potassium 3.7 Chloride 96 L Carbon Dioxide 26 BUN 22 Creatinine 1.15 Glucose 80 Calcium 9.0 Magnesium 1.9 Troponin I 0.06 H* 07/03/17 09:10 WBC Hgb Hct Plt Count INR 1.9 Sodium Potassium Chloride Carbon Dioxide BUN Creatinine Glucose Calcium Magnesium Troponin I Consult Discharge Plan - Plan Referrals: Huyen Tijerina MD [Primary Care Provider] - <JovonkarsonMary - Last Filed: 07/03/17 17:13> Date of Encounter: 07/03/17 - Attending Attestation I examined this patient and my medical decision-making was reviewed with the Resident Physician. I agree with the documented findings, disposition and treatment plan. Ms. Preston presented to the hospital with shortness of breath and productive cough noted to have leukocytosis and infiltrate on chest x-ray being treated for healthcare acquired pneumonia as she presented from [facility]. Incidentally discovered were mildly elevated, flat and adynamic troponins. Patient denies any recent chest pain. EKG demonstrated known atrial fibrillation without ischemic findings. Suspect troponin elevation is secondary to demand ischemia in a patient with a known ischemic cardiomyopathy. Prior cath in 2012 demonstrating 40% stenosis LM, 40% stenosis pLAD, 99% mid LCx - small vessel, 50 % stenosis OM1, 100% stenosis dRCA filling from left collaterals. Most recent echo demonstrated EF 40%. Recommend repeating a limited echo for reevaluation LV systolic function. If there are no significant changes from her baseline known LV systolic function, anticipate sign off. Can consider stress testing as an outpatient once clinical picture improves. Otherwise, she has known history of atrial fibrillation, rate controlled. Recommend continuing AV reynaldo blockers and Coumadin for anticoagulation. Known history of aortic aneurysm and aortic stent placement followed by outside facility. Assessment and Plan Discussion w patient/family: The assessment and plan as outlined above was discussed with the patient and/or family members who expressed understanding and agreement. All questions were answered. Thank you for involving us in the care of your patient. Please call with any questions. History of Present Illness History of present illness: Ms. Preston is a 77 year old female All Systems Review: A 10-system review of systems was performed and is negative for pertinent findings except as documented above in the HPI. Physical Examination Vital Signs, Last 4 Hours Temp Pulse Resp BP Pulse Ox 07/03/17 16:58 97.8 F 98 20 120/88 97 Results 07/03/17 05:48 07/03/17 05:48 Lab Results 07/02/17 07/02/17 07/03/17 16:43 22:03 05:48 WBC 15.1 H Hgb 10.0 L Hct 31.8 L Plt Count 239 INR Sodium Potassium Chloride Carbon Dioxide BUN Creatinine Glucose Calcium Magnesium Troponin I 0.10 H* 0.07 H* 07/03/17 07/03/17 07/03/17 05:48 05:48 07:34 WBC Hgb Hct Plt Count INR Sodium 133 L Potassium 3.7 Chloride 96 L Carbon Dioxide 26 BUN 22 Creatinine 1.15 Glucose 80 Calcium 9.0 Magnesium 1.9 Troponin I 0.06 H* 07/03/17 09:10 WBC Hgb Hct Plt Count INR 1.9 Sodium Potassium Chloride Carbon Dioxide BUN Creatinine Glucose Calcium Magnesium Troponin I
[2017-07-03] MEDS ORDERED: Aminoglycoside Consult 1 EACH MC ONE (14:40)
[2017-07-03] MEDS: Acetaminophen 325 MG TABLET PO PRN ×2 (15:06→20:43)
[2017-07-03] MEDS: *HR* Warfarin 3 MG TABLET PO SCH (16:58)
[2017-07-03] MEDS: *HR* LORazepam 0.5 MG TABLET PO PRN (20:43)
[2017-07-04] MEDS: Ipratropium/Albuterol Neb 3 ML IH SCH ×7 (00:09→23:29)
[2017-07-04] MEDS: Meropenem 1,000 MG in Water for inj. (sterile) 10 ML IVP SCH ×2 (01:51→12:25)
[2017-07-04 05:27] LABS: Basophils % 0.1 %; Eosinophils % 0.3 %; Hematocrit 32.2 % (35.3-44.9); Hemoglobin 10.1 g/dL (11.5-15.4); Immature Granulocytes % 0.5 % (0-4); Immature Platelets 2.4 % (1.1-6.1); Lymphocytes # 0.5 K/mcL (0.6-4.6); Lymphocytes % 3.4 %; Mean Corpuscular HGB Conc 31.4 g/dL (31.6-35.5); Mean Corpuscular Hemoglobin 30.1 pg (28.0-33.3); Mean Corpuscular Volume 95.8 fL (83.0-100.0); Mean Platelet Volume 9.5 fL (9.4-12.4); Monocytes # 0.8 K/mcL (0.0-1.3); Monocytes % 5.6 %; Neutrophils # 13.5 K/mcL (1.6-8.9); Platelet Count 284 K/mcL (140-400); Red Blood Count 3.36 M/mcL (3.82-4.97); Red Cell Distribution Width 16.5 % (11.5-14.5); Segmented Neutrophils % 90.1 %
[2017-07-04 05:38] LABS: INR 2.4; Prothrombin Time 26.3 Seconds (9.4-12.1)
[2017-07-04 06:04] LABS: Calcium 9.5 mg/dL (8.6-10.3); Potassium 3.7 mEq/L (3.5-5.1)
[2017-07-04] MEDS: Insulin LISPRO 300 UNITS/3 ML VIAL SQ SCH ×4 (07:43→20:55)
--- NOTE | 2017-07-04 07:50 | Internal Med Progress Note ---
<Terry Jiménez - Last Filed: 07/04/17 12:58> Date of Encounter: 07/04/17 Time of Encounter: 07:50 - Assessment and plan (1) HCAP (healthcare-associated pneumonia) Current Visit: No Status: Acute Assessment and plan: CXR showing dense opacity of the right mid and lower lung ECF resident WBC trending own 16.0 -> 15.1 > 15.0 Temperature normalized Continue Meropenom - Day 3 Discontinued Vancomcin with bump in Cr and started on Zyvox Supplemental 02, Duonebs and steroids Sputum culture not meeting criteria for C&S Appears to be responding to treatment. Rechecking CXR later today. (2) Sepsis Current Visit: Yes Status: Acute Assessment and plan: At the time of admission - Criteria met with elevated temperature and WBC 16.0 with right sided PNA Blood cultures sent, pending Temp down to 98.3 and WBC trending down 15.0 Appears to be resolving Zyvox and Meropenem Qualifiers: Sepsis type: sepsis due to unspecified organism Qualified Code(s): A41.9 - Sepsis, unspecified organism (3) Elevated troponin Current Visit: No Status: Acute Assessment and plan: Trop decreased to 0.06. Cardiac monitoring Cardiology following and agree that this is likely demand ischemia Repeat ECHO (4) A-fib Current Visit: No Status: Chronic Assessment and plan: Rate stable, afib on monitor INR 2.4 today, at goal Plan: -Coumadin 6 mg PO 1800. -Cardizem 120 mg PO BID. -Metoprolol XL 12.5 mg PO BI Qualifiers: Atrial fibrillation type: paroxysmal Qualified Code(s): I48.0 - Paroxysmal atrial fibrillation (5) CHF (congestive heart failure) Current Visit: No Status: Chronic Assessment and plan: CXR showing no pulmonary edema Most recent ECHO 12/2016 showing EF 40% with mild AR and MR Given Lasix 60mg at outside facility before arrival No edema on examination today Monitor I&Os Cardiac diet Cardiology following BNP 1248 on 07/02/17 Plan: BP stable. Restarting home dose of Lasix PO 40mg qd ASA, BB, statin therapy Cardio recommended repeat ECHO Qualifiers: Congestive heart failure type: systolic Congestive heart failure chronicity : chronic Qualified Code(s): I50.22 - Chronic systolic (congestive) heart failure (6) CKD (chronic kidney disease) Current Visit: No Status: Chronic Assessment and plan: Cr up to 1.25 Switched Vanc to Zyvox Renal dose Abx Will recheck in the am Qualifiers: Chronic kidney disease stage: stage 3 (moderate) Qualified Code(s): N18.3 - Chronic kidney disease, stage 3 (moderate) (7) COPD (chronic obstructive pulmonary disease) Current Visit: No Status: Chronic Assessment and plan: Appears to be stable at this time. Continue O2 and bronchodilators Qualifiers: COPD type: unspecified COPD Qualified Code(s): J44.9 - Chronic obstructive pulmonary disease, unspecified (8) Diabetes Current Visit: No Status: Chronic Assessment and plan: Levemir 22 units HS with LDSS for coverage Qualifiers: Diabetes mellitus type: type 2 Diabetes mellitus complication status: with kidney complications Diabetes mellitus complication detail: with chronic kidney disease Diabetes mellitus terminal clerk insulin use: without terminal clerk use Chronic kidney disease stage: stage 3 (moderate) Qualified Code(s): E11.22 - Type 2 diabetes mellitus with diabetic chronic kidney disease; N18.3 - Chronic kidney disease, stage 3 (moderate); N18.3 - Chronic kidney disease, stage 3 (moderate) (9) Weakness Current Visit: Yes Status: Chronic Assessment and plan: PT and OT to evaluate ECF resident and poor ambulator (10) DVT prophylaxis Current Visit: No Status: Acute Assessment and plan: Coumadin therapy - Subjective Interval history: Patient is resting comfortably in bed this morning. ECF resident admission Denies any new complaints since her admission Reports that her breathing is even better today No concerns overnight per nursing, very unsteady on feet during transfer to chair. Unable to transfer on her own. - Constitutional Vitals: Temp Pulse Resp BP Pulse Ox 98.4 F 99 22 138/54 91 07/04/17 06:42 07/04/17 06:42 07/04/17 06:42 07/04/17 06:42 07/04/17 06:42 General appearance: Present: cooperative, A&O X 3, no acute distress, answers questions appropriately - Head Head exam: Present: atraumatic, normocephalic - Eye Eye exam: Present: EOMI, normal appearance, conjuntiva pink, sclera anicteric - ENT ENT exam: Present: mucous membranes moist - Neck Neck exam general surgery: Present: supple, trachea midline - Respiratory Respiratory exam: Present: rhonchi, wheezes (improved). Absent: rales, respiratory distress - Cardiovascular Cardiovascular exam: Present: irregular rhythm (irregular irregular) - GI/Abdominal GI/Abdominal exam: Present: normal bowel sounds, soft. Absent: distended, guarding, tenderness - Extremities Exam Extremities exam: Present: normal inspection, warm. Absent: calf tenderness, pedal edema - Neurological Exam Neurological exam: Present: alert, oriented X3, no focal deficits - Psychiatric Psychiatric exam: Present: normal affect, normal mood - Skin Skin exam: Present: dry, warm Internal Medicine: Result - Labs CBC & Chem 7: 07/04/17 04:54 07/04/17 04:54 Labs: Short CBC 07/04/17 Range/Units 04:54 WBC 15.0 H (4.3-11.1) K/mcL Hgb 10.1 L (11.5-15.4) g/dL Hct 32.2 L (35.3-44.9) % Plt Count 284 (140-400) K/mcL Neutrophils # 13.5 H (1.6-8.9) K/mcL BMP 07/04/17 04:54 Sodium 137 Potassium 3.7 Chloride 97 L Carbon Dioxide 30 H BUN 24 H Creatinine 1.25 H Glucose 91 Calcium 9.5 - ABG Interpretation ABG results: PT/INR, D-dimer PT 26.3 Seconds (9.4-12.1) H 07/04/17 04:54 Consult Discharge Plan - Plan Referrals: Huyen Tijerina MD [Primary Care Provider] - <Ashkan Dooley - Last Filed: 07/04/17 19:00> Date of Encounter: 07/04/17 - Constitutional Vitals: Temp Pulse Resp BP Pulse Ox 98.0 F 96 20 125/62 96 07/04/17 14:45 07/04/17 14:45 07/04/17 16:30 07/04/17 14:45 07/04/17 16:30 Internal Medicine: Result - Labs CBC & Chem 7: 07/04/17 04:54 07/04/17 04:54 Labs: Short CBC 07/04/17 Range/Units 04:54 WBC 15.0 H (4.3-11.1) K/mcL Hgb 10.1 L (11.5-15.4) g/dL Hct 32.2 L (35.3-44.9) % Plt Count 284 (140-400) K/mcL Neutrophils # 13.5 H (1.6-8.9) K/mcL BMP 07/04/17 04:54 Sodium 137 Potassium 3.7 Chloride 97 L Carbon Dioxide 30 H BUN 24 H Creatinine 1.25 H Glucose 91 Calcium 9.5 - ABG Interpretation ABG results: PT/INR, D-dimer PT 26.3 Seconds (9.4-12.1) H 07/04/17 04:54 - Impressions Impressions Echocardiogram Limited Views 07/03/17 13:29 Impressions: LVEF 35-40%. Mildly dilated left ventricle. Global left ventricular systolic dysfunction. Atypical septal motion consistent with bundle branch block. Future studies should be completed with contrast enhancement. Left Ventricular Wall Motion: Rest Echo Findings The apex, apical inferior, mid inferior, basal inferior, apical anterior, mid anterior, basal anterior, apical septal, mid inferior septal, basal inferior septal, apical lateral, mid anterior lateral, basal anterior lateral, mid anterior septal, mid inferior lateral, basal anterior septal and basal inferior lateral schwartz were hypokinetic. Findings: Study Quality * Technically sub-optimal due to poor echocardiographic windows. ECG Findings * Sinus rhythm with BBB. Left Ventricle * LVEF 35-40%. * Mildly dilated left ventricle. * Global left ventricular systolic dysfunction. * Atypical septal motion consistent with bundle branch block. Chest X-Ray 07/04/17 17:00 IMPRESSION: Continued right mid to lower lung airspace opacity, similar when compared to the previous exam. D/ / Piyush Nguyen MD / Piyush Nguyen MD Interpreting Provider: Piyush Nguyen MD - Attending Attestation I conducted a face to face diagnostic evaluation of this patient and my medical decision-making was reviewed with the Resident Physician. I agree with the documented findings, disposition and treatment plan as described except to the extent set forth below: Patient reports mild to moderate shortness of breath at rest as well as back pain worse with coughing. On exam her lungs are clear to auscultation bilaterally Plan: We will continue with Zyvox and meropenem. Continue supplemental oxygen. Ashkan Dooley MD
[2017-07-04] MEDS: Tiotropium 18 MCG inhalation IH SCH (07:58)
[2017-07-04] MEDS: predniSONE 5 MG TABLET PO SCH (09:45)
[2017-07-04] MEDS: Ascorbic Acid 500 MG TABLET PO SCH (09:45)
[2017-07-04] MEDS: Aspirin 81 MG TAB.CHEW PO SCH (09:45)
[2017-07-04] MEDS: Diltiazem SR (12hr) 60 MG CAPSULE PO SCH ×2 (09:45→20:46)
[2017-07-04] MEDS: Metoprolol XL (24 HR) Succ 25 MG TAB.ER.24H PO SCH ×2 (09:45→20:46)
[2017-07-04] MEDS: Sennosides/Docusate Sodium TABLET PO SCH ×2 (09:45→20:46)
[2017-07-04] MEDS: Acetaminophen 325 MG TABLET PO PRN ×2 (09:53→20:46)
[2017-07-04] MEDS: Furosemide 40 MG TABLET PO SCH (09:53)
--- NOTE | 2017-07-04 13:45 | Event Note ---
Date of Encounter: 07/04/17 Time of Encounter: 13:20 - Cardiology Event Note Seen and examined. EF 35-40%, no significant changes from prior TTE, 40%. Continue supportive care for PNA. Discussed with Dr. Brown; can consider ischemic evaluation in the outpatient setting if warranted. (see consult note) No further inpatient recommendations, continue current medical therapy. Cardiology will sign-off, please call with questions.
--- NOTE | 2017-07-04 16:31 | Electrocardiograph Report ---
[address] [address] Test Date: 2017-07-03 Pat Name: Kristie Preston Department: 114 Room: [facility] Gender: F [employer] Banker: PATRICIA : 1940 Requested By: Ashkan Dooley Order Number: [id number] Reading MD: Jah Allen MD Measurements Intervals [place] Rate: 87 P: OR: 0 QRS: 6 QRSD: 126 T: 127 QT: 388 QTc: 433 Interpretive Statements ATRIAL FIBRILLATION WITH ABERRANT CONDUCTION OR VENTRICULAR PREMATURE COMPLEXES Electronically Signed On 07-04-2017 16:29:52 EST by Jah Allen MD
[2017-07-04] MEDS ORDERED: *HR* Warfarin 3 MG TABLET PO ONE (18:00)
[2017-07-04] MEDS: *HR* LORazepam 0.5 MG TABLET PO PRN (20:46)
[2017-07-04] MEDS: Insulin DETEMIR 100 UNIT/ML X5UNITS SQ SCH (20:56)
[2017-07-05] MEDS: Meropenem 1,000 MG in Water for inj. (sterile) 10 ML IVP SCH (01:28)
[2017-07-05] MEDS: Ipratropium/Albuterol Neb 3 ML IH SCH ×3 (04:03→12:00)
[2017-07-05 04:32] LABS: Basophils % 0.1 %; Eosinophils # 0.1 K/mcL (0.0-0.6); Eosinophils % 0.8 %; Hematocrit 31.2 % (35.3-44.9); Hemoglobin 9.8 g/dL (11.5-15.4); Immature Granulocytes % 0.8 % (0-4); Lymphocytes # 0.4 K/mcL (0.6-4.6); Lymphocytes % 4.1 %; Mean Corpuscular HGB Conc 31.4 g/dL (31.6-35.5); Mean Corpuscular Hemoglobin 30.1 pg (28.0-33.3); Mean Corpuscular Volume 95.7 fL (83.0-100.0); Mean Platelet Volume 9.6 fL (9.4-12.4); Monocytes # 0.7 K/mcL (0.0-1.3); Platelet Count 255 K/mcL (140-400); Red Blood Count 3.26 M/mcL (3.82-4.97); Red Cell Distribution Width 16.3 % (11.5-14.5); Segmented Neutrophils % 87.2 %
[2017-07-05 04:46] LABS: Calcium 9.3 mg/dL (8.6-10.3); Potassium 3.8 mEq/L (3.5-5.1)
[2017-07-05 04:48] LABS: INR 2.8; Prothrombin Time 30.6 Seconds (9.4-12.1)
[2017-07-05] MEDS: Tiotropium 18 MCG inhalation IH SCH (08:11)
[2017-07-05] MEDS: Insulin LISPRO 300 UNITS/3 ML VIAL SQ SCH ×2 (08:36→12:27)
[2017-07-05 08:49] VITALS: BP 124/58
[2017-07-05] MEDS: Diltiazem SR (12hr) 60 MG CAPSULE PO SCH (09:22)
[2017-07-05] MEDS: Ascorbic Acid 500 MG TABLET PO SCH (09:22)
[2017-07-05] MEDS: Furosemide 40 MG TABLET PO SCH (09:24)
[2017-07-05] MEDS: Metoprolol XL (24 HR) Succ 25 MG TAB.ER.24H PO SCH (09:24)
[2017-07-05] MEDS: Aspirin 81 MG TAB.CHEW PO SCH (09:24)
[2017-07-05] MEDS: predniSONE 5 MG TABLET PO SCH (09:24)
[2017-07-05] MEDS: Sennosides/Docusate Sodium TABLET PO SCH (09:58)
--- NOTE | 2017-07-05 10:43 | Physician Discharge Referral ---
ExtendedCare Referral Info Transfer To: [facility] Provider in Charge after Transfer: PCP - Diagnosis (1) HCAP (healthcare-associated pneumonia) Priority: Primary Status: Acute (2) Sepsis Priority: Primary Status: Acute (3) Elevated troponin Priority: Secondary Status: Acute (4) A-fib Priority: Secondary Status: Chronic (5) CHF (congestive heart failure) Priority: Secondary Status: Chronic (6) CKD (chronic kidney disease) Priority: Secondary Status: Chronic (7) COPD (chronic obstructive pulmonary disease) Priority: Secondary Status: Chronic (8) Diabetes Priority: Secondary Status: Chronic (9) Weakness Priority: Secondary Status: Chronic (10) DVT prophylaxis Priority: Secondary Status: Acute Prognosis: Good - Transfer Medications Home Medications: Acetaminophen [Non-Aspirin] 650 mg PO Q6H PRN 04/24/17 [History] Atorvastatin [Lipitor] 40 mg PO HS 04/24/17 [History] Citalopram Hydrobromide [Citalopram HBr] 10 mg PO DAILY 04/24/17 [History] Ergocalciferol (VITAMIN D2) [Vitamin D2] 50,000 unit PO QWEEK 04/24/17 [History] Insulin ASPART [Novolog Flexpen] 2 - 6 unit SQ ACHS 04/24/17 [History] Insulin Glargine [Lantus] 20 unit SQ HS 04/24/17 [History] LORazepam [Ativan] 0.5 mg PO Q6H PRN 04/24/17 [History] Magic Mouthwash [Magic Mouthwash BLM] 10 ml PO Q2H PRN 04/24/17 [History] Magnesium Hydroxide [Milk of Magnesia] 30 ml PO DAILY PRN 04/24/17 [History] Omeprazole [PriLOSEC] 20 mg PO DAILY 04/24/17 [History] Sennosides/Docusate Sodium [Senna-S Tablet] 1 tab PO BID 04/24/17 [History] Spironolactone [Aldactone] 12.5 mg PO DAILY 04/24/17 [History] Tramadol HCl [Ultram] 50 mg PO Q8H PRN 04/24/17 [History] Warfarin [Coumadin] 6 mg PO QPM 04/24/17 [History] Benzonatate [Tessalon] 200 mg PO TID PRN capsule 05/01/17 [Rx] Diltiazem SR (12hr) [Cardizem SR] 120 mg PO BID cap.er.12h 05/01/17 [Rx] Furosemide [Lasix] 40 mg PO DAILY 05/28/17 [History] Potassium Chloride [Klor-Con Sprinkle] 10 meq PO DAILY 05/28/17 [History] Ascorbate Calcium [Vitamin C] 500 mg PO DAILY 06/29/17 [History] Ferrous Sulfate [Iron] 325 mg PO DAILY 06/29/17 [History] Multivitamin,Stress Formula/Zn [Stress B with Zinc Tablet] 1 each PO DAILY 06/29 [History] Tiotropium [Spiriva] 18 mcg IH 0700 06/29/17 [History] Ipratropium/Albuterol Neb [Duoneb] 3 ml IH Q4HR PRN 07/02/17 [History] Metoprolol XL (24 HR) Succ [Toprol Xl] 12.5 mg PO BID 07/02/17 [History] predniSONE [Prednisone] 7.5 mg PO DAILY 07/02/17 [History] Ertapenem [INVanz] 1,000 mg IVPB DAILY #5 vial 07/05/17 [Rx] Allergies/Adverse Reactions: 3 Allergy/AdvReac Type Severity Reaction Status Date / Time Penicillins [PCN] Allergy Intermediate Hives Verified 05/28/17 15:14 Sulfa (Sulfonamide Allergy Intermediate Hives Verified 05/28/17 15:14 Antibiotics) - Respiratory Orders Oxygen / L per min (2) Smoking Cessation: Smoking cessation has been advised. For more information, call the [place] Tobacco Quit Line at 6-815-LMCK-NOW. - Advance Directives Code Status: DNR-Arrest - Mobility Orders Chair - Rehabiliation Orders Rehab Potential: Fair Rehab Orders: Evaluation for Physical Therapy, Evaluation for Occupational Therapy - Diet Orders Regular, No Added Salt (VANGIE), Cardiac CERTIFICATION: I certify that the transfer of the above named patient to an Extended Care Facility is necessary for the continuing treatment of the diagnosis listed. The above information is true and accurate reflection of patient's current condition. Confidential - Redisclosure prohibited without a patient's written consent.
--- NOTE | 2017-07-05 10:48 | Discharge Summary ---
Date of Encounter: 07/05/17 Time of Encounter: 10:46 - Discharge Diagnosis (1) HCAP (healthcare-associated pneumonia) Priority: Primary Status: Acute (2) Sepsis Priority: Primary Status: Resolved Qualifiers: Sepsis type: sepsis due to unspecified organism Qualified Code(s): A41.9 - Sepsis, unspecified organism (3) A-fib Priority: Secondary Status: Chronic Qualifiers: Atrial fibrillation type: paroxysmal Qualified Code(s): I48.0 - Paroxysmal atrial fibrillation (4) CHF (congestive heart failure) Priority: Secondary Status: Chronic Qualifiers: Congestive heart failure type: systolic Congestive heart failure chronicity : chronic Qualified Code(s): I50.22 - Chronic systolic (congestive) heart failure (5) CKD (chronic kidney disease) Priority: Secondary Status: Chronic Qualifiers: Chronic kidney disease stage: stage 3 (moderate) Qualified Code(s): N18.3 - Chronic kidney disease, stage 3 (moderate) (6) COPD (chronic obstructive pulmonary disease) Priority: Secondary Status: Chronic Qualifiers: COPD type: unspecified COPD Qualified Code(s): J44.9 - Chronic obstructive pulmonary disease, unspecified (7) Diabetes Priority: Secondary Status: Chronic Qualifiers: Diabetes mellitus type: type 2 Diabetes mellitus complication status: with kidney complications Diabetes mellitus complication detail: with chronic kidney disease Diabetes mellitus fci insulin use: without 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 Chronic kidney disease stage: stage 3 (moderate) Qualified Code(s): E11.22 - Type 2 diabetes mellitus with diabetic chronic kidney disease; N18.3 - Chronic kidney disease, stage 3 (moderate); N18.3 - Chronic kidney disease, stage 3 (moderate) (8) Weakness Priority: Secondary Status: Chronic (9) DVT prophylaxis Priority: Secondary Status: Acute - Discharge Medications Home Medications: Acetaminophen [Non-Aspirin] 650 mg PO Q6H PRN 04/24/17 [History] Atorvastatin [Lipitor] 40 mg PO HS 04/24/17 [History] Citalopram Hydrobromide [Citalopram HBr] 10 mg PO DAILY 04/24/17 [History] Ergocalciferol (VITAMIN D2) [Vitamin D2] 50,000 unit PO QWEEK 04/24/17 [History] Insulin ASPART [Novolog Flexpen] 2 - 6 unit SQ ACHS 04/24/17 [History] Insulin Glargine [Lantus] 20 unit SQ HS 04/24/17 [History] LORazepam [Ativan] 0.5 mg PO Q6H PRN 04/24/17 [History] Magic Mouthwash [Magic Mouthwash BLM] 10 ml PO Q2H PRN 04/24/17 [History] Magnesium Hydroxide [Milk of Magnesia] 30 ml PO DAILY PRN 04/24/17 [History] Omeprazole [PriLOSEC] 20 mg PO DAILY 04/24/17 [History] Sennosides/Docusate Sodium [Senna-S Tablet] 1 tab PO BID 04/24/17 [History] Spironolactone [Aldactone] 12.5 mg PO DAILY 04/24/17 [History] Tramadol HCl [Ultram] 50 mg PO Q8H PRN 04/24/17 [History] Warfarin [Coumadin] 6 mg PO QPM 04/24/17 [History] Benzonatate [Tessalon] 200 mg PO TID PRN capsule 05/01/17 [Rx] Diltiazem SR (12hr) [Cardizem SR] 120 mg PO BID cap.er.12h 05/01/17 [Rx] Furosemide [Lasix] 40 mg PO DAILY 05/28/17 [History] Potassium Chloride [Klor-Con Sprinkle] 10 meq PO DAILY 05/28/17 [History] Ascorbate Calcium [Vitamin C] 500 mg PO DAILY 06/29/17 [History] Ferrous Sulfate [Iron] 325 mg PO DAILY 06/29/17 [History] Multivitamin,Stress Formula/Zn [Stress B with Zinc Tablet] 1 each PO DAILY 06/29 [History] Tiotropium [Spiriva] 18 mcg IH 0700 06/29/17 [History] Ipratropium/Albuterol Neb [Duoneb] 3 ml IH Q4HR PRN 07/02/17 [History] Metoprolol XL (24 HR) Succ [Toprol Xl] 12.5 mg PO BID 07/02/17 [History] predniSONE [Prednisone] 7.5 mg PO DAILY 07/02/17 [History] Ertapenem [INVanz] 1,000 mg IVPB DAILY #5 vial 07/05/17 [Rx] Allergies/Adverse Reactions: 3 Allergy/AdvReac Type Severity Reaction Status Date / Time Penicillins [PCN] Allergy Intermediate Hives Verified 05/28/17 15:14 Sulfa (Sulfonamide Allergy Intermediate Hives Verified 05/28/17 15:14 Antibiotics) Procedures/tests Complete & Pending: Procedures Performed prior 72 hours Category Date Time Status ECG 12 lead ECG [ECG] Routine Y 07/03/17 07:31 Completed EV limited echocardiogram Routine Y 07/03/17 13:29 Completed Date of admission: 07/02/17 16:12 Primary care physician: Huyen Tijerina Consults: 07/02/17 16:17 Consult to Physical Therapy [CONS] Routine Comment: Evaluate, develop and implement POC Reason for Consult: debility 07/02/17 16:18 Consult to Occupational Therapy [CONS] Routine Comment: Evaluate, develop and implement POC Reason for Consult: debility 07/02/17 17:28 Consult to Cardiology [CONS] Routine Comment: Consulting Provider: Cardiology Anna Reason for Consult: elevated troponin Time Notified: 17:28 Call Completed: Yes 07/03/17 11:41 Consult to Horticulturalist [CONS] Routine Reason for SW Consult: discharge planning Discharging clinician: Ashkan Dooley Anticipated date of discharge: 07/05/17 - Patient Status Disposition: Transfer LTC Condition: Good Functional capacity at discharge: bed bound (plus ambulate with assistance to chair) Overall status at discharge: patient is progressing back to baseline - Discharge Instructions Instructions: Community-acquired Pneumonia (DC) Follow Up With: Huyen Tijerina MD [Primary Care Provider] - Additional Instructions: Continue taking Ertapenem for 6 days via PICC med line - Diet and Activity Activity: ambulate only with your walker, as per physical therapy, increase activity as tolerated, other (oxygen 2L as needed) Diet: advance to your usual diet, low salt diet Hospital course: Ms. Preston is a very pleasant 77 year old female with a past medical history of aortic aneurysm with iliac by aortic stent placement, atrial fibrillation on Coumadin, congestive heart failure with EF of 40%, COPD oxygen dependent on 2 L nasal cannula, coronary artery disease, adenocarcinoma of the lung (underwent chemotherapy and radiation treatment which completed on 11/13/2016), diabetes, GERD, hypertension, and hyperlipidemia who presented to the [facility] with a chief complaint of shortness of breath. The patient resides in [facility] at [facility] and has been experiencing increasing shortness of breath, as well as a productive cough with yellow sputum production for approximately one week. No fevers or chest pain, no unusual weight loss or weight gain she is not able to participate in her therapy due to shortness of breath. [facility]. According to the records, patient did have elevated white count but she is on steroids, however more elevated than normal. Chest x-ray did show greater consolidation on left lower lobe and given IV lasix. She had elevated troponin and WBC as well. Blood cultures have been obtained. Patient was subsequently admitted on 07/02/17 to [facility] for further evaluation. She was started on antibiotics with Vancomycin and Meropenem. Patient responded well to therapy over the course of 3 days. Cardiology was consulted with h/o of CHF, afib and mild bump in trop. No EKG changes and trop trended down. Cardiology repeated ECHO and showed EF 35-40% with mild dilation of LV and global systolic LV dysfunction. Cardiology signed off and recommended further outpatient workup if symptoms arise. Vitals remained stable. WBC dropped to 10.3. Cr increased and Abc switched vancomycin to zyvox with improvement. PICC med line placed and she will take Ertapenem for 6 days. Patient was discharged from [facility] to [facility] in stable condition. - Time Spent with Patient Total time spent providing and/or coordinating discharge services: - Constitutional Vitals: Temp Pulse Resp BP Pulse Ox 97.8 F 84 16 124/58 95 07/05/17 08:48 07/05/17 08:48 07/05/17 08:48 07/05/17 08:48 07/05/17 09:22 General appearance: Present: cooperative, A&O X 3, no acute distress, answers questions appropriately - Head Head exam: Present: atraumatic, normocephalic - Eye Eye exam: Present: EOMI, normal appearance - ENT ENT exam: Present: mucous membranes moist - Neck Neck exam general surgery: Present: supple, trachea midline - Respiratory Respiratory exam: Present: decreased breath sounds (right lower lobe), CTAB. Absent: respiratory distress - Cardiovascular Cardiovascular exam: Present: irregular rhythm - GI/Abdominal GI/Abdominal exam: Present: normal bowel sounds, soft. Absent: tenderness - Extremities Exam Extremities exam: Present: normal inspection, warm. Absent: calf tenderness, pedal edema - Neurological Exam Neurological exam: Present: alert, oriented X3, no focal deficits - Psychiatric Psychiatric exam: Present: normal affect, normal mood - Skin Skin exam: Present: dry, warm
[2017-07-05] MEDS: *HR* LORazepam 0.5 MG TABLET PO PRN (14:10)
[2017-07-05] MEDS ORDERED: *HR* Warfarin 3 MG TABLET PO ONE (18:00)
== END 2017-07-05 14:41 | DRG 871 ==
LOC: 3NENU → SUATTDRO 16:12
PROVIDERS: ADMIT Internal Medicine; ATTEND Internal Medicine